=== PATIENT | female | born 1955 | race Caucasian/White ===

== ENCOUNTER 2020-04-22 14:20 | Outpatient (REF) | payer MEDICARE, MEDICAID, SELFPAY | END 2020-04-22 14:21 | disposition home or self-care (01) | LOC: HO.LAB 14:20 | PROVIDERS: PCP Internal Medicine; Visit Provider Internal Medicine | DX: Z20.828 Contact with and (suspected) exposure to other viral communicable diseases (principal) | CPT/HCPCS: C9803; U0003 ==

== ENCOUNTER 2020-04-25 08:07 | Day surgery (SDC) | payer MEDICARE, MEDICAID, SELFPAY ==
[2020-04-18 15:16] VITALS: BMI 44.6
--- NOTE | 2020-04-23 13:50 | P.CONAN_ITS ---
Documented by User: Yceenia Reed 04/23/20 13:51 HPI - Anesthesia Eval Consult details Narrative: 65yo F for Colonoscopy PMFSH Past Medical History Medical History Back pain Diabetes Diabetic peripheral vascular disorder Hypercholesterolemia Hypertension Hypothyroidism Peripheral vascular disease Surgical History Surgical History H/O right knee surgery History of History of thyroid surgery Social History Social History Smoking Status: Unknown if ever smoked Advance Directives: No Advance Directives Information Provided: No Advance Directives on File: No Meds Allergies Allergy/AdvReac Type Severity Reaction Status Date / Time No Known Allergies Allergy Verified 04/18/20 15:10 Home Medications Medication Instructions Recorded Confirmed Type amlodipine-benazepril 1 cap PO DAILY 04/18/20 04/18/20 History aspirin 325 mg PO DAILY 04/18/20 04/18/20 History atorvastatin 20 mg PO DAILY 04/18/20 04/18/20 History cholecalciferol (vitamin D3) 125 mcg PO DAILY 04/18/20 04/18/20 History [Vitamin D3] ibuprofen 600 mg PO BID 04/18/20 04/18/20 History levothyroxine [Synthroid] 150 mcg PO DAILY 04/18/20 04/25/20 History metformin 1,000 mg PO BID 04/18/20 04/18/20 History metoprolol succinate 50 mg PO DAILY 04/18/20 04/25/20 History nabumetone 500 mg PO BID 04/18/20 04/18/20 History pentoxifylline 400 mg PO DAILY 04/18/20 04/18/20 History Exam Exam Date and Time: April 23, 2020 1350 Height,Weight and Vital Signs: Height 5 ft 1 in Weight 107.048 kg Pertinent Lab Results Pertinent Lab Results: Laboratory Tests 01/19/20 01/19/20 09:40 09:40 WBC 6.9 Hgb 13.4 Hct 41.7 Plt Count 241 Sodium 138 Potassium 4.8 Chloride 103 BUN 20 H Creatinine 0.93 Assessment and Plan Assessment Anesthesia Assessment: Chart Reviewed Documented by User: Betty Mckee 04/25/20 09:00 PENDING SALE TO [facility] Past Medical History Medical History Back pain Diabetes Diabetic peripheral vascular disorder Hypercholesterolemia Hypertension Hypothyroidism Peripheral vascular disease Surgical History Surgical History H/O right knee surgery History of History of thyroid surgery Social History Social History Smoking Status: Unknown if ever smoked Advance Directives: No Advance Directives Information Provided: No Advance Directives on File: No Meds Allergies Allergy/AdvReac Type Severity Reaction Status Date / Time No Known Allergies Allergy Verified 04/18/20 15:10 Home Medications Medication Instructions Recorded Confirmed Type amlodipine-benazepril 1 cap PO DAILY 04/18/20 04/18/20 History aspirin 325 mg PO DAILY 04/18/20 04/18/20 History atorvastatin 20 mg PO DAILY 04/18/20 04/18/20 History cholecalciferol (vitamin D3) 125 mcg PO DAILY 04/18/20 04/18/20 History [Vitamin D3] ibuprofen 600 mg PO BID 04/18/20 04/18/20 History levothyroxine [Synthroid] 150 mcg PO DAILY 04/18/20 04/25/20 History metformin 1,000 mg PO BID 04/18/20 04/18/20 History metoprolol succinate 50 mg PO DAILY 04/18/20 04/25/20 History nabumetone 500 mg PO BID 04/18/20 04/18/20 History pentoxifylline 400 mg PO DAILY 04/18/20 04/18/20 History Exam Airway Mallampati Class: I TM Dist: >3cm Neck ROM: Full Loose/Missing/Broken Teeth: No Heart: RRR Lungs: CTA Assessment and Plan Assessment Anesthesia Assessment: Anesthesia Plan Discussed and Chart Reviewed Final Anesthetic Review NPO: Yes ASA Class: III Final Preanesthetic Review: Meds/Allgs Chart Reviewed, Consent Obtained/Reviewed and Anes Risks/Benef Reviewed Patient Risk: Intermediate Procedure Risk: Low Anesthetic Plan Anesthetic Plan: MAC: Disposition: Standard PACU
[2020-04-25 08:37] LABS: Glucose, Whole Blood 125 mg/dL (60-115)
[2020-04-25 08:39] VITALS: BP 151/88; PULSE 95; RESP 18; TEMP 36.2; O2SAT 98
[2020-04-25] MEDS: Lactated Ringers 1,000 ML 100 ML IVCONT (08:46)
--- NOTE | 2020-04-25 09:13 | PC.NURSE ---
laying on left side. no s/sx of resp distress. abd soft. no rectal bleeding noted. lungs clear.
--- NOTE | 2020-04-25 09:18 | P.HPSUR_ITS ---
Pre-Procedural Eval Section B Chief Complaint: SCREENING Details of Present Illness: colon cancer screening Relevant Family History (Specify if Yes): No Relevant Social History: None Present Medications: see Short Stay Collaborative assessment Medical History: Significant History (Hypothyroid on replacement therapy, Morbid Obesity, Diabetes,\Hypertension, HLD) History of Previous Operations: Relevant previous surgery/procedure and date(s) (colonoscopy-[place]? 7 years ago; Csection x3) Allergies: Allergies Allergy/AdvReac Type Severity Reaction Status Date / Time No Known Allergies Allergy Verified 04/18/20 15:10 Review of Systems Sugical H&P ROS: Negative: Constitution, Cardiovascular, Respiratory and Gastrointestinal and Yes, Specify: Musculoskeletal (peripheral vascular disease with meds) and Endocrine (Diabetic ) Exam Surgical H&P Exam: Normal: HEENT, Normal: Heart and Normal: Lungs and Sig nificant Findings: Abdomen (soft nontender obese) Plan Diagnosis/Plan: Unchanged Patient has been examined and remains a candidate for the planned procedure--yes
[2020-04-25 10:06] VITALS: BP 125/82; PULSE 92; RESP 12; TEMP 36.2; O2SAT 97
--- NOTE | 2020-04-25 10:07 | PM.PROC ---
Brief Operative Note Date of procedure: 04/25/20 Pre-op diagnosis: Colon cancer screening Post-op diagnosis: other (No polyps, area white flecking in Right colon) Procedure: Colonoscopy with bx Anesthesia: MAC (louann Kumar) Surgeon: Chelle Savage Estimated blood loss (mL): 10 Pathology: other (Right colon bx area of pinpt white exudate-bx) Condition: stable Disposition: PACU
--- NOTE | 2020-04-25 10:15 | PC.NURSE ---
lu po challenge. apple juice. hob 90 degrees. called for ride.
[2020-04-25 10:16] VITALS: BP 139/120; PULSE 85; RESP 16; O2SAT 98
--- NOTE | 2020-04-25 10:23 | PC.NURSE ---
iv removed. sitting in chair dressing self. lu po challenge. denies pain or nausea.
--- NOTE | 2020-04-25 10:37 | HO.POSTANES ---
Post Anesthesia Evaluation Post Anesthesia Evaluation Vital Signs: Vital Signs Temp Pulse Resp BP Pulse Ox 04/25/20 10:16 85 16 139/120 H 98 04/25/20 10:06 97.1 F 92 12 125/82 97 04/25/20 08:39 97.1 F 95 18 151/88 H 98 Anesthesia: Monitored Mental Status: Awake Pain Control: Satisfactory Nausea/Vomiting: None Hydration: Adequate Anesthesia-Related Issues: No Anes. Related Issues
--- NOTE | 2020-04-25 11:24 | OP_ITS ---
SURGEON: Chelle Savage MD POSTOPERATIVE DIAGNOSIS: Negative exam (area of white plaquing in the right colon for approximately 5 cm, question significant). PROCEDURE PERFORMED: Colonoscopy with biopsy. ESTIMATED BLOOD LOSS: Less than 10 mL. COMPLICATIONS: No complication. ANESTHESIA: Monitored. ANESTHESIOLOGIST: ARNIE Kumar ASSISTANTS: No assistant men's soccer coach. SPECIMENS: Specimen removed; biopsies, right colon area with white plaquing. PREOPERATIVE DIAGNOSES: Colon cancer screening. ENGINEERING MATHEMATICIAN: Dr. Savage. CONDITION: Postop, stable. FINDINGS: Digital rectal exam revealed no specific lesion. Video colonoscope was introduced without difficulty. It was navigated into the rectosigmoid, sigmoid area, mild redundancy in this area. Scope advanced through sigmoid, descending, transverse colon. Gentle extrinsic abdominal pressure facilitated movement into the region of the cecum. Appendiceal orifice was seen. Ileocecal valve was seen. Slow withdrawal of the scope in the ascending colon on the right side for a distance of approximately 5 cm. There were pinpoint areas of pinpoint white plaques.. No additional areas were noted. There were no polyps visualized. Overall prep was good. PLAN AND CURRENT RECOMMENDATIONS: Repeat asymptomatic screening in this patient will continue at 7 years. GRAFT OR IMPLANTS: No grafts or implants. Chelle Savage MD MEN/MODL / [id number] MTDD
== END 2020-04-25 10:53 | disposition home or self-care (01) ==
PROVIDERS: PCP Internal Medicine; Visit Provider Internal Medicine Gastroenterology
PROC: 0DJD8ZZ Inspection of Lower Intestinal Tract, Via Natural or Artificial Opening Endoscopic (ICD-10-PCS; CPT 45378; principal; 2020-04-25 09:30)
DX: Z12.11 Encounter for screening for malignant neoplasm of colon (principal); K52.9 Noninfective gastroenteritis and colitis, unspecified; I10 Essential (primary) hypertension; E03.9 Hypothyroidism, unspecified; E11.51 Type 2 diabetes mellitus with diabetic peripheral angiopathy without gangrene; Z79.84 Long term (current) use of oral hypoglycemic drugs; Z79.899 Other long term (current) drug therapy; Z79.82 Long term (current) use of aspirin
CPT/HCPCS: 45380; 82947; 88305

== ENCOUNTER → 2020-05-23 13:42 | Outpatient (BNVA) | payer MEDICARE, MEDICAID, SELFPAY | PROVIDERS: PCP Internal Medicine; Referring Provider Internal Medicine; Visit Provider Nurse Practitioner | DX: Z12.11 Encounter for screening for malignant neoplasm of colon (principal) | CPT/HCPCS: Q3014 ==

== ENCOUNTER 2020-06-17 08:44 | Outpatient (REF) | payer MEDICARE, MEDICAID, SELFPAY | END 2020-06-17 08:45 | disposition home or self-care (01) | LOC: HO.LAB 08:44 | PROVIDERS: PCP Internal Medicine; Visit Provider Internal Medicine | DX: Z20.822 Contact with and (suspected) exposure to COVID-19 (principal) | CPT/HCPCS: 36415; C9803; U0003 ==

== ENCOUNTER 2020-06-28 12:39 | Outpatient (REF) | payer MEDICARE, MEDICAID, SELFPAY | END 2020-06-28 12:40 | disposition home or self-care (01) | LOC: HO.LAB 12:39 | PROVIDERS: Visit Provider Internal Medicine | DX: Z20.822 Contact with and (suspected) exposure to COVID-19 (principal) | CPT/HCPCS: 36415; C9803; U0003 ==

== ENCOUNTER 2020-07-06 11:03 | Outpatient (REF) | payer MEDICARE, MEDICAID, SELFPAY | END 2020-07-06 11:04 | disposition home or self-care (01) | LOC: HO.LAB 11:03 | PROVIDERS: Visit Provider Internal Medicine | DX: Z20.822 Contact with and (suspected) exposure to COVID-19 (principal) | CPT/HCPCS: 36415; C9803; U0003 ==

== ENCOUNTER 2020-08-12 15:45 | Outpatient (REF) | payer MEDICARE, MEDICAID, SELFPAY ==
--- NOTE | ~2020-08-12 | XR_ITS ---
EXAMINATION: XR CHEST CLINICAL INFORMATION: Cough COMPARISON: None TECHNIQUE: 2 views of the chest were obtained. FINDINGS: The cardiac and mediastinal contours are normal. The lungs are clear. There is no pleural effusion or pneumothorax. There are degenerative changes of the spine. XR/XR chest 2V IMPRESSION: No evidence for acute disease in the chest.
== END 2020-08-12 15:46 | disposition home or self-care (01) ==
LOC: HO.XRAY 15:45
PROVIDERS: Visit Provider Internal Medicine
DX: R05 Cough (principal)
CPT/HCPCS: 71046

== ENCOUNTER → 2020-10-24 13:41 | Outpatient (BNVA) | payer MEDICARE, MEDICAID, SELFPAY | PROVIDERS: PCP Internal Medicine; Visit Provider Nurse Practitioner Gerontology | DX: E11.9 Type 2 diabetes mellitus without complications (principal); E78.00 Pure hypercholesterolemia, unspecified; I10 Essential (primary) hypertension; E66.01 Morbid (severe) obesity due to excess calories; Z68.41 Body mass index [BMI] 40.0-44.9, adult | CPT/HCPCS: 82947; 99212 ==

== ENCOUNTER 2020-10-25 09:58 | Outpatient (REF) | payer MEDICARE, MEDICAID, SELFPAY ==
[2020-10-25 10:36] LABS: MANUAL DIFF FLAG NO
[2020-10-25 10:45] LABS: Basophils Percent Auto 0.5 % (0-2); Eosinophils Absolute Auto 0.2 X10*3/uL (0.0-0.4); Eosinophils Percent Auto 2.2 % (0-4); Hematocrit 41.6 % (37-47); Hemoglobin 13.6 g/dl (12.0-16.0); Imm Gran Abs Auto 0.02 X10*3/uL (0.00-0.03); Imm Gran Pct Auto 0.3 % (0.0-0.4); Lymphocytes Absolute Auto 2.8 X10*3/uL (1.2-4.9); Mean Corpuscular HGB Conc 32.7 g/dl (31.0-35.0); Mean Corpuscular Hemoglobin 30.6 pg (27.0-33.0); Mean Corpuscular Volume 93.5 fL (80-98); Mean Platelet Volume 9.3 fL (9.4-12.3); Monocytes Absolute Auto 0.6 X10*3/uL (0.1-1.2); Monocytes Percent Auto 7.7 % (2-11); Neutrophils Absolute Auto 3.7 X10*3/uL (2.0-8.3); Neutrophils Percent Auto 51.3 % (45-73); Platelet Count 276 X10*3/uL (160-400); Red Blood Count 4.45 X10*6/uL (4.20-5.50); Red Cell Distribution Width 13.6 % (11.0-16.0); White Blood Count 7.3 X10*3/uL (4.8-10.8)
[2020-10-25 10:52] LABS: Estimated Average Glucose 128 mg/dL; Hemoglobin A1C 149.1554 umol/L; Hemoglobin A1c % 6.1 %
[2020-10-25 11:14] LABS: Alanine Aminotransferase 24 U/L (0-31); Albumin Level 3.9 g/dL (3.5-5.0); Alkaline Phosphatase 77 U/L (39-117); Aspartate Amino Transferase 17 U/L (5-31); Bilirubin Total 0.7 mg/dL (0.0-1.0); Blood Urea Nitrogen 20 mg/dL (9-16); Cholesterol 154 mg/dL; Estimated Glomerular Filt Rate > 60; Glucose Fasting 125 mg/dL (60-99); HDL Cholesterol 61 mg/dL; LDL Cholesterol Calculated 78 mg/dl; Total Protein 7.1 g/dL (6.5-8.0); Triglycerides 76 mg/dL
[2020-10-25 11:33] LABS: Anion Gap 13 (12-20); Calcium 10.5 mg/dL (8.4-10.2); Carbon Dioxide 28 mmol/L (22-29); Chloride 103 mmol/L (96-108); Potassium 5.3 mmol/L (3.3-5.1); Sodium 139 mmol/L (135-145)
[2020-10-25 12:21] LABS: Creatinine Urine 212.79 mg/dL
== END 2020-10-25 09:59 | disposition home or self-care (01) ==
LOC: HO.LAB 09:58
PROVIDERS: Nurse Practitioner Family; PCP Internal Medicine; Visit Provider Nurse Practitioner Gerontology
DX: B94.8 Sequelae of other specified infectious and parasitic diseases (principal); E11.9 Type 2 diabetes mellitus without complications
CPT/HCPCS: 36415; 80053; 80061; 82043; 83036; 85025

== ENCOUNTER 2020-10-29 10:33 | Outpatient (REF) | payer MEDICARE, MEDICAID, SELFPAY ==
[2020-10-29 12:03] LABS: Alanine Aminotransferase 23 U/L (0-31); Albumin Level 3.9 g/dL (3.5-5.0); Alkaline Phosphatase 68 U/L (39-117); Anion Gap 11 (12-20); Aspartate Amino Transferase 15 U/L (5-31); Bilirubin Total 0.7 mg/dL (0.0-1.0); Blood Urea Nitrogen 23 mg/dL (9-16); Calcium 10.3 mg/dL (8.4-10.2); Carbon Dioxide 29 mmol/L (22-29); Chloride 106 mmol/L (96-108); Cholesterol 157 mg/dL; Estimated Glomerular Filt Rate > 60; Glucose Fasting 122 mg/dL (60-99); HDL Cholesterol 60 mg/dL; LDL Cholesterol Calculated 83 mg/dl; Phosphorus 3.1 mg/dL (2.7-4.5); Potassium 5.4 mmol/L (3.3-5.1); Sodium 141 mmol/L (135-145); Total Protein 6.9 g/dL (6.5-8.0); Triglycerides 72 mg/dL
[2020-10-30 12:57] LABS: PTHI 64 pg/mL (14-64)
[2020-10-31 11:32] LABS: Calcium, Ionized 5.5 mg/dL (4.8-5.6)
[2020-11-06 20:46] LABS: Vitamin D 25-OH, D2 <4 ng/mL; Vitamin D 25-OH, D3 74 ng/mL; Vitamin D 25-OH, Total 74 ng/mL (30-100)
[2020-11-07 03:16] LABS: VITAMIN D (1,25 OH) D3 32 pg/mL; Vit D (1,25-Dihydroxy) Total 32 pg/mL (18-72); Vitamin D (1,25 OH) D2 <8 pg/mL
== END 2020-10-29 10:34 | disposition home or self-care (01) ==
LOC: HO.LAB 10:33
PROVIDERS: Absent Provider Nurse Practitioner Family; PCP Internal Medicine; Visit Provider Nurse Practitioner Gerontology
DX: E83.52 Hypercalcemia (principal); B94.8 Sequelae of other specified infectious and parasitic diseases; E78.00 Pure hypercholesterolemia, unspecified
CPT/HCPCS: 36415; 80053; 80061; 82306; 82330; 82652; 83735; 83970; 84100

== ENCOUNTER 2020-10-31 10:43 | Outpatient (REF) | payer MEDICARE, MEDICAID, SELFPAY ==
[2020-10-31 11:03] LABS: Total Volume 24 Hour Urine 2000 mL
[2020-10-31 11:56] LABS: Creatinine, 24Hr Urine 1.5 G/Day (1.0-2.0)
[2020-11-01 20:42] LABS: Calcium, 24 Hr Urine 260 mg/24 h; Calcium/Creatinine Ratio 181 mg/g creat (30-275); Creatinine 24Hr Urine 1.44 g/24 h (0.50-2.15)
== END 2020-10-31 10:44 | disposition home or self-care (01) ==
LOC: HO.LNP 10:43
PROVIDERS: Visit Provider Nurse Practitioner Gerontology
DX: E83.52 Hypercalcemia (principal)
CPT/HCPCS: 82340; 82570

== ENCOUNTER → 2020-11-15 11:34 | Outpatient (BNVA) | payer MEDICARE, MEDICAID, SELFPAY | PROVIDERS: PCP Internal Medicine; Visit Provider Dietitian, Registered | DX: E11.9 Type 2 diabetes mellitus without complications (principal) | CPT/HCPCS: 97802 ==

== ENCOUNTER 2020-11-25 09:37 | Outpatient (REF) | payer MEDICARE, MEDICAID, SELFPAY ==
[2020-11-25 11:06] LABS: Alanine Aminotransferase 22 U/L (0-31); Alkaline Phosphatase 70 U/L (39-117); Anion Gap 12 (12-20); Aspartate Amino Transferase 21 U/L (5-31); Bilirubin Total 0.8 mg/dL (0.0-1.0); Blood Urea Nitrogen 26 mg/dL (9-16); Calcium 10.3 mg/dL (8.4-10.2); Carbon Dioxide 26 mmol/L (22-29); Chloride 108 mmol/L (96-108); Estimated Glomerular Filt Rate > 60; Glucose Random 114 mg/dL (60-115); Potassium 5.1 mmol/L (3.3-5.1); Sodium 141 mmol/L (135-145)
== END 2020-11-25 09:38 | disposition home or self-care (01) ==
LOC: HO.LAB 09:37
PROVIDERS: PCP Internal Medicine; Visit Provider Nurse Practitioner Gerontology
DX: E11.9 Type 2 diabetes mellitus without complications (principal)
CPT/HCPCS: 36415; 80053

== ENCOUNTER → 2020-11-27 07:24 | Outpatient (BNVA) | payer MEDICARE, MEDICAID, SELFPAY | PROVIDERS: PCP Internal Medicine; Visit Provider Nurse Practitioner Gerontology | DX: E11.9 Type 2 diabetes mellitus without complications (principal); E78.00 Pure hypercholesterolemia, unspecified; I10 Essential (primary) hypertension; E66.01 Morbid (severe) obesity due to excess calories; E87.5 Hyperkalemia; E83.52 Hypercalcemia; E55.9 Vitamin D deficiency, unspecified; Z68.41 Body mass index [BMI] 40.0-44.9, adult | CPT/HCPCS: 82947; 99212 ==

== ENCOUNTER 2020-12-05 08:14 | Outpatient (REF) | payer MEDICARE, MEDICAID, SELFPAY ==
--- NOTE | ~2020-12-05 | XR_ITS ---
EXAMINATION: RIGHT KNEE AND RIGHT FOOT X-RAY CLINICAL INFORMATION: Pain COMPARISON: Previous right knee x-ray November 2019 TECHNIQUE: 4 views of the right knee 3 views of the right foot FINDINGS: Right knee: Bone alignment is normal. No fracture or dislocation is seen. There is arthritis at the femoral tibial and patellofemoral joints with joint space narrowing and osteophyte formation. There is a small joint effusion. Right foot: Bone alignment is normal. No fracture or dislocation is seen. There is mild arthritis at the talonavicular joint. The joint spaces are otherwise normal. There are calcaneal spurs. XR/XR foot RT 2V IMPRESSION: Right knee: Arthritis and small joint effusion. Right foot: Mild arthritis at the talonavicular joint and calcaneal spurs.
--- NOTE | ~2020-12-05 | XR_ITS ---
EXAMINATION: RIGHT KNEE AND RIGHT FOOT X-RAY CLINICAL INFORMATION: Pain COMPARISON: Previous right knee x-ray November 2019 TECHNIQUE: 4 views of the right knee 3 views of the right foot FINDINGS: Right knee: Bone alignment is normal. No fracture or dislocation is seen. There is arthritis at the femoral tibial and patellofemoral joints with joint space narrowing and osteophyte formation. There is a small joint effusion. Right foot: Bone alignment is normal. No fracture or dislocation is seen. There is mild arthritis at the talonavicular joint. The joint spaces are otherwise normal. There are calcaneal spurs. XR/XR knee RT 3V IMPRESSION: Right knee: Arthritis and small joint effusion. Right foot: Mild arthritis at the talonavicular joint and calcaneal spurs.
== END 2020-12-05 08:15 | disposition home or self-care (01) ==
LOC: HO.XRAY 08:14
PROVIDERS: PCP Internal Medicine; Visit Provider Internal Medicine
DX: M79.671 Pain in right foot (principal); M25.561 Pain in right knee
CPT/HCPCS: 73562; 73620

== ENCOUNTER → 2020-12-10 10:23 | Outpatient (BNVA) | payer MEDICARE, MEDICAID, SELFPAY | PROVIDERS: PCP Internal Medicine; Visit Provider Orthopaedic Surgery | DX: M17.11 Unilateral primary osteoarthritis, right knee (principal) | CPT/HCPCS: 99212 ==

== ENCOUNTER → 2020-12-27 11:33 | Outpatient (BNVA) | payer MEDICARE, MEDICAID, SELFPAY | PROVIDERS: PCP Internal Medicine; Visit Provider Dietitian, Registered | DX: E11.9 Type 2 diabetes mellitus without complications (principal) | CPT/HCPCS: 97803 ==

== ENCOUNTER 2021-01-02 20:25 | Emergency (ER) | payer MEDICARE, MEDICAID, SELFPAY ==
--- NOTE | ~2021-01-02 | XR_ITS ---
Examination: XR ankle LT min 3V, XR knee LT 3V Indication: fall Comparison: No pertinent prior studies are currently available for comparison. Technique: 4 plain film views of the left knee and 3 plain film views of the left ankle Findings: Left knee: Small joint effusion. Tricompartmental degenerative changes are seen with prominent osteophyte formation and chondrocalcinosis. Well-corticated ossifications along the quadriceps and patellar tendon again likely chronic in nature. I do not appreciate any acute fracture or dislocation. No bony destructive lesions or periosteal reaction. Left ankle: Diffuse soft tissue swelling about the ankle. Underlying bony structures however appear to be intact. I do not appreciate any acute fracture or dislocation. Ankle mortise appears intact. Prominent calcaneal heel spurs at the attachment point of the plantar aponeurosis and Achilles tendon XR/XR ankle LT min 3V Impression: Chronic appearing and degenerative changes but no acute fracture or dislocation. Diffuse soft tissue swelling about the ankle.
--- NOTE | ~2021-01-02 | XR_ITS ---
Examination: XR ankle LT min 3V, XR knee LT 3V Indication: fall Comparison: No pertinent prior studies are currently available for comparison. Technique: 4 plain film views of the left knee and 3 plain film views of the left ankle Findings: Left knee: Small joint effusion. Tricompartmental degenerative changes are seen with prominent osteophyte formation and chondrocalcinosis. Well-corticated ossifications along the quadriceps and patellar tendon again likely chronic in nature. I do not appreciate any acute fracture or dislocation. No bony destructive lesions or periosteal reaction. Left ankle: Diffuse soft tissue swelling about the ankle. Underlying bony structures however appear to be intact. I do not appreciate any acute fracture or dislocation. Ankle mortise appears intact. Prominent calcaneal heel spurs at the attachment point of the plantar aponeurosis and Achilles tendon XR/XR knee LT 3V Impression: Chronic appearing and degenerative changes but no acute fracture or dislocation. Diffuse soft tissue swelling about the ankle.
--- NOTE | 2021-01-02 20:36 | PC.NURSE ---
awaiting export sales manager services to triage
[2021-01-02 20:45] VITALS: BP 180/91; PULSE 90; RESP 18; TEMP 36.7; O2SAT 99; BMI 36.6
--- NOTE | 2021-01-02 22:38 | ED_ITS ---
HPI - Extremity Injury (Lower) General Chief Complaint: Extremity Injury, Lower Stated Complaint: knee inj Source: patient Mode of arrival: ambulatory Limitations: no limitations History of Present Illness HPI Narrative: 65-year-old female presents with injury sustained from a near fall. Stated that she hurt her left knee and ankle when she tripped. She did not hit her head, lose consciousness, or report any prodromal events. MD complaint: knee injury and ankle injury Onset (ago): hour(s) (2 hours prior to arrival) Place: home Severity: mild Severity scale (1-10): 3 Exacerbating factors: weight bearing, movement and palpation Context: fall Other symptoms: none Treatments prior to arrival: NSAIDS Related Data Home Medications Medication Instructions Recorded Confirmed ibuprofen 600 mg PO BID 04/18/20 12/05/20 nabumetone 500 mg PO BID 04/18/20 12/05/20 metoprolol succinate 50 mg 50 mg PO DAILY 11/27/20 12/05/20 tablet,extended release 24 hr Previous Rx's Medication Instructions Recorded blood sugar diagnostic #200 ea 04/25/20 albuterol sulfate 90 mcg/actuation 1 inh INHALATION QID PRN #8.5 g 07/20/20 aerosol inhaler aspirin 325 mg tablet 325 mg PO DAILY #90 tab 07/20/20 atorvastatin 20 mg tablet 20 mg PO DAILY #90 tab 07/20/20 bisacodyl 5 mg tablet,delayed 10 mg PO DAILY #30 tab 07/20/20 release lancets #100 ea 07/20/20 levothyroxine 150 mcg tablet 150 mcg PO DAILY #90 tab 07/20/20 metformin 1,000 mg tablet 1,000 mg PO BID #180 tab 07/20/20 pentoxifylline 400 mg 400 mg PO DAILY #90 tab 07/20/20 tablet,extended release fluticasone propionate 110 1 puff INHALATION BID #12 g 08/13/20 mcg/actuation HFA aerosol inhaler amlodipine 10 mg tablet 10 mg PO DAILY #90 tab 11/27/20 benazepril 10 mg tablet 10 mg PO DAILY #90 tab 11/27/20 cholecalciferol (vitamin D3) 25 25 mcg PO DAILY #90 cap 11/27/20 mcg (1,000 unit) capsule Allergies Allergy/AdvReac Type Severity Reaction Status Date / Time No Known Allergies Allergy Verified 01/02/21 20:44 Review of Systems Review of Systems: Constitutional: No Fever, No Chills ENT/Mouth: No Ear Pain, No Hoarseness, No sore throat Eyes: No Eye Pain, No Swelling, No Redness, No Foreign Body Cardiovascular: No Chest Pain, No SOB Respiratory: No Cough, No Dyspnea Gastrointestinal: No Nausea, No Vomiting, No Diarrhea, No abdominal Pain Genitourinary: No Dysuria, No Hematuria Musculoskeletal: positive left knee and ankle pain, No Myalgias, No Joint Swelling Skin: No Skin lacerations, No rash Neuro: No Weakness, No Numbness, No Paresthesias, No Loss of Consciousness, No Dizziness, No Headache Psych: No Anxiety/Panic, No Depression Heme/Lymph: no easy bruising, no Lymphadenopathy Endocrine: No Polyuria, No Polydipsia Yes all other systems are reviewed and are negative [facility] Past Medical History Attestation statement: The following information was validated with the patient. 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 Social History Social History Household Members: Spouse Housing: Apartment Alcohol intake: never Patient Tobacco Use Status: Never used Tobacco Tobacco use type: Cigarette Second Hand Smoke Exposure: No Advance Directives: No Advance Directives Information Provided: Yes Patient : No Current occupational status: unemployed Physical Exam Vital Signs: Vital Signs: Last Vital Signs Temp 98.1 F 01/02/21 20:45 Pulse 90 01/02/21 20:45 Resp 18 01/02/21 20:45 BP 180/91 H 01/02/21 20:45 Pulse Ox 99 01/02/21 20:45 Body Mass Index 36.6 Appearance: Alert. Oriented X3. No acute distress. Eyes: Pupils equal, round and reactive to light. ENT: Pharynx normal. Neck: Normal inspection. Neck supple. CVS: Normal heart rate and rhythm. Pulses normal. Respiratory: No respiratory distress. Breath sounds normal. Abdomen: Soft and nontender. Skin: Skin warm and dry. Normal skin color. Normal skin turgor. Extremities: No lower extremity edema. Full range of motion to bilateral lower extremities, equal pedal pulses, negative anterior posterior drawer, no appreciable swelling Neuro: No motor deficit. No sensory deficit. Course Course Course Narrative: 65-year-old female presents with injury sustained from a near mechanical fall to the left ankle and knee. Patient has known osteoarthritis, will order x-rays of the left knee and ankle. Patient is afebrile, nontoxic, no indication of prodromal events prior to her near fall. X-rays are negative for acute findings requiring emergent intervention. Known osteoarthritis re-demonstrated. Will have patient follow up with pain ma nagement. Patient verbalized understanding of and agrees to plan of care discharge home. biofuels product manager utilized for all correspondence, Google translate utilized for discharge instructions. MDM - Extremity Injury (Lower) Differential Diagnosis Differential diagnosis: Likely ankle sprain and strain, acute internal derangement of knee and ankle fracture Medical Records Attestation: I reviewed the patient's medical records. Imaging Data Knee and ankle x-ray: Attestation: I personally reviewed and interpreted this imaging study as follows: Radiologist's impression: Examination: XR ankle LT min 3V, XR knee LT 3V Indication: fall Comparison: No pertinent prior studies are currently available for comparison. Technique: 4 plain film views of the left knee and 3 plain film views of the left ankle Findings: Left knee: Small joint effusion. Tricompartmental degenerative changes are seen with prominent osteophyte formation and chondrocalcinosis. Well-corticated ossifications along the quadriceps and patellar tendon again likely chronic in nature. I do not appreciate any acute fracture or dislocation. No bony destructive lesions or periosteal reaction. Left ankle: Diffuse soft tissue swelling about the ankle. Underlying bony structures however appear to be intact. I do not appreciate any acute fracture or dislocation. Ankle mortise appears intact. Prominent calcaneal heel spurs at the attachment point of the plantar aponeurosis and Achilles tendon XR/XR ankle LT min 3V Impression: Chronic appearing and degenerative changes but no acute fracture or dislocation. Diffuse soft tissue swelling about the ankle. Discharge Plan Discharge Clinical Impression: Arthritis Patient Disposition: Home, Self-Care Instructions: Arthritis (ED) Additional Instructions: You were evaluated for injury sustained from a fall. X-rays are negative for acute fractures or findings requiring emergent intervention. You do have degenerative changes consistent with arthritis. Please follow up with interventional pain physician, Dr. Donis. Please take Tylenol as needed for pain management. Thank you for choosing this emergency department for evaluation. Please follow-up with primary care physician as needed. Return to the emergency department for any new, concerning, or worsening symptoms. Prescriptions: No Action (DME) Accu-Chek Fatoumata Plus test strp Strip See Rx Instructions .ROUTE .MEDSUPPLY Qty: 200 RF: 1 albuterol sulfate [Ventolin HFA] 90 mcg/actuation HFA aerosol inhaler 1 inh inhalation QID PRN (Reason: shortness of breath or wheezing) Qty: 8.5 RF: 1 aspirin 325 mg tablet 325 mg PO DAILY Qty: 90 RF: 1 atorvastatin 20 mg tablet 20 mg PO DAILY Qty: 90 RF: 1 metformin 1,000 mg tablet 1,000 mg PO BID Qty: 180 RF: 1 levothyroxine [Synthroid] 150 mcg tablet 150 mcg PO DAILY Qty: 90 RF: 1 pentoxifylline 400 mg tablet extended release 400 mg PO DAILY Qty: 90 RF: 1 bisacodyl 5 mg tablet,delayed release (DR/EC) 10 mg PO DAILY Qty: 30 RF: 0 (DME) lancets [Accu-Chek Softclix Lancets] Misc See Rx Instructions .ROUTE .MEDSUPPLY Qty: 100 RF: 0 Flovent HFA 110 mcg/actuation HFA aerosol inhaler 1 puff inhalation BID Qty: 12 RF: 1 ibuprofen 600 mg Tablet 600 mg PO BID RF: 0 nabumetone 500 mg Tablet 500 mg PO BID RF: 0 metoprolol succinate 50 mg tablet extended release 24 hr 50 mg PO DAILY RF: 0 cholecalciferol (vitamin D3) 25 mcg (1,000 unit) capsule 25 mcg PO DAILY Qty: 90 RF: 1 amlodipine 10 mg tablet 10 mg PO DAILY Qty: 90 RF: 1 benazepril 10 mg tablet 10 mg PO DAILY Qty: 90 RF: 1 Interventions: ED Discharge Assessment Last Done: 01/02/21 23:49 Discharge Date/Time: 01/02/21 23:51
[2021-01-02] MEDS: Acetaminophen 325 MG TABLET 975 MG PO (23:48)
== END 2021-01-02 23:51 | disposition home or self-care (01) ==
PROVIDERS: Emergency Provider Emergency Medicine; PCP Internal Medicine
DX: M17.12 Unilateral primary osteoarthritis, left knee (principal); M25.462 Effusion, left knee; M25.472 Effusion, left ankle; E11.9 Type 2 diabetes mellitus without complications; I10 Essential (primary) hypertension; E78.00 Pure hypercholesterolemia, unspecified; Z79.02 Long term (current) use of antithrombotics/antiplatelets; Z79.84 Long term (current) use of oral hypoglycemic drugs; Z79.899 Other long term (current) drug therapy; Z79.82 Long term (current) use of aspirin
CPT/HCPCS: 73562; 73610; 99283; 99284

== ENCOUNTER 2021-02-03 09:28 | Outpatient (REF) | payer MEDICARE, MEDICAID, SELFPAY ==
[2021-02-03 11:21] LABS: Alanine Aminotransferase 16 U/L (0-31); Alkaline Phosphatase 65 U/L (39-117); Anion Gap 14 (12-20); Aspartate Amino Transferase 16 U/L (5-31); Blood Urea Nitrogen 19 mg/dL (9-16); Calcium 10.4 mg/dL (8.4-10.2); Carbon Dioxide 25 mmol/L (22-29); Chloride 107 mmol/L (96-108); Cholesterol 121 mg/dL; Estimated Glomerular Filt Rate > 60; Glucose Fasting 117 mg/dL (60-99); HDL Cholesterol 47 mg/dL; LDL Cholesterol Calculated 61 mg/dl; Potassium 4.7 mmol/L (3.3-5.1); Sodium 141 mmol/L (135-145); Triglycerides 65 mg/dL
[2021-02-03 11:23] LABS: Creatinine Urine 99.78 mg/dL
[2021-02-03 11:43] LABS: Thyroid Stimulating Hormone 0.07 uIU/mL (0.32-4.0)
[2021-02-07 12:55] LABS: Vitamin D 25-OH, D2 <4 ng/mL; Vitamin D 25-OH, D3 41 ng/mL; Vitamin D 25-OH, Total 41 ng/mL (30-100)
== END 2021-02-03 09:29 | disposition home or self-care (01) ==
LOC: HO.LAB 09:28
PROVIDERS: PCP Internal Medicine; Visit Provider Internal Medicine
DX: E03.9 Hypothyroidism, unspecified (principal); E78.5 Hyperlipidemia, unspecified; E55.9 Vitamin D deficiency, unspecified; E11.9 Type 2 diabetes mellitus without complications
CPT/HCPCS: 36415; 80053; 80061; 82043; 82306; 84443

== ENCOUNTER → 2021-02-05 14:49 | Outpatient (BNVA) | payer MEDICARE, MEDICAID, SELFPAY | PROVIDERS: PCP Internal Medicine; Visit Provider Internal Medicine | DX: E03.9 Hypothyroidism, unspecified (principal); E55.9 Vitamin D deficiency, unspecified; E83.52 Hypercalcemia | CPT/HCPCS: 99212 ==

== ENCOUNTER → 2021-02-07 09:44 | Outpatient (BNVA) | payer MEDICARE, MEDICAID, SELFPAY | PROVIDERS: PCP Internal Medicine; Visit Provider Dietitian, Registered | DX: E11.9 Type 2 diabetes mellitus without complications (principal) | CPT/HCPCS: 97803 ==

== ENCOUNTER 2021-03-07 12:45 | Outpatient (REF) | payer MEDICARE, MEDICAID, SELFPAY ==
--- NOTE | ~2021-03-07 | MM_ITS ---
EXAMINATION: BONE DENSITOMETRY CLINICAL INDICATION: Asymptomatic menopausal state. COMPARISON: None (current study represents initial baseline exam). TECHNIQUE: Using a [employer] DXA System (software version: 13.1) manufactured by [employer], dual-energy x-ray absorptiometry was performed of the lumbar spine and left hip. The images are of good technical quality. Summary results are attached. FINDINGS: AP SPINE L1-L4 (excluding L3): The data of L1-L4 has been changed to exclude the L3 vertebral body, because probable degenerative changes at this level may cause overestimation of lumbar spine density. BMD 1.184 g/cm2, Z-score 0.5, T-score 0.1, normal. LEFT FEMUR, NECK: BMD 0.916 g/cm2, Z-score -0.2, T-score -0.9, normal. LEFT FEMUR, TOTAL: BMD 1.114 g/cm2, Z-score 1.1, T-score 0.8, normal. IDENTIFIED RISK FACTORS: Rheumatoid arthritis, recurrent falls, height loss, secondary osteoporosis, menopause. HISTORY OF FRACTURE: None listed. MEDICATIONS: Calcium supplements or multivitamin, vitamin D. MM/XR DEXA axial skeleton IMPRESSION: 1. DIAGNOSIS: Normal bone density based on the lowest T-score value of -0.9 in the femoral neck applying World Health Organization criteria. 2. 10-YEAR FRACTURE RISK PREDICTION, FRAX: Major osteoporotic fracture (clinical spine, forearm, hip or shoulder) 5.0%. Hip fracture 0.3%. 3. Treatment Recommendations: NOF guidelines recommend consideration for treatment in postmenopausal women and men age 50 and older presenting with the following: -A hip or vertebral (clinical or morphometric) fracture. -T-score less than or equal to -2.5 at the femoral neck or spine after appropriate evaluation to exclude secondary causes. -Low bone mass at the hip or spine and a 10-year fracture probability by FRAX of greater than or equal to 3% for hip fracture or greater than or equal to 20% for major osteoporotic fracture based on the [place] adapted WHO algorithm. 4. Other Recommendations: All treatment decisions require clinical judgment and consideration of individual patient factors, including patient preferences, comorbidities, previous drug use, risk factors not captured in the FRAX model (e.g. frailty, falls, vitamin D deficiency, increased bone turnover, interval significant decline in bone density) and possible under or overestimation of fracture risk by FRAX. FUTURE SCAN RECOMMENDATION: People with diagnosed cases of osteoporosis or at high risk for fracture should have regular bone mineral density tests. For patients eligible for Medicare, routine testing is allowed once every 2 years. The testing frequency can be increased to one year for patients who have rapidly progressing disease, those who are receiving or discontinuing medical therapy to restore bone mass, or have additional risk factors.
--- NOTE | ~2021-03-07 | MM_ITS ---
EXAMINATION: MM SCREENING DIGITAL BREAST TOMOSYNTHESIS, BILATERAL CLINICAL INFORMATION: Screening. Asymptomatic. The lifetime risk of breast cancer based on the Tyrer-Cuzick Model is 6%. COMPARISON: Mammography: 12/04/2019 (baseline) TECHNIQUE: Digital breast tomosynthesis is performed in both the craniocaudal and mediolateral oblique views along with computer-aided detection (CAD). Synthesized 2D images are generated from the tomosynthesis. FINDINGS: There are scattered areas of fibroglandular density (ACR BI-RADS breast composition Category b). There are no significant masses, abnormal calcifications, or other abnormalities. Parenchymal pattern is similar to baseline exam. The axilla and skin contours are unremarkable. MM/MM tomosynthesis screening BI IMPRESSION: No mammographic evidence of malignancy. ASSESSMENT: BI-RADS 1: Negative RECOMMENDATION: Routine annual mammography screening. This patient's information was entered into a reminder system with a target due date for their next mammogram.
== END 2021-03-07 12:46 | disposition home or self-care (01) ==
LOC: HO.MAMMO 12:45
PROVIDERS: Visit Provider Nurse Practitioner Family
DX: Z12.31 Encounter for screening mammogram for malignant neoplasm of breast (principal); Z13.820 Encounter for screening for osteoporosis; Z78.0 Asymptomatic menopausal state; M06.9 Rheumatoid arthritis, unspecified; Z91.81 History of falling; Z79.899 Other long term (current) drug therapy
CPT/HCPCS: 77063; 77067; 77080

== ENCOUNTER → 2021-03-13 09:53 | Outpatient (BNVA) | payer MEDICARE, MEDICAID, SELFPAY | PROVIDERS: PCP Internal Medicine; Visit Provider Obstetrics & Gynecology ==

== ENCOUNTER 2021-03-31 10:45 | Outpatient (REF) | payer MEDICARE, MEDICAID, SELFPAY ==
[2021-03-31 12:00] LABS: Free T4 (Free Thyroxine) 1.39 ng/dL (0.71-1.85); Thyroid Stimulating Hormone 0.98 uIU/mL (0.32-4.0); Vitamin D 25-OH Total 43.6 ng/mL (>30)
[2021-03-31 12:16] LABS: Alanine Aminotransferase 13 U/L (0-31); Alkaline Phosphatase 76 U/L (39-117); Anion Gap 11 (12-20); Aspartate Amino Transferase 15 U/L (5-31); Bilirubin Total 0.7 mg/dL (0.0-1.0); Blood Urea Nitrogen 19 mg/dL (9-16); Calcium 10.8 mg/dL (8.4-10.2); Carbon Dioxide 29 mmol/L (22-29); Chloride 108 mmol/L (96-108); Cholesterol 148 mg/dL; Estimated Glomerular Filt Rate > 60; Glucose Random 124 mg/dL (60-115); HDL Cholesterol 53 mg/dL; LDL Cholesterol Calculated 82 mg/dl; Phosphorus 3.3 mg/dL (2.7-4.5); Sodium 143 mmol/L (135-145); Total Protein 7.2 g/dL (6.5-8.0); Triglycerides 66 mg/dL
[2021-03-31 12:16] LABS: Creatinine Urine 116.03 mg/dL; Microalbum/Creatinine Ratio Ur 9.4 ug/mg cr
[2021-04-01 16:05] LABS: Calcium (PTHI) 10.6 mg/dL (8.6-10.4); PTHI 64 pg/mL (14-64)
== END 2021-03-31 10:46 | disposition home or self-care (01) ==
LOC: HO.LAB 10:45
PROVIDERS: PCP Internal Medicine; Visit Provider Internal Medicine
DX: E03.9 Hypothyroidism, unspecified (principal); E55.9 Vitamin D deficiency, unspecified; E78.5 Hyperlipidemia, unspecified; E11.9 Type 2 diabetes mellitus without complications
CPT/HCPCS: 36415; 80053; 80061; 82043; 82306; 83970; 84100; 84439; 84443

== ENCOUNTER 2021-04-05 09:11 | Outpatient (REF) | payer MEDICARE, MEDICAID, SELFPAY ==
[2021-04-05 10:06] LABS: Creatinine, mg/dL 60.11
[2021-04-05 13:52] LABS: Creatinine, 24Hr Urine 1.2 G/Day (1.0-2.0); Total Volume 24 Hour Urine 2000 mL
[2021-04-07 17:46] LABS: Calcium, 24 Hr Urine 244 mg/24 h; Calcium/Creatinine Ratio 200 mg/g creat (30-275); Creatinine 24Hr Urine 1.22 g/24 h (0.50-2.15)
== END 2021-04-05 09:12 | disposition home or self-care (01) ==
LOC: HO.LNP 09:11
PROVIDERS: Visit Provider Internal Medicine
DX: E83.52 Hypercalcemia (principal)
CPT/HCPCS: 82340; 82570

== ENCOUNTER → 2021-04-25 13:15 | Outpatient (BNVA) | payer MEDICARE, MEDICAID, SELFPAY | PROVIDERS: PCP Internal Medicine; Visit Provider Nurse Practitioner Gerontology | DX: E11.9 Type 2 diabetes mellitus without complications (principal); E78.00 Pure hypercholesterolemia, unspecified; E66.01 Morbid (severe) obesity due to excess calories; Z68.41 Body mass index [BMI] 40.0-44.9, adult; Z71.3 Dietary counseling and surveillance | CPT/HCPCS: 82947; 99212 ==

== ENCOUNTER → 2021-05-02 12:40 | Outpatient (BNVA) | payer MEDICARE, MEDICAID, SELFPAY | PROVIDERS: PCP Internal Medicine; Visit Provider Dietitian, Registered | DX: E11.9 Type 2 diabetes mellitus without complications (principal) | CPT/HCPCS: 97803 ==

== ENCOUNTER 2021-06-25 12:04 | Outpatient (REF) | payer MEDICARE, MEDICAID, SELFPAY ==
[2021-06-25 13:42] LABS: Alanine Aminotransferase 15 U/L (0-31); Alkaline Phosphatase 80 U/L (39-117); Anion Gap 12 (12-20); Aspartate Amino Transferase 16 U/L (5-31); Bilirubin Total 0.6 mg/dL (0.0-1.0); Blood Urea Nitrogen 20 mg/dL (9-16); Calcium 10.8 mg/dL (8.4-10.2); Carbon Dioxide 30 mmol/L (22-29); Chloride 104 mmol/L (96-108); Estimated Glomerular Filt Rate 55; Glucose Fasting 130 mg/dL (60-99); Potassium 5.1 mmol/L (3.3-5.1); Sodium 141 mmol/L (135-145); Total Protein 7.7 g/dL (6.5-8.0)
== END 2021-06-25 12:05 | disposition home or self-care (01) ==
LOC: HO.LAB 12:04
PROVIDERS: PCP Internal Medicine; Visit Provider Internal Medicine
DX: E11.9 Type 2 diabetes mellitus without complications (principal)
CPT/HCPCS: 36415; 80053

== ENCOUNTER 2021-07-15 08:59 | Outpatient (REF) | payer MEDICARE, MEDICAID, SELFPAY ==
[2021-07-15 10:44] LABS: Alanine Aminotransferase 12 U/L (0-31); Albumin Level 3.8 g/dL (3.5-5.0); Alkaline Phosphatase 77 U/L (39-117); Anion Gap 11 (12-20); Aspartate Amino Transferase 14 U/L (5-31); Bilirubin Total 0.6 mg/dL (0.0-1.0); Blood Urea Nitrogen 24 mg/dL (9-16); Calcium 10.3 mg/dL (8.4-10.2); Carbon Dioxide 28 mmol/L (22-29); Chloride 105 mmol/L (96-108); Cholesterol 177 mg/dL; Estimated Glomerular Filt Rate > 60; Glucose Fasting 110 mg/dL (60-99); HDL Cholesterol 59 mg/dL; LDL Cholesterol Calculated 106 mg/dl; Potassium 5.7 mmol/L (3.3-5.1); Sodium 138 mmol/L (135-145); Total Protein 6.9 g/dL (6.5-8.0); Triglycerides 64 mg/dL
[2021-07-15 11:06] LABS: Thyroid Stimulating Hormone 2.69 uIU/mL (0.32-4.0)
== END 2021-07-15 09:00 | disposition home or self-care (01) ==
LOC: HO.LAB 08:59
PROVIDERS: PCP Internal Medicine; Visit Provider Internal Medicine
DX: E89.0 Postprocedural hypothyroidism (principal); E11.9 Type 2 diabetes mellitus without complications; E78.5 Hyperlipidemia, unspecified
CPT/HCPCS: 36415; 80053; 80061; 84443

== ENCOUNTER 2021-07-17 09:52 | Outpatient (REF) | payer MEDICARE, MEDICAID, SELFPAY ==
--- NOTE | ~2021-07-17 | MM_ITS ---
EXAMINATION: BONE DENSITOMETRY CLINICAL INDICATION: Hyperparathyroidism, unspecified. COMPARISON: Bone densitometry 03/07/2021 (baseline - spine and hip). TECHNIQUE: Using a [employer] DXA System (software version: 13.1) manufactured by [employer], dual-energy x-ray absorptiometry was performed of the left forearm radius 33%. The images are of good technical quality. Summary results are attached. FINDINGS: LEFT FOREARM RADIUS 33%: BMD 0.949 g/cm2, Z-score 2.1, T-score 0.8, normal. Prior: Not previously measured. IDENTIFIED RISK FACTORS: Rheumatoid arthritis, hyperparathyroidism, menopause. HISTORY OF FRACTURE: None listed. MEDICATIONS: None listed. MM/XR DEXA appendicular skeleton IMPRESSION: 1. DIAGNOSIS: Normal bone density based on the lowest T-score value of 0.8 in the forearm radius 33% applying World Health Organization criteria. 2. 10-YEAR FRACTURE RISK PREDICTION, FRAX: Not performed in this patient without a femoral neck BMD measurement. See prior exam 03/07/2021. 3. Treatment Recommendations: NOF guidelines recommend consideration for treatment in postmenopausal women and men age 50 and older presenting with the following: -A hip or vertebral (clinical or morphometric) fracture. -T-score less than or equal to -2.5 at the femoral neck or spine after appropriate evaluation to exclude secondary causes. -Low bone mass at the hip or spine and a 10-year fracture probability by FRAX of greater than or equal to 3% for hip fracture or greater than or equal to 20% for major osteoporotic fracture based on the [place] adapted WHO algorithm. 4. Other Recommendations: All treatment decisions require clinical judgment and consideration of individual patient factors, including patient preferences, comorbidities, previous drug use, risk factors not captured in the FRAX model (e.g. frailty, falls, vitamin D deficiency, increased bone turnover, interval significant decline in bone density) and possible under or overestimation of fracture risk by FRAX. FUTURE SCAN RECOMMENDATION: People with diagnosed cases of osteoporosis or at high risk for fracture should have regular bone mineral density tests. For patients eligible for Medicare, routine testing is allowed once every 2 years. The testing frequency can be increased to one year for patients who have rapidly progressing disease, those who are receiving or discontinuing medical therapy to restore bone mass, or have additional risk factors.
--- NOTE | 2021-07-17 10:47 | ECG_ITS ---
Test Reason : e87.5 Blood Pressure : / mmHG Vent. Rate : 096 BPM Atrial Rate : 096 BPM P-R Int : 156 ms QRS Dur : 080 ms QT Int : 334 ms P-R-T Axes : 060 -10 042 degrees QTc Int : 421 ms Normal sinus rhythm Minimal voltage criteria for LVH, may be normal variant ( R in aVL ) Borderline ECG No previous ECGs available Referred By: Danika Rainey Electronically Signed By:KEAGAN GONSALVES
== END 2021-07-17 09:53 | disposition home or self-care (01) ==
LOC: HO.MAMMO 09:52
PROVIDERS: Absent Provider Internal Medicine; PCP Internal Medicine; Visit Provider Internal Medicine
DX: Z13.820 Encounter for screening for osteoporosis (principal); E21.3 Hyperparathyroidism, unspecified; E87.5 Hyperkalemia; Z78.0 Asymptomatic menopausal state
CPT/HCPCS: 77081; 93005

== ENCOUNTER 2021-07-29 09:39 | Outpatient (REF) | payer MEDICARE, MEDICAID, SELFPAY ==
[2021-07-29 11:22] LABS: Alanine Aminotransferase 11 U/L (0-31); Albumin Level 3.9 g/dL (3.5-5.0); Alkaline Phosphatase 72 U/L (39-117); Anion Gap 10 (12-20); Aspartate Amino Transferase 11 U/L (5-31); Bilirubin Total 0.6 mg/dL (0.0-1.0); Blood Urea Nitrogen 20 mg/dL (9-16); Calcium 10.7 mg/dL (8.4-10.2); Carbon Dioxide 32 mmol/L (22-29); Chloride 105 mmol/L (96-108); Estimated Glomerular Filt Rate 60; Glucose Random 119 mg/dL (60-115); Potassium 5.2 mmol/L (3.3-5.1); Sodium 142 mmol/L (135-145); Total Protein 7.1 g/dL (6.5-8.0)
== END 2021-07-29 09:40 | disposition home or self-care (01) ==
LOC: HO.LAB 09:39
PROVIDERS: PCP Internal Medicine; Visit Provider Internal Medicine
DX: E87.5 Hyperkalemia (principal)
CPT/HCPCS: 36415; 80053

== ENCOUNTER → 2021-08-11 10:47 | Outpatient (BNVA) | payer MEDICARE, MEDICAID, SELFPAY | PROVIDERS: PCP Internal Medicine; Visit Provider Internal Medicine | DX: E89.0 Postprocedural hypothyroidism (principal); E55.9 Vitamin D deficiency, unspecified; E21.3 Hyperparathyroidism, unspecified | CPT/HCPCS: Q3014 ==

== ENCOUNTER 2021-09-02 10:23 | Outpatient (REF) | payer OTHER, SELFPAY ==
[2021-09-02 12:16] LABS: Alanine Aminotransferase 13 U/L (0-31); Albumin Level 3.7 g/dL (3.5-5.0); Alkaline Phosphatase 68 U/L (39-117); Anion Gap 13 (12-20); Aspartate Amino Transferase 15 U/L (5-31); Bilirubin Total 0.9 mg/dL (0.0-1.0); Blood Urea Nitrogen 21 mg/dL (9-16); Calcium 10.3 mg/dL (8.4-10.2); Carbon Dioxide 27 mmol/L (22-29); Chloride 106 mmol/L (96-108); Estimated Glomerular Filt Rate 60; Glucose Random 104 mg/dL (60-115); Phosphorus 3.2 mg/dL (2.7-4.5); Potassium 4.6 mmol/L (3.3-5.1); Sodium 141 mmol/L (135-145); Total Protein 6.8 g/dL (6.5-8.0)
[2021-09-02 12:17] LABS: Free T4 (Free Thyroxine) 1.29 ng/dL (0.71-1.85); Thyroid Stimulating Hormone 1.93 uIU/mL (0.32-4.0)
[2021-09-03 16:01] LABS: Calcium (PTHI) 10.1 mg/dL (8.6-10.4); PTHI 75 pg/mL (16-77)
[2021-09-04 14:02] LABS: Vitamin D 25-OH Total 30.5 ng/mL (>30)
== END 2021-09-02 10:24 | disposition home or self-care (01) ==
LOC: HO.LAB 10:23
PROVIDERS: PCP Internal Medicine; Visit Provider Internal Medicine
DX: E21.3 Hyperparathyroidism, unspecified (principal); E55.9 Vitamin D deficiency, unspecified; E89.0 Postprocedural hypothyroidism
CPT/HCPCS: 36415; 80053; 82306; 83970; 84100; 84439; 84443

== ENCOUNTER 2021-09-11 13:43 | Outpatient (REF) | payer OTHER, SELFPAY ==
--- NOTE | ~2021-09-11 | US_ITS ---
EXAMINATION: US SOFT TISSUE OF THE NECK CLINICAL INFORMATION: Hyperparathyroidism, unspecified. COMPARISON: None TECHNIQUE: Linear transducer grayscale and color Doppler examination of the neck area. FINDINGS: The patient is status post thyroidectomy. Parathyroid tissue is not visualized. US/US soft tiss head and/or neck IMPRESSION: The parathyroid glands are not visualized.
== END 2021-09-11 13:44 | disposition home or self-care (01) ==
LOC: HO.US 13:43
PROVIDERS: PCP Internal Medicine; Visit Provider Internal Medicine
DX: E21.3 Hyperparathyroidism, unspecified (principal)
CPT/HCPCS: 76536

== ENCOUNTER 2021-09-17 10:27 | Emergency (ER) | payer OTHER, SELFPAY ==
[2021-09-17 10:39] VITALS: BP 192/94; PULSE 88; RESP 18; TEMP 36.7; O2SAT 99; BMI 37.1
--- NOTE | 2021-09-17 11:25 | ED.GENADULT ---
HPI - General Adult General Chief complaint: General Medical Stated complaint: lower back pain/shoulder pain Time Seen by Provider: 09/17/21 11:15 Source: patient Mode of arrival: ambulatory Limitations: no limitations History of Present Illness HPI narrative: Patient comes to the emergency room complaining of lower back pain that radiates towards the posterior aspect of the right leg. Symptoms have been ongoing for about a week, patient denies trauma. Patient states any time she tries to flex the hip or bends down she has a shooting pain running from the back towards the distal aspect of the right leg. Patient denies urinary/fecal incontinence/retention. Patient denies drug abuse. Related Data Home Medications Medication Instructions Recorded Confirmed ibuprofen 600 mg tablet 600 mg PO BID 04/18/20 08/11/21 nabumetone 500 mg tablet 500 mg PO BID 04/18/20 07/07/21 Previous Rx's Medication Instructions Recorded bisacodyl 5 mg tablet,delayed 10 mg PO DAILY #30 tab 07/20/20 release aspirin 325 mg tablet 325 mg PO DAILY #90 tab 01/10/21 albuterol sulfate 90 mcg/actuation 1 inh INHALATION QID PRN #8.5 g 06/19/21 aerosol inhaler (Ventolin HFA) amlodipine 10 mg tablet 10 mg PO DAILY #30 tab 06/19/21 metformin 1,000 mg tablet 1,000 mg PO BID #180 tab 06/19/21 metoprolol succinate 50 mg 50 mg PO DAILY 90 Days #90 tab 06/19/21 tablet,extended release 24 hr polyethylene glycol 3350 17 17 g PO DAILY PRN #119 g 06/19/21 gram/dose oral powder (Miralax) blood sugar diagnostic (OneTouch #100 ea 06/25/21 Verio test strips) lancets 33 gauge (OneTouch Delica #100 ea 06/25/21 Lancets) Synthroid 125 mcg tablet 125 mcg PO DAILY 90 Days #90 tab NS 07/07/21 (levothyroxine) blood pressure monitor #1 ea 07/07/21 benazepril 10 mg tablet 10 mg PO DAILY #90 tab 07/14/21 pentoxifylline 400 mg 400 mg PO DAILY #90 tab 07/30/21 tablet,extended release atorvastatin 20 mg tablet 20 mg PO DAILY #90 tab 09/08/21 fluticasone propionate 110 1 puff INHALATION BID #12 g 09/15/21 mcg/actuation HFA aerosol inhaler (Flovent HFA) cyclobenzaprine 10 mg tablet 10 mg PO TID PRN #6 tab 09/17/21 tramadol 50 mg tablet 50 mg PO BID PRN #6 tab 09/17/21 Allergies Allergy/AdvReac Type Severity Reaction Status Date / Time No Known Allergies Allergy Verified 08/11/21 12:17 Review of Systems Review of Systems: Constitutional : No Weight loss, No Fever, No Chills, No Night Sweats, No Fatigue, No Malaise ENT/Mouth : No Hearing loss, No Ear Pain, No Nasal Congestion, No Sinus Pain, No Hoarseness, No sore throat, No Rhinorrhea, No Swallowing Difficulty Eyes: No Eye Pain, No Swelling, No Redness, No Foreign Body, No Discharge, No Vision Changes Cardiovascular : No Chest Pain, No SOB, No Dyspnea on Exertion, No Orthopnea, No Edema, No Palpitations Respiratory : No Cough, No Sputum, No Wheezing, No Smoke Exposure, No Dyspnea Gastrointestinal : No Nausea, No Vomiting, No Diarrhea, No Constipation, No abdominal Pain, No Hematochezia, No Melena Genitourinary : no irregular bleeding, No Dysuria, No Urinary Frequency, No Hematuria, No Urinary Incontinence, No Urgency, No Flank Pain, No Urinary Flow Changes, No Hesitancy Musculoskeletal : Complaining of chronic bilateral knee pain, complaining 1 week of lower back pain with shooting pain radiating down the right leg Skin : No Skin Lesions, No rash Neuro : No Weakness, No Numbness, No Paresthesias, No Loss of Consciousness, No Dizziness, No Headache Psych : No Anxiety/Panic, No Depression, No SI/HI/AH/VH, No Social Issues, Heme/Lymph: No Bruising, No Bleeding,No Lymphadenopathy Endocrine : No Polyuria, No Polydipsia, No Temperature Intolerance [facility] Past Medical History Medical History Back pain Cough Degenerative arthritis Diabetes Diabetes Diabetic peripheral vascular disorder Dyslipidemia Essential hypertension High cholesterol Hypercholesterolemia Hyperparathyroidism Hypertension Hypothyroidism Obesity due to excess calories Peripheral vascular disease 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 Social History Social History Household Members: Spouse Housing: Apartment Alcohol intake: never Patient Tobacco Use Status: Never used Tobacco Tobacco use type: Cigarette e-Cigarette/Vaping Use: Never Used Second Hand Smoke Exposure: No Advance Directives: No Advance Directives Information Provided: Yes Patient : No service: No Current occupational status: unemployed Cognitive needs: No Hearing needs: No Vision needs: Yes (Glasses) Physical Exam ED Vital Signs: Vital Signs - 24 hr 09/17/21 10:39 Temperature 98.0 F Pulse Rate 88 Respiratory Rate 18 Blood Pressure 192/94 H Pulse Oximetry 99 BMI result Body Mass Index 37.1 Const Other: Appearance: Alert. Oriented X3. No acute distress. Eyes: Pupils equal, round and reactive to light. ENT: Pharynx normal. Neck: Normal inspection. Neck supple. No lymph nodes noted. No crepitus CVS: Normal heart rate and rhythm. Pulses normal. Normal S1 and S2 Respiratory: No respiratory distress. Breath sounds normal. No Wheezing. No rales Abdomen: Soft and nontender. No rigidity. No distention. Back: Pain to palpation over the lumbar area and right glute, shock-like sensation triggered with right hip flexion, positive straight leg raise test Skin: Skin warm and dry. Normal skin color. Normal skin turgor. Extremities: No lower extremity edema. No Lacerations. No Rash Neuro: Oriented X 3. No motor deficit. No sensory deficit. Moving all extremities. No slurred speech. CN 2 through 12 grossly intact Psych: calm, cooperative, normal affect Course Course Course Narrative: Patient states that she has not had nabumetone, naproxen or ibuprofen in several weeks. Patient received 1 IM dose of Decadron and Toradol. Discharge Plan Discharge Clinical Impression: Right lumbar radiculopathy Patient Disposition: Home, Self-Care Instructions: Lumbar Radiculopathy (ED) Additional Instructions: Please follow-up with your primary care physician brianneorrow. If you have any worsening or new symptoms, please return to the emergency room or call 911 Prescriptions: New tramadol 50 mg tablet 50 mg PO BID PRN (Reason: pain) Qty: 6 0RF cyclobenzaprine 10 mg tablet 10 mg PO TID PRN (Reason: muscle spasm) Qty: 6 0RF No Action bisacodyl 5 mg tablet,delayed release (DR/EC) 10 mg PO DAILY Qty: 30 0RF (DME) OneTouch Verio test strips Strip See Rx Instructions .Route Qty: 100 3RF Rx Instructions: test blood sugar once a day (DME) lancets [[employer] Delica Lancets] 33 gauge misc See Rx Instructions .Route Qty: 100 3RF Rx Instructions: Use 1 lancet once a day benazepril 10 mg tablet 10 mg PO DAILY Qty: 90 1RF pentoxifylline 400 mg tablet extended release 400 mg PO DAILY Qty: 90 1RF atorvastatin 20 mg tablet 20 mg PO DAILY Qty: 90 1RF Flovent HFA 110 mcg/actuation HFA aerosol inhaler 1 puff inhalation BID Qty: 12 1RF ibuprofen 600 mg Tablet 600 mg PO BID 0RF nabumetone 500 mg Tablet 500 mg PO BID 0RF aspirin 325 mg tablet 325 mg PO DAILY Qty: 90 1RF levothyroxine [Synthroid] 125 mcg tablet 125 mcg PO DAILY 90 Days Qty: 90 1RF Rx Instructions: SB, no substitutions. (DME) blood pressure monitor Kit See Rx Instructions .Route Qty: 1 0RF Rx Instructions: As directed albuterol sulfate [Ventolin HFA] 90 mcg/actuation HFA aerosol inhaler 1 inh inhalation QID PRN (Reason: shortness of breath or wheezing) Qty: 8.5 1RF amlodipine 10 mg tablet 10 mg PO DAILY Qty: 30 3RF metformin 1,000 mg tablet 1,000 mg PO BID Qty: 180 1RF metoprolol succinate 50 mg tablet extended release 24 hr 50 mg PO DAILY 90 Days Qty: 90 1RF polyethylene glycol 3350 [Miralax] 17 gram/dose powder 17 g PO DAILY PRN (Reason: constipation) Qty: 119 0RF
[2021-09-17] MEDS: dexAMETHasone sod phosphate 4 MG/ML VIAL 6 MG IM (11:48)
[2021-09-17] MEDS: Ketorolac Tromethamine 60 MG/2 ML VIAL IM (11:48)
== END 2021-09-17 12:08 | disposition home or self-care (01) ==
PROVIDERS: Emergency Provider Emergency Medicine; PCP Internal Medicine
DX: M54.16 Radiculopathy, lumbar region (principal); M54.50 Low back pain, unspecified; M79.604 Pain in right leg; Z79.899 Other long term (current) drug therapy; F17.210 Nicotine dependence, cigarettes, uncomplicated; Z71.6 Tobacco abuse counseling
CPT/HCPCS: 96372; 99283; 99284; J1100; J1885

== ENCOUNTER 2021-09-25 12:13 | Outpatient (REF) | payer OTHER, SELFPAY ==
--- NOTE | ~2021-09-25 | XR_ITS ---
EXAMINATION: XR LUMBOSACRAL SPINE WITH OBLIQUES CLINICAL INFORMATION: Sciatica right side COMPARISON: None TECHNIQUE: AP, both oblique, and lateral views of the lumbar spine. Lateral view of the lumbosacral junction. FINDINGS: Bone alignment is normal. No fracture or dislocation is seen. There is degenerative disc disease of the lower thoracic spine. Disc spaces are otherwise normal. There is lower lumbar spine facet arthritis. XR/XR lumbar spine 4V min IMPRESSION: Lower lumbar spine facet arthritis.
== END 2021-09-25 12:14 | disposition home or self-care (01) ==
LOC: HO.XRAY 12:13
PROVIDERS: PCP Internal Medicine; Visit Provider Internal Medicine
DX: M54.31 Sciatica, right side (principal)
CPT/HCPCS: 72110

== ENCOUNTER → 2021-10-24 12:40 | Outpatient (BNVA) | payer OTHER, SELFPAY | PROVIDERS: PCP Internal Medicine; Visit Provider Nurse Practitioner Gerontology | DX: E11.9 Type 2 diabetes mellitus without complications (principal); E78.00 Pure hypercholesterolemia, unspecified; E66.01 Morbid (severe) obesity due to excess calories; E89.0 Postprocedural hypothyroidism; I10 Essential (primary) hypertension; Z68.37 Body mass index [BMI] 37.0-37.9, adult; Z79.84 Long term (current) use of oral hypoglycemic drugs | CPT/HCPCS: 82947; 83036; 99212 ==

== ENCOUNTER → 2021-11-04 09:24 | Outpatient (REF) | payer OTHER, SELFPAY ==
--- NOTE | 2021-11-04 09:27 | CA_ITS ---
Acquisition Time: 2021-11-04 10:12:57 Total Exercise Time: 00:03:51 Test Indications: CP Medications: SEE CHART Protocol: DULCE Max HR: 157 BPM 100% of Pred: 156 BPM Max BP: 128/070 mmHG Max Work Load: 5.0 METS Exercise stress test with exercise 3 min 51 sec of Dulce protocol, ( spped in stage 2 reduced to 2.0 MPH due to difficulty keeping up) achieving 100% MPHR, 5 METs, with moderate shortness of breath and 6/10 mid chest tightness, with PACs noted, with normotensive response to exercise, without EKG changes meeting criteria for ischemia. In recovery her sob and chest tightness resolved. Test reviewed with Dr Brower. Message sent to ordering provider with report and recommendation for a pharmacological nuclear stress test for further evaluation. Referred By: Angela Foster Overread By: EDISON CLINE
== END ==
LOC: HO.CARD 09:24
PROVIDERS: Visit Provider Nurse Practitioner Family
DX: R07.9 Chest pain, unspecified (principal)
CPT/HCPCS: 93017

== ENCOUNTER 2021-11-18 11:30 | Outpatient (REF) | payer OTHER, SELFPAY ==
--- NOTE | ~2021-11-18 | XR_ITS ---
EXAMINATION: XR FOOT, RIGHT CLINICAL INFORMATION: Pain COMPARISON: Previous x-ray November 2020 TECHNIQUE: AP, lateral, and oblique views of the right foot. FINDINGS: Bone alignment is normal. No fracture or dislocation is seen. There is mild arthritis at the talar navicular joint. Joint spaces are otherwise normal. There are calcaneal spurs. XR/XR foot RT 2V IMPRESSION: Arthritis at the talar navicular joint and large calcaneal spurs.
--- NOTE | ~2021-11-18 | XR_ITS ---
EXAMINATION: XR SHOULDER, LEFT CLINICAL INFORMATION: Pain COMPARISON: Previous x-ray November 2019 TECHNIQUE: AP external rotation, Grashey, scapular Y, and axillary views of the left shoulder. FINDINGS: Bone alignment is normal. No fracture or dislocation is seen. The glenohumeral joint is normal. There is mild arthritis at the acromioclavicular joint. Soft tissues are unremarkable. XR/XR shoulder LT min 2V IMPRESSION: Mild arthritis at the acromioclavicular joint.
== END 2021-11-18 11:31 | disposition home or self-care (01) ==
LOC: HO.XRAY 11:30
PROVIDERS: PCP Internal Medicine; Visit Provider Internal Medicine
DX: M79.671 Pain in right foot (principal); M25.512 Pain in left shoulder
CPT/HCPCS: 73030; 73620

== ENCOUNTER → 2021-11-19 11:56 | Outpatient (BNVA) | payer OTHER, SELFPAY | PROVIDERS: PCP Internal Medicine; Visit Provider Internal Medicine | DX: E21.3 Hyperparathyroidism, unspecified (principal); E89.0 Postprocedural hypothyroidism; E55.9 Vitamin D deficiency, unspecified | CPT/HCPCS: Q3014 ==

== ENCOUNTER → 2021-11-25 12:53 | Outpatient (BNVA) | payer OTHER, SELFPAY | PROVIDERS: PCP Internal Medicine; Visit Provider Dietitian, Registered | DX: E11.9 Type 2 diabetes mellitus without complications (principal); E66.9 Obesity, unspecified; Z68.38 Body mass index [BMI] 38.0-38.9, adult; Z71.3 Dietary counseling and surveillance | CPT/HCPCS: 97803 ==

== ENCOUNTER → 2021-12-09 09:47 | Outpatient (REF) | payer OTHER, SELFPAY ==
--- NOTE | ~2021-12-09 | NM_ITS ---
Myocardial perfusion study Indication: Chest pain to evaluate for myocardial ischemia Technique: The patient was brought in for a Lexiscan perfusion study on 12/09/2021. Patient performed low-level exercise and was injected 0.4 mg of Lexiscan intravenously. Within a minute of injection, 35 mCi of sestamibi was given intravenously. Images were obtained using the SPECT gamma camera interlaced with the gating device. Images were obtained in supine position. Resting perfusion study was performed on 12/10/2021. Patient was administered 35 mCi of sestamibi intravenously at rest. Images were then obtained in supine position. Images obtained with and without CT attenuation. Total DLP 126 mGy-cm. Images were processed with the software and compared side to side in short axis, horizontal long axis and vertical long axis views. Findings: The stress perfusion study showed non attenuated images show minimal thinning in the distal septal and lateral wall with moderately reduced uptake. Remainder of the LV myocardium normally perfused. Attenuation corrected images show mildly reduced uptake in the apex of the LV myocardium. The gated study shows normal LV systolic function with calculated LVEF of 69%. LV cavity is normal in size. The gated study shows normal systolic wall thickening and contraction of segments. Resting study shows attenuated corrected images show minimal changes in perfusion pattern. Gating at rest reveals normal systolic wall motion with ejection fraction at 72%. The findings are consistent with no clear reversible defect suggesting ischemia, likely normal myocardial perfusion. NM/NM cardiolite stress test Impression: 1. Myocardial perfusion imaging study shows likely normal myocardial perfusion 2. Gated LVEF is 69% 3. Transient ischemic dilatation not present EKG is nondiagnostic for ischemia
--- NOTE | 2021-12-09 09:49 | CA_ITS ---
Acquisition Time: 2021-12-09 10:05:56 Total Exercise Time: 00:02:00 Test Indications: CP Medications: SEE CHART Protocol: LEXISCAN Max HR: 127 BPM 81% of Pred: 156 BPM Max BP: 134/086 mmHG Max Work Load: 1.0 METS Pharmacological stress test with Lexiscan injection, while sitting and kicking her legs, without anginal symptoms, without arrythmia, with normotensive response to injection, with nondiagnostic EKG for ischemia. Nuclear images pending. Test reviewed with Dr Huddleston. Referred By: Angela Foster Overread By: EDISON CLINE
== END ==
LOC: HO.CARD 09:47
PROVIDERS: PCP Internal Medicine; Visit Provider Nurse Practitioner Family
DX: R07.9 Chest pain, unspecified (principal)
CPT/HCPCS: 78452; 93017; A9500; J0280; J2785

== ENCOUNTER → 2021-12-29 12:41 | Outpatient (BNVA) | payer OTHER, SELFPAY | PROVIDERS: PCP Internal Medicine; Visit Provider Dietitian, Registered | DX: E11.9 Type 2 diabetes mellitus without complications (principal); Z71.3 Dietary counseling and surveillance | CPT/HCPCS: 97803 ==

== ENCOUNTER 2022-01-08 14:00 | Outpatient (RCR) | payer OTHER, SELFPAY ==
--- NOTE | 2021-12-16 14:56 | MHC.PT.EP ---
[facility] [place] [facility] [place] [facility] [place] [facility] [address] Brenda Rodriguez [address] [phone] F: [phone] F: [phone] F: [phone] F: [phone] Physical Therapy Plan of Care Date of Evaluation: Date of Surgery: Diagnosis: sciaitca R side Assessment: 66 y/o female referred to PT with sciatica. She has a history of LBP for several months that has recently worsened of insidious onset. Her pain is across low back and radiates into R LE resulting in pain and difficulty with standing, washing dishes, stairs, and walking. PMH significant for DM, HTN, and of note, she states she needs a TKA but needs to lose 40# first. Examination shows decreased lumbar AROM and R hip AROM, decreased B hip flexor/ HS length, pain, significant R genu valgus, and impaired gait pattern. Recommend PT 2x/week for 6 weeks to address impairments, implement HEP, and optimize functional mobility. Frequency and Duration: The patient will be seen 2x/week for 6 weeks Short Term Goals: 3 weeks 1. I with HEP 2. Pt will improve R hip flexion to neutral with pain < 3/10 3. Pt will be able to sit with lumbar neutral spine and pain < 3/10 Alf Goals: 6 weeks 1. I with HEP and self management of sx 2. Pt will improve R hip strength by one MMT grade to faciliate walking Treatment Plan: Modalities to reduce pain, spasms and effusion. Manual therapy to restore motion and function. Therapeutic exercise to improve strength and flexibility. Neuromuscular re-education for posture and balance. Therapeutic activities to return to functional activities of daily living. Electronically signed by: Fatou Mancuso PT Please sign and return to therapist. Thank you for your referral.
--- NOTE | 2022-02-24 14:51 | MHC.PT.DC ---
[facility] [place] [facility] [place] Office [place] Office [address] Brenda Rodriguez [address] [phone] F: [phone] F: [phone] F: [phone] F: [phone] Physical Therapy Discharge Report Diagnosis: sciaitca R side Date of Surgery: Date of Evaluation: 12/16/21 Date of Discharge: 02/24/22 Treatments to Date: 6 Cancellations to Date: 1 No Shows to Date: 1 Discharge Status: Independent with HEP Discharge Summary: Pt did not f/u with further visits. She was I with HEP at time of last visit. D/c at this time. Electronically signed by: Fatou Mancuso PT Please sign and return to therapist. Thank you for your referral.
== END 2022-02-24 14:54 | disposition home or self-care (01) ==
LOC: HO.PT 14:00
PROVIDERS: PCP Internal Medicine; Visit Provider Internal Medicine
DX: M54.31 Sciatica, right side (principal)
CPT/HCPCS: 97110; 97116; 97162

== ENCOUNTER 2022-01-09 13:38 | Outpatient (REF) | payer OTHER, SELFPAY ==
[2022-01-09 14:34] LABS: COVID-19 Test Negative (Negative)
== END 2022-01-09 13:39 | disposition home or self-care (01) ==
LOC: HO.LAB 13:38
PROVIDERS: Visit Provider Internal Medicine
DX: Z20.822 Contact with and (suspected) exposure to COVID-19 (principal)
CPT/HCPCS: 87635; C9803

== ENCOUNTER 2022-02-15 12:40 | Emergency (ER) | payer OTHER, SELFPAY ==
--- NOTE | ~2022-02-15 | XR_ITS ---
EXAMINATION: XR ANKLE, RIGHT CLINICAL INFORMATION: Swelling and pain. Fall. COMPARISON: Right foot 11/18/2021 TECHNIQUE: AP, lateral, and mortise views of the right ankle. FINDINGS: Soft tissue swelling around the ankle. There is no fracture. No dislocation. Ankle mortise is congruent. XR/XR ankle RT min 3V IMPRESSION: Soft tissue swelling around ankle. No fracture or dislocation.
--- NOTE | ~2022-02-15 | XR_ITS ---
EXAMINATION: XR WRIST, RIGHT CLINICAL INFORMATION: Right wrist pain status post fall. COMPARISON: None TECHNIQUE: PA, lateral, and oblique views of the right wrist. FINDINGS: Small osseous fragment is seen dorsally off of the proximal carpal row. The carpal bones are normally aligned. Mild to moderate soft tissue swelling is seen. XR/XR wrist RT min 3V IMPRESSION: Small osseous fragment seen dorsally off of the proximal carpal row has the appearance of an acute fracture. The exact donor site cannot be confirmed on the study, but could be off of the lunate bone. Correlate with physical exam.
--- NOTE | ~2022-02-15 | XR_ITS ---
EXAMINATION: XR KNEE, RIGHT CLINICAL INFORMATION: Right knee pain status post fall. COMPARISON: None TECHNIQUE: Four views of the right knee. FINDINGS: Moderate to severe tricompartmental degenerative joint changes are seen. There is no acute fracture, dislocation or joint effusion. The soft tissues are unremarkable. XR/XR knee RT 4V IMPRESSION: Moderate to severe tricompartmental degenerative joint changes without overt acute osseous abnormality.
[2022-02-15 13:49] VITALS: BP 178/91; PULSE 89; RESP 16; TEMP 36.3; O2SAT 99; BMI 36.4
--- NOTE | 2022-02-15 16:43 | ED_ITS ---
HPI - Fall General Chief Complaint: Fall Stated Complaint: fall 02/15/22 Time Seen by Provider: 02/15/22 16:43 Source: patient Mode of arrival: ambulatory Limitations: language barrier ( [place]e-speaking medical specialist or offered, patient requesting to use her son) History of Present Illness HPI Narrative: Patient presents emergency department for evaluation after a mechanical fall. She states that after returning from the store at home she attempted to get out of a car and she fell. Denies head strike, or loss of consciousness. Denies any neck pain. No anticoagulants. She is reporting pain to the right wrist, right knee, and right. ankle. She has been ambulating with the use of her cane and slow gait. Denies any numbness or tingling of the extremities Related Data Previous Rx's Medication Instructions Recorded Synthroid 125 mcg tablet 125 mcg PO DAILY 90 days #90 tabs 01/06/22 (levothyroxine) albuterol sulfate 90 mcg/actuation 1 inh inhalation QID PRN shortness 01/06/22 aerosol inhaler (Ventolin HFA) of breath or wheezing #8.5 grams amlodipine 10 mg tablet 10 mg PO DAILY 90 days #90 tabs 01/06/22 aspirin 325 mg tablet 325 mg PO DAILY #90 tabs 01/06/22 atorvastatin 40 mg tablet 40 mg PO BEDTIME #90 tabs 01/06/22 benazepril 10 mg tablet 10 mg PO DAILY #90 tabs 01/06/22 bisacodyl 5 mg tablet,delayed 10 mg PO DAILY 90 days #180 tabs 01/06/22 release blood pressure monitor #1 ea 01/06/22 blood sugar diagnostic (OneTouch #100 ea 01/06/22 Verio test strips) blood-glucose meter (OneTouch #1 ea 01/06/22 Verio Meter) chlorthalidone 25 mg tablet 25 mg PO DAILY 90 days #90 tabs 01/06/22 cyclobenzaprine 10 mg tablet 10 mg PO TID PRN muscle spasm #6 01/06/22 tabs famotidine 20 mg tablet 20 mg PO DAILY #90 tabs 01/06/22 fluticasone propionate 110 1 puff inhalation BID #12 grams 01/06/22 mcg/actuation HFA aerosol inhaler (Flovent HFA) hydrocortisone 2.5 % topical cream 1 appl topical BID itchy #30 grams 01/06/22 lancets 33 gauge (LucasTouch Delica #100 ea 01/06/22 Lancets) meloxicam 15 mg tablet 15 mg PO DAILY PRN pain 90 days 01/06/22 #90 tabs metformin 500 mg tablet 1,000 mg PO BID 90 days #360 tabs 01/06/22 metoprolol succinate 50 mg 50 mg PO DAILY 90 days #90 tabs 01/06/22 tablet,extended release 24 hr pentoxifylline 400 mg 400 mg PO DAILY #90 tabs 01/06/22 tablet,extended release polyethylene glycol 3350 17 17 g PO DAILY PRN constipation 01/06/22 gram/dose oral powder (Miralax) #119 grams tramadol 50 mg tablet 50 mg PO DAILY PRN pain 30 days 01/06/22 #30 tabs Allergies Allergy/AdvReac Type Severity Reaction Status Date / Time No Known Allergies Allergy Verified 02/15/22 13:51 Review of Systems Review of Systems: Constitutional: No weight loss, fever, chills, weakness or fatigue. Skin: No rash or itching. Cardiovascular: No chest pain, chest pressure or chest discomfort. No palpitations or pedal edema. Respiratory: No shortness of breath, cough or sputum production. Gastrointestinal: No nausea, vomiting or diarrhea. No abdominal pain o Genitourinary: No burning micturition. No urinary frequency or incontinence. Musculoskeletal: As noted in HPI Psychiatric: No depression or anxiety. Yes all other systems are reviewed and are negative PMFSH Past Medical History Attestation statement: The following information was validated with the patient. Source: old records reviewed Medical History Back pain Class 2 severe obesity with serious comorbidity and body mass index (BMI) of 38.0 to 38.9 in adult Cough Degenerative arthritis Diabetes Diabetes Diabetic peripheral vascular disorder Dyslipidemia Essential hypertension High cholesterol Hospital discharge follow-up Hypercholesterolemia Hyperparathyroidism Hypertension Hypothyroid Hypothyroidism Left shoulder pain Obesity due to excess calories Peripheral vascular disease [id number] condition Post-menopausal Right foot pain Right foot pain Right knee pain Right sided sciatica Screening for breast cancer Vitamin D deficiency Surgical History H/O right knee surgery History of History of esophagogastroduodenoscopy (EGD) (~2013) History of thyroid surgery Hx of colonoscopy Tubal ligation status Family History Family History Father Hypertension Mother No problems noted. Social History Social History Household Members: Spouse Housing: Apartment Alcohol intake: never Patient Tobacco Use Status: Never used Tobacco e-Cigarette/Vaping Use: Never Used Second Hand Smoke Exposure: No Advance Directives: No Advance Directives Information Provided: Yes service: No Current occupational status: unemployed Cognitive needs: Yes Hearing needs: No Vision needs: Yes (Glasses) Physical Exam Vital Signs: Vital Signs: Last Vital Signs Temp 97.3 F 02/15/22 13:49 Pulse 89 02/15/22 13:49 Resp 16 02/15/22 13:49 BP 178/91 H 02/15/22 13:49 Pulse Ox 99 02/15/22 13:49 O2 Del Method 02/15/22 13:49 BMI result Body Mass Index 36.4 Appearance: Alert.?Oriented to person, place and time. No acute distress.?Normal affect. Eyes: Pupils equal, round and reactive to light.? EOMI. No nystagmus. ENT: Pharynx normal.?? Neck: Normal inspection.? Neck supple.?? No midline cervical spine tenderness, step-offs, deformities CVS: Heart sounds normal. Normal heart rate and rhythm.? Pulses normal.?? Respiratory: No respiratory distress.? Lung sounds clear to auscultation bilaterally?? Abdomen: Soft and non-tender. Normoactive bowel sounds. Skin: Skin warm and dry.? Normal skin color.? Normal skin turgor.?? Extremities: right knee with visible bruising, no obvious deformity, full AROM, anterior drawer test negative, posterior drawer test negative. Right ankle with lateral malleolus swelling and bruising, decreased AROM. 2+ DP/PT pulse bilaterally. Right wrist swelling and bruising, 2+ radial pulse, No obvious deformity Neuro: Moves all extremities spontaneously. Sensation intact bilaterally. No focal neuro deficits. Ambulates with slow antalgic gait in the use of a cane Course Course Course Narrative: patient is a 66-year-old female being evaluated for a mechanical fall. No neurological deficits, no preceding symptoms prior to fall. No anticoagulant usage. No indication at this time for CT of the head or cervical spine. Will obtain x-ray imaging of the extremities to her pain. She is overall well- appearing, took nabumetone earlier today as schedules medication, has not yet taken any Tylenol. Reevaluation(s) Reevaluation #1: XR imaging of the right knee with severe degenerative changes no acute fracture dislocation. XR of the right wrist reveals a small osseous fragment dorsally off the proximal carpal row which may represent an acute fracture, which may be off the lunate bone. XR of the right ankle Reveals no acute fracture dislocation. suspect ankle pain to be related to sprain, will provide air cast, given her age would like to avoid use of crutches, to prevent any subsequent falls, she does have a cane available to her, she can bear weight as tolerated. Reviewed all findings with patient. Patient to follow-up with orthopedics outpatient, provided with contact information, advised follow-up with primary care provider as needed. Reviewed worrisome signs and symptoms to return back to the emergency department for. Patient verbalized understanding, was discharged home in stable condition. Time: 17:34 MDM - Fall Medical Records Attestation: I reviewed the patient's medical records. Imaging Data xr R knee: Radiologist's impression: XR/XR knee RT 4V IMPRESSION: Moderate to severe tricompartmental degenerative joint changes without overt acute osseous abnormality. xr r wrist: Radiologist's impression: XR/XR wrist RT min 3V IMPRESSION: Small osseous fragment seen dorsally off of the proximal carpal row has the appearance of an acute fracture. The exact donor site cannot be confirmed on the study, but could be off of the lunate bone. Correlate with physical exam. xr ankle: Radiologist's impression: XR/XR ankle RT min 3V IMPRESSION: Soft tissue swelling around ankle. No fracture or dislocation. Discharge Plan Discharge Clinical Impression: Right wrist fracture, Sprain of ankle, right Patient Disposition: Home, Self-Care Instructions: Ankle Sprain (ED), Wrist Fracture in Adults (ED), How to Use an Elastic Bandage (ED), R.I.C.E. Treatment (ED) Additional Instructions: As we discussed, the x-ray of your right wrist is concerning for a fracture. You have been placed in a splint, this should not get wet. This will stay intact until you follow-up with Orthopedics. You have been given their contact information, please call their office Wednesday morning to arrange for a follow- up. Continue taking Tylenol and nabumetone, as you are currently prescribed at home. Elevate your arm when resting. The x-ray of your right knee does not show any fracture or dislocation, there are significant degenerative/ arthritis type changes. The x-ray of your right ankle shows no fracture or dislocation, the pain and swelling is due to a sprain of the ankle, you have been given an Aircast to wear at all times when walking. You may put weight on this leg as tolerated. Continue to use your cane. Please be sure to rest, apply ice for 15 minutes 3-4 times daily, use Alec bandage for compression, and elevate the leg above your chest. Contact your primary care provider in arrange for a follow-up visit. Return to the emergency department with any new or worsening symptoms or concerns. Prescriptions: No Action albuterol sulfate [Ventolin HFA] 90 mcg/actuation HFA aerosol inhaler 1 inh inhalation QID PRN (Reason: shortness of breath or wheezing) Qty: 8.5 1RF amlodipine 10 mg tablet 10 mg PO DAILY 90 Days Qty: 90 1RF aspirin 325 mg tablet 325 mg PO DAILY Qty: 90 1RF atorvastatin 40 mg tablet 40 mg PO BEDTIME Qty: 90 3RF benazepril 10 mg tablet 10 mg PO DAILY Qty: 90 1RF bisacodyl 5 mg tablet,delayed release (DR/EC) 10 mg PO DAILY 90 Days Qty: 180 1RF chlorthalidone 25 mg tablet 25 mg PO DAILY 90 Days Qty: 90 0RF (DME) OneTouch Verio test strips Strip See Rx Instructions .Route Qty: 100 3RF Rx Instructions: test blood sugar once a day (DME) blood pressure monitor Kit See Rx Instructions .Route Qty: 1 0RF Rx Instructions: As directed (DME) blood-glucose meter [OneTouch Verio Meter] [facility] [place], [place] See Rx Instructions .ROUTE .MEDSUPPLY Qty: 1 0RF Rx Instructions: As directed once a day cyclobenzaprine 10 mg tablet 10 mg PO TID PRN (Reason: muscle spasm) Qty: 6 0RF famotidine 20 mg tablet 20 mg PO DAILY Qty: 90 0RF Flovent HFA 110 mcg/actuation HFA aerosol inhaler 1 puff inhalation BID Qty: 12 1RF hydrocortisone 2.5 % cream 1 appl topical BID Qty: 30 0RF (DME) lancets [OneTouch Delica Lancets] 33 gauge misc See Rx Instructions .Route Qty: 100 3RF Rx Instructions: Use 1 lancet once a day meloxicam 15 mg tablet 15 mg PO DAILY PRN (Reason: pain) 90 Days Qty: 90 0RF metformin 500 mg tablet 1,000 mg PO BID 90 Days Qty: 360 1RF metoprolol succinate 50 mg tablet extended release 24 hr 50 mg PO DAILY 90 Days Qty: 90 1RF pentoxifylline 400 mg tablet extended release 400 mg PO DAILY Qty: 90 1RF polyethylene glycol 3350 [Miralax] 17 gram/dose powder 17 g PO DAILY PRN (Reason: constipation) Qty: 119 0RF levothyroxine [Synthroid] 125 mcg tablet 125 mcg PO DAILY 90 Days Qty: 90 1RF Rx Instructions: SB, no substitutions. tramadol 50 mg tablet 50 mg PO DAILY PRN (Reason: pain) 30 Days Qty: 30 0RF Referrals: Linda Middleton PA-C [Physician Instrumentation And Control Technician] - 1 week Danika Arriaga MD [Primary Care Provider] -
== END 2022-02-15 18:29 | disposition home or self-care (01) ==
PROVIDERS: Emergency Provider Internal Medicine; PCP Internal Medicine
DX: S62.101A Fracture of unspecified carpal bone, right wrist, initial encounter for closed fracture (principal); S93.401A Sprain of unspecified ligament of right ankle, initial encounter; M25.561 Pain in right knee; M25.531 Pain in right wrist; W01.0XXA Fall on same level from slipping, tripping and stumbling without subsequent striking against object, initial encounter; Y93.9 Activity, unspecified; Y92.810 Car as the place of occurrence of the external cause; Y99.9 Unspecified external cause status; Z79.899 Other long term (current) drug therapy
CPT/HCPCS: 29515; 73110; 73564; 73610; 99282; 99283

== ENCOUNTER → 2022-02-19 10:53 | Outpatient (BNVA) | payer OTHER, SELFPAY | PROVIDERS: Visit Provider Physician Assistant | DX: S93.401A Sprain of unspecified ligament of right ankle, initial encounter (principal); S62.101A Fracture of unspecified carpal bone, right wrist, initial encounter for closed fracture; E11.9 Type 2 diabetes mellitus without complications | CPT/HCPCS: 29085; 97803; 99202 ==

== ENCOUNTER 2022-03-19 12:00 | Outpatient (REF) | payer OTHER, SELFPAY ==
--- NOTE | ~2022-03-19 | XR_ITS ---
EXAMINATION: XR WRIST, RIGHT CLINICAL INFORMATION: Wrist pain. Question avulsion fracture dorsum rest on prior imaging. COMPARISON: Right wrist radiographs 02/15/2022. TECHNIQUE: Right wrist is imaged in 3 views. FINDINGS: There is no fracture line or dislocation or destructive process. The ulnar variance is neutral. The small ossific fragment dorsum midfoot carpus noted on prior exam 02/15/2022 is not demonstrated, possibly related to slight variance in positioning. There is no interval joint narrowing or erosive changes. No acute abnormality. XR/XR wrist RT min 3V IMPRESSION: -No visible fracture or dislocation. -Ossific fragment mid dorsal wrist noted on prior study 02/15/2022 is not visible on current exam which could be related to slight variance in positioning.
== END 2022-03-19 12:01 | disposition home or self-care (01) ==
LOC: HO.HOSX 12:00
PROVIDERS: Visit Provider Physician Assistant
DX: S62.101D Fracture of unspecified carpal bone, right wrist, subsequent encounter for fracture with routine healing (principal); S93.401D Sprain of unspecified ligament of right ankle, subsequent encounter
CPT/HCPCS: 29085; 73110; 99212

== ENCOUNTER 2022-03-30 10:36 | Outpatient (REF) | payer OTHER, SELFPAY ==
[2022-03-30 12:24] LABS: Alanine Aminotransferase 15 U/L (0-31); Alkaline Phosphatase 60 U/L (39-117); Anion Gap 16 (12-20); Aspartate Amino Transferase 16 U/L (5-31); Bilirubin Total 0.9 mg/dL (0.0-1.0); Blood Urea Nitrogen 31 mg/dL (9-16); Calcium 10.4 mg/dL (8.4-10.2); Carbon Dioxide 29 mmol/L (22-29); Chloride 102 mmol/L (96-108); Cholesterol 127 mg/dL; Estimated Glomerular Filt Rate 49; Glucose Fasting 140 mg/dL (60-99); HDL Cholesterol 51 mg/dL; LDL Cholesterol Calculated 65 mg/dl; Potassium 4.5 mmol/L (3.3-5.1); Sodium 142 mmol/L (135-145); Triglycerides 58 mg/dL
[2022-03-30 12:29] LABS: Thyroid Stimulating Hormone 1.22 uIU/mL (0.32-4.0); Vitamin D 25-OH Total 30.4 ng/mL (>30)
[2022-03-30 12:40] LABS: Creatinine Urine 100.28 mg/dL; Microalbum/Creatinine Ratio Ur 4.9 ug/mg cr
== END 2022-03-30 10:37 | disposition home or self-care (01) ==
LOC: HO.LAB 10:36
PROVIDERS: PCP Internal Medicine; Visit Provider Internal Medicine
DX: E11.9 Type 2 diabetes mellitus without complications (principal); E55.9 Vitamin D deficiency, unspecified; E78.5 Hyperlipidemia, unspecified; E03.9 Hypothyroidism, unspecified
CPT/HCPCS: 36415; 80053; 80061; 82043; 82306; 84443

== ENCOUNTER 2022-04-14 | Outpatient (REF) | payer OTHER, SELFPAY ==
--- NOTE | ~2022-04-14 | XR_ITS ---
EXAMINATION: XR WRIST, RIGHT CLINICAL INFORMATION: Pain. COMPARISON: Right wrist 03/19/2022 TECHNIQUE: PA, lateral, and oblique views of the right wrist. FINDINGS: No bone fragment is seen adjacent to the dorsal proximal carpal bones at this time. The fragment may be observed or displaced over time. However there is moderate wrist soft tissue swelling. No acute fracture or dislocation seen. XR/XR wrist RT min 3V IMPRESSION: 1. Moderate wrist soft tissue swelling. No visible acute fracture or dislocation seen. The bone fragment adjacent to the dorsal proximal carpal bones may be displaced or absorbed over time. Recommend CT wrist correlation if patient has persistent pain.
== END 2022-04-14 00:01 | disposition home or self-care (01) ==
LOC: HO.HOSX
PROVIDERS: Visit Provider Physician Assistant
DX: S62.101D Fracture of unspecified carpal bone, right wrist, subsequent encounter for fracture with routine healing (principal); S93.401D Sprain of unspecified ligament of right ankle, subsequent encounter; W17.89XD Other fall from one level to another, subsequent encounter; Z79.899 Other long term (current) drug therapy
CPT/HCPCS: 73110; 99212

== ENCOUNTER → 2022-05-12 13:07 | Outpatient (BNVA) | payer OTHER, SELFPAY | PROVIDERS: PCP Internal Medicine; Visit Provider Physician Assistant | DX: S62.101D Fracture of unspecified carpal bone, right wrist, subsequent encounter for fracture with routine healing (principal) | CPT/HCPCS: 99212 ==

== ENCOUNTER 2022-05-15 14:32 | Outpatient (REF) | payer OTHER, SELFPAY ==
[2022-05-15 15:54] LABS: Calcium 10.4 mg/dL (8.4-10.2); Chloride 99 mmol/L (96-108); Free T4 (Free Thyroxine) 1.27 ng/dL (0.71-1.85); Sodium 135 mmol/L (135-145); Thyroid Stimulating Hormone 1.53 uIU/mL (0.32-4.0); Vitamin D 25-OH Total 35.9 ng/mL (>30)
[2022-05-15 16:17] LABS: Alanine Aminotransferase 17 U/L (0-31); Alkaline Phosphatase 69 U/L (39-117); Anion Gap 13 (12-20); Aspartate Amino Transferase 16 U/L (5-31); Bilirubin Total 0.8 mg/dL (0.0-1.0); Blood Urea Nitrogen 25 mg/dL (9-16); Carbon Dioxide 28 mmol/L (22-29); Estimated Glomerular Filt Rate 50; Glucose Random 194 mg/dL (60-115); Phosphorus 2.2 mg/dL (2.7-4.5); Total Protein 7.1 g/dL (6.5-8.0)
[2022-05-17 15:39] LABS: Calcium (PTHI) 10.7 mg/dL (8.6-10.4); PTHI 76 pg/mL (16-77)
== END 2022-05-15 14:33 | disposition home or self-care (01) ==
LOC: HO.LAB 14:32
PROVIDERS: PCP Internal Medicine; Visit Provider Internal Medicine
DX: E55.9 Vitamin D deficiency, unspecified (principal); E21.3 Hyperparathyroidism, unspecified; E03.9 Hypothyroidism, unspecified
CPT/HCPCS: 36415; 80053; 82306; 83970; 84100; 84439; 84443

== ENCOUNTER → 2022-05-20 12:57 | Outpatient (BNVA) | payer OTHER, SELFPAY | PROVIDERS: PCP Internal Medicine; Visit Provider Internal Medicine | DX: E21.3 Hyperparathyroidism, unspecified (principal); E89.0 Postprocedural hypothyroidism; E55.9 Vitamin D deficiency, unspecified | CPT/HCPCS: 99212 ==

== ENCOUNTER → 2022-05-21 13:02 | Outpatient (BNVA) | payer OTHER, SELFPAY | PROVIDERS: PCP Internal Medicine; Visit Provider Dietitian, Registered | DX: E11.9 Type 2 diabetes mellitus without complications (principal); Z71.3 Dietary counseling and surveillance | CPT/HCPCS: 97803 ==

== ENCOUNTER 2022-06-10 15:05 | Outpatient (REF) | payer OTHER, SELFPAY ==
--- NOTE | ~2022-06-10 | MM_ITS ---
EXAMINATION: MM SCREENING DIGITAL BREAST TOMOSYNTHESIS, BILATERAL CLINICAL INFORMATION: Screening. Asymptomatic. The lifetime risk of breast cancer based on the Tyrer-Cuzick Model is 5.2%. COMPARISON: Mammography: March 07, 2021 and December 04, 2019 TECHNIQUE: Digital breast tomosynthesis is performed in both the craniocaudal and mediolateral oblique views along with computer-aided detection (CAD). Synthesized 2D images are generated from the tomosynthesis. FINDINGS: The breasts are heterogeneously dense, which may obscure small masses (ACR BI-RADS breast composition Category c). There are no significant masses, abnormal calcifications, or other abnormalities. MM/MM tomosynthesis screening BI IMPRESSION: No significant changes from prior exam. ASSESSMENT: BI-RADS 1: Negative RECOMMENDATION: Routine annual mammography screening. This patient's information was entered into a reminder system with a target due date for their next mammogram.
== END 2022-06-10 15:06 | disposition home or self-care (01) ==
LOC: HO.MAMMO 15:05
PROVIDERS: PCP Internal Medicine; Visit Provider Internal Medicine
DX: Z12.31 Encounter for screening mammogram for malignant neoplasm of breast (principal)
CPT/HCPCS: 77063; 77067

== ENCOUNTER 2022-06-12 13:00 | Outpatient (RCR) | payer OTHER, SELFPAY ==
--- NOTE | 2022-05-14 14:02 | MHC.OT.EP ---
[address] [phone] Occupational Therapy Plan of Care Date of Evaluation: 05/14/22 Diagnosis: Right DRF Assessment: 67 yo right hand dominant female presents about three months s/p fall w/ right distal radius fx. She was casted for about a month and then placed in splint, now referred to therapy for further management. PLF, she lives with her and is Ind w/ most daily activities, she is on disability due to back pain and has trouble w/ some homecare and self care, but now worsened due to pain and limitations w/ wrist. On assessment, she has good rotation and extension of right wrist, but limited flexion and gross grasp. She continues to have some tenderness and swelling at base of right thumb/distal radius. She is very agreeable and motivated and will benefit from cont'd therapy services to address these issues w/ goal of good functional return. [id number] Frequency and Duration: The patient will be seen 2x/wk for 4 weeks Short Term Goals: Ind w/ HEP Ind w/ use of heat and cold appropriately Wrist flex to 50 degrees Gross grasp to 20lb Senior Living Goals: QuickDASH score <30 pts Gross grasp >35lb Wrist flex to 50 degrees Pt to demo good use of right hand w/ bimanual functional tasks in clinic Pain free at rest Treatment Plan: Therapeutic Exercise Therapeutic Activity Home Exercise Program Splinting Patient Education Edema Control ADL Training Paraffin Fluidotherapy MHP Cold Packs Joint Mobilization Soft Tissue Mobilization Kinesiotaping Electronically Signed By: Larissa Ventura OTR/L CHT Please Sign and return to therapist. Thank you once again for your referral.
--- NOTE | 2022-06-16 13:17 | MHC.OT.DC ---
[address] [phone] F: [phone] Occupational Therapy Discharge Note Provider: Lindsay Barrera PA-C Diagnosis: Right DRF Date of Evaluation: 05/14/22 Date of Discharge: 06/12/22 Treatments to Date: 8 Discharge Status: Achieved Goals Independent with HEP Discharge Summary: Paige is about four months s/p right distal radius fracture and doing very well. She has met all goals and reports no functional limitations and is pain free at most times. She is Ind w/ HEP and will continue stretching, strengthening and functional use of right hand w/ daily activities. Electronically Signed By: Larissa Ventura OTR/L CHT Reviewed/agree with student documentation: Therapist: Please Sign and return to therapist, thank you for your referral.
== END 2022-06-16 13:18 | disposition home or self-care (01) ==
LOC: HO.OT 13:00
PROVIDERS: PCP Internal Medicine; Visit Provider Physician Assistant
DX: S52.501A Unspecified fracture of the lower end of right radius, initial encounter for closed fracture (principal)
CPT/HCPCS: 97110; 97165

== ENCOUNTER 2022-07-29 11:11 | Outpatient (REF) | payer OTHER, SELFPAY ==
[2022-07-29 12:38] LABS: Alanine Aminotransferase 16 U/L (0-31); Albumin Level 3.9 g/dL (3.5-5.0); Alkaline Phosphatase 68 U/L (39-117); Anion Gap 13 (12-20); Aspartate Amino Transferase 17 U/L (5-31); Bilirubin Total 0.9 mg/dL (0.0-1.0); Blood Urea Nitrogen 23 mg/dL (9-16); Calcium 10.6 mg/dL (8.4-10.2); Carbon Dioxide 29 mmol/L (22-29); Chloride 103 mmol/L (96-108); Cholesterol 164 mg/dL; Estimated Glomerular Filt Rate 54; Glucose Fasting 129 mg/dL (60-99); HDL Cholesterol 48 mg/dL; LDL Cholesterol Calculated 101 mg/dl; Potassium 4.5 mmol/L (3.3-5.1); Sodium 140 mmol/L (135-145); Triglycerides 75 mg/dL
[2022-07-29 12:40] LABS: Creatinine Urine 214.52 mg/dL; Microalbum/Creatinine Ratio Ur 6.5 ug/mg cr
[2022-07-29 12:57] LABS: Thyroid Stimulating Hormone 3.76 uIU/mL (0.32-4.0); Vitamin D 25-OH Total 28.5 ng/mL (>30)
[2022-07-30 14:59] LABS: Calcium (PTHI) 10.7 mg/dL (8.6-10.4); PTHI 33 pg/mL (16-77)
[2022-08-02 20:09] LABS: Calcium, Ionized 5.6 mg/dL (4.8-5.6)
== END 2022-07-29 11:12 | disposition home or self-care (01) ==
LOC: HO.LAB 11:11
PROVIDERS: PCP Internal Medicine; Visit Provider Internal Medicine
DX: E03.9 Hypothyroidism, unspecified (principal); E83.52 Hypercalcemia; E78.5 Hyperlipidemia, unspecified; E66.01 Morbid (severe) obesity due to excess calories; Z68.38 Body mass index [BMI] 38.0-38.9, adult; E11.9 Type 2 diabetes mellitus without complications
CPT/HCPCS: 36415; 80053; 80061; 82043; 82306; 82330; 83970; 84443

== ENCOUNTER 2022-08-17 15:12 | Outpatient (REF) | payer OTHER, SELFPAY ==
[2022-08-17 16:02] LABS: Osmolality, Serum 302 mosm/kg (281-305)
[2022-08-17 16:34] LABS: Anion Gap 11 (12-20); Blood Urea Nitrogen 26 mg/dL (9-16); Calcium 10.4 mg/dL (8.4-10.2); Carbon Dioxide 32 mmol/L (22-29); Chloride 101 mmol/L (96-108); Estimated Glomerular Filt Rate 57; Phosphorus 2.4 mg/dL (2.7-4.5); Potassium 3.8 mmol/L (3.3-5.1); Sodium 140 mmol/L (135-145)
[2022-08-17 16:49] LABS: Vitamin D 25-OH Total 31.3 ng/mL (>30)
[2022-08-17 17:05] LABS: Potassium Urine Random 76.9 mmol/L
[2022-08-17 17:21] LABS: Osmolality Urine 676 mosm/kg (373-1093)
[2022-08-20 22:14] LABS: Calcium (PTHI) 10.4 mg/dL (8.6-10.4); PTHI 88 pg/mL (16-77)
[2022-08-21 21:34] LABS: VITAMIN D (1,25 OH) D3 24 pg/mL; Vit D (1,25-Dihydroxy) Total 24 pg/mL (18-72); Vitamin D (1,25 OH) D2 <8 pg/mL
[2022-08-22 12:48] LABS: Renin 12.95 ng/mL/h (0.25-5.82)
== END 2022-08-17 15:13 | disposition home or self-care (01) ==
LOC: HO.LAB 15:12
PROVIDERS: Absent Provider Internal Medicine; PCP Internal Medicine; Visit Provider Internal Medicine Nephrology
DX: E83.52 Hypercalcemia (principal); E87.5 Hyperkalemia; I10 Essential (primary) hypertension; E55.9 Vitamin D deficiency, unspecified
CPT/HCPCS: 36415; 80051; 82088; 82306; 82310; 82565; 82652; 83930; 83935; 83970; 84100; 84133; 84244; 84520

== ENCOUNTER 2022-09-22 10:32 | Outpatient (REF) | payer OTHER, SELFPAY ==
[2022-09-22 12:27] LABS: Anion Gap 11 (12-20); Blood Urea Nitrogen 18 mg/dL (9-16); Carbon Dioxide 28 mmol/L (22-29); Chloride 107 mmol/L (96-108); Estimated Glomerular Filt Rate > 60; Phosphorus 2.7 mg/dL (2.7-4.5); Potassium 4.7 mmol/L (3.3-5.1); Sodium 141 mmol/L (135-145)
[2022-09-22 12:29] LABS: Vitamin D 25-OH Total 31.1 ng/mL (>30)
[2022-09-22 12:43] LABS: Osmolality, Serum 297 mosm/kg (281-305)
[2022-09-22 14:06] LABS: Osmolality Urine 598 mosm/kg (373-1093)
[2022-09-23 13:49] LABS: Calcium (PTHI) 10.3 mg/dL (8.6-10.4); PTHI 84 pg/mL (16-77)
[2022-09-28 12:24] LABS: Renin 0.59 ng/mL/h (0.25-5.82)
== END 2022-09-22 10:33 | disposition home or self-care (01) ==
LOC: HO.LAB 10:32
PROVIDERS: PCP Internal Medicine; Visit Provider Internal Medicine Nephrology
DX: E83.52 Hypercalcemia (principal); I10 Essential (primary) hypertension; E87.5 Hyperkalemia
CPT/HCPCS: 36415; 80051; 82088; 82306; 82310; 82565; 83930; 83935; 83970; 84100; 84244; 84520

== ENCOUNTER → 2022-10-13 12:49 | Outpatient (BNVA) | payer OTHER, SELFPAY | PROVIDERS: PCP Internal Medicine; Visit Provider Dietitian, Registered | DX: E11.51 Type 2 diabetes mellitus with diabetic peripheral angiopathy without gangrene (principal); E66.9 Obesity, unspecified; Z68.38 Body mass index [BMI] 38.0-38.9, adult; Z71.3 Dietary counseling and surveillance | CPT/HCPCS: 97803 ==

== ENCOUNTER → 2022-11-02 10:11 | Outpatient (BNVA) | payer OTHER, SELFPAY | PROVIDERS: PCP Internal Medicine; Visit Provider Obstetrics & Gynecology ==

== ENCOUNTER 2022-11-13 10:39 | Outpatient (REF) | payer OTHER, SELFPAY ==
[2022-11-13 13:47] LABS: Alanine Aminotransferase 21 U/L (0-31); Alkaline Phosphatase 70 U/L (39-117); Anion Gap 13 (12-20); Aspartate Amino Transferase 20 U/L (5-31); Bilirubin Total 0.9 mg/dL (0.0-1.0); Blood Urea Nitrogen 36 mg/dL (9-16); Carbon Dioxide 31 mmol/L (22-29); Chloride 99 mmol/L (96-108); Estimated Glomerular Filt Rate 48; Glucose Random 134 mg/dL (60-115); Phosphorus 3.3 mg/dL (2.7-4.5); Potassium 4.4 mmol/L (3.3-5.1); Sodium 139 mmol/L (135-145); Total Protein 7.4 g/dL (6.5-8.0)
[2022-11-13 13:53] LABS: Free T4 (Free Thyroxine) 1.36 ng/dL (0.71-1.85); Thyroid Stimulating Hormone 2.18 uIU/mL (0.32-4.0)
[2022-11-16 14:18] LABS: Calcium (PTHI) 10.8 mg/dL (8.6-10.4); PTHI 66 pg/mL (16-77)
== END 2022-11-13 10:40 | disposition home or self-care (01) ==
LOC: HO.LAB 10:39
PROVIDERS: PCP Internal Medicine; Visit Provider Internal Medicine
DX: E21.3 Hyperparathyroidism, unspecified (principal); E03.9 Hypothyroidism, unspecified; E55.9 Vitamin D deficiency, unspecified
CPT/HCPCS: 36415; 80053; 82306; 83970; 84100; 84439; 84443

== ENCOUNTER 2022-11-16 08:34 | Outpatient (REF) | payer OTHER, SELFPAY ==
--- NOTE | ~2022-11-16 | XR_ITS ---
STUDY: Right knee CLINICAL INFORMATION: right knee pain COMPARISON: 02/15/2022 and 12/05/2020 TECHNIQUE: AP bilateral weightbearing, sunrise view and lateral views of right knee FINDINGS: There is advanced changes of osteoarthritis in the lateral compartment of right knee joint with diminished width of lateral component of the knee in significant valgus deformity. There is marginal spurring seen. There is patellar subluxation to the right. There are degenerative changes in patellofemoral compartment place spurring. There is no joint effusion. XR/XR knee RT 2V IMPRESSION: Advanced changes of osteoarthritis more prominent in lateral compartment of right knee joint.
--- NOTE | ~2022-11-16 | XR_ITS ---
STUDY: Right knee CLINICAL INFORMATION: right knee pain COMPARISON: 02/15/2022 and 12/05/2020 TECHNIQUE: AP bilateral weightbearing, sunrise view and lateral views of right knee FINDINGS: There is advanced changes of osteoarthritis in the lateral compartment of right knee joint with diminished width of lateral component of the knee in significant valgus deformity. There is marginal spurring seen. There is patellar subluxation to the right. There are degenerative changes in patellofemoral compartment place spurring. There is no joint effusion. XR/XR knee standing BI IMPRESSION: Advanced changes of osteoarthritis more prominent in lateral compartment of right knee joint.
== END 2022-11-16 08:35 | disposition home or self-care (01) ==
LOC: HO.HOSX 08:34
PROVIDERS: Visit Provider Orthopaedic Surgery
DX: M17.11 Unilateral primary osteoarthritis, right knee (principal); M21.061 Valgus deformity, not elsewhere classified, right knee; E11.9 Type 2 diabetes mellitus without complications; E66.01 Morbid (severe) obesity due to excess calories; Z68.38 Body mass index [BMI] 38.0-38.9, adult
CPT/HCPCS: 73560; 73565; 99202

== ENCOUNTER 2022-12-18 10:19 | Outpatient (REF) | payer OTHER, SELFPAY ==
[2022-12-18 12:57] LABS: Alanine Aminotransferase 20 U/L (0-31); Albumin Level 3.7 g/dL (3.5-5.0); Alkaline Phosphatase 65 U/L (39-117); Anion Gap 13 (12-20); Aspartate Amino Transferase 20 U/L (5-31); Bilirubin Total 0.9 mg/dL (0.0-1.0); Blood Urea Nitrogen 26 mg/dL (9-16); Carbon Dioxide 30 mmol/L (22-29); Chloride 103 mmol/L (96-108); Cholesterol 119 mg/dL; Estimated Glomerular Filt Rate 55; Glucose Fasting 131 mg/dL (60-99); HDL Cholesterol 48 mg/dL; Iron 73 mcg/dL (30-160); LDL Cholesterol Calculated 55 mg/dl; Percent Iron Saturation 25 % (15-50); Potassium 4.4 mmol/L (3.3-5.1); Sodium 142 mmol/L (135-145); Thyroid Stimulating Hormone 1.51 uIU/mL (0.32-4.0); Total Iron Binding Capacity 292 mcg/dL (228-428); Triglycerides 80 mg/dL; Unsaturated Iron Binding 219 ug/dL; Vitamin D 25-OH Total 32.6 ng/mL (>30)
== END 2022-12-18 10:20 | disposition home or self-care (01) ==
LOC: HO.LAB 10:19
PROVIDERS: PCP Internal Medicine; Visit Provider Internal Medicine
DX: D64.9 Anemia, unspecified (principal); K21.9 Gastro-esophageal reflux disease without esophagitis; E11.9 Type 2 diabetes mellitus without complications; E55.9 Vitamin D deficiency, unspecified; E03.9 Hypothyroidism, unspecified; E78.5 Hyperlipidemia, unspecified
CPT/HCPCS: 36415; 80053; 80061; 82043; 82306; 83540; 84443; 85025

== ENCOUNTER 2022-12-31 08:41 | Outpatient (AMB) | payer OTHER, SELFPAY ==
--- NOTE | 2022-12-31 08:42 | MHC.OFFVIS ---
Intake Intake Visit Reasons: F/U Hyperparathyroidism Intake Note: pt is here for hyperparathyroidism Court Security Officer Required: Yes Court Security Officer Language: English Allergies No Known Allergies Allergy (Verified 12/31/22 08:50) Medication List - Last Reconciled 12/31/22 by Jessenia Gonsalez DO albuterol sulfate 90 mcg/actuation (Ventolin HFA) 1 inh inhalation QID PRN amlodipine 10 mg PO DAILY 90 days aspirin 325 mg PO DAILY atorvastatin 80 mg PO BEDTIME 90 days benazepril 10 mg PO DAILY bisacodyl 10 mg (2 x 5 mg) PO DAILY 90 days bisacodyl (Laxative (bisacodyl)) 10 mg PO DAILY blood pressure monitor As directed blood sugar diagnostic ([email or web address] Verio test strips) test blood sugar once a day blood-glucose meter ([employer] Verio Meter) As directed once a day chlorthalidone 25 mg PO DAILY 90 days cyclobenzaprine 10 mg PO TID PRN famotidine 20 mg PO DAILY fluticasone propionate 110 mcg/actuation (Flovent HFA) 1 puff inhalation BID hydralazine 10 mg PO TID 30 days hydrocortisone 2.5% 1 appl topical BID lancets ([employer] Delica Lancets) Use 1 lancet once a day metformin 850 mg PO BID 90 days metoprolol succinate ER 50 mg PO DAILY 90 days pentoxifylline ER 400 mg PO DAILY polyethylene glycol 3350 (Miralax) 17 grams PO DAILY PRN Synthroid (levothyroxine) 125 mcg PO DAILY 90 days NS HPI HPI Comments History of Present Illness Details 67 YO Female who is seen in F/U for hyperparathyroidism and hypothyroidism. She has a history of a NTMNG and underwent a total thyroidectomy in [place] many years ago. She reports that the pathology was benign. She remains on synthroid brand name 125 mcg PO daily and TSH has remained at goal. She appears to have hyperparathyroidism based on labs: Labs 10/29/2020 revealed a total calcium of 10.0, albumin 3.9, PTH 64 and Vitamin D 74. Repeated 03/31/2021 with Calcium 10.6, Albumin 4.0, PTH 64 and Vitamin D 43.6. Her 24 hour urine calcium was an adequate collection, and was high normal. These were repeated again 08/2021 with similar results. 24 hour urine was high normal at that time. Labs 05/15/2022 Calcium 10.7 ,Vitamin D 35.9, PTH 76 and Albumin 4.0. She had a DXA which was completely WNL including the distal forearm. She did suffer in late 2021, when she tripped and fell forward out of her car. She suffered a fracture of the R distal radius. She was referred to Dr. Rodriguez and a surgical parathyroidectomy was recommended. This has not yet been scheduled. She reports feeling well and has no complaints today. She underwent an ultrasound of the head and neck which revealed no evidence of an abnormal appearing parathyroid gland. DXA: 03/07/2021 FINDINGS: AP SPINE L1-L4 (excluding L3): The data of L1-L4 has been changed to exclude the L3 vertebral body, because probable degenerative changes at this level may cause overestimation of lumbar spine density. BMD 1.184 g/cm2, Z-score 0.5, T-score 0.1, normal. LEFT FEMUR, NECK: BMD 0.916 g/cm2, Z-score -0.2, T-score -0.9, normal. LEFT FEMUR, TOTAL: BMD 1.114 g/cm2, Z-score 1.1, T-score 0.8, normal. 07/17/2021 FINDINGS: LEFT FOREARM RADIUS 33%: BMD 0.949 g/cm2, Z-score 2.1, T-score 0.8, normal. Prior:? Not previously measured. Labs: Laboratory Tests 11/13/22 11/13/22 12/18/22 11:02 11:02 10:34 Creatinine 1.01 Estimated GFR 55 Albumin 3.7 25-OH Vitamin D To margarito 32.6 TSH 1.51 Free T4 1.36 PTH Intact 66 Calcium (PTH Intac t) 10.8 H [facility] Medical History Back pain Class 2 severe obesity with serious comorbidity and body mass index (BMI) of 38.0 to 38.9 in adult Cough Degenerative arthritis Diabetes Diabetes Diabetic peripheral vascular disorder Dyslipidemia Essential hypertension High cholesterol Hospital discharge follow-up Hypercholesterolemia Hyperparathyroidism Hypertension Hypothyroid Hypothyroidism Left shoulder pain Obesity due to excess calories Peripheral vascular disease [id number] condition Post-menopausal Right foot pain Right foot pain Right knee pain Right sided sciatica Screening for breast cancer Vitamin D deficiency Surgical History H/O right knee surgery History of History of esophagogastroduodenoscopy (EGD) (~2013) History of thyroid surgery Hx of colonoscopy Tubal ligation status Family History Father Hypertension Mother No problems noted. Social History Household Members: Spouse Housing: Apartment Alcohol intake: never Patient Tobacco Use Status: Never used Tobacco e-Cigarette/Vaping Use: Never Used Second Hand Smoke Exposure: No service: No Current occupational status: unemployed Cognitive needs: Yes Hearing needs: No Vision needs: Yes (Glasses) Female Reproductive History Menstrual Age of Menarche: 14 Assessment & Plan Assessment & Plan (1) Hyperparathyroidism: Code(s): E21.3 - Hyperparathyroidism, unspecified Plan: Patient with hyperparathyroidism based on biochemical assessment, with elevated calcium and PTH inappropriately normal. She remains on Vitamin D, but is not taking any calcium. She reports feeling well. Her DXA was WNL, and 24 hour urine calcium was high normal. She did suffer a fragility fracture of her right distal raidus this year, thus surgical parathyroidectomy is indicated at this time. We discussed this in detail. She did have her initial consultation with Dr. Rodriguez and is planning surgery for later this year. She will call and notify us of her surgical date. We did review the importance of adequate hydration to prevent a hypercalcemic crisis. All of her questions were answered. She is in agreement with this plan of care. I spent 20 minutes in reviewing the record, seeing the patient and documenting in the medical record, including 5 minutes on the phone with the Patient. (2) Hypothyroidism: Code(s): E03.9 - Hypothyroidism, unspecified Qualifiers: Hypothyroidism type: postoperative Qualified Code(s): E89.0 - Postprocedural hypothyroidism Plan: TSH at goal. No changes. (3) Vitamin D deficiency: Code(s): E55.9 - Vitamin D deficiency, unspecified Plan: Vitamin D at goal. No changes. Telehealth Telehealth Location of provider rendering services: practice address Location of patient: address on file Patient Identification confirmed using: Name, : Yes Telehealth method: voice only Patient verbally consented to treatment: Yes Patient verbally consented to billing insurance company: Yes Patient informed of any privacy concerns related to visit: Yes Coding Level of Care Code Tele Est Pt Level 3 (61347) Diagnoses Hyperparathyroidism E21.3 Hypothyroidism E89.0 Hypothyroidism type: postoperative Vitamin D deficiency E55.9
== END 2022-12-31 13:52 | disposition home or self-care (01) ==
LOC: HO.ENCR 08:41
PROVIDERS: PCP Internal Medicine; Visit Provider Internal Medicine
DX: E21.3 Hyperparathyroidism, unspecified (principal); E89.0 Postprocedural hypothyroidism; E55.9 Vitamin D deficiency, unspecified
CPT/HCPCS: 99443

== ENCOUNTER → 2022-12-31 08:41 | Outpatient (BNVA) | payer OTHER, SELFPAY | PROVIDERS: PCP Internal Medicine; Visit Provider Internal Medicine ==

== ENCOUNTER → 2023-01-04 12:20 | Outpatient (BNVA) | payer OTHER, SELFPAY | PROVIDERS: PCP Internal Medicine; Visit Provider Orthopaedic Surgery ==

== ENCOUNTER → 2023-01-04 13:30 | Outpatient (REF) | payer OTHER, SELFPAY ==
--- NOTE | 2023-01-04 13:49 | ECG_ITS ---
Test Reason : HTN Blood Pressure : / mmHG Vent. Rate : 096 BPM Atrial Rate : 096 BPM P-R Int : 160 ms QRS Dur : 082 ms QT Int : 362 ms P-R-T Axes : 058 -13 030 degrees QTc Int : 457 ms Sinus rhythm with occasional Premature ventricular complexes Otherwise normal ECG When compared with ECG of 17-JUL-2021 10:50, Premature ventricular complexes are now Present Referred By: Danika Rainey Electronically Signed By:KAROLINE SANTIAGO MD
== END ==
LOC: HO.CARD 13:30
PROVIDERS: PCP Internal Medicine; Visit Provider Internal Medicine
DX: I10 Essential (primary) hypertension (principal)
CPT/HCPCS: 93005

== ENCOUNTER → 2023-01-04 13:49 | Outpatient (BNV) | payer OTHER, SELFPAY | PROVIDERS: PCP Internal Medicine; Visit Provider Internal Medicine Cardiovascular Disease | DX: I10 Essential (primary) hypertension (principal) | CPT/HCPCS: 93010 ==

== ENCOUNTER 2023-01-22 12:34 | Outpatient (AMB) | payer OTHER, SELFPAY ==
--- NOTE | 2023-01-22 12:45 | A.OFFPC_ITS ---
Vital Signs 01/22/23 12:46 Height 5 ft 6 in Weight 226 lb 4 oz BMI 36.5 BP 142/92 H Blood Pressure Location Lt brachial Position Sitting Pulse 53 Pulse Source Pulse Oximeter Pulse Oximetry (%) 99 Oxygen Delivery Method Room Air Intake Visit Reasons: 02/02/23 Right Total Knee Arthroplasty Intake Note: Patient is here for a Pre-op for Right Total knee Arthroplasty scheduled with Dr. Azevedo on 02/02/23.. Advertising Columnist Required: Yes Advertising Columnist Language: Infection Prevention Coordinator Name: Denzel [id number] Information Interpreted: non-clinical & clinical Accompanied by: Self / Same As Patient Allergies No Known Allergies Allergy (Verified 01/22/23 13:25) Medication List - Last Reconciled 01/22/23 by MARIA DOLORES Rose albuterol sulfate 90 mcg/actuation (Ventolin HFA) 1 inh inhalation QID PRN amlodipine 10 mg PO DAILY 90 days aspirin 325 mg PO DAILY atorvastatin 80 mg PO BEDTIME 90 days benazepril 10 mg PO DAILY bisacodyl 10 mg (2 x 5 mg) PO DAILY 90 days bisacodyl (Laxative (bisacodyl)) 10 mg PO DAILY blood pressure monitor As directed blood sugar diagnostic ([employer] Verio test strips) test blood sugar once a day blood-glucose meter ([employer] Verio Meter) As directed once a day chlorthalidone 25 mg PO DAILY 90 days cyclobenzaprine 10 mg PO TID PRN famotidine 20 mg PO DAILY fluticasone propionate 110 mcg/actuation (Flovent HFA) 1 puff inhalation BID hydralazine 10 mg PO TID 30 days hydrocortisone 2.5% 1 appl topical BID lancets ([employer] Delica Lancets) Use 1 lancet once a day metformin 850 mg PO BID 90 days metoprolol succinate ER 50 mg PO DAILY 90 days pentoxifylline ER 400 mg PO DAILY polyethylene glycol 3350 (Miralax) 17 grams PO DAILY PRN Synthroid (levothyroxine) 125 mcg PO DAILY 90 days NS Tobacco use date assessed: 08/03/22 Fall risk assessment: No Falls in past year Last assessed Fall Risk: 01/22/23 Dental Screening Dental Screen Date: 01/22/23 Did you have a dental visit in the last 12 months?: Yes Did you have a dental problem in the last 6 months where you did not have access to dental care?: No Was dental information given to patient?: Patient has dentist HPI HPI Comments History of Present Illness Details 67-year-old female past medical history significant for hyperlipidemia hypercalcemia, hypothyroid, GERD, hypertension, hyperparathyroidism, diabetes mellitus.Patient of Dr. Dykes presents today for a pre-op visit for Right total knee arthroplasty on 02/02/[address] Azevedo ,under general anesthesia. Denies previous complications to anesthesia. Patient denies chest pain, palpitations, shortness of breath and syncope. EKG in office: SR, Long QT, consider hypocalcemia or qunidine-like drug PFSH Medical History Back pain Class 2 severe obesity with serious comorbidity and body mass index (BMI) of 38.0 to 38.9 in adult Cough Degenerative arthritis Diabetes Diabetes Diabetic peripheral vascular disorder Dyslipidemia Essential hypertension High cholesterol Hospital discharge follow-up Hypercholesterolemia Hyperparathyroidism Hypertension Hypothyroid Hypothyroidism Left shoulder pain Obesity due to excess calories Peripheral vascular disease [id number] condition Post-menopausal Right foot pain Right foot pain Right knee pain Right sided sciatica Screening for breast cancer Vitamin D deficiency Surgical History H/O right knee surgery History of History of esophagogastroduodenoscopy (EGD) (~2013) History of thyroid surgery Hx of colonoscopy Tubal ligation status Family History Father Hypertension Mother No problems noted. Social History Household Members: Spouse Housing: Apartment Alcohol intake: never Patient Tobacco Use Status: Never used Tobacco e-Cigarette/Vaping Use: Never Used Second Hand Smoke Exposure: No service: No Current occupational status: unemployed Cognitive needs: Yes Hearing needs: No Vision needs: Yes (Glasses) Female Reproductive History Menstrual Age of Menarche: 14 Questionnaire Thrive Questionnaire Date Thrive assessed: 08/03/22 NATALIE-7 AMB Questionnaire NATALIE-7 Date NATALIE - 7 assessed: 08/03/22 Source: Developed by Drs. Denzel Cormier, Tara Guevara, Trent Ramirez and colleagues, with an educational ellis from [employer]. Review of Systems Const Denies chills, Denies fatigue, Denies fever(s) and Denies poor appetite Eyes Denies no additional complaints ENT Reports Normal hearing present Card Denies chest pain, Denies syncope, Denies rapid heart rate and Denies dyspnea Resp Denies cough and Denies dyspnea GI Denies change in stool character, Denies constipation, Denies diarrhea, Denies nausea and Denies vomiting Denies urinary frequency, Denies dysuria and Denies urinary urgency Neuro Reports Normal hearing present, Denies confusion and Denies syncope Psych Denies confusion Endo Denies fatigue Physical exam (Primary Care) Vital Signs: Last Vital Signs Pulse 53 01/22/23 12:46 BP 142/92 H 01/22/23 12:46 Pulse Ox 99 01/22/23 12:46 Oxygen Delivery Method Room Air 01/22/23 12:46 BMI result Body Mass Index 36.5 Tobacco/Smoking Status: Tobacco use Status Tobacco use date assessed 08/03/22 01/22/23 12:45 Patient Tobacco Use Status Never used Tobacco 01/22/23 12:45 Tobacco use type 12/01/22 12:44 e-Cigarette/Vaping Use Never Used 01/22/23 12:45 Thrive Assessment: Date of Thrive Assessment Date Thrive assessed 08/03/22 01/22/23 12:45 Const General: No confusion Orientation/consciousness: No confusion HENMT Head: Yes normocephalic and Yes atraumatic Eyes Conjunctivae: conjunctivae normal Chest Chest palpation & inspection: normal inspection of the chest Resp Effort & Inspection: normal respiratory effort Auscultation: clear to auscultation bilaterally, no crackles, no rhonchi and no wheezes Cardio Rate: regular rate Rhythm: regular rhythm Heart sounds: S1 normal heart sound present and S2 normal heart sound present GI Inspection: Yes normal to inspection Neuro General: No confusion Cranial nerves: Yes Normal hearing present Extrem General: No edema Assessment and Plan Assessment & Plan (1) Preop examination: Code(s): Z01.818 - Encounter for other preprocedural examination Plan: Pre-op labs ordered. EKG in office: SR, Long QT, consider hypocalcemia or qunidine-like drug Once preop labs reviewed addendum will be made to this note patient proceed with scheduled right knee total arthroplasty. Plan Keep scheduled follow up with pcp Orders: Orders Comprehensive Met. Panel Today Z01.812 - Encounter for preprocedural laboratory examination TSH reflex Free T4 Today Z01.81 - Encounter for preprocedural laboratory examination Prothrombin Time INR Today Z01.812 - Encounter for preprocedural laboratory examination Complete Blood Count Auto Diff Today Z01.812 - Encounter for preprocedural laboratory examination Coding Level of Care Code Est Pt Level 3 (79156) Diagnoses Preop examination Z01.818
[2023-01-22 12:46] VITALS: BP 142/92; PULSE 53; O2SAT 99; BMI 36.5
== END 2023-01-22 14:25 | disposition home or self-care (01) ==
LOC: HO.HMGH 12:34
PROVIDERS: PCP Internal Medicine; Visit Provider Nurse Practitioner Family
DX: Z01.818 Encounter for other preprocedural examination (principal)
CPT/HCPCS: 99213

== ENCOUNTER 2023-01-22 13:55 | Outpatient (REF) | payer OTHER, SELFPAY ==
[2023-01-22 14:12] LABS: MANUAL DIFF FLAG NO
[2023-01-22 14:24] LABS: Basophils Absolute Auto 0.1 X10*3/uL (0.0-0.2); Basophils Percent Auto 0.8 % (0-2); Eosinophils Absolute Auto 0.2 X10*3/uL (0.0-0.4); Hematocrit 39.1 % (37.0-47.0); Hemoglobin 13.1 g/dl (12.0-16.0); Imm Gran Abs Auto 0.03 X10*3/uL (0.00-0.03); Imm Gran Pct Auto 0.3 % (0.0-0.4); Lymphocytes Percent Auto 32.5 % (20-40); Mean Corpuscular HGB Conc 33.5 g/dl (31.0-35.0); Mean Corpuscular Hemoglobin 30.9 pg (27.0-33.0); Mean Corpuscular Volume 92.2 fL (80.0-98.0); Mean Platelet Volume 9.1 fL (9.4-12.3); Monocytes Absolute Auto 0.7 X10*3/uL (0.1-1.2); Monocytes Percent Auto 7.6 % (2-11); Neutrophils Absolute Auto 5.2 x10*3/uL (2.0-8.3); Neutrophils Percent Auto 56.8 % (45-73); Platelet Count 300 X10*3/uL (160-400); Red Blood Count 4.24 X10*6/uL (4.20-5.50); Red Cell Distribution Width 14.2 % (11.0-16.0); White Blood Count 9.1 X10*3/uL (4.8-10.8)
[2023-01-22 15:30] LABS: Alanine Aminotransferase 20 U/L (0-31); Albumin Level 3.8 g/dL (3.5-5.0); Alkaline Phosphatase 72 U/L (39-117); Anion Gap 13 (12-20); Aspartate Amino Transferase 19 U/L (5-31); Bilirubin Total 0.9 mg/dL (0.0-1.0); Blood Urea Nitrogen 27 mg/dL (9-16); Calcium 10.7 mg/dL (8.4-10.2); Carbon Dioxide 31 mmol/L (22-29); Chloride 99 mmol/L (96-108); Estimated Glomerular Filt Rate 45; Glucose Random 216 mg/dL (60-115); Potassium 3.7 mmol/L (3.3-5.1); Sodium 139 mmol/L (135-145); Total Protein 7.2 g/dL (6.5-8.0)
[2023-01-22 15:48] LABS: TSH reflex Free T4 1.48 uIU/mL (0.32-4.0)
== END 2023-01-22 13:56 | disposition home or self-care (01) ==
LOC: HO.LAB 13:55
PROVIDERS: PCP Internal Medicine; Visit Provider Nurse Practitioner Family
DX: Z01.812 Encounter for preprocedural laboratory examination (principal); E03.9 Hypothyroidism, unspecified
CPT/HCPCS: 36415; 80053; 84443; 85025; 85610

== ENCOUNTER 2023-01-27 14:00 | Outpatient (RCR) | payer OTHER, SELFPAY ==
--- NOTE | 2023-01-18 17:50 | MHC.PT.EP ---
[facility] [place] [facility] [place] [facility] [place] [facility] [address] Brenda Rodriguez [address] [phone] F: [phone] F: [phone] F: [phone] F: [phone] Physical Therapy Plan of Care Date of Evaluation: Date of Surgery: 02/02/23 Diagnosis: prehab R TKA (RL) Assessment: pt is a 67 y/o female presenting to physical therapy w/ referring diagnosis of prehab R TKA on 02/02/23. Impairments include pain, decreased range of motion, decreased strength, impaired functional mobility, impaired postural awareness, and altered ambulation mechanics. pt is a good candidate for skilled PT due to age, potential remediation of impairments, typical disease/condition progression and prognosis, comorbidities, and motivation. pt would benefit from skilled PT intervention to provide a tailored strengthening and stretching exercise program, functional training, gait training, postural re-training, neuromuscular re-education, modalities as needed for pain, equipment safety demonstration. Frequency and Duration: The patient will be seen 2x/wk for 2 wks Short Term Goals: pt will demo proper heel strike w/ IC using FWW. pt will ascend w/ L LE and descend w/ R LE leading during stair navigation. pt will be I w/ HEP to promote self-management of condition. Intermediate Goals: pt will improve R knee flexion by 10 degrees to promote ease in lower body dressing. Treatment Plan: Modalities to reduce pain, spasms and effusion. Manual therapy to restore motion and function. Therapeutic exercise to improve strength and flexibility. Neuromuscular re-education for posture and balance. Therapeutic activities to return to functional activities of daily living. Electronically signed by: Lora Vanegas PT, DPT Please sign and return to therapist. Thank you for your referral.
--- NOTE | 2023-02-03 15:37 | MHC.PT.EP ---
[facility] [place] Office [place] Office [place] Office [address] Brenda Rodriguez [address] [phone] F: [phone] F: [phone] F: [phone] F: [phone] Physical Therapy Plan of Care Date of Evaluation: Date of Surgery: 02/02/23 Diagnosis: prehab R TKA (RL) Assessment: pt is a 67 y/o female presenting to physical therapy w/ referring diagnosis of prehab R TKA on 02/02/23. Impairments include pain, decreased range of motion, decreased strength, impaired functional mobility, impaired postural awareness, and altered ambulation mechanics. pt is a good candidate for skilled PT due to age, potential remediation of impairments, typical disease/condition progression and prognosis, comorbidities, and motivation. pt would benefit from skilled PT intervention to provide a tailored strengthening and stretching exercise program, functional training, gait training, postural re-training, neuromuscular re-education, modalities as needed for pain, equipment safety demonstration. Frequency and Duration: The patient will be seen 2x/wk for 2 wks Short Term Goals: pt will demo proper heel strike w/ IC using FWW. pt will ascend w/ L LE and descend w/ R LE leading during stair navigation. pt will be I w/ HEP to promote self-management of condition. Nursing Home Goals: pt will improve R knee flexion by 10 degrees to promote ease in lower body dressing. Treatment Plan: Modalities to reduce pain, spasms and effusion. Manual therapy to restore motion and function. Therapeutic exercise to improve strength and flexibility. Neuromuscular re-education for posture and balance. Therapeutic activities to return to functional activities of daily living. Electronically signed by: Lora Vanegas PT, DPT Please sign and return to therapist. Thank you for your referral.
== END 2023-02-03 15:39 | disposition home or self-care (01) ==
LOC: HO.PT 14:00
PROVIDERS: PCP Internal Medicine; Visit Provider Orthopaedic Surgery
DX: M21.061 Valgus deformity, not elsewhere classified, right knee (principal)
CPT/HCPCS: 97110; 97116; 97162

== ENCOUNTER 2023-01-28 09:11 | Outpatient (AMB) | payer OTHER, SELFPAY ==
--- NOTE | 2023-01-28 09:31 | A.OFFVIS_ITS ---
Intake Vital Signs 01/28/23 09:50 Height 5 ft 6 in Weight 226 lb BMI 36.5 Intake Visit Reasons: Preop RT TKA 02/02/23 NE Intake Note: Paige a 67 year old female who presents today for a pre-operative right TKA on 02/02/23. Pain management reviewed and signed. Allergies No Known Allergies Allergy (Verified 01/28/23 09:50) Medication List - Last Reconciled 01/28/23 by Linda Middleton PA-C albuterol sulfate 90 mcg/actuation (Ventolin HFA) 1 inh inhalation QID PRN amlodipine 10 mg PO DAILY 90 days aspirin 81 mg PO DAILY aspirin 325 mg PO DAILY atorvastatin 80 mg PO BEDTIME 90 days benazepril 10 mg PO DAILY bisacodyl 10 mg (2 x 5 mg) PO DAILY 90 days bisacodyl (Laxative (bisacodyl)) 10 mg PO DAILY blood pressure monitor As directed blood sugar diagnostic ([employer] Verio test strips) test blood sugar once a day blood-glucose meter ([employer] Verio Meter) As directed once a day chlorthalidone 25 mg PO DAILY 90 days cyclobenzaprine 10 mg PO TID PRN famotidine 20 mg PO BEDTIME fluticasone propionate 110 mcg/actuation (Flovent HFA) 1 puff inhalation BID hydralazine 10 mg PO TID 30 days hydrocortisone 2.5% 1 appl topical BID lancets (SeatSwaprTouch Delica Lancets) Use 1 lancet once a day metformin 850 mg PO BID 90 days metoprolol succinate ER 50 mg PO DAILY 90 days pentoxifylline ER 400 mg PO DAILY polyethylene glycol 3350 (Miralax) 17 grams PO DAILY PRN Synthroid (levothyroxine) 125 mcg PO DAILY 90 days NS HPI HPI Comments History of Present Illness Details Ms Anderson presents to the office today for preop visit. She is scheduled for right total knee arthroplasty with Dr. Azevedo. She continues to have ongoing pain and difficulty with ambulation in the right knee, which is affecting her quality of life; therefore, she has elected to move forward with surgery. [facility] Medical History Back pain Class 2 severe obesity with serious comorbidity and body mass index (BMI) of 38.0 to 38.9 in adult Cough Degenerative arthritis Diabetes Diabetes Diabetic peripheral vascular disorder Dyslipidemia Essential hypertension High cholesterol Hospital discharge follow-up Hypercholesterolemia Hyperparathyroidism Hypertension Hypothyroid Hypothyroidism Left shoulder pain Obesity due to excess calories Peripheral vascular disease [id number] condition Post-menopausal Right foot pain Right foot pain Right knee pain Right sided sciatica Screening for breast cancer Vitamin D deficiency Surgical History H/O right knee surgery History of History of esophagogastroduodenoscopy (EGD) (~2013) History of thyroid surgery Hx of colonoscopy Tubal ligation status Family History Father Hypertension Mother No problems noted. Social History Household Members: Spouse Housing: Apartment Are you a primary customer care representative to a significant other at home: No Do you presently have visiting nurse or other home services: Yes (OUT PATIENT THERAPIST 2 hours daily) Alcohol intake: never Patient Tobacco Use Status: Never used Tobacco e-Cigarette/Vaping Use: Never Used Second Hand Smoke Exposure: No service: No Current occupational status: unemployed Cognitive needs: Yes Hearing needs: No Vision needs: Yes (Glasses) Female Reproductive History Menstrual Age of Menarche: 14 Review of Systems Const All systems reviewed & are unremarkable except as noted in HPI and below Physical Exam Vital Signs: BMI result Body Mass Index 36.5 Const General: cooperative and no acute distress Orientation/consciousness: patient oriented x3 Neck Neck: Yes normal visual inspection and Yes no lymphadenopathy Resp Effort & Inspection: normal respiratory effort and able to speak in complete sentences Cardio Peripheral pulses: Peripheral pulses 2+ throughout GI Inspection: Yes normal to inspection Palpation (GI): Soft to palpation Skin General skin exam: no rashes or lesions noted Neuro General: patient oriented x3 Extrem Other: Normal to inspection. No open wound or abrasion, ROM is 0-95 degrees. Calf supple, nontender. NVI. Results Reviewed Results Reviewed: XR knee standing BI IMPRESSION: Advanced changes of osteoarthritis more prominent in lateral compartment of right knee joint. Assessment & Plan Assessment & Plan (1) Osteoarthritis of right knee: Code(s): M17.11 - Unilateral primary osteoarthritis, right knee Plan: I discussed in detail the procedure and what to expect pre and post operatively. We discussed the risks, benefits and alternatives to the surgery as well as the rehabilitation course. The risks; which include, but are not limited to infection, bleeding, nerve injury, ongoing pain, swelling, and stiffness, perioperative risk of injury to bones and soft tissues, and blood clots. I?ve answered all questions and with their understanding they have consented to move forward with Right total knee arthroplasty with Dr. Azevedo Medications: Discontinued famotidine 20 mg PO DAILY 90 tabs 0RF Patient Instructions: Scribed for Linda Middleton PA-C, by Yury Tavera certified medical asst, on 01/28/2023 at 9:45 AM EST. Yannick, Linda Middleton PA-C, have personally reviewed and agree with t he information entered by the scribe. Coding Level of Care Code Est Pt Level 3 (92140) Diagnoses Osteoarthritis of right knee M17.11
[2023-01-28 09:50] VITALS: BMI 36.5
== END 2023-01-28 10:07 | disposition home or self-care (01) ==
PROVIDERS: PCP Internal Medicine; Visit Provider Physician Assistant
DX: M17.11 Unilateral primary osteoarthritis, right knee (principal)
CPT/HCPCS: 99024

== ENCOUNTER → 2023-01-28 09:11 | Outpatient (BNVA) | payer OTHER, SELFPAY | PROVIDERS: PCP Internal Medicine; Visit Provider Physician Assistant ==

== ENCOUNTER 2023-02-02 07:06 | Inpatient (IN) | payer OTHER, SELFPAY ==
[2023-01-25 12:10] VITALS: BMI 37.7
[2023-01-25 12:23] VITALS: BP 136/81; PULSE 103; RESP 16; O2SAT 97
--- NOTE | 2023-01-25 12:30 | HO.ANESPROP2 ---
Documented by User: Yecenia Reed NP 01/25/23 12:44 HPI - Anesthesia Eval Consult details Narrative: 67yo F for Right Knee Replacement Total No recent illness No CP/SOB with very minimal activity r/t knee pain FBS ~150 PMFSH Active Problems Active Problems: All Active Problems (Updated 11/16/22 @ 13:52 by Eliseo Pettit) Valgus deformity, not elsewhere classified, right knee (Acute) Hyperlipidemia LDL goal <70 (Acute) Hypercalcemia (Acute) Physical exam (Acute) Class 2 severe obesity with serious comorbidity and body mass index (BMI) of 38.0 to 38.9 in adult (Acute) Hypothyroid (Acute) Right foot pain (Acute) Left shoulder pain (Acute) Intermittent chest pain (Acute) GERD (gastroesophageal reflux disease) (Acute) Rash (Acute) Hospital discharge follow-up (Acute) Right sided sciatica (Acute) Dyslipidemia (Acute) Essential hypertension (Acute) Constipation (Acute) Right ankle swelling (Acute) Hyperparathyroidism (Acute) Well woman exam (Acute) Diabetes (Acute) Adult general medical exam (Acute) Post-menopausal (Acute) Screening for breast cancer (Acute) Primary osteoarthritis of right knee (Acute) Hypothyroidism (Acute) Right foot pain (Acute) Right knee pain (Acute) Vitamin D deficiency (Acute) Serum potassium elevated (Acute) Serum calcium elevated (Acute) Diabetes (Acute) Hypertension (Acute) Cough (Acute) High cholesterol (Acute) Obesity due to excess calories (Acute) [id number] condition (Acute) Colon cancer screening (Acute) Past Medical History Medical History Back pain Class 2 severe obesity with serious comorbidity and body mass index (BMI) of 38.0 to 38.9 in adult Cough Degenerative arthritis Diabetes Diabetes Diabetic peripheral vascular disorder Dyslipidemia Essential hypertension High cholesterol Hospital discharge follow-up Hypercholesterolemia Hyperparathyroidism Hypertension Hypothyroid Hypothyroidism Left shoulder pain Obesity due to excess calories Peripheral vascular disease [id number] condition Post-menopausal Right foot pain Right foot pain Right knee pain Right sided sciatica Screening for breast cancer Vitamin D deficiency Family History Family History Father Hypertension Mother No problems noted. Family history of problems with anesthesia: No Surgical History Surgical History H/O right knee surgery History of History of esophagogastroduodenoscopy (EGD) (~2013) History of thyroid surgery Hx of colonoscopy Tubal ligation status History of Problems with Anesthesia: No Social History Social History Household Members: Spouse Housing: House Are you a primary customer care assistant to a significant other at home: No Do you presently have visiting nurse or other home services: No Alcohol intake: never Patient Tobacco Use Status: Never used Tobacco e-Cigarette/Vaping Use: Never Used Second Hand Smoke Exposure: No Use of substances other than those prescribed or required for medical reasons: No Currently Displaying Signs/Symptoms of Drug Intoxication Withdrawal: No Any prior treatment program specific to substance use: No Have you been hit, kicked, punched, or otherwise hurt by someone within the past year? If so, by whom?: No Do you feel safe in your current relationship?: Yes Is there a partner from a previous relationship who is making you feel unsafe now?: No Are you made to feel afraid or neglected: No [facility] Healthcare Practices: Johan murphy Are you DNR?: No Advance Directives: No Advance Directives Information Provided: Yes Advance Directives on File: No Do you have thoughts of harming others: None Do you have a plan to hurt others: No Plan Recently lost weight without trying: No Nutrition Risks: No Nutritional Risk Patient : No : No Poor oral hygiene: No service: No Current occupational status: unemployed Cognitive needs: Yes Hearing needs: No Vision needs: Yes (Glasses) Meds Allergies Allergy/AdvReac Type Severity Reaction Status Date / Time No Known Allergies Allergy Verified 01/28/23 09:50 Home Medications Medication Instructions Recorded Confirmed Last Taken Type bisacodyl 5 mg tablet (Laxative 10 mg PO DAILY PRN Constipation 11/02/22 02/02/23 Unknown History (bisacodyl)) aspirin 81 mg chewable tablet 81 mg PO DAILY 01/25/23 02/02/23 01/28/23 History famotidine 20 mg tablet 20 mg PO BEDTIME 01/25/23 02/02/23 Unknown History Exam Exam Date and Time: January 25, 2023 123 Height,Weight and Vital Signs: Height 5 ft 5 in Weight 102.9 kg Last Vital Signs Pulse 103 H 01/25/23 12:23 Resp 16 01/25/23 12:23 BP 136/81 01/25/23 12:23 Pulse Ox 97 01/25/23 12:23 O2 Del Method Room Air 01/25/23 12:23 Pertinent Lab Results Pertinent Lab Results: Laboratory Tests 01/22/23 01/22/23 14:11 14:11 WBC 9.1 Hgb 13.1 Hct 39.1 Plt Count 300 Sodium 139 Potassium 3.7 Chloride 99 Carbon Dioxide 31 H BUN 27 H Creatinine 1.21 Narrative Narrative: EKG 12/2022 Vent. Rate : 096 BPM ? ? Atrial Rate : 096 BPM ?? P-R Int : 160 ms? QRS Dur : 082 ms ? ? QT Int : 362 ms ? ? ? P-R-T Axes : 058 -13 030 degrees ?? QTc Int : 457 ms ? Sinus rhythm with occasional Premature ventricular complexes Otherwise normal ECG When compared with ECG of 17-JUL-2021 10:50, Premature ventricular complexes are now Present NM cardiolite stress test 2021 Impression: ? 1.? Myocardial perfusion imaging study shows likely normal myocardial perfusion 2.? Gated LVEF is 69% 3. Transient ischemic dilatation not present ? EKG is nondiagnostic for ischemia Airway Mallampati Class: II TM Dist: >3cm Neck ROM: Full Partial: Upper Heart: RRR Lungs: CTAB Assessment and Plan Assessment Anesthesia Assessment: Anesthesia Plan Discussed and PAT Visit Final Anesthetic Review Family History of Problems with Anesthesia: No History of Problems with Anesthesia: No Documented by User: John Swenson MD 02/02/23 17:40 [facility] Past Medical History Medical History Back pain Class 2 severe obesity with serious comorbidity and body mass index (BMI) of 38.0 to 38.9 in adult Cough Degenerative arthritis Diabetes Diabetes Diabetic peripheral vascular disorder Dyslipidemia Essential hypertension High cholesterol Hospital discharge follow-up Hypercholesterolemia Hyperparathyroidism Hypertension Hypothyroid Hypothyroidism Left shoulder pain Obesity due to excess calories Peripheral vascular disease [id number] condition Post-menopausal Right foot pain Right foot pain Right knee pain Right sided sciatica Screening for breast cancer Vitamin D deficiency Functional capacity: uses cane/walker Family History Family History Father Hypertension Mother No problems noted. Surgical History Surgical History H/O right knee surgery History of History of esophagogastroduodenoscopy (EGD) (~2013) History of thyroid surgery Hx of colonoscopy Tubal ligation status Social History Social History Household Members: Spouse Housing: House Are you a primary customer care assistant to a significant other at home: No Do you presently have visiting nurse or other home services: No Alcohol intake: never Patient Tobacco Use Status: Never used Tobacco e-Cigarette/Vaping Use: Never Used Second Hand Smoke Exposure: No Use of substances other than those prescribed or required for medical reasons: No Currently Displaying Signs/Symptoms of Drug Intoxication Withdrawal: No Any prior treatment program specific to substance use: No Have you been hit, kicked, punched, or otherwise hurt by someone within the past year? If so, by whom?: No Do you feel safe in your current relationship?: Yes Is there a partner from a previous relationship who is making you feel unsafe now?: No Are you made to feel afraid or neglected: No Yazidi Healthcare Practices: Johan murphy Are you DNR?: No Advance Directives: No Advance Directives Information Provided: Yes Advance Directives on File: No Do you have thoughts of harming others: None Do you have a plan to hurt others: No Plan Recently lost weight without trying: No Nutrition Risks: No Nutritional Risk Patient : No : No Poor oral hygiene: No service: No Current occupational status: unemployed Cognitive needs: Yes Hearing needs: No Vision needs: Yes (Glasses) Meds Allergies Allergy/AdvReac Type Severity Reaction Status Date / Time No Known Allergies Allergy Verified 01/28/23 09:50 Home Medications Medication Instructions Recorded Confirmed Last Taken Type bisacodyl 5 mg tablet (Laxative 10 mg PO DAILY PRN Constipation 11/02/22 02/02/23 Unknown History (bisacodyl)) aspirin 81 mg chewable tablet 81 mg PO DAILY 01/25/23 02/02/23 01/28/23 History famotidine 20 mg tablet 20 mg PO BEDTIME 01/25/23 02/02/23 Unknown History Assessment and Plan Final Anesthetic Review NPO: Yes ASA Class: III Final Preanesthetic Review: Meds/Allgs Chart Reviewed, Consent Obtained/Reviewed and Anes Risks/Benef Reviewed Patient Risk: Intermediate Procedure Risk: Intermediate Anesthetic Plan Anesthetic Plan: Spinal, Regional Block and Agree w/ Assess. and Plan Disposition: Standard PACU
[2023-01-25 14:05] LABS: Estimated Average Glucose 154 mg/dL
[2023-01-25 17:06] LABS: MRSA Nasal PCR NEGATIVE (Negative); SA Nasal PCR NEGATIVE (Negative)
[2023-02-02] VITALS (14 sets, daily range): BP systolic 90–147; BP diastolic 57–85; PULSE 71–92; RESP 14–18; TEMP 36–36.9; O2SAT 96–100; BMI 36.3
--- NOTE | ~2023-02-02 | XR_ITS ---
EXAMINATION: XR KNEE, RIGHT CLINICAL INFORMATION: S/P RTKA COMPARISON: 11/16/2022 TECHNIQUE: Two views of the right knee. FINDINGS: Prosthetic components of the total knee arthroplasty are appropriately aligned. No periprosthetic fracture. Gas from recent surgery is present in the joint and surrounding soft tissues. A joint effusion is present. XR/XR knee RT 2V IMPRESSION: Appropriate alignment of the right total knee arthroplasty.
--- OUTSIDE RECORDS SUMMARY | 2023-02-02 07:18 | XMS_ITS | Continuity of Care Document ---
Author Name Unknown Organization [facility] Address [address] [place] [address] [address] [place] [address]- Care Team Providers Care Executive Chairman Name Role Phone Donis Rainey MD, Danika Lara Primary Care Physician Encounter [facility] [place] Date(s): 09/07/22 - 10/07/[address] [place] [address]- Allergies, Adverse Reactions, Alerts No Known Allergies Medications Albuterol (Eqv-ProAir HFA) Inhalation, Every 6 hours, 0 Refills, Maintenance, 09/04/22 11:44:00 EDT, Partial fill upon patientrequest if the prescription is for a schedule II opioid drug. Start Date: 09/04/22 Status: Ordered amLODIPine 10 mg oral tablet 10 mg, 1, tablet, By Mouth, Daily, Refills 0, Maintenance, 09/04/22 11:44:00 EDT, Partial fill uponpatient request if the prescription is for a schedule II opioid drug. Start Date: 09/04/22 Status: Ordered aspirin 81 mg oral capsule 1 capsule = 81 mg, By Mouth, Every 4 hours, 0 Refills, Maintenance, 09/04/22 11:40:00 EDT, Partial fill upon patient request if the prescription is for a schedule II opioid drug. Start Date: 09/04/22 Status: Ordered atorvastatin 40 mg oral tablet 1 tablet = 40 mg, By Mouth, Daily, 0 Refills, Maintenance, 09/04/22 11:44:00 EDT, Partial fill uponpatient request if the prescription is for a schedule II opioid drug. Start Date: 09/04/22 Status: Ordered benazepril 10 mg oral tablet 1 tablet = 10 mg, By Mouth, Daily, 0 Refills, Maintenance, 09/04/22 11:45:00 EDT, Partial fill uponpatient request if the prescription is for a schedule II opioid drug. Start Date: 09/04/22 Status: Ordered Bisacodyl 0 Refills, Maintenance, 09/04/22 11:45:00 EDT, Partial fill upon patient request if the prescription is for a schedule II opioid drug. Start Date: 09/04/22 Status: Ordered chlorthalidone 25 mg oral tablet 25 mg, 1, tablet, By Mouth, Daily, Refills 0, Maintenance, 09/04/22 11:46:00 EDT, Partial fill uponpatient request if the prescription is for a schedule II opioid drug. Start Date: 09/04/22 Status: Ordered cyclobenzaprine 10 mg oral tablet 10 mg, 1, tablet, By Mouth, Refills 0, Maintenance, 09/04/22 11:46:00 EDT, Partial fill upon patient request if the prescription is for a schedule II opioid drug. Start Date: 09/04/22 Status: Ordered Fluticasone Fluticasone, Refills 0, Maintenance, 09/04/22 11:47:00 EDT, Supply Start Date: 09/04/22 Status: Ordered HydroCORTisone 0.5% Topical 0 Refills, Maintenance Start Date: 09/04/22 Status: Ordered Ibuprofen Refills 0, Maintenance, 09/04/22 11:48:00 EDT, Partial fill upon patient request if the prescription is for a schedule II opioid drug. Start Date: 09/04/22 Status: Ordered meloxicam 15 mg oral tablet 1 tablet = 15 mg, By Mouth, Daily, prn, 0 Refills, Maintenance, 09/04/22 11:48:00 EDT, Partial fillupon patient request if the prescription is for a schedule II opioid drug. Start Date: 09/04/22 Status: Ordered Metformin By Mouth, 0 Refills, Maintenance, 10/06/13 14:56:26 Start Date: 10/06/13 Status: Ordered metoprolol 50 mg oral tablet 50 mg, 1, tablet, By Mouth, 2 times a day, Refills 0, Maintenance, 09/04/22 11:49:00 EDT, Partial fill upon patient request if the prescription is for a schedule II opioid drug. Start Date: 09/04/22 Status: Ordered pentoxifylline 400 mg oral tablet, extended release 400 mg, 1, tablet, By Mouth, Daily, Refills 0, Maintenance, 09/04/22 11:49:00 EDT, Partial fill upon patient request if the prescription is for a schedule II opioid drug. Start Date: 09/04/22 Status: Ordered Polyethylene Glycol 3350 = 17 Gm, By Mouth, Daily, 0 Refills, Maintenance, 09/04/22 11:50:00 EDT, Partial fill upon patient request if the prescription is for a schedule II opioid drug. Start Date: 09/04/22 Status: Ordered Synthroid Daily, Maintenance, 10/06/13 14:55:18 Start Date: 10/06/13 Status: Ordered traMADol 50 mg oral tablet 1 tablet = 50 mg, By Mouth, prn, 0 Refills, Maintenance, 09/04/22 11:49:00 EDT, Partial fill upon patient request if the prescription is for a schedule II opioid drug. Start Date: 09/04/22 Status: Ordered Problem List Condition Confirmation Course Effective Dates Status Health St atus Informant Arthritis Confirmed Active Diabetes Confirmed Active Thyroid disease Confirmed Active Hypertension Confirmed Active Well woman exam Confirmed Active Severe obesity (BMI 35.0-39.9) with comorbidity Confirmed Active Social History Social History Type Response Smoking Status Never smoker entered on: 10/06/13 Sex Patient Care team information Care Team Personnel Name: Donis Rainey MD , Danika Lara Position: Reference Physician Member Role: PCP Address: Address: [address] [place] [address]- Care Team Related Persons Name: STEVEN GUTHRIE
--- OUTSIDE RECORDS SUMMARY | 2023-02-02 07:18 | XMS_ITS | Continuity of Care Document ---
Author Name Unknown Organization [facility] Address [address] [place] [address] [address] [place] [address]- Care Team Providers Care [employer] Assembly Line Worker Name Role Phone Donis Rainey MD, Danika Lara Primary Care Physician Encounter [facility] [place] Date(s): 09/04/22 - 10/04/[address] [place] [address]- Attending Physician: Martha Morrison Admitting Physician: AdmMartha padilla Referring Physician: AdmtrMartha Allergies, Adverse Reactions, Alerts No Known Allergies [...] Reference Physician Member Role: PCP Address: Address: [address] [place] [address]- Care Team Related Persons Name: STEVEN GUTHRIE
--- OUTSIDE RECORDS SUMMARY | 2023-02-02 07:18 | XMS_ITS | Continuity of Care Document ---
Author Name Unknown Organization [facility] Address [address] [place] [address] [address] [place] [address]- Care Team Providers Care Mercury Cell Cleaner Name Role Phone Donis Rainey MD, Mallorie Primary Care Physician Encounter [facility] [place] Date(s): 06/06/22 - 10/04/[address] [place] [address]- Attending Physician: Harvey Rodriguez MD Referring Physician: Jessenia Gonsalez DO Allergies, Adverse Reactions, Alerts No Known Allergies [...] obesity (BMI 35.0-39.9) with comorbidity Confirmed Active Vital Signs Most recent to oldest [Reference Range]: 1 Height 168 cm (09/04/22 11:34 AM) Weight 106.0 kg (09/04/22 11:34 AM) Pulse Rate [55-90 bpm] 87 bpm (09/04/22 11:34 AM) Body Mass Index [18.5-24.99 kg/m2] 37.56 kg/m2 *>HHI* (09/04/22 11:34 AM) Blood Pressure [90-138/55-84 mm Hg] 150/ 85mm Hg *H* (09/04/22 11:34 AM) Respiratory Rate [16-30 br/min] 16 br/mi n (09/04/22 11:34 AM) Temperature [96.8-100.4 DegF] 97.9 DegF (09/04/22 11:34 AM) Blood pressure sites Arm, left (09/04/22 11:34 AM) Temperature Route Temporal (09/04/22 11:34 AM) Weight Obtained Via Standing scale (09/04/22 11:34 AM) Social History Social History Type Response Smoking Status Never smoker entered on: 10/06/13 Sex Note * Event Display: Non BH Lab Results Authored Date: Patient Care team information Care Team Personnel Name: Danika Arriaga MD Position: Reference Physician Member Role: PCP Address: Address: [address] [place] [address]- Care Team Related Persons Name: STEVEN GUTHRIE
--- NOTE | 2023-02-02 07:27 | PHA.MEDREC ---
Pharmacy Consult ? Medication Reconciliation cOMPLETED BY RN REVIEWED BY PHARMACY ALLY
[2023-02-02 07:30] LABS: Glucose, Whole Blood 183 mg/dL (60-115)
[2023-02-02 07:40] LABS: Hematocrit 38.4 % (37.0-47.0); Hemoglobin 13.1 g/dl (12.0-16.0)
[2023-02-02] MEDS: Lactated Ringers 1,000 ML 100 ML IVCONT ×2 (08:23→17:23)
--- NOTE | 2023-02-02 09:58 | MHC.SHP ---
Pre-Procedural Eval Section A Date of Service: 02/02/23 The patient is an INPATIENT: No Changes since office visit: No Cold of Flu in the past 2 weeks, No New Medical Problems, No Changes in Medication and No Patient answered all questions The History & Physical has been completed within 30 days and I have reviewed it.: Yes Section B Chief Complaint: RT TKA Allergies: Allergies Allergy/AdvReac Type Severity Reaction Status Date / Time No Known Allergies Allergy Verified 01/28/23 09:50 Plan I have reviewed the history and physical and performed a pertinent physical examination on my patient. No changes have occurred unless specified. Time Spent With Patient Time: Total time managing care of this patient today ____ minutes.
--- NOTE | 2023-02-02 12:11 | PM.OP ---
Brief Operative Note Date of Service: 02/02/23 Pre-op diagnosis: right knee OA Post-op diagnosis: same Procedure: Right TKA Implants: Styrker Trigiovannan PS cemented 07/17/15 Surgeon: Rangel Azevedo MD Anesthesia: GETA Was an Brazer Controlled Atmospheric Furnace used for this Procedure?: Yes Brazer Controlled Atmospheric Furnace: Lindsay Barrera Estimated blood loss (mL): 25 Tourniquet time (min): 70 IV fluids (mL): 1,000 Pathology: other Condition: stable Disposition: PACU
[2023-02-02 13:08] LABS: Glucose, Whole Blood 161 mg/dL (60-115)
[2023-02-02] MEDS: oxyCODONE HCl Immed Release 5 MG TABLET PO ×2 (13:43→18:22)
[2023-02-02] MEDS: Acetaminophen 325 MG TABLET 650 MG PO (13:43)
[2023-02-02 13:56] LABS: Creatinine Clr Calc Pharmacy 65.6; Estimated Glomerular Filt Rate 54
--- NOTE | 2023-02-02 15:30 | P.CONHOSP_ITS ---
History of Present Illness Data of Consult Service Date: 02/02/23 Requesting physician: Linda Middleton Primary Care Provider: Danika Rainey MD HPI Reason for consult: medical management 67-year-old female with history of hypertension, [id number] type 2 diabetes, hyperparathyroidism, postsurgical hypothyroidism, peripheral vascular disease, dyslipidemia, admitted to Orthopedic surgery for management of osteoarthritis of the right knee s/p TKA with consult placed to hospitalist service for medical management. She is resting in bed with her present eating lunch. She has no complaints at this time. Denies any alcohol use, cigarette smoking, or illicit drug use. Review of Systems Review of Systems: General: No fevers, malaise, unintentional weight loss Cardiovascular: No chest pain, palpitations, or leg edema Respiratory: No shortness of breath, wheezing, cough GI: No abdominal pain, nausea, vomiting, diarrhea, constipation, melena, hematochezia : No dysuria, hematuria, increased urinary frequency, decreased urinary output MSK: No myalgia, back pain Neuro: No headaches, weakness, paresthesias Skin: No rashes or lesions PMFSH Medical History Back pain Class 2 severe obesity with serious comorbidity and body mass index (BMI) of 38.0 to 38.9 in adult Cough Degenerative arthritis Diabetes Diabetes Diabetic peripheral vascular disorder Dyslipidemia Essential hypertension High cholesterol Hospital discharge follow-up Hypercholesterolemia Hyperparathyroidism Hypertension Hypothyroid Hypothyroidism Left shoulder pain Obesity due to excess calories Peripheral vascular disease [id number] condition Post-menopausal Right foot pain Right foot pain Right knee pain Right sided sciatica Screening for breast cancer Vitamin D deficiency Functional capacity: uses cane/walker Family History Father Hypertension Mother No problems noted. Surgical History H/O right knee surgery History of History of esophagogastroduodenoscopy (EGD) (~2013) History of thyroid surgery Hx of colonoscopy Tubal ligation status Social History Household Members: Spouse Housing: House Are you a primary career resource technician to a significant other at home: No Do you presently have visiting nurse or other home services: No Alcohol intake: never Patient Tobacco Use Status: Never used Tobacco e-Cigarette/Vaping Use: Never Used Second Hand Smoke Exposure: No Use of substances other than those prescribed or required for medical reasons: No Currently Displaying Signs/Symptoms of Drug Intoxication Withdrawal: No Any prior treatment program specific to substance use: No Have you been hit, kicked, punched, or otherwise hurt by someone within the past year? If so, by whom?: No Do you feel safe in your current relationship?: Yes Is there a partner from a previous relationship who is making you feel unsafe now?: No Are you made to feel afraid or neglected: No Shinto Healthcare Practices: Johan murphy Are you DNR?: No Advance Directives: No Advance Directives Information Provided: Yes Advance Directives on File: No Do you have thoughts of harming others: None Do you have a plan to hurt others: No Plan Recently lost weight without trying: No Nutrition Risks: No Nutritional Risk Patient : No : No Poor oral hygiene: No service: No Current occupational status: unemployed Cognitive needs: Yes Hearing needs: No Vision needs: Yes (Glasses) Meds Allergies Allergy/AdvReac Type Severity Reaction Status Date / Time No Known Allergies Allergy Verified 01/28/23 09:50 Active Medications: Current Medications Acetaminophen (Acetaminophen 325 Mg Tablet) 650 mg PO Q6H PRN PRN Reason: Pain, Mild (Pain Scale 1-3) Last Admin: 02/02/23 13:43 Dose: 650 mg Albuterol Sulfate (Albuterol Sulfate (0.083%) 2.5 Mg/3 Ml Vial.Neb) 2.5 mg INHALE ONCE PRN PRN Reason: Shortness of Breath/Wheezing Albuterol Sulfate (Albuterol Sulfate 90 Mcg 8 Gm Inhaler) 1 puff INHALE QID PRN PRN Reason: shortness of breath or wheezing Amlodipine Besylate (Amlodipine Besylate 10 Mg Tablet) 10 mg PO DAILY [facility]; Protocol Aspirin (Aspirin 325 Mg Tablet) 325 mg PO BID [facility] Aspirin (Aspirin 81 Mg Tab.Chew) 81 mg PO DAILY [facility] Atorvastatin Calcium (Atorvastatin Calcium 80 Mg Tablet) 80 mg PO BEDTIME [facility] Bisacodyl (Bisacodyl 5 Mg Tablet.Dr) 10 mg PO DAILY PRN PRN Reason: Constipation Celecoxib (Celecoxib 200 Mg Capsule) 200 mg PO BID [facility] Cyclobenzaprine HCl (Cyclobenzaprine Hcl 10 Mg Tablet) 10 mg PO TID PRN PRN Reason: muscle spasm Dextrose (Dextrose 50 % 25 Gm/50 Ml Syringe) 25 gm IVPUSH Q15M PRN; Protocol PRN Reason: per Hypoglycemia Standing Ord. Docusate Sodium (Docusate Sodium 100 Mg Capsule) 100 mg PO BID [facility] Famotidine (Famotidine 20 Mg Tablet) 20 mg PO BEDTIME [facility] Fluticasone Propionate (Fluticasone Propionate 100 Mcg Blst.W.Dev) 1 puff INHALE RBID [facility] Glucose (Glucose Gel 15 Gm Gel..Gram.) 15 gm PO Q15M PRN; Protocol PRN Reason: per Hypoglycemia Standing Ord. Hydralazine HCl (Hydralazine Hcl 10 Mg Tablet) 10 mg PO TID [facility]; Protocol Hydrochlorothiazide (Hydrochlorothiazide 25 Mg Tablet) 25 mg PO DAILY [facility] Hydromorphone HCl (Hydromorphone Hcl 0.5 Mg/0.5 Ml Syringe) 0.25 mg IVPUSH Q4H PRN; Protocol PRN Reason: Pain, Severe (Pain Scale 7-10) Lactated Ringer's (Lr) 1,000 mls @ 100 mls/hr IVCONT .Q10H [facility] Last Admin: 02/02/23 08:23 Dose: 100 mls/hr Insulin Human Lispro (Insulin Lispro 100 Unit/Ml 3 Ml Vial) 0 unit SUBCUT QIDACHS [facility]; Protocol Levothyroxine Sodium (Levothyroxine Sodium 125 Mcg Tablet) 125 mcg PO DAILY@0600 [facility] Lisinopril (Lisinopril 10 Mg Tablet) 10 mg PO DAILY [facility] Metformin HCl (Metformin Hcl 850 Mg Tablet) 850 mg PO BID [facility] Metoprolol Succinate (Metoprolol Succinate Er 50 Mg Tab.Er.24h) 50 mg PO DAILY [facility]; Protocol Ondansetron HCl (Ondansetron Hcl 4 Mg/2 Ml Vial) 4 mg IVPUSH Q8H PRN PRN Reason: Nausea and Vomiting Oxycodone HCl (Oxycodone Hcl Immed Release 5 Mg Tablet) 5 mg PO Q4H PRN PRN Reason: Pain, Moderate(Pain Scale 4-6) Last Admin: 02/02/23 13:43 Dose: 5 mg Oxycodone HCl (Oxycodone Hcl Er 10 Mg Tab.Er.12h) 10 mg PO BID [facility] Pentoxifylline (Pentoxifylline Er 400 Mg Tablet.Er) 400 mg PO DAILY [facility] Polyethylene Glycol (Polyethylene Glycol 3350 17 Gm Powd.Pack) 17 gm PO DAILY PRN PRN Reason: constipation Sodium Chloride (0.9 % Sodium Chloride Flush 3 Ml Syringe) 3 ml IVFLUSH QSHIFT [facility] Home Medications Medication Instructions Recorded Confirmed Last Taken Type bisacodyl 5 mg tablet (Laxative 10 mg PO DAILY PRN Constipation 11/02/22 02/02/23 Unknown History (bisacodyl)) aspirin 81 mg chewable tablet 81 mg PO DAILY 01/25/23 02/02/23 01/28/23 History famotidine 20 mg tablet 20 mg PO BEDTIME 01/25/23 02/02/23 Unknown History Physical Exam Vital Signs and Narrative: Vital Signs: Last Vital Signs Temp 97.6 F 02/02/23 14:23 Pulse 80 02/02/23 14:49 Resp 16 02/02/23 14:23 BP 124/64 02/02/23 14:49 Pulse Ox 96 02/02/23 14:49 O2 Del Method Room Air 02/02/23 14:23 BMI result Body Mass Index 36.3 Constitutional - Awake and Alert, No apparent distress Eyes - PERRLA, EOMI Cardiovascular - S1S2, RRR, No edema Respiratory - Normal lung expansion, Normal respiratory effort, No respiratory distress, CTA bilaterally Gastrointestinal - NT / ND; +BS; No rebound or guarding Extremities - no calf tenderness bilaterally, no swelling Skin - Warm/Dry Neurological - Alert & oriented x3 Psychological - Appropriate affect Results Labs 02/02/23 07:28 02/02/23 13:29 Labs: Laboratory Results - last 24 hr 02/02/23 02/02/23 02/02/23 07:21 13:04 13:29 Estim Creat Clear Calc 65.6 Estimated GFR 54 POC Glucose 183 H 161 H Imaging Radiologist's Impressions: Impressions Knee X-Ray 02/02/23 13:04 IMPRESSION: Appropriate alignment of the right total knee arthroplasty. Assessment and Plan (1) Osteoarthritis of right knee: Status: Acute Plan 67-year-old female with history of hypertension, [id number]-rurrvrwha type 2 diabetes, hyperparathyroidism, postsurgical hypothyroidism, peripheral vascular disease, dyslipidemia, admitted to Orthopedic surgery for management of osteoarthritis of the right knee s/p TKA with consult placed to hospitalist serv ice for medical management. #OA Right knee s/p TKA POD0 -plan per orthopedic surgery # [id number]-obetwztao type 2 diabetes -diabetic diet -POC glucose -Humalog on sliding scale # hypertension -blood pressure soft -hold hydralazine for now, consider giving p.m. dose pending blood pressures -resume antihypertensives tomorrow # hypothyroidism -continue Synthroid # GERD -continue famotidine Thank you for this consult, will continue to follow for BP management Time Spent With Patient Time: Total time managing care of this patient today ____ minutes.
[2023-02-02 16:26] LABS: Glucose, Whole Blood 201 mg/dL (60-115)
[2023-02-02] MEDS: 0.9 % Sodium Chloride Flush 3 ML SYRINGE IVFLUSH ×2 (17:22→20:36)
[2023-02-02] MEDS: Insulin Lispro 100 UNIT/ML 3 ML VIAL SUBCUT ×2 (17:22→20:35)
[2023-02-02 20:23] LABS: Glucose, Whole Blood 341 mg/dL (60-115)
[2023-02-02] MEDS: Docusate Sodium 100 MG CAPSULE PO (20:34)
[2023-02-02] MEDS: Famotidine 20 MG TABLET PO (20:34)
[2023-02-02] MEDS: oxyCODONE HCl ER 10 MG TAB.ER.12H PO (20:34)
[2023-02-02] MEDS: Atorvastatin Calcium 80 MG TABLET PO (20:34)
[2023-02-02] MEDS: hydrALAZINE HCl 10 MG TABLET PO (20:35)
[2023-02-02] MEDS: metFORMIN HCl 850 MG TABLET PO (20:35)
[2023-02-02] MEDS: Celecoxib 200 MG CAPSULE PO (20:35)
[2023-02-02] MEDS: Fluticasone Propionate 100 MCG BLST.W.DEV 1 PUFF INHALE (20:42)
[2023-02-03] VITALS (7 sets, daily range): BP systolic 130–170; BP diastolic 67–87; PULSE 87–90; RESP 16–20; TEMP 36–36.8; O2SAT 95–97
[2023-02-03] MEDS: HYDROmorphone HCl 0.5 MG/0.5 ML SYRINGE 0.25 MG IVPUSH (00:24)
[2023-02-03] MEDS: ondansetron HCL 4 MG/2 ML VIAL IVPUSH (01:48)
[2023-02-03] MEDS: Lactated Ringers 1,000 ML 100 ML IVCONT ×3 (03:02→22:36)
[2023-02-03] MEDS: oxyCODONE HCl Immed Release 5 MG TABLET PO ×2 (05:36→13:02)
[2023-02-03] MEDS: Levothyroxine Sodium 125 MCG TABLET PO (05:36)
[2023-02-03 07:13] LABS: MANUAL DIFF FLAG NO
[2023-02-03 07:17] LABS: Basophils Percent Auto 0.2 % (0-2); Eosinophils Percent Auto 0.2 % (0-4); Hematocrit 37.5 % (37.0-47.0); Hemoglobin 12.6 g/dl (12.0-16.0); Imm Gran Abs Auto 0.04 X10*3/uL (0.00-0.03); Imm Gran Pct Auto 0.3 % (0.0-0.4); Lymphocytes Absolute Auto 2.2 X10*3/uL (1.2-4.9); Lymphocytes Percent Auto 18.2 % (20-40); Mean Corpuscular HGB Conc 33.6 g/dl (31.0-35.0); Mean Corpuscular Hemoglobin 30.7 pg (27.0-33.0); Mean Corpuscular Volume 91.2 fL (80.0-98.0); Mean Platelet Volume 9.3 fL (9.4-12.3); Monocytes Absolute Auto 1.2 X10*3/uL (0.1-1.2); Monocytes Percent Auto 9.9 % (2-11); Neutrophils Absolute Auto 8.8 x10*3/uL (2.0-8.3); Neutrophils Percent Auto 71.2 % (45-73); Platelet Count 265 X10*3/uL (160-400); Red Blood Count 4.11 X10*6/uL (4.20-5.50); Red Cell Distribution Width 13.9 % (11.0-16.0); White Blood Count 12.3 X10*3/uL (4.8-10.8)
[2023-02-03 07:32] LABS: Anion Gap 15 (12-20); Blood Urea Nitrogen 16 mg/dL (9-16); Calcium 10.5 mg/dL (8.4-10.2); Carbon Dioxide 27 mmol/L (22-29); Chloride 97 mmol/L (96-108); Creatinine Clr Calc Pharmacy 71.9; Estimated Glomerular Filt Rate 60; Glucose Fasting 203 mg/dL (60-99); Potassium 3.3 mmol/L (3.3-5.1); Sodium 136 mmol/L (135-145)
--- NOTE | 2023-02-03 07:53 | PM.PNORT ---
Subjective Subjective Date of Service: 02/03/23 Interval history: POD1 s/p RTKA. Patient is resting comfortably in bed. No overnight events. Pain is managed. No additional compalints. Physical Exam Vital Signs: Vital Signs: Last Vital Signs Temp 98.2 F 02/03/23 07:01 Pulse 90 02/03/23 07:01 Resp 20 02/03/23 07:01 BP 170/81 H 02/03/23 07:08 Pulse Ox 96 02/03/23 07:01 O2 Del Method Room Air 02/03/23 07:01 BMI result Body Mass Index 36.3 Const: General: cooperative, healthy appearing and no acute distress Resp: Effort & Inspection: normal respiratory effort and able to speak in complete sentences Cardio: Rate: regular rate Peripheral pulses: Peripheral pulses 2+ throughout GI: Palpation (GI): Soft to palpation Skin: Lesions: no lesions Rashes: no rashes Extrem: Other: Right knee Aquacel is c/d/i. Able to dorsi/plantar flex. NVI. Procedures Date of Service Date of Service: 02/03/23 Progress Note: A&P Assessment and plan (1) Status post total knee replacement, right: Status: Acute Plan Continue pain mgmnt Begin ASA for dvt ppx begin PT for RTKA Dispo planning-Pending PT eval, pain mgmnt Time Spent With Patient Time: Total time managing care of this patient today ____ minutes. Quality Stroke Does the patient have a stroke diagnosis?: No VTE Prior VTE?: No VTE Risk Level:: Medical - moderate - high VTE Device Contraindication: N/A - Device Ordered VTE Drug Contraindication: N/A - Med Ordered
[2023-02-03] MEDS: lisinopriL 10 MG TABLET PO (07:57)
[2023-02-03] MEDS: Metoprolol Succinate ER 50 MG TAB.ER.24H PO (07:57)
[2023-02-03] MEDS: hydroCHLOROthiazide 25 MG TABLET PO (07:58)
[2023-02-03] MEDS: metFORMIN HCl 850 MG TABLET PO ×2 (07:58→21:23)
[2023-02-03] MEDS: Celecoxib 200 MG CAPSULE PO ×2 (07:58→21:23)
[2023-02-03] MEDS: amLODIPine Besylate 10 MG TABLET PO (07:58)
[2023-02-03] MEDS: Pentoxifylline ER 400 MG TABLET.ER PO (07:58)
[2023-02-03] MEDS: oxyCODONE HCl ER 10 MG TAB.ER.12H PO ×2 (07:58→21:23)
[2023-02-03] MEDS: Docusate Sodium 100 MG CAPSULE PO ×2 (07:59→21:23)
[2023-02-03] MEDS: hydrALAZINE HCl 10 MG TABLET PO ×3 (07:59→21:24)
[2023-02-03 08:09] LABS: Glucose, Whole Blood 211 mg/dL (60-115)
[2023-02-03] MEDS: Insulin Lispro 100 UNIT/ML 3 ML VIAL SUBCUT ×4 (08:26→21:24)
--- NOTE | 2023-02-03 10:40 | W.PM.OPN ---
Operative Note Operative Note Date of Service: 02/02/23 Narrative: Date of Service: 02/02/23 Pre-op diagnosis: right knee OA Post-op diagnosis: same Procedure: Right TKA Implants: Styrker Triathlon PS cemented 07/17/15 Surgeon: Rangel Azevedo MD Anesthesia: GETA Was an Gamma Facilities Operator used for this Procedure?: Yes Gamma Facilities Operator: Lindsay Barrera Estimated blood loss (mL): 25 Tourniquet time (min): 70 IV fluids (mL): 1,000 Pathology: other Condition: stable Disposition: PACU Procedure in detail: The patient was brought to the operating room and prepped and draped in standard sterile fashion. A time-out was called to identify proper site proper procedure proper surgeon and IV antibiotics were administered. 1 g of IV tranexamic acid was administered. I began by making a midline incision to the retinaculum and performed a medial parapatellar arthrotomy. The patella was translated laterally and the knee was flexed up. She had severe valgus deformity (~20deg) with lateral compartment wear. I performed a SMALL medial peel and resected the infrapatellar fat pad. [place]'s line was then used to drill my intramedullary femoral guide and my distal femur cut of 10 mm was made in 5 degrees of valgus while protecting the soft tissues. I then measured a # 2 femur and placed my cutting guide and made my anterior posterior and chamfer cuts protecting the soft tissues at all times. Epcondylar axis was used for referencing as well as posteriorly. Lateral femoral conyle did not appear diminutive. I then made my box but removing the PCL. Once I was satisfied with my cuts I turned my attention to the tibia. I removed the meniscus medially and laterally and , using an external cutting guide, in line with the tibial crest and the third ray, I made my distal tibial cut in 0 deg slope of while protecting the posterior soft tissues at all times. An extension block was used to confirm appropriate amount of bony resection. I then sized a #3 tibia and once I was satisfied that there was complete tibial coverage I placed my trial and with the trial femur in place took the knee through range of motion. I was satisfied with the extension and flexion as well as the stability at 0, 30 and 90 degrees. The lateral compartment was tight and the medial compartment losse with intact MCL. I pie crusted and released the LCL and the lateral capsule nad ITB. I then turned my attention to the patella where I removed 1 cm from the undersurface of the patella and then trialed a 29a patellar button. Again the knee was taken through range of motion I was satisfied with the tracking. I then returned to the femur and drilled my femoral lug holes and prepared the tibia. A femoral bone plug was placed and the knee was irrigated copiously. I mixed 2 bags Palacos cement on back table with 3rd gen cementation technique. I then cemented the patella, tibia and femur in standard fashion while applying compression. I trialed different inserts until I selected a #[id number] insert. The knee was blanced in varus valgus and with full ROM and PF tracking was improved with mild lateral pull on terminal flexion only. The final insert was placed and a 3 minutes iodine soak with local TXA was performed. The knee was then closed with a running Quill suture, a 3 0 Vicryl and norma on the skin. Patient was then placed in sterile dressing and brought to recovery room in stable condition there were no known complications. A Werewolf cautery wand was used to maintain hemostasis over the capsule and meniscal beds, the gutters and peripatellar soft tissues.
[2023-02-03 11:29] LABS: Glucose, Whole Blood 201 mg/dL (60-115)
[2023-02-03] MEDS: Aspirin 325 MG TABLET PO ×2 (11:45→21:22)
--- NOTE | 2023-02-03 13:24 | P.PNIM_ITS ---
Subjective Subjective Date of Service: 02/03/23 Interval History: Doing well postoperatively. Pain control adequate Review of Systems Denies chest pain Denies shortness of breath Denies nausea vomiting diarrhea Denies fever chills Physical Exam Vital Signs: Vital Signs: Last Vital Signs Temp 98.2 F 02/03/23 07:01 Pulse 90 02/03/23 07:01 Resp 20 02/03/23 07:01 BP 170/81 H 02/03/23 08:30 Pulse Ox 96 02/03/23 07:01 O2 Del Method Room Air 02/03/23 07:01 BMI result Body Mass Index 36.3 Const: Other: No acute issues Resp: Other: Clear to auscultation bilaterally no rales rhonchi or wheezes Cardio: Other: No S4; positive S1-S2; no S3 murmurs rubs or gallops GI: Other: Soft nontender nondistended normoactive bowel sounds Extrem: Other: No edema bilaterally. Distal pulses intact right lower extremity Objective Data Active Medications Acetaminophen (Acetaminophen 325 Mg Tablet) 650 mg PO Q6H PRN PRN Reason: Pain, Mild (Pain Scale 1-3) Last Admin: 02/02/23 13:43 Dose: 650 mg Documented By: SWAPNIL Albuterol Sulfate (Albuterol Sulfate (0.083%) 2.5 Mg/3 Ml Vial.Neb) 2.5 mg INHALE ONCE PRN PRN Reason: Shortness of Breath/Wheezing Albuterol Sulfate (Albuterol Sulfate 90 Mcg 8 Gm Inhaler) 1 puff INHALE QID PRN PRN Reason: shortness of breath or wheezing Amlodipine Besylate (Amlodipine Besylate 10 Mg Tablet) 10 mg PO DAILY [facility]; Protocol Last Admin: 02/03/23 07:58 Dose: 10 mg Documented By: KASIA Aspirin (Aspirin 325 Mg Tablet) 325 mg PO BID [facility] Last Admin: 02/03/23 11:45 Dose: 325 mg Documented By: KASIA Atorvastatin Calcium (Atorvastatin Calcium 80 Mg Tablet) 80 mg PO BEDTIME [facility] Last Admin: 02/02/23 20:34 Dose: 80 mg Documented By: KHOA Bisacodyl (Bisacodyl 5 Mg Tablet.) 10 mg PO DAILY PRN PRN Reason: Constipation Celecoxib (Celecoxib 200 Mg Capsule) 200 mg PO BID [facility] Last Admin: 02/03/23 07:58 Dose: 200 mg Documented By: KASIA Cyclobenzaprine HCl (Cyclobenzaprine Hcl 10 Mg Tablet) 10 mg PO TID PRN PRN Reason: muscle spasm Dextrose (Dextrose 50 % 25 Gm/50 Ml Syringe) 25 gm IVPUSH Q15M PRN; Protocol PRN Reason: per Hypoglycemia Standing Ord. Docusate Sodium (Docusate Sodium 100 Mg Capsule) 100 mg PO BID [facility] Last Admin: 02/03/23 07:59 Dose: 100 mg Documented By: KASIA Famotidine (Famotidine 20 Mg Tablet) 20 mg PO BEDTIME [facility] Last Admin: 02/02/23 20:34 Dose: 20 mg Documented By: KHOA Fluticasone Propionate (Fluticasone Propionate 100 Mcg Blst.W.Dev) 1 puff INHALE RBID [facility] Last Admin: 02/03/23 08:18 Dose: Not Given Documented By: HUGO Non-Admin Reason: Patient Refused Glucose (Glucose Gel 15 Gm Gel..Gram.) 15 gm PO Q15M PRN; Protocol PRN Reason: per Hypoglycemia Standing Ord. Hydralazine HCl (Hydralazine Hcl 10 Mg Tablet) 10 mg PO TID [facility]; Protocol Last Admin: 02/03/23 07:59 Dose: 10 mg Documented By: KASIA Hydrochlorothiazide (Hydrochlorothiazide 25 Mg Tablet) 25 mg PO DAILY [facility] Last Admin: 02/03/23 07:58 Dose: 25 mg Documented By: KASIA Hydromorphone HCl (Hydromorphone Hcl 0.5 Mg/0.5 Ml Syringe) 0.25 mg IVPUSH Q4H PRN; Protocol PRN Reason: Pain, Severe (Pain Scale 7-10) Last Admin: 02/03/23 00:24 Dose: 0.25 mg Documented By: KHOA Lactated Ringer's (Lr) 1,000 mls @ 100 mls/hr IVCONT .Q10H [facility] Last Admin: 02/03/23 03:02 Dose: 100 mls/hr Documented By: KHOA Insulin Human Lispro (Insulin Lispro 100 Unit/Ml 3 Ml Vial) 0 unit SUBCUT QIDACHS [facility]; Protocol Last Admin: 02/03/23 11:45 Dose: 4 unit Documented By: KASIA Levothyroxine Sodium (Levothyroxine Sodium 125 Mcg Tablet) 125 mcg PO DAILY@0600 [facility] Last Admin: 02/03/23 05:36 Dose: 125 mcg Documented By: KHOA Lisinopril (Lisinopril 10 Mg Tablet) 10 mg PO DAILY [facility] Last Admin: 02/03/23 07:57 Dose: 10 mg Documented By: KASIA Metformin HCl (Metformin Hcl 850 Mg Tablet) 850 mg PO BID [facility] Last Admin: 02/03/23 07:58 Dose: 850 mg Documented By: KASIA Metoprolol Succinate (Metoprolol Succinate Er 50 Mg Tab.Er.24h) 50 mg PO DAILY [facility]; Protocol Last Admin: 02/03/23 07:57 Dose: 50 mg Documented By: KASIA Ondansetron HCl (Ondansetron Hcl 4 Mg/2 Ml Vial) 4 mg IVPUSH Q8H PRN PRN Reason: Nausea and Vomiting Last Admin: 02/03/23 01:48 Dose: 4 mg Documented By: KHOA Oxycodone HCl (Oxycodone Hcl Immed Release 5 Mg Tablet) 5 mg PO Q4H PRN PRN Reason: Pain, Moderate(Pain Scale 4-6) Last Admin: 02/03/23 13:02 Dose: 5 mg Documented By: TERRI Oxycodone HCl (Oxycodone Hcl Er 10 Mg Tab.Er.12h) 10 mg PO BID [facility] Last Admin: 02/03/23 07:58 Dose: 10 mg Documented By: KASIA Pentoxifylline (Pentoxifylline Er 400 Mg Tablet.Er) 400 mg PO DAILY [facility] Last Admin: 02/03/23 07:58 Dose: 400 mg Documented By: KASIA Polyethylene Glycol (Polyethylene Glycol 3350 17 Gm Powd.Pack) 17 gm PO DAILY PRN PRN Reason: constipation Sodium Chloride (0.9 % Sodium Chloride Flush 3 Ml Syringe) 3 ml IVFLUSH QSHIFT [facility] Last Admin: 02/03/23 07:53 Dose: Not Given Documented By: KASIA Non-Admin Reason: IV Running Labs 02/03/23 06:17 02/03/23 06:17 Labs: Laboratory Results - last 24 hr 02/02/23 02/02/23 02/02/23 13:29 16:19 20:11 MCV MCH MCHC RDW Plt Count MPV Immature Gran % (Auto) Neut % (Auto) Lymph % (Auto) [place] % (Auto) Eos % (Auto) Baso % (Auto) Lymph # (Auto) [facility] # (Auto) Eos # (Auto) Baso # (Auto) Abs Immat Gran (auto) Absolute Neuts (auto) Absolute Nucleated RBC Nucleated RBC % (auto) Anion Gap Estim Creat Clear Calc 65.6 Estimated GFR 54 POC Glucose 201 H 341 H Fasting Glucose Calcium 02/03/23 02/03/23 02/03/23 06:17 06:17 08:04 MCV 91.2 MCH 30.7 MCHC 33.6 RDW 13.9 Plt Count 265 MPV 9.3 L Immature Gran % (Auto) 0.3 Neut % (Auto) 71.2 Lymph % (Auto) 18.[address] % (Auto) 9.9 Eos % (Auto) 0.2 Baso % (Auto) 0.2 Lymph # (Auto) 2.2 [facility] [facility] # (Auto) 1.2 Eos # (Auto) 0.0 Baso # (Auto) 0.0 Abs Immat Gran (auto) 0.04 H Absolute Neuts (auto) 8.8 H Absolute Nucleated RBC 0.000 Nucleated RBC % (auto) 0.0 Anion Gap 15 Estim Creat Clear Calc 71.9 Estimated GFR 60 POC Glucose 211 H Fasting Glucose 203 H Calcium 10.5 H 02/03/23 11:21 MCV MCH MCHC RDW Plt Count MPV Immature Gran % (Auto) Neut % (Auto) Lymph % (Auto) [facility] [facility] % (Auto) Eos % (Auto) Baso % (Auto) Lymph # (Auto) [facility] [facility] # (Auto) Eos # (Auto) Baso # (Auto) Abs Immat Gran (auto) Absolute Neuts (auto) Absolute Nucleated RBC Nucleated RBC % (auto) Anion Gap Estim Creat Clear Calc Estimated GFR POC Glucose 201 H Fasting Glucose Calcium Assessment and Plan (1) Status post total knee replacement, right: Status: Acute (2) Diabetes: Status: Acute (3) Essential hypertension: Status: Acute Plan 67-year-old female with history of hypertension, mhq-bunpuur-caichyirs type 2 diabetes, hyperparathyroidism, postsurgical hypothyroidism, peripheral vascular disease, dyslipidemia, admitted to Orthopedic surgery for management of osteoarthritis of the right knee s/p TKA with consult placed to hospitalist service for medical management. 1.s/p TKA Right knee (POD2) -plan per orthopedic surgery 2.Yks-rwebsdu-juhusgtrx type 2 diabetes -acceptable control on current therapies -lispro correctional scale -adjust as indicated 3.Hypertension -add back outpatient therapies -adjust as indicated 4.Hypothyroidism -continue Synthroid Thank you for this consult, will continue to follow for BP management Time Spent With Patient Time: Total time managing care of this patient today ____ minutes. Quality Stroke Does the patient have a stroke diagnosis?: No VTE Prior VTE?: No VTE Risk Level:: Medical - moderate - high VTE Device Contraindication: N/A - Device Ordered VTE Drug Contraindication: N/A - Med Ordered
--- NOTE | 2023-02-03 13:48 | HO.POSTANES ---
Post Anesthesia Evaluation Post Anesthesia Evaluation Date of Service: 02/03/23 Vital Signs: Vital Signs Temp Pulse Resp BP Pulse Ox O2 Del Method 02/03/23 08:30 170/81 H 02/03/23 07:08 170/81 H 02/03/23 07:01 98.2 F 90 20 96 Room Air 02/03/23 03:15 96.8 F 88 16 131/67 96 Room Air Anesthesia: Spinal and Nerve Block Mental Status: Awake Pain Control: Satisfactory Nausea/Vomiting: None Hydration: Adequate Anesthesia-Related Issues: No Anes. Related Issues
--- NOTE | 2023-02-03 16:12 | MHC.CM.PN ---
pt lives with her shipping and receiving associate is her son who lives upstairs pt has a ride home referral to [facility] for home pt as receommended by pt dc plan home with shipping and receiving associate and vna
[2023-02-03 16:36] LABS: Glucose, Whole Blood 169 mg/dL (60-115)
[2023-02-03 19:50] LABS: Glucose, Whole Blood 203 mg/dL (60-115)
[2023-02-03] MEDS: Atorvastatin Calcium 80 MG TABLET PO (21:23)
[2023-02-03] MEDS: Famotidine 20 MG TABLET PO (21:24)
[2023-02-04 04:00] VITALS: BP 117/72; PULSE 94; RESP 16; TEMP 36.8; O2SAT 95
[2023-02-04 06:07] LABS: MANUAL DIFF FLAG NO
[2023-02-04 06:18] LABS: Basophils Percent Auto 0.2 % (0-2); Eosinophils Absolute Auto 0.1 X10*3/uL (0.0-0.4); Eosinophils Percent Auto 0.9 % (0-4); Hematocrit 32.3 % (37.0-47.0); Hemoglobin 10.8 g/dl (12.0-16.0); Imm Gran Abs Auto 0.06 X10*3/uL (0.00-0.03); Imm Gran Pct Auto 0.5 % (0.0-0.4); Lymphocytes Absolute Auto 2.4 X10*3/uL (1.2-4.9); Lymphocytes Percent Auto 19.8 % (20-40); Mean Corpuscular HGB Conc 33.4 g/dl (31.0-35.0); Mean Corpuscular Hemoglobin 30.5 pg (27.0-33.0); Mean Corpuscular Volume 91.2 fL (80.0-98.0); Mean Platelet Volume 9.5 fL (9.4-12.3); Monocytes Absolute Auto 1.2 X10*3/uL (0.1-1.2); Monocytes Percent Auto 9.7 % (2-11); Neutrophils Absolute Auto 8.3 x10*3/uL (2.0-8.3); Neutrophils Percent Auto 68.9 % (45-73); Platelet Count 220 X10*3/uL (160-400); Red Blood Count 3.54 X10*6/uL (4.20-5.50); Red Cell Distribution Width 13.9 % (11.0-16.0); White Blood Count 12.1 X10*3/uL (4.8-10.8)
[2023-02-04 06:30] LABS: Anion Gap 13 (12-20); Blood Urea Nitrogen 18 mg/dL (9-16); Carbon Dioxide 26 mmol/L (22-29); Chloride 100 mmol/L (96-108); Estimated Glomerular Filt Rate 53; Glucose Fasting 147 mg/dL (60-99); Sodium 136 mmol/L (135-145)
[2023-02-04] MEDS: Levothyroxine Sodium 125 MCG TABLET PO (06:37)
[2023-02-04] MEDS: Lactated Ringers 1,000 ML 100 ML IVCONT (06:41)
[2023-02-04 07:10] VITALS: BP 132/66; PULSE 97; RESP 20; TEMP 36.2; O2SAT 97
[2023-02-04 07:24] LABS: Glucose, Whole Blood 150 mg/dL (60-115)
[2023-02-04] MEDS: oxyCODONE HCl Immed Release 5 MG TABLET PO (07:45)
[2023-02-04 08:09] VITALS: BP 132/66; PULSE 97; O2SAT 97
[2023-02-04] MEDS: Fluticasone Propionate 100 MCG BLST.W.DEV 1 PUFF INHALE (08:19)
[2023-02-04 08:20] VITALS: PULSE 110; RESP 20; O2SAT 93
[2023-02-04] MEDS: amLODIPine Besylate 10 MG TABLET PO (08:39)
[2023-02-04] MEDS: Docusate Sodium 100 MG CAPSULE PO (08:39)
[2023-02-04] MEDS: Aspirin 325 MG TABLET PO (08:39)
[2023-02-04] MEDS: Potassium Chloride Packet 20 MEQ PACKET 40 MEQ PO (08:39)
[2023-02-04] MEDS: metFORMIN HCl 850 MG TABLET PO (08:40)
[2023-02-04] MEDS: Pentoxifylline ER 400 MG TABLET.ER PO (08:40)
[2023-02-04] MEDS: hydrALAZINE HCl 10 MG TABLET PO (08:40)
[2023-02-04] MEDS: lisinopriL 10 MG TABLET PO (08:40)
[2023-02-04] MEDS: Celecoxib 200 MG CAPSULE PO (08:40)
[2023-02-04] MEDS: oxyCODONE HCl ER 10 MG TAB.ER.12H PO (08:40)
[2023-02-04] MEDS: hydroCHLOROthiazide 25 MG TABLET PO (08:40)
[2023-02-04] MEDS: Metoprolol Succinate ER 50 MG TAB.ER.24H PO (08:40)
--- NOTE | 2023-02-04 08:52 | MHC.CM.PN ---
DP: PT IS MEDICALLY CLEARED FOR DC HOME WITH NEW [facility] FOR HOME P.T. [facility] NOTIFIED OF DC TODAY. PT HAS OWN RIDE HOME.
--- NOTE | 2023-02-04 09:26 | PM.DS ---
DS: Providers Provider Date of Service: 02/04/23 Date of admission: 02/02/23 07:06 Primary care physician: Danika Rainey MD Consults: 02/02/23 09:42 Consult to Hospitalist Routine Comment: Consulting Provider: Hospitalist Reason For Exam: Routine medical management DS: Diagnosis Discharge Diagnosis (1) Status post total knee replacement, right: Status: Acute (2) Diabetes: Status: Acute (3) Essential hypertension: Status: Acute DS: Summary Hospital Course Hospital Course: The patient underwent a successful right total knee arthroplasty, they were transferred to PACU and then to the floor to recover. During their stay, their vitals were stable, afebrile at 97.1. Labs were unremarkable, H/H 10.8/32.3. POD 1 they were started on Aspirin 325mg po bid for DVT ppx, they also received Physical Therapy services twice a day. Prior to discharge, their dressing was changed, incision clean dry and intact, new Aquacel dressing applied and the plan was to be discharged home with [facility]NA services. Time Spent with Patient Time attestation: Total time managing care of this patient today ____ minutes. Discharge coordination time: Less than 30 minutes Quality: Safe Use of Opioids Does Pt have an Active Cancer Diagnosis on the Problem List?: No Quality: Stroke Does the patient have a stroke diagnosis?: No Physical Exam Vital Signs: Vital Signs: Last Vital Signs Temp 97.1 F 02/04/23 07:10 Pulse 110 H 02/04/23 08:20 Resp 20 02/04/23 08:20 BP 132/66 02/04/23 08:09 Pulse Ox 97 02/04/23 08:09 O2 Del Method Room Air 02/04/23 07:10 O2 Flow Rate 97 02/04/23 07:10 BMI result Body Mass Index 36.3 Const: General: cooperative, healthy appearing and no acute distress Resp: Effort & Inspection: normal respiratory effort and able to speak in complete sentences Cardio: Rate: regular rate Peripheral pulses: Peripheral pulses 2+ throughout GI: Palpation (GI): Soft to palpation Skin: Lesions: no lesions Rashes: no rashes Extrem: Other: Right knee Aquacel is c/d/i. Able to dorsi/plantar flex. NVI. DS: Data Data Completed and Pending Pending studies at discharge: Pending at discharge 02/02/23 11:51 Surgical [PTH] Routine Labs on day of discharge: Laboratory Results - last 24 hr 02/03/23 02/03/23 02/03/23 11:21 16:32 19:45 WBC RBC Hgb Hct MCV MCH MCHC RDW Plt Count MPV Immature Gran % (Auto) Neut % (Auto) Lymph % (Auto) Yell % (Auto) Eos % (Auto) Baso % (Auto) Lymph # (Auto) Yell # (Auto) Eos # (Auto) Baso # (Auto) Abs Immat Gran (auto) Absolute Neuts (auto) Absolute Nucleated RBC Nucleated RBC % (auto) Sodium Potassium Chloride Carbon Dioxide Anion Gap BUN Creatinine Estim Creat Clear Calc Estimated GFR POC Glucose 201 H 169 H 203 H Fasting Glucose Calcium 02/04/23 02/04/23 02/04/23 05:10 05:15 07:17 WBC 12.1 H RBC 3.54 L Hgb 10.8 L Hct 32.3 L MCV 91.2 MCH 30.5 MCHC 33.4 RDW 13.9 Plt Count 220 MPV 9.5 Immature Gran % (Auto) 0.5 H Neut % (Auto) 68.9 Lymph % (Auto) 19.8 L Yell % (Auto) 9.7 Eos % (Auto) 0.9 Baso % (Auto) 0.2 Lymph # (Auto) 2.4 Yell # (Auto) 1.2 Eos # (Auto) 0.1 Baso # (Auto) 0.0 Abs Immat Gran (auto) 0.06 H Absolute Neuts (auto) 8.3 Absolute Nucleated RBC 0.000 Nucleated RBC % (auto) 0.0 Sodium 136 Potassium 3.0 L Chloride 100 Carbon Dioxide 26 Anion Gap 13 BUN 18 H Creatinine 1.04 Estim Creat Clear Calc 65.0 Estimated GFR 53 POC Glucose 150 H Fasting Glucose 147 H Calcium 10.0 Discharge Plan Discharge Anticipated Discharge Date/Time: 02/04/23 15:32 Patient Disposition: Home Health Service Discharge Diagnosis: s/p RTKA Referrals: Balaji CHAVEZ [Outside] - 3-5 Days (HOME SERVICES FOR PHYSICAL THERAPY- A THERAPIST WILL CALL YOU TO SET UP FIRST VISIT.) Linda Middleton PA-C [Physician [employer]ork Truck [employer]] - 02/18/23 1:15 pm Discharge Medications: New acetaminophen 325 mg Tablet 650 mg PO Q6H PRN (Reason: Pain, Mild (Pain Scale 1-3)) 30 Days Qty: 240 0RF aspirin 325 mg Tablet 325 mg PO BID 42 Days Qty: 84 0RF celecoxib 200 mg Capsule 200 mg PO BID 30 Days Qty: 60 0RF docusate sodium 100 mg Capsule 100 mg PO BID 30 Days Qty: 60 0RF oxycodone 5 mg Tablet 5 mg PO Q4H PRN (Reason: Pain, Moderate(Pain Scale 4-6)) 7 Days Qty: 42 0RF Rx Instructions: Partial Fill upon patient request. Continued albuterol sulfate [Ventolin HFA] 90 mcg/actuation HFA aerosol inhaler 1 inh inhalation QID PRN (Reason: shortness of breath or wheezing) Qty: 8.5 1RF (DME) blood pressure monitor Kit See Rx Instructions .Route Qty: 1 0RF Rx Instructions: As directed (DME) blood-glucose meter [[facility] Meter] [facility] See Rx Instructions .ROUTE .MEDSUPPLY Qty: 1 0RF Rx Instructions: As directed once a day cyclobenzaprine 10 mg tablet 10 mg PO TID PRN (Reason: muscle spasm) Qty: 6 0RF Flovent HFA 110 mcg/actuation HFA aerosol inhaler 1 puff inhalation BID Qty: 12 1RF (DME) lancets [OneTouch Delica Lancets] [facility] See Rx Instructions .Route Qty: 100 3RF Rx Instructions: Use 1 lancet once a day polyethylene glycol 3350 [Miralax] 17 gram/dose powder 17 g PO DAILY PRN (Reason: constipation) Qty: 119 0RF pentoxifylline 400 mg tablet extended release 400 mg PO DAILY Qty: 90 1RF (DME) OneTouch Verio test strips Strip See Rx Instructions .Route Qty: 100 3RF Rx Instructions: test blood sugar once a day chlorthalidone 25 mg tablet 25 mg PO DAILY 90 Days Qty: 90 0RF hydralazine 10 mg tablet 10 mg PO TID 30 Days Qty: 90 1RF famotidine 20 mg tablet 20 mg PO BEDTIME amlodipine 10 mg tablet 10 mg PO DAILY 90 Days Qty: 90 1RF atorvastatin 80 mg tablet 80 mg PO BEDTIME 90 Days Qty: 90 1RF benazepril 10 mg tablet 10 mg PO DAILY Qty: 90 1RF metformin 850 mg tablet 850 mg PO BID 90 Days Qty: 180 2RF metoprolol succinate 50 mg tablet extended release 24 hr 50 mg PO DAILY 90 Days Qty: 90 1RF levothyroxine [Synthroid] 125 mcg tablet 125 mcg PO DAILY 90 Days Qty: 90 6RF Rx Instructions: SB, no substitutions. Laxative (bisacodyl) 5 mg tablet 10 mg PO DAILY PRN (Reason: Constipation) Held aspirin 81 mg Tablet,Chewable 81 mg PO DAILY Hold Instructions: Resume on 03/19/23. Discharge Orders: Discharge Order (Routine); Ordered 02/04/23 Ordered By: Lindsay Barrera Diet: Advance to usual diet Activity on Discharge: Use cane or walker Stand Alone Forms: Patient Portal Discharge page Care Plan Goals: restore fxn to rt knee Health Concerns: none Plan of Treatment: Physical Therapy for ROM 0-120, quad strength, gait training. Use walker for ambulation Limit stair climbing, No shower, No tub bath, No driving Continue anticoagulant Keep Aquacel dressing clean, dry and intact. Follow up with orthopedics in 2 weeks Assessment: stable for d/c
--- NOTE | 2023-02-04 09:28 | P.F2F_ITS ---
Service Date Service Date: 02/04/23 Encounter Date of encounter: 02/04/23 Reasons for Services Signs and symptoms assessed: s/p RTKA. Pt. is considered homebound due to recent surgery. Unable to drive, poor balance, poor gait mechanics. Reason for physical therapy: home safety and mobility, therapeutic exercises, restore joint function, gait/transfer training, assess need for DME and ADL training Homebound: Leaving the home is medically contraindicated at this time without the asist of a device and/or another person due th the listed conditions above and below. Reason homebound: unsteady gait / fall risk, leg weakness, pain with ambulation, pain with transfers, poor balance / fall risk and unable to drive Certification: Based on the above findings, I certify that this patient is confined to the home and needs intermittent retirement care, physical therapy and/or speech therapy, or continues to need occupational therapy. The patient is under my care, and I have initiated the establishment of the plan of care. The patient will be followed by a physician who will periodically review the plan of care. Time Spent With Patient Time: Total time managing care of this patient today ____ minutes.
== END 2023-02-04 12:05 | disposition home health service (06) | DRG 470 ==
LOC: HO.SSSA 07:16 → HO.S3 13:25
PROVIDERS: Nurse Practitioner; Orthopaedic Surgery; Physician Assistant; Admitting Provider Physician Assistant; PCP Internal Medicine; Visit Provider Hospitalist
PROC: 0SRC0J9 Replacement of Right Knee Joint with Synthetic Substitute, Cemented, Open Approach (ICD-10-PCS; CPT 27446; principal; 2023-02-02 09:40)
DX: M17.11 Unilateral primary osteoarthritis, right knee (principal); E78.00 Pure hypercholesterolemia, unspecified; E11.51 Type 2 diabetes mellitus with diabetic peripheral angiopathy without gangrene; K21.9 Gastro-esophageal reflux disease without esophagitis; I10 Essential (primary) hypertension; E89.0 Postprocedural hypothyroidism; G89.18 Other acute postprocedural pain; Z79.51 Long term (current) use of inhaled steroids; Z79.82 Long term (current) use of aspirin; Z79.84 Long term (current) use of oral hypoglycemic drugs; Z79.890 Hormone replacement therapy; Z79.899 Other long term (current) drug therapy
CPT/HCPCS: 36415; 73560; 80048; 82565; 82947; 83036; 85014; 85018; 85025; 86850; 86900; 86901; 87640; 87641; 88305; 88311; 94640; 97110; 97116; 97162; C1713; C1776; J0690; J1170; J2405; J2795

== ENCOUNTER → 2023-02-02 07:06 | Outpatient (BNV) | payer OTHER, SELFPAY | PROVIDERS: Admitting Provider Physician Assistant; PCP Internal Medicine; Visit Provider Physician Assistant | DX: E11.9 Type 2 diabetes mellitus without complications (principal); I10 Essential (primary) hypertension; Z96.651 Presence of right artificial knee joint | CPT/HCPCS: 99222; 99233 ==

== ENCOUNTER → 2023-02-02 07:06 | Outpatient (BNV) | payer OTHER, SELFPAY | PROVIDERS: Admitting Provider Physician Assistant; PCP Internal Medicine; Visit Provider Orthopaedic Surgery | DX: M17.12 Unilateral primary osteoarthritis, left knee (principal); Z47.1 Aftercare following joint replacement surgery; Z96.651 Presence of right artificial knee joint | CPT/HCPCS: 27447; 99024; G0180 ==

== ENCOUNTER 2023-02-18 13:05 | Outpatient (AMB) | payer OTHER, SELFPAY ==
--- NOTE | 2023-02-18 13:10 | A.OFFVIS_ITS ---
Intake Intake Visit Reasons: PO-RT TKA 02/02/23 NE Intake Note: Paige a 67 year old female who presents today for a post operative RT TKA on 02/02/23 NE. Allergies No Known Allergies Allergy (Verified 01/28/23 09:50) HPI PO-RT TKA 02/02/23 NE HPI Details 67 yo female returns to the office today sp RT TKA with NE. She continues to work with PT at home and [facility] She continues to have intermittent discomfort and ambulates with a cane. She has noticed some increased pain and swelling down the leg. Denies fever or chills. 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 Social History Household Members: Spouse Housing: House Are you a primary patient care provider to a significant other at home: No Do you presently have visiting nurse or other home services: No Alcohol intake: never Patient Tobacco Use Status: Never used Tobacco e-Cigarette/Vaping Use: Never Used Second Hand Smoke Exposure: No service: No Current occupational status: unemployed Cognitive needs: Yes Hearing needs: No Vision needs: Yes (Glasses) Female Reproductive History Menstrual Age of Menarche: 14 Review of Systems Const All systems reviewed & are unremarkable except as noted in HPI and below Physical Exam Extrem Other: Right knee: Incision clean, dry and intact. No erythema or joint effusion. She does have some redness with some firmness along the calf which extends down into the tibia and ankle. Assessment & Plan Assessment & Plan (1) Status post total knee replacement, right: Code(s): Z96.651 - Presence of right artificial knee joint (2) Edema: Code(s): R60.9 - Edema, unspecified Plan Sandi removed, steri strips applied. She will begin to transition to Outpatient PT to continue working on Gait training, ROM and quad strength. No driving for another 4 weeks. She will require ppx abx for dental procedures. She will f/u in 4 weeks, sooner if needed. She was also sent for a STAT ultrasound for her right lower extremity. Orders: Orders US venous duplex LE RT Today R60.9 - Edema, unspecified, Z96.651 - Presence of right artificial knee joint Patient Instructions: Scribed for Linda Middleton PA-C, by Yury Tavera medical historian, on 02/18/2023 at 1:15 PM EST. I, Linda Middleton PA-C, have personally reviewed and agree with the information entered by the scribe. Coding Level of Care Code Global (44510) Diagnoses Status post total knee replacement, right Z96.651 Edema R60.9
== END 2023-02-18 14:11 | disposition home or self-care (01) ==
PROVIDERS: PCP Internal Medicine; Visit Provider Physician Assistant
DX: Z96.651 Presence of right artificial knee joint (principal); R60.9 Edema, unspecified
CPT/HCPCS: 99024

== ENCOUNTER → 2023-02-18 13:05 | Outpatient (BNVA) | payer OTHER, SELFPAY | PROVIDERS: PCP Internal Medicine; Visit Provider Physician Assistant ==

== ENCOUNTER 2023-02-18 14:46 | Outpatient (REF) | payer OTHER, SELFPAY ==
--- NOTE | ~2023-02-18 | US_ITS ---
EXAMINATION: US VENOUS ULTRASOUND WITH DOPPLER LOWER EXTREMITY, RIGHT CLINICAL INFORMATION: Right knee replacement with right leg edema COMPARISON: None available. TECHNIQUE: Ultrasound of the deep veins is performed from the hip to the calf with compression sonography and color and pulse Doppler assessment. Spectral analysis with color-flow imaging is performed. FINDINGS: There is normal venous compression and respiratory variation and augmented flow. The visualized common femoral vein, superficial femoral vein, profunda femoral vein, popliteal vein, and the trifurcation region shows no evidence of deep venous thrombosis. There is no significant popliteal fossa cyst. The right peroneal vein is not well-visualized secondary to edema. US/US venous duplex LE RT IMPRESSION: No DVT demonstrated in the right lower extremity.
== END 2023-02-18 14:47 | disposition home or self-care (01) ==
LOC: HO.US 14:46
PROVIDERS: PCP Internal Medicine; Visit Provider Physician Assistant
DX: R60.0 Localized edema (principal); Z96.651 Presence of right artificial knee joint
CPT/HCPCS: 93971

== ENCOUNTER 2023-02-22 09:47 | Outpatient (AMB) | payer OTHER, SELFPAY ==
--- NOTE | 2023-02-22 09:49 | A.OFFVIS_ITS ---
Intake Intake Visit Reasons: P/O PO-RT TKA 02/02/23 wound check Intake Note: Paige a 67 year old female who presents today for a post operative wound check of right TKA on 02/02/23. Patient reports drainage from the bottom of her incision. No other concerns today. Rubber Engraver Name: Jan ID#[id number] Allergies No Known Allergies Allergy (Verified 02/22/23 09:53) HPI P/O PO-RT TKA 02/02/23 wound check HPI Details 67-year-old female who returns to the [facility] today with an optometry doctor for post-op wound check of right TKA, 02/02/23. She states she has drainage at the bottom of her incision and c/o numbness around the incision site. She is doing well otherwise and has no concerns today. [facility] Medical History Back pain Class 2 severe obesity with serious comorbidity and body mass index (BMI) of 38.0 to 38.9 in adult Cough Degenerative arthritis Diabetes Diabetes Diabetic peripheral vascular disorder Dyslipidemia Essential hypertension High cholesterol Hospital discharge follow-up Hypercholesterolemia Hyperparathyroidism Hypertension Hypothyroid Hypothyroidism Left shoulder pain Obesity due to excess calories Peripheral vascular disease [id number] condition Post-menopausal Right foot pain Right foot pain Right knee pain Right sided sciatica Screening for breast cancer Vitamin D deficiency Surgical History Tubal ligation status History of esophagogastroduodenoscopy (EGD) (~2013) Hx of colonoscopy History of H/O right knee surgery History of thyroid surgery Family History Father Hypertension Mother No problems noted. Social History Household Members: Spouse Housing: House Are you a primary district manager primary care sales to a significant other at home: No Do you presently have visiting nurse or other home services: No Alcohol intake: never Patient Tobacco Use Status: Never used Tobacco e-Cigarette/Vaping Use: Never Used Second Hand Smoke Exposure: No service: No Current occupational status: unemployed Cognitive needs: Yes Hearing needs: No Vision needs: Yes (Glasses) Female Reproductive History Menstrual Age of Menarche: 14 Review of Systems Const All systems reviewed & are unremarkable except as noted in HPI and below Physical Exam Extrem Other: Right knee Incision clean, dry and intact. No erythema. No active drainage from the incision. Calf supple, nontender. NVI. Assessment & Plan Assessment & Plan (1) Status post total knee replacement, right: Code(s): Z96.651 - Presence of right artificial knee joint Plan I did replace her steri strips and encouraged her to continue working with physical therapy which begin outpatient on 02/23/23. She does have an appointment to see me back in the office on March 23 which well keep. She will contact the office if there is any questions or concerns. Patient Instructions: Scribed for Linda Middleton PA-C, by Yury Tavera medical records secretary, on 02/22/2023 at 10:00 AM EST. I, Linda Middleton PA-C, have personally reviewed and agree with the information entered by the scribe. Coding Level of Care Code Global (26212) Diagnoses Status post total knee replacement, right Z96.651
== END 2023-02-22 10:27 | disposition home or self-care (01) ==
PROVIDERS: PCP Internal Medicine; Visit Provider Physician Assistant
DX: Z96.651 Presence of right artificial knee joint (principal)
CPT/HCPCS: 99024

== ENCOUNTER → 2023-02-22 09:47 | Outpatient (BNVA) | payer OTHER, SELFPAY | PROVIDERS: PCP Internal Medicine; Visit Provider Physician Assistant ==

== ENCOUNTER 2023-03-18 13:50 | Outpatient (AMB) | payer OTHER, SELFPAY ==
--- NOTE | 2023-03-18 14:35 | MHC.OFFVIS ---
Intake Intake Visit Reasons: PO-RT TKA 02/02/23 NE Intake Note: Paige a 68 year old Salvadorean speaking female who presents today for a post operative right TKA, DOS 02/02/23. Patient reports mild pain and numbness at the lateral aspect of knee. Continues to work with PT. Cellar Hand Name: Roberto ID#[id number] Allergies No Known Allergies Allergy (Verified 03/18/23 14:36) HPI PO-RT TKA 02/02/23 NE HPI Details 68-year-old female who returns to the office today with an reel worker for post-op right TKA, 02/02/[address] Azevedo. She states she has mild pain and numbness at the lateral aspect of her knee. She continues to work on physical therapy with benefits. She is doing well overall and has no concerns today. [facility] Medical History Back pain Class 2 severe obesity with serious comorbidity and body mass index (BMI) of 38.0 to 38.9 in adult Cough Degenerative arthritis Diabetes Diabetes Diabetic peripheral vascular disorder Dyslipidemia Essential hypertension High cholesterol Hospital discharge follow-up Hypercholesterolemia Hyperparathyroidism Hypertension Hypothyroid Hypothyroidism Left shoulder pain Obesity due to excess calories Peripheral vascular disease [id number] condition Post-menopausal Right foot pain Right foot pain Right knee pain Right sided sciatica Screening for breast cancer Vitamin D deficiency Surgical History Tubal ligation status History of esophagogastroduodenoscopy (EGD) (~2013) Hx of colonoscopy History of H/O right knee surgery History of thyroid surgery Family History Father Hypertension Mother No problems noted. Social History Household Members: Spouse Housing: House Are you a primary childcare director to a significant other at home: No Do you presently have visiting nurse or other home services: No Alcohol intake: never Patient Tobacco Use Status: Never used Tobacco e-Cigarette/Vaping Use: Never Used Second Hand Smoke Exposure: No service: No Current occupational status: unemployed Cognitive needs: Yes Hearing needs: No Vision needs: Yes (Glasses) Female Reproductive History Menstrual Age of Menarche: 14 Review of Systems Const All systems reviewed & are unremarkable except as noted in HPI and below Physical Exam Extrem Other: Right knee: Incision well healed. ROM is 0-110 degrees. Calf supple, nontender. NVI Assessment & Plan Assessment & Plan (1) Status post total knee replacement, right: Code(s): Z96.651 - Presence of right artificial knee joint Plan She will continue to work with physical therapy to improve her ROM and quad strength. She will increase activity as tolerated and see me back in [address] Azevedo and new x-rays, sooner if needed. Patient Instructions: Scribed for Linda Middleton PA-C, by Yury Tavera medical photographer, on 03/18/2023 at 2:15 PM EST. ILinda PA-C, have personally reviewed and agree with the information entered by the scribe. Coding Level of Care Code Global (01178) Diagnoses Status post total knee replacement, right Z96.651
== END 2023-03-18 14:49 | disposition home or self-care (01) ==
PROVIDERS: PCP Internal Medicine; Visit Provider Physician Assistant
DX: Z96.651 Presence of right artificial knee joint (principal)
CPT/HCPCS: 99024

== ENCOUNTER → 2023-03-18 13:50 | Outpatient (BNVA) | payer OTHER, SELFPAY | PROVIDERS: PCP Internal Medicine; Visit Provider Physician Assistant ==

== ENCOUNTER 2023-04-13 14:00 | Outpatient (RCR) | payer OTHER, SELFPAY ==
--- NOTE | 2023-02-18 15:16 | MHC.PT.EP ---
[facility] [place] Office [place] Office [place] Office [address] Brenda Rodriguez [address] [phone] F: [phone] F: [phone] F: [phone] F: [phone] Physical Therapy Plan of Care Date of Evaluation: 02/18/23 Date of Surgery: 02/02/23 Diagnosis: S/P RIGHT TKA Assessment: 67 YO FEMALE REF TO PT S/P Rt TKA ON 02/02/23- SHE RESIDES W HER SPOUSE IN A 1ST FLOOR APT IN A HOME AND IS CURRENTLY AMB W A CANE. OBJECTIVE FINDINGS: LIMITED AROM Rt KNEE, TIGHT PSOAS MM ROHIT AND DECR ANKLE DF ROHIT; DECR STRENGTH IN PROX / LUMBOPELVIC AND Rt LE, POST-OP PAIN IN RIGHT KNEE ,AND HEALING ANT Rt KNEE INCISION. FUNCTIONALLY, Pt IS AMB W A CANE- SHE HAS COMPENSATORY GAIT, MODIFIED STAIR MGMT, DECR STANDING, SLEEPING, AND DECR TRISTIN TO ADLs REQ Rt KNEE FLEX. Pt IS A VERY GOOD PT CANDIDATE TO GUIDE HER IN HER POST-OP TKR COURSE, ADDRESSING THE ABOVE FINDINGS, PAIN MGMT, AND MAXIMIZING FUNCTIONAL INDEPENDENCE. Frequency and Duration: The patient will be seen 2 x WK x 8 WKS Short Term Goals: *Pt'S RIGHT KNEE PAIN DECR TO 2-3/10 *Pt INCREASE Rt KNEE ROM -> 0* EXTEN AND PROGRESSIVELY TO 120* FLEX *INCR FLEXIB IN PSOAS/ CALF MM TO IMPROVE EFFICIENCY OF GAIT ON LEVEL AND STAIRS *REDUCE Rt LE EDEMA AND MONITOR/ ADDRESS SCAR MOB NEEDED Halfway Goals: *IMPROVE Rt LE PROPRIOCEPTION/ LUMBOPELVIC STABILITY *Pt INDEP W PROGRESSIVE HEP AND SELF-SX MGMT TECHN Pt RESUME REG ADLs EVIDENT W IMPROVED LEFI SCORE BY 8-10 POINTS Pt INCR LE STRENGTH BY 1 GRADE Treatment Plan: Modalities to reduce pain, spasms and effusion. Manual therapy to restore motion and function. Therapeutic exercise to improve strength and flexibility. Neuromuscular re-education for posture and balance. Therapeutic activities to return to functional activities of daily living. Electronically signed by: LISA FIORE,PT Please sign and return to therapist. Thank you for your referral.
--- NOTE | 2023-09-20 11:18 | MHC.PT.DC ---
[facility] [place] [facility] [place] Office [place] Office [address] Brenda Rodriguez [address] [phone] F: [phone] F: [phone] F: [phone] F: [phone] Physical Therapy Discharge Report Diagnosis: S/P RIGHT TKA Date of Surgery: 02/02/23 Date of Evaluation: 02/18/23 Date of Discharge: 09/20/23 Treatments to Date: 14 Cancellations to Date: 0 No Shows to Date: 0 Discharge Status: Achieved Goals Improved Function Independent with HEP Discharge Summary: Pt was seen for PT from 02/18/23-04/13/23. Her last scheduled and attended PT appointment was 04/13/23. She was discharged from PT to [facility]P on 04/13/23 Per last PT treatment note on 04/13/23 by RC: pt achieved 0-110* flexion. She does still report lateral knee pain w/ end-range flexion. Encouraged pt to continue w/ self-massage to this area for swelling and muscular tension management. She is I w/ her HEP and she was given updated bands. D/C to [facility]P Electronically signed by: Anusha Russell, PT, DPT Please sign and return to therapist. Thank you for your referral.
== END 2023-09-20 11:18 | disposition home or self-care (01) ==
LOC: HO.PT 14:00
PROVIDERS: PCP Internal Medicine; Visit Provider Physician Assistant
DX: Z96.651 Presence of right artificial knee joint (principal)
CPT/HCPCS: 97110; 97112; 97140; 97162

== ENCOUNTER 2023-04-29 14:12 | Outpatient (AMB) | payer OTHER, SELFPAY ==
--- NOTE | 2023-04-29 15:14 | MHC.OFFVIS ---
Intake Intake Visit Reasons: ov- RT TKA 02/02/23 NE Intake Note: Paige a 68 year old Micronesian speaking female who presents today about 3 months post op, s/p Right TKA 02/02/23. Patient reports that she is having a small amount of pain in the knee and lateral aspect of the faye but is doing well overall. Allergies No Known Allergies Allergy (Verified 03/18/23 14:36) HPI ov- RT TKA 02/02/23 NE HPI Details Paige is a 68 year old woman who presents ~3 months S/P right TKA. She says she is doing well. She has occasional pain. She has been working with PT and is happy with the results of her surgery. 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 Social History Household Members: Spouse Housing: House Are you a primary emergency care tech to a significant other at home: No Do you presently have visiting nurse or other home services: No Alcohol intake: never Patient Tobacco Use Status: Never used Tobacco e-Cigarette/Vaping Use: Never Used Second Hand Smoke Exposure: No service: No Current occupational status: unemployed Cognitive needs: Yes Hearing needs: No Vision needs: Yes (Glasses) Female Reproductive History Menstrual Age of Menarche: 14 Review of Systems Const All systems reviewed & are unremarkable except as noted in HPI and below Physical Exam Const General: no acute distress, alert and awake Orientation/consciousness: patient oriented x3 HEENT Head: Yes normocephalic and Yes atraumatic Eyes EOM: EOMs intact bilaterally Resp Effort & Inspection: normal respiratory effort and able to speak in complete sentences Cardio Jugular venous distension: no JVD Skin General skin exam: turgor normal Rashes: no rashes Neuro General: patient oriented x3 Extrem Other: Right Knee: Well-healed incision 0-120 degrees of motion Walking comfortably Stable arc of motion Psych Appearance: grossly normal Affect: normal affect Attitude: cooperative Results Reviewed Results Reviewed: I personally reviewed relevant radiographs Right total knee arthroplasty in expected post operative position with no hardware complications or evidence of loosening Assessment & Plan Assessment & Plan (1) Status post total knee replacement, right: Code(s): Z96.651 - Presence of right artificial knee joint Plan: This is a 68 year old woman S/P right TKA, DOS: 02/02/23. Discussed dental prophylaxis Med follow-up in 1 year or sooner if concerns arise Coding Level of Care Code Global (04517) Diagnoses Status post total knee replacement, right Z96.651
== END 2023-04-29 15:25 | disposition home or self-care (01) ==
PROVIDERS: PCP Internal Medicine; Visit Provider Orthopaedic Surgery
DX: Z96.651 Presence of right artificial knee joint (principal)
CPT/HCPCS: 99024

== ENCOUNTER → 2023-04-29 14:12 | Outpatient (BNVA) | payer OTHER, SELFPAY | PROVIDERS: PCP Internal Medicine; Visit Provider Orthopaedic Surgery ==

== ENCOUNTER 2023-05-11 14:43 | Outpatient (AMB) | payer OTHER, SELFPAY ==
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
[2023-05-11 14:46] VITALS: BP 116/58; PULSE 98; BMI 40.3
== END 2023-05-11 15:05 | disposition home or self-care (01) ==
PROVIDERS: PCP Internal Medicine; Visit Provider Internal Medicine Endocrinology, Diabetes & Metabolism
DX: E83.52 Hypercalcemia (principal)
CPT/HCPCS: 99213

== ENCOUNTER 2023-05-11 14:43 | Outpatient (REF) | payer OTHER, SELFPAY ==
[2023-05-11 15:52] LABS: Calcium 10.6 mg/dL (8.4-10.2)
[2023-05-12 07:57] LABS: Parathyroid Hormone Intact 123.3 pg/mL (8.7-77.1)
== END 2023-05-11 14:44 | disposition home or self-care (01) ==
LOC: HO.LAB 14:43
PROVIDERS: PCP Internal Medicine; Visit Provider Internal Medicine Endocrinology, Diabetes & Metabolism
DX: E83.52 Hypercalcemia (principal)
CPT/HCPCS: 36415; 82040; 82310; 83970; 99212

== ENCOUNTER 2023-07-06 13:47 | Outpatient (REF) | payer OTHER, SELFPAY | END 2023-07-06 13:48 | disposition home or self-care (01) | LOC: HO.MAMMO 13:47 | PROVIDERS: PCP Internal Medicine; Visit Provider Internal Medicine | DX: Z12.31 Encounter for screening mammogram for malignant neoplasm of breast (principal) | CPT/HCPCS: 77063; 77067 ==

== ENCOUNTER → 2023-07-06 14:15 | Outpatient (BNV) | payer OTHER, SELFPAY | PROVIDERS: PCP Internal Medicine; Visit Provider Radiology Diagnostic Radiology | DX: Z12.31 Encounter for screening mammogram for malignant neoplasm of breast (principal) | CPT/HCPCS: 77063; 77067 ==

== ENCOUNTER 2023-08-20 10:53 | Outpatient (REF) | payer OTHER, SELFPAY ==
[2023-08-20 11:19] LABS: MANUAL DIFF FLAG NO
[2023-08-20 11:49] LABS: Basophils Absolute Auto 0.1 X10*3/uL (0.0-0.2); Eosinophils Absolute Auto 0.2 X10*3/uL (0.0-0.4); Eosinophils Percent Auto 2.4 % (0-4); Hematocrit 39.5 % (37.0-47.0); Hemoglobin 12.9 g/dl (12.0-16.0); Imm Gran Abs Auto 0.02 X10*3/uL (0.00-0.03); Imm Gran Pct Auto 0.3 % (0.0-0.4); Lymphocytes Absolute Auto 2.1 X10*3/uL (1.2-4.9); Mean Corpuscular HGB Conc 32.7 g/dl (31.0-35.0); Mean Corpuscular Hemoglobin 29.8 pg (27.0-33.0); Mean Corpuscular Volume 91.2 fL (80.0-98.0); Mean Platelet Volume 9.2 fL (9.4-12.3); Monocytes Absolute Auto 0.5 X10*3/uL (0.1-1.2); Monocytes Percent Auto 8.1 % (2-11); Neutrophils Absolute Auto 3.4 x10*3/uL (2.0-8.3); Neutrophils Percent Auto 55.2 % (45-73); Platelet Count 295 X10*3/uL (160-400); Red Blood Count 4.33 X10*6/uL (4.20-5.50); Red Cell Distribution Width 14.7 % (11.0-16.0); White Blood Count 6.2 X10*3/uL (4.8-10.8)
[2023-08-20 12:37] LABS: Parathyroid Hormone Intact 74.6 pg/mL (8.7-77.1)
[2023-08-20 13:02] LABS: Alanine Aminotransferase 11 U/L (0-31); Albumin Level 3.8 g/dL (3.5-5.0); Alkaline Phosphatase 75 U/L (39-117); Anion Gap 11 (12-20); Aspartate Amino Transferase 14 U/L (5-31); Bilirubin Total 0.7 mg/dL (0.0-1.0); Blood Urea Nitrogen 25 mg/dL (9-16); Calcium 10.5 mg/dL (8.4-10.2); Carbon Dioxide 30 mmol/L (22-29); Chloride 105 mmol/L (96-108); Estimated Glomerular Filt Rate 56; Glucose Random 156 mg/dL (60-115); Magnesium 1.8 mg/dL (1.6-2.6); Phosphorus 2.7 mg/dL (2.7-4.5); Potassium 4.2 mmol/L (3.3-5.1); Sodium 142 mmol/L (135-145); Total Protein 7.2 g/dL (6.5-8.0); Uric Acid 9.2 mg/dL (2.4-5.7); Vitamin D 25-OH Total 26.1 ng/mL (>30)
[2023-08-20 17:46] LABS: Creatinine Urine 163.55 mg/dL; Protein/Creatinine Ratio, Ur 0.09 (<0.2); Total Protein Urine Random 15 mg/dL (<12)
[2023-08-23 17:57] LABS: Creatinine, Random Urine 158 mg/dL (20-275); Magnesium, Random Urine 24 mg/g creat (22-130)
== END 2023-08-20 10:54 | disposition home or self-care (01) ==
LOC: HO.LAB 10:53
PROVIDERS: PCP Internal Medicine; Visit Provider Internal Medicine Nephrology
DX: I10 Essential (primary) hypertension (principal)
CPT/HCPCS: 36415; 80053; 82306; 82570; 83735; 83970; 84100; 84156; 84550; 85025

== ENCOUNTER → 2023-08-25 13:18 | Outpatient (BNVA) | payer OTHER, SELFPAY | PROVIDERS: PCP Internal Medicine; Visit Provider Internal Medicine Nephrology | DX: I10 Essential (primary) hypertension (principal); E21.3 Hyperparathyroidism, unspecified | CPT/HCPCS: 99212 ==

== ENCOUNTER → 2023-08-25 13:59 | Outpatient (AMB) | payer OTHER, SELFPAY ==
[2023-08-25 13:30] VITALS: BP 122/70; PULSE 83; O2SAT 95; BMI 41.7
--- NOTE | 2023-08-25 13:30 | HO.NEPHOV ---
HPI HPI Comments History of Present Illness Details Aurheena was seen in the office in follow-up of her hyperkalemia. She is hypertensive and diabetic. Her blood pressure well controlled. She has not taking celecoxib. She is on benazepril. She does not take any nonsteroidal anti-inflammatories. She has history of peripheral arterial disease. She denies taking salt substitute. She maintains good hydration. Her serum creatinine has been stable. She did not have any other new specific complaints at the time of this office visit. [facility] Medical History (Updated 02/18/23 @ 13:32 by Linda Middleton PA-C) Osteoarthritis of right knee Class 2 severe obesity with serious comorbidity and body mass index (BMI) of 38.0 to 38.9 in adult Hypothyroid Right foot pain Left shoulder pain Hospital discharge follow-up Right sided sciatica Dyslipidemia Essential hypertension Hyperparathyroidism Post-menopausal Screening for breast cancer Right foot pain Right knee pain Vitamin D deficiency Obesity due to excess calories Degenerative arthritis Cough High cholesterol Diabetes [id number] condition Back pain Peripheral vascular disease Hypothyroidism Hypercholesterolemia Hypertension Diabetic peripheral vascular disorder Diabetes Surgical History Tubal ligation status History of esophagogastroduodenoscopy (EGD) (~2013) Hx of colonoscopy History of H/O right knee surgery History of thyroid surgery Family History Father Hypertension Mother No problems noted. Social History Household Members: Spouse Housing: House Are you a primary health care marketing manager to a significant other at home: No Do you presently have visiting nurse or other home services: No Alcohol intake: never Patient Tobacco Use Status: Never used Tobacco e-Cigarette/Vaping Use: Never Used Second Hand Smoke Exposure: No service: No Current occupational status: unemployed Cognitive needs: Yes Hearing needs: No Vision needs: Yes (Glasses) Female Reproductive History Menstrual Age of Menarche: 14 Vital Signs 08/25/23 13:30 Height 5 ft 3 in Weight 235 lb 6 oz BMI 41.7 BP 122/70 Blood Pressure Location Rt brachial Position Sitting Pulse 83 Pulse Source Pulse Oximeter Pulse Oximetry (%) 95 Oxygen Delivery Method Room Air Physical Exam Vital Signs: Last Vital Signs Pulse 83 08/25/23 13:30 BP 122/70 08/25/23 13:30 Pulse Ox 95 08/25/23 13:30 Oxygen Delivery Method Room Air 08/25/23 13:30 BMI result Body Mass Index 41.7 Const General: comfortable and no acute distress Orientation/consciousness: patient oriented x3 HEENT Head: Yes normocephalic Mouth: Normal oral and palatal mucosa present Eyes EOM: EOMs intact bilaterally Neck Neck: Yes supple Resp Auscultation: clear to auscultation bilaterally Cardio Jugular venous distension: no JVD Rate: regular rate GI Palpation (GI): Soft to palpation Auscultation: normal bowel sounds General: Yes no CVA tenderness Back/Spine/Pelvis Back: no CVA tenderness Skin General skin exam: no rashes or lesions noted Neuro General: patient oriented x3 and moves all extremities Extrem General: Yes no pedal edema Assessment & Plan Assessment & Plan (1) Hypertension: Code(s): I10 - Essential (primary) hypertension Qualifiers: Hypertension type: essential hypertension Qualified Code(s): I10 - Essential (primary) hypertension (2) Hyperparathyroidism: Code(s): E21.3 - Hyperparathyroidism, unspecified Plan Her serum potassium is normal now. She does not take any nonsteroidal anti-inflammatories. She is aware of low-potassium diet. She is tolerating KEI inhibitor. She maintains good hydration. Her renal functions are normal. Her blood pressure is at goal. She has history of primary hyperparathyroidism. We will continue to monitor her serum calcium and parathyroid hormone. I had not make any medication changes today. All her questions were answered. Follow-up lab work ordered and follow-up appointment given. Orders: Orders Creatinine Today I10 - Essential (primary) hypertension Blood Urea Nitrogen Today I10 - Essential (primary) hypertension Electrolytes Today I10 - Essential (primary) hypertension Parathyroid Hormone Intact Today E21.3 - Hyperparathyroidism, unspecified Calcium Today E21.3 - Hyperparathyroidism, unspecified Phosphorus Today E21.3 - Hyperparathyroidism, unspecified Coding Level of Care Code Est Pt Level 3 (11294) Diagnoses Essential hypertension I10 Hypertension type: essential hypertension Hyperparathyroidism E21.3 Results Reviewed Nephrology Results: Hgb 12.9 g/dl (12.0-16.0) 08/20/23 WBC 6.2 X10*3/uL (4.8-10.8) 08/20/23 Plt Count 295 X10*3/uL (160-400) 08/20/23 Sodium 142 mmol/L (135-145) 08/20/23 Potassium 4.2 mmol/L (3.3-5.1) 08/20/23 Chloride 105 mmol/L (96-108) 08/20/23 Carbon Dioxide 30 mmol/L (22-29) H 08/20/23 BUN 25 mg/dL (9-16) H 08/20/23 Creatinine 0.99 mg/dL (0.5-1.4) 08/20/23 Calcium 10.5 mg/dL (8.4-10.2) H 08/20/23 Phosphorus 2.7 mg/dL (2.7-4.5) 08/20/23 PTH Intact 74.6 pg/mL (8.7-77.1) 08/20/23 Urine Creatinine 163.55 mg/dL 08/20/23 Protein/Creatinin Ratio 0.09 (<0.2) 08/20/23
== END | disposition home or self-care (01) ==
LOC: HO.HKA 13:18
PROVIDERS: PCP Internal Medicine; Visit Provider Internal Medicine Nephrology
DX: I10 Essential (primary) hypertension (principal); E21.3 Hyperparathyroidism, unspecified
CPT/HCPCS: 99213

== ENCOUNTER 2023-08-30 15:45 | Outpatient (AMB) | payer OTHER, SELFPAY ==
--- NOTE | 2023-08-30 15:48 | A.OFFPC_ITS ---
Vital Signs 08/30/23 15:52 Height 5 ft 3 in Weight 232 lb BMI 41.1 BP 130/80 Blood Pressure Location Lt brachial Position Sitting Intake Visit Reasons: f/u Intake Note: Patient here for a follow up Occasional Babysitter Required: No Accompanied by: Self / Same As Patient Allergies No Known Allergies Allergy (Verified 08/30/23 16:05) Medication List - Last Reconciled 08/30/23 by Danika Rainey MD acetaminophen 650 mg (2 x 325 mg) PO Q6H PRN 30 days albuterol sulfate 90 mcg/actuation (Ventolin HFA) 1 inh inhalation QID PRN amlodipine 10 mg PO DAILY 90 days aspirin 81 mg PO DAILY atorvastatin 80 mg PO BEDTIME 90 days benazepril 10 mg PO DAILY bisacodyl (Laxative (bisacodyl)) 10 mg (2 x 5 mg) PO DAILY PRN 90 days blood pressure monitor As directed blood sugar diagnostic ([employer] Verio test strips) test blood sugar once a day blood-glucose meter ([employer] Verio Meter) As directed once a day chlorthalidone 25 mg PO DAILY 90 days cyclobenzaprine 10 mg PO TID PRN famotidine 20 mg PO BEDTIME fluticasone propionate 110 mcg/actuation (Flovent HFA) 1 puff inhalation BID hydralazine 10 mg PO TID 30 days incontinence pad, liner, disp Use 2 pads per day lancets (Access IntelligenceTouch Delica Lancets) Use 1 lancet once a day metformin 850 mg PO BID 90 days metoprolol succinate ER 50 mg PO DAILY 90 days pentoxifylline ER 400 mg PO DAILY Synthroid (levothyroxine) 125 mcg PO DAILY 90 days NS underpads (Bed Underpads) As directed [wipes As directed] Tobacco use date assessed: 08/30/23 Fall risk assessment: No Falls in past year Last assessed Fall Risk: 08/30/23 Dental Screening Dental Screen Date: 08/30/23 Did you have a dental visit in the last 12 months?: Yes Did you have a dental problem in the last 6 months where you did not have access to dental care?: No Was dental information given to patient?: Patient has dentist HPI HPI Comments History of Present Illness Details This is a 68-year-old female with diabetes mellitus type 2 without long-term current use of insulin, hypertension, hypothyroidism, and morbid obesity that complains of left shoulder pain that started few weeks ago and has limited elevation and abduction. She said she fell a while ago but now is starting to her. She also has low back pain that bothers her and I will refer her to pain management. A1c not on goal and I will add Trulicity. Blood pressure stable. Last TSH was normal. She is morbidly obese with a BMI of 41.1 and was advised to diet and exercise to reach BMI goal less than 30. [facility] Medical History (Updated 08/30/23 @ 16:19 by Danika Rainey MD) Osteoarthritis of right knee Class 2 severe obesity with serious comorbidity and body mass index (BMI) of 38.0 to 38.9 in adult Hypothyroid Right foot pain Left shoulder pain Hospital discharge follow-up Right sided sciatica Dyslipidemia Essential hypertension Hyperparathyroidism Post-menopausal Screening for breast cancer Right foot pain Right knee pain Vitamin D deficiency Obesity due to excess calories Degenerative arthritis Cough High cholesterol Diabetes [id number] condition Back pain Peripheral vascular disease Hypothyroidism Hypercholesterolemia Hypertension Diabetic peripheral vascular disorder Diabetes Surgical History Tubal ligation status History of esophagogastroduodenoscopy (EGD) (~2013) Hx of colonoscopy History of H/O right knee surgery History of thyroid surgery Family History Father Hypertension Mother No problems noted. Social History Household Members: Spouse Housing: House Are you a primary childcare provider to a significant other at home: No Do you presently have visiting nurse or other home services: No Alcohol intake: never Patient Tobacco Use Status: Never used Tobacco e-Cigarette/Vaping Use: Never Used Second Hand Smoke Exposure: No service: No Current occupational status: unemployed Cognitive needs: Yes Hearing needs: No Vision needs: Yes (Glasses) Female Reproductive History Menstrual Age of Menarche: 14 Questionnaire PHQ-9 Over the last 2 weeks, how often have you been bothered by any of the following problems? 1. Little interest or pleasure in doing things: not at all 2. Feeling down, depressed, or hopeless: not at all 3. Trouble falling or staying asleep, or sleeping too much: not at all 4. Feeling tired or having little energy: not at all 5. Poor appetite or overeating: not at all 6. Feeling bad about yourself - or that you are a failure or have let yourself or your family down: not at all 7. Trouble concentrating on things, such as reading the newspaper or watching television: not at all 8. Moving or speaking so slowly that other people could have noticed. Or the opposite - being so fidgety or restless that you have been moving around a lot more than usual: not at all 9. Thoughts that you would be better off or of hurting yourself in some way: not at all Total score: 0 Depression Screening Interpretation: Negative Depression Screening Done: Yes 59559 - PHQ-9 Billing: Yes Source: Developed by Drs. Denzel Cormier, Tara Guevara, Trent Ramirez and colleagues, with an educational ellis from [employer]. Thrive Questionnaire Date Thrive assessed: 08/30/23 I am a: Patient What is your living situation today?: I have a steady place to live Within the past 12 months, did the food you bought not last and you didn't have the money to get more?: Never true Within the past 12 months, did you worry whether your food would run out before you got money to buy more?: Never true Do you have trouble paying for medicines?: No Do you have trouble getting transportation to medical appointments?: No Do you have trouble paying your heating and electricity bill?: No Do you have trouble taking care of your child, family member or friend?: No Do you have trouble with day-to-day activities such as bathing, preparing meals, shopping, managing finances, etc.?: No Are you currently unemployed and looking for a job?: No Are you interested in more education?: No Please select the resources that you would like help with: None Currently or been in a relationship where the following occur: no concerns reported THRIVE Score: 0 AUDIT C Alcohol Use Questionnaire (AUDIT-C) 1. How often do you have a drink containing alcohol?: Never Total Score: 0 NATALIE-7 AMB Questionnaire NATALIE-7 Date NATALIE - 7 assessed: 08/30/23 Feeling nervous, anxious, or on edge: 0 = Not at all Not being able to stop or control worryin = Not at all Worrying too much about different things: 0 = Not at all Trouble relaxin = Not at all Being so restless that it is hard to sit still: 0 = Not at all Becoming easily annoyed or irritable: 0 = Not at all Feeling afraid as if something awful might happen: 0 = Not at all Total NATALIE-7 score (0-4 normal; 5-9 mild; 10-14 moderate; 15-21 severe): 0 Source: Developed by Drs. Denzel Cormier, Tara Guevara, Trent Ramirez and colleagues, with an educational ellis from [employer]. NATALIE-7 Assessment Billing NATALIE-7 Assessment Tool: NATALIE-7 Assessment 20785 Review of Systems Const All systems reviewed & are unremarkable except as noted in HPI and below Eyes Reports no additional complaints, Denies change in vision and Denies other visual disturbances Card Denies chest pain at rest, Denies chest pain with activity, Denies edema, Denies irregular heart rhythm, Denies claudication, Denies dyspnea, Denies dyspnea on exertion, Denies orthopnea, Denies paroxysmal nocturnal dyspnea and Denies slow heart rate Resp Denies cough, Denies dyspnea and Denies dyspnea on exertion GI Denies abdominal pain, Denies change in bowel habits, Denies excessive flatus, Denies nausea and Denies vomiting Denies urinary incontinence, Denies urinary hesitancy and Denies urinary urgency Musc Denies abnormal gait, Denies atrophy, Denies deformity and Denies limited range of motion Skin/Breast Denies bleeding lesions, Denies changing lesions and Denies rash Neuro Denies abnormal gait and Denies lack of coordination Physical exam (Primary Care) Vital Signs: Last Vital Signs BP 130/80 08/30/23 15:52 BMI result Body Mass Index 41.1 Tobacco/Smoking Status: Tobacco use Status Tobacco use date assessed 08/30/23 08/30/23 15:58 Patient Tobacco Use Status Never used Tobacco 08/30/23 15:50 Tobacco use type 08/25/23 13:59 e-Cigarette/Vaping Use Never Used 08/30/23 15:50 PHQ-9: PHQ-9 Score PHQ-9: Total score 0 08/30/23 16:00 Depression Screening Interpretation: Negative Thrive Assessment: Date of Thrive Assessment Date Thrive assessed 08/30/23 08/30/23 16:00 Currently or been in a relationship where the following occur: no concerns reported Eyes General: appearance normal, both eyes and all related structures Eyelids: Yes eyelids normal Conjunctivae: conjunctivae normal Neck Neck: Yes normal visual inspection and Yes supple Resp Effort & Inspection: normal respiratory effort Auscultation: clear to auscultation bilaterally Cardio Jugular venous distension: no JVD Rate: regular rate Rhythm: regular rhythm Heart sounds: S1 normal heart sound present and S2 normal heart sound present Extrem General: Yes full ROM Results AMB Hemoglobin A1c AMB Hemoglobin A1c 7.6 % Last Edit by LEONEL Mattson on 08/30/23 16:0 1 Results Reviewed Results Reviewed: Laboratory Last Values Hgb A1c (Clinic) 7.6 % (4.0-6.0) H 08/30/23 15:48 Assessment and Plan Assessment & Plan (1) Diabetes mellitus, without long-term current use of insulin: Code(s): E11.9 - Type 2 diabetes mellitus without complications Plan: Continue metformin. Start Trulicity. A1c goal is equal or less than 7%. (2) Morbid obesity with BMI of 40.0-44.9, adult: Code(s): E66.01 - Morbid (severe) obesity due to excess calories; Z68.41 - Body mass index [BMI] 40.0-44.9, adult Plan: Start diet and exercise. BMI goal is less than 30. (3) Hypothyroid: Code(s): E03.9 - Hypothyroidism, unspecified Plan: Continue levothyroxine. (4) Hypertension: Code(s): I10 - Essential (primary) hypertension Qualifiers: Hypertension type: essential hypertension Qualified Code(s): I10 - Essential (primary) hypertension Plan: Continue amlodipine, benazepril, chlorthalidone and hydralazine. Blood pressure goal is equal or less than 130/80. Orders: Orders AMB Hemoglobin A1c Today E11.9 - Type 2 diabetes mellitus without complications XR shoulder LT min 2V Today M25.512 - Pain in left shoulder Referrals Pain Management Referral M54.50 - Low back pain, unspecified Orthopedics Referral M25.512 - Pain in left shoulder Medications: New dulaglutide (Trulicity) 0.75 mg (0.5 mL) subcut QWEEK 90 days 6.5 mL 0RF E11.9 - Type 2 diabetes mellitus without complications Changed From albuterol sulfate 90 mcg/actuation (Ventolin HFA) 1 inh inhalation QID PRN 8.5 grams 1RF shortness of breath or wheezing J45.909 - Unspecified asthma, uncomplicated To Ventolin HFA 90 mcg/actuation (albuterol sulfate) 1 inh inhalation QID 30 days PRN 18 grams 1RF shortness of breath or wheezing NS J45.909 - Unspecified asthma, uncomplicated Refilled benazepril 10 mg PO DAILY 90 tabs 1RF I10 - Essential (primary) hypertension amlodipine 10 mg PO DAILY 90 days 90 tabs 1RF I10 - Essential (primary) hypertension Synthroid (levothyroxine) SB, no substitutions. 125 mcg PO DAILY 90 days 90 tabs 6RF NS E89.0 - Postprocedural hypothyroidism Coding Level of Care Code Est Pt Level 4 (71468) Diagnoses Diabetes mellitus, without long-term current use of insulin E11.9 Morbid obesity with BMI of 40.0-44.9, adult E66.01; Z68.41 Hypothyroid E03.9 Essential hypertension I10 Hypertension type: essential hypertension Additional Codes NATALIE-7 Assessment Billing - NATALIE-7 Assessment Tool: NATALIE-7 Assessment 19355 ([id number]) Time Spent (min) 23
[2023-08-30 15:52] VITALS: BP 130/80; BMI 41.1
== END 2023-08-30 16:16 | disposition home or self-care (01) ==
PROVIDERS: PCP Internal Medicine; Visit Provider Internal Medicine
DX: E11.9 Type 2 diabetes mellitus without complications (principal); E66.01 Morbid (severe) obesity due to excess calories; Z68.41 Body mass index [BMI] 40.0-44.9, adult; E03.9 Hypothyroidism, unspecified; I10 Essential (primary) hypertension
CPT/HCPCS: 83036; 99214

== ENCOUNTER 2023-08-31 11:47 | Outpatient (REF) | payer OTHER, SELFPAY ==
--- NOTE | ~2023-08-31 | XR_ITS ---
EXAMINATION: XR SHOULDER, LEFT CLINICAL INFORMATION: Left shoulder pain COMPARISON: Left shoulder x-ray on 12/12/2019 TECHNIQUE: AP external rotation, scapular Y views of the left shoulder. FINDINGS: BONES: Bony structures are intact. There is no focal bone destruction or periosteal reaction seen. JOINTS: Alignment of joints is normal. SOFT TISSUE: Soft tissue is normal. No radiopaque foreign body or abnormal air collection is seen. XR/XR shoulder LT min 2V IMPRESSION: 1. Unchanged Normal x-rays of left shoulder. No fracture or dislocation or signs of osteomyelitis are found.
== END 2023-08-31 11:48 | disposition home or self-care (01) ==
LOC: HO.XRAY 11:47
PROVIDERS: PCP Internal Medicine; Visit Provider Internal Medicine
DX: M25.512 Pain in left shoulder (principal)
CPT/HCPCS: 73030

== ENCOUNTER 2023-09-07 10:56 | Outpatient (AMB) | payer OTHER, SELFPAY ==
--- NOTE | 2023-09-07 10:59 | A.OFFVIS_ITS ---
Intake Vital Signs 09/07/23 11:03 Height 5 ft 3 in Weight 230 lb BMI 40.7 BP 143/96 H Blood Pressure Location Lt brachial Position Sitting Pulse 89 Pulse Source Pulse Oximeter Pulse Oximetry (%) 98 Oxygen Delivery Method Room Air Intake Visit Reasons: Low back pain Intake Note: Pain today 12/21 Greensman Required: Yes Greensman Language: Councilperson Name: Daughter- Audra Accompanied by: Daughter Allergies No Known Allergies Allergy (Verified 08/30/23 16:05) HPI Low back pain HPI Details Patient is 68 years old female with history of arthritis, diabetes (A1C-7.6 on 08/30/23), right sided sciatica, right TKA (2022), recent parathyroidectomy (09/01/23) presents today for initial evaluation of chronic low back pain. Denies any recent trauma, injury or falls. Back pain is axial and also radiates into her right lower extremity posterolaterally with numbness and tingling in her right foot. Occasionally pain will radiate to left leg as well with heavy and numbness sensations. She also has significant exacerbation of back pain with lumbar flexion indicating a discogenic source. Pain affects her daily functioning, mobility, sleep, mood and social interactions. Patient has tried physical therapy in the past with partial benefit but currently is not able to pursue PT due to significant pain. Denies any fever, abdominal or groin pain, foot drop, bladder or bowel dysfunction or saddle anesthesia. Reports intermittent RLE weakness with walking, uses cane. Location Lower back radiates down bilateral legs, worse on the right Duration Chronic pain, worsening for > 1 year Characteristics of symptom or complaint Aching, burning, tingling, tiring, cramping, numbness, throbbing Aggravating or associated factors Walking, standing, bending forward, extending backwards, cold weather Relieving factors Sitting, Tylenol, activity modifications, heat therapy, topical application Treatment PT back 2021, helped, right knee-02/2023 [facility] Medical History (Updated 09/07/23 @ 11:22 by MARIA DOLORES Saenz) Osteoarthritis of right knee Class 2 severe obesity with serious comorbidity and body mass index (BMI) of 38.0 to 38.9 in adult Hypothyroid Right foot pain Left shoulder pain Hospital discharge follow-up Right sided sciatica Dyslipidemia Essential hypertension Hyperparathyroidism Post-menopausal Screening for breast cancer Right foot pain Right knee pain Vitamin D deficiency Obesity due to excess calories Degenerative arthritis Cough High cholesterol Diabetes [id number] condition Back pain Peripheral vascular disease Hypothyroidism Hypercholesterolemia Hypertension Diabetic peripheral vascular disorder Diabetes Surgical History Tubal ligation status History of esophagogastroduodenoscopy (EGD) (~2013) Hx of colonoscopy History of H/O right knee surgery History of thyroid surgery Family History Father Hypertension Mother No problems noted. Social History Household Members: Spouse Housing: House Are you a primary health care attorney to a significant other at home: No Do you presently have visiting nurse or other home services: No Alcohol intake: never Patient Tobacco Use Status: Never used Tobacco e-Cigarette/Vaping Use: Never Used Second Hand Smoke Exposure: No service: No Current occupational status: unemployed Cognitive needs: Yes Hearing needs: No Vision needs: Yes (Glasses) Female Reproductive History Menstrual Age of Menarche: 14 Review of Systems Const All systems reviewed & are unremarkable except as noted in HPI and below Physical Exam General: Appears afebrile. Alert and oriented. Mood and affect appropriate. Follows and participates in conversation appropriately. Respiratory effort is unlabored. No cough. Able to transition from sit to stand unassisted. Uses cane with walking. Ambulates with bilaterally normal heel strike and toe off, reports imbalance bilaterally, right>left. Back/Spine/Pelvis Other: Limited lumbar ROM due to pain. Antalgic gait with mild limping. Lumbar extension, flexion forward and extension reproduce moderate-severe pain. TTP over paraspinals from L3-S1. Pain in all ranges of motion, facet loading bilaterally reproduces moderate pain. Strength 5/5 left and 4/5 right hip flexion bilaterally. No tenderness to bilateral GTB. Mild sensation loss right lower extremity in L5-S1 distribution. Diminished DTRs bilaterally, no clonus. MICHAEL test reproduces lateral right hip and lower back pain, right>left. +Mild TTP in projection of both SIJ areas. +Anshul?s, Stinchfield, Pelvic Compression test bilaterally. Cervical Spine: cervical ROM normal, cervical muscular tenderness and No Cervical spine tenderness Thoracic/Lumbar Spine: thoracic and lumbar spine normal to inspection, No Thoracic/lumbar spine scar(s), Lasegue's sign positive on the right and localized, pain with thoraco-lumbar ROM, paraspinal muscle tenderness on the right greater than left, thoraco-lumbar ROM limited, No thoracic spinal tenderness and lumbar spinal tenderness Pelvis: buttock tenderness bilaterally Sacroiliac joints: bilaterally tender to palpation Results Reviewed Results Reviewed: XR LUMBOSACRAL SPINE WITH OBLIQUES 09/25/21 CLINICAL INFORMATION: Sciatica right side TECHNIQUE: AP, both oblique, and lateral views of the lumbar spine. Lateral view of the lumbosacral junction. FINDINGS: Bone alignment is normal. No fracture or dislocation is seen. There is degenerative disc disease of the lower thoracic spine. Disc spaces are otherwise normal. There is lower lumbar spine facet arthritis. IMPRESSION: Lower lumbar spine facet arthritis. Assessment & Plan Assessment & Plan (1) Morbid obesity with BMI of 40.0-44.9, adult: Code(s): E66.01 - Morbid (severe) obesity due to excess calories; Z68.41 - Body mass index [BMI] 40.0-44.9, adult (2) Low back pain: Code(s): M54.50 - Low back pain, unspecified (3) Lumbar spondylosis: Code(s): M47.816 - Spondylosis without myelopathy or radiculopathy, lumbar region (4) Chronic right-sided lumbar radiculopathy: Code(s): M54.16 - Radiculopathy, lumbar region (5) Lumbar degenerative disc disease: Code(s): M51.36 - Other intervertebral disc degeneration, lumbar region Plan Patient presents today with axial, facetogenic, discogenic and radicular pain components as well as mild SIJ pain, right>left. We will proceed with lumbar spine MRI ?to assess for neural integrity and compression and follow up on previous xray findings. Discussed interventional treatments for axial, radicular and discogenic low back pain. Informational pamphlets provided in Italian. Patient it hesitant towards injections or treatments, but will consider if indicated by MRI findings and con tinuation of decreased mobility and functioning. Script provided for gabapentin. Side effects and precautions reviewed with patient and her daughter. Encouraged daily physical activity, walking, well-balanced diet and weight loss, good posture, adequate hydration. All questions and concerns have been answered and patient agreed with the plan. Follow up for MRI results and sooner as needed. Orders: Orders MR lumbar spine wo con Today E66.01 - Morbid (severe) obesity due to excess donna osito, F40.240 - Claustrophobia, M47.816 - Spondylosis without myelopathy or radiculopathy, lumbar region, M51.36 - Other intervertebral disc degeneration, lumbar region, M54.16 - Radiculopathy, lumbar region, M54.50 - Low back pain, unspecified, Z68.41 - Body mass index [BMI] 40.0-44.9, adult Medications: New gabapentin 300 mg PO BID 30 days 60 caps 0RF pain M54.16 - Radiculopathy, lumbar region Discontinued cyclobenzaprine Discontinued Reason: Patient Completed Course 10 mg PO TID PRN 6 tabs 0RF muscle spasm Coding Level of Care Code New Pt Level 4 (38662) Diagnoses Morbid obesity with BMI of 40.0-44.9, adult E66.01; Z68.41 Low back pain M54.50 Lumbar spondylosis M47.816 Chronic right-sided lumbar radiculopathy M54.16 Lumbar degenerative disc disease M51.36
[2023-09-07 11:03] VITALS: BP 143/96; PULSE 89; O2SAT 98; BMI 40.7
== END 2023-09-07 11:30 | disposition home or self-care (01) ==
PROVIDERS: PCP Internal Medicine; Referring Provider Internal Medicine; Visit Provider Nurse Practitioner Family
DX: E66.01 Morbid (severe) obesity due to excess calories (principal); Z68.41 Body mass index [BMI] 40.0-44.9, adult; M54.50 Low back pain, unspecified; M47.816 Spondylosis without myelopathy or radiculopathy, lumbar region; M54.16 Radiculopathy, lumbar region; M51.36 Other intervertebral disc degeneration, lumbar region
CPT/HCPCS: 99204

== ENCOUNTER → 2023-09-07 10:56 | Outpatient (BNVA) | payer OTHER, SELFPAY | PROVIDERS: PCP Internal Medicine; Referring Provider Internal Medicine; Visit Provider Nurse Practitioner Family | DX: M54.50 Low back pain, unspecified (principal); M47.816 Spondylosis without myelopathy or radiculopathy, lumbar region; M54.16 Radiculopathy, lumbar region; M51.36 Other intervertebral disc degeneration, lumbar region; E66.01 Morbid (severe) obesity due to excess calories; Z68.41 Body mass index [BMI] 40.0-44.9, adult | CPT/HCPCS: 99202 ==

== ENCOUNTER 2023-09-10 10:46 | Outpatient (AMB) | payer OTHER, SELFPAY ==
--- NOTE | 2023-09-10 11:36 | A.OFFVIS_ITS ---
Intake Vital Signs 09/10/23 11:38 Height 5 ft 3 in Weight 230 lb BMI 40.7 Intake Visit Reasons: new prob-Pain in left shoulder Intake Note: Paige is a 68 year old right hand dominant who presents today for a new problem visit with complaints of left shoulder pain. Patient report sthat she has had ongoing pain for about 5 years now. Hx of fall. She has decreased and painful ROM. Pain is felt in the posterior aspect of the shoulder radiating down the arm. Allergies No Known Allergies Allergy (Verified 08/30/23 16:05) HPI new prob-Pain in left shoulder HPI Details Paige is a 68 year old right hand dominant who presents today for a new problem visit with complaints of left shoulder pain. Patient report sthat she has had ongoing pain for about 5 years now. Hx of fall. She has decreased and painful ROM. Pain is felt in the posterior aspect of the shoulder radiating down the arm. [facility] Medical History (Updated 09/16/23 @ 13:07 by Rangel Azevedo MD) Osteoarthritis of right knee Class 2 severe obesity with serious comorbidity and body mass index (BMI) of 38.0 to 38.9 in adult Hypothyroid Right foot pain Left shoulder pain Hospital discharge follow-up Right sided sciatica Dyslipidemia Essential hypertension Hyperparathyroidism Post-menopausal Screening for breast cancer Right foot pain Right knee pain Vitamin D deficiency Obesity due to excess calories Degenerative arthritis Cough High cholesterol Diabetes [id number] condition Back pain Peripheral vascular disease Hypothyroidism Hypercholesterolemia Hypertension Diabetic peripheral vascular disorder Diabetes Surgical History Tubal ligation status History of esophagogastroduodenoscopy (EGD) (~2013) Hx of colonoscopy History of H/O right knee surgery History of thyroid surgery Family History Father Hypertension Mother No problems noted. Social History Household Members: Spouse Housing: House Are you a primary critical care registered nurse to a significant other at home: No Do you presently have visiting nurse or other home services: No Alcohol intake: never Patient Tobacco Use Status: Never used Tobacco e-Cigarette/Vaping Use: Never Used Second Hand Smoke Exposure: No service: No Current occupational status: unemployed Cognitive needs: Yes Hearing needs: No Vision needs: Yes (Glasses) Female Reproductive History Menstrual Age of Menarche: 14 Physical Exam Vital Signs: BMI result Body Mass Index 40.7 Extrem Other: Negative empty can Positive Maria Antonia and Betina 45/90/130/S1 Results Reviewed Results Reviewed: I personally reviewed relevant radiographs. Mild to moderate glenohumeral and AC joint osteoarthritis left shoulder Assessment & Plan Assessment & Plan (1) Internal derangement of left shoulder: Code(s): M24.812 - Other specific joint derangements of left shoulder, not elsewhere classified Plan: Radiographs demonstrate moderate arthritic changes. Injection would be beneficial but she recently had thyroid surgery and she is not sure if that would be helpful for healing. I agree with this so after she sees her surgeon for her thyroid she will follow up and we will consider injection at that time. Coding Level of Care Code Est Pt Level 3 (53990) Diagnoses Internal derangement of left shoulder M24.812
[2023-09-10 11:38] VITALS: BMI 40.7
== END 2023-09-10 12:07 | disposition home or self-care (01) ==
PROVIDERS: PCP Internal Medicine; Visit Provider Orthopaedic Surgery
DX: M24.812 Other specific joint derangements of left shoulder, not elsewhere classified (principal)
CPT/HCPCS: 99213

== ENCOUNTER → 2023-09-10 10:46 | Outpatient (BNVA) | payer OTHER, SELFPAY | PROVIDERS: PCP Internal Medicine; Visit Provider Orthopaedic Surgery | DX: M25.512 Pain in left shoulder (principal); M24.812 Other specific joint derangements of left shoulder, not elsewhere classified; Z91.81 History of falling | CPT/HCPCS: 99212 ==

== ENCOUNTER 2023-10-19 10:26 | Outpatient (AMB) | payer OTHER, SELFPAY ==
--- NOTE | 2023-10-19 10:26 | MHC.OFFVIS ---
Vital Signs 10/19/23 10:31 Height 5 ft 3 in Weight 235 lb 6 oz BMI 41.7 BP 136/80 Blood Pressure Location Lt brachial Position Sitting Respiration 18 Pulse 93 Pulse Source Pulse Oximeter Pulse Oximetry (%) 100 Oxygen Delivery Method Room Air Intake Visit Reasons: Discuss MRI Intake Note: Pain 02/21 Hog Scalder Required: Yes Hog Scalder Language: [employer] Name: Paola #[id number] Allergies No Known Allergies Allergy (Verified 10/19/23 10:31) HPI Comments Details: Patient presents today for follow up to discuss recent lumbar spine MRI results. Denies any recent cough, cold, infection, fever, any significant changes in her medical history, medications or recent hospitalizations. PRIOR: Patient is 68 years old female with history of arthritis, diabetes (A1C-7.6 on 08/30/23), right sided sciatica, right TKA (2022), recent parathyroidectomy (09/01/23) presents today for initial evaluation of chronic low back pain. Denies any recent trauma, injury or falls. Back pain is axial and also radiates into her right lower extremity posterolaterally with numbness and tingling in her right foot. Occasionally pain will radiate to left leg as well with heavy and numbness sensations. She also has significant exacerbation of back pain with lumbar flexion indicating a discogenic source. Pain affects her daily functioning, mobility, sleep, mood and social interactions. Patient has tried physical therapy in the past with partial benefit but currently is not able to pursue PT due to significant pain. Denies any fever, abdominal or groin pain, foot drop, bladder or bowel dysfunction or saddle anesthesia. Reports intermittent RLE weakness with walking, uses cane. Location Lower back radiates down bilateral legs, worse on the right Duration Chronic pain, worsening for > 1 year Characteristics of symptom or complaint Aching, burning, tingling, tiring, cramping, numbness, throbbing Aggravating or associated factors Walking, standing, bending forward, extending backwards, cold weather Relieving factors Sitting, Tylenol, activity modifications, heat therapy, topical application Treatment PT back 2021, helped, right knee-02/2023 [facility] Medical History Osteoarthritis of right knee Class 2 severe obesity with serious comorbidity and body mass index (BMI) of 38.0 to 38.9 in adult Hypothyroid Right foot pain Left shoulder pain Hospital discharge follow-up Right sided sciatica Dyslipidemia Essential hypertension Hyperparathyroidism Post-menopausal Screening for breast cancer Right foot pain Right knee pain Vitamin D deficiency Obesity due to excess calories Degenerative arthritis Cough High cholesterol Diabetes [id number] condition Back pain Peripheral vascular disease Hypothyroidism Hypercholesterolemia Hypertension Diabetic peripheral vascular disorder Diabetes Surgical History Tubal ligation status History of esophagogastroduodenoscopy (EGD) (~2013) Hx of colonoscopy History of H/O right knee surgery History of thyroid surgery Family History Father Hypertension Mother No problems noted. Social History Household Members: Spouse Housing: House Are you a primary care management coordinator to a significant other at home: No Do you presently have visiting nurse or other home services: No Alcohol intake: never Patient Tobacco Use Status: Never used Tobacco e-Cigarette/Vaping Use: Never Used Second Hand Smoke Exposure: No service: No Current occupational status: unemployed Cognitive needs: Yes Hearing needs: No Vision needs: Yes (Glasses) Female Reproductive History Menstrual Age of Menarche: 14 Review of Systems Const All systems reviewed & are unremarkable except as noted in HPI and below Physical Exam Vital Signs: Last Vital Signs Pulse 93 10/19/23 10:31 Resp 18 10/19/23 10:31 BP 136/80 10/19/23 10:31 Pulse Ox 100 10/19/23 10:31 Oxygen Delivery Method Room Air 10/19/23 10:31 BMI result Body Mass Index 41.7 General: Appears afebrile. Alert and oriented. Mood and affect appropriate. Follows and participates in conversation appropriately. Respiratory effort is unlabored. No cough. Able to transition from sit to stand unassisted. Uses cane with walking. Ambulates with bilaterally normal heel strike and toe off, reports imbalance bilaterally, right>left. Back/Spine/Pelvis Other: Limited lumbar ROM due to pain. Antalgic gait with mild limping. Lumbar extension, flexion forward and extension reproduce moderate-severe pain. TTP over paraspinals from L3-S1. Pain in all ranges of motion, facet loading bilaterally reproduces moderate-severe pain. Strength 5/5 left and 4/5 right hip flexion bilaterally. No tenderness to bilateral GTB. +SLR test with dorsiflexion bilaterally, right worse than left. Pain radiates into hips and anterior/medial thighs with numbness, burning and tingling sensations. Diminished DTRs bilaterally, no clonus. MICHAEL test reproduces lateral right hip and lower back pain, right>left. +Mild TTP in projection of both SIJ areas. +Anshul?s, Stinchfield, Pelvic Compression test bilaterally. Cervical Spine: cervical ROM normal, cervical muscular tenderness and No Cervical spine tenderness Thoracic/Lumbar Spine: thoracic and lumbar spine normal to inspection, No Thoracic/lumbar spine scar(s), Lasegue's sign positive bilateral and localized, pain with thoraco-lumbar ROM, paraspinal muscle tenderness on the right greater than left, thoraco-lumbar ROM limited, No thoracic spinal tenderness and lumbar spinal tenderness Pelvis: no buttock tenderness and no sciatic notch tenderness Sacroiliac joints: bilaterally tender to palpation Results Reviewed Results Reviewed: MR SPINE LUMBAR without CONTRAST 09/23/23 at [facility] INDICATION: Lumbar region spondylosis and radiculopathy. Other intervertebral disc degeneration of the lumbar spine. Low back pain. Right hip and right leg pain for six months. No specific injury or trauma. TECHNIQUE: Unenhanced multiplanar, multisequence MR imaging of the lumbar spine. COMPARISON: None Available. FINDINGS: For the purpose of this examination the last well-formed inferior disc space will be labeled as L5-S1. Normal lumbar alignment is demonstrated. Vertebral heights are well maintained. Conus medullaris is unremarkable and terminates at L1. Small T2 and T1 hyperintense rounded lesion involving the anterior and inferior aspect of the T12 vertebral body most likely reflects a hemangioma. Bone marrow signal is otherwise within normal limits, and no suspicious osseous lesion is identified. Paraspinal soft tissues and visualized portions of the abdomen and pelvis are unremarkable. At T12-L1: There is no disc herniation or protrusion. No central canal or neural foraminal stenosis is demonstrated. At L1-2 there is no significant disc herniation or protrusion. No central canal or neural foraminal stenosis is demonstrated. At L2-3, there is a disc bulge associated with a small to moderate-sized broad-based left paracentral and left foraminal disc protrusion. Mild bilateral facet joint hypertrophy with mild ligamentum flavum thickening. These findings result in moderate to severe spinal canal narrowing and moderate bilateral neural foraminal narrowing. At L3-4 there is a mild disc bulge with bilateral facet joint hypertrophy and ligamentum flavum thickening, resulting in mild central canal narrowing. There is mild bilateral neural foraminal narrowing. At L4-5 there is a mild disc bulge with bilateral facet joint hypertrophy and ligamentum flavum thickening. No significant spinal canal or neural foraminal narrowing. At L5-S1 there is no mild disc bulge. No central canal. There is mild bilateral foraminal narrowing. IMPRESSION: 1. Disc bulge with small to moderate-sized broad-based left paracentral and left foraminal disc protrusion at L2-L3 resulting in moderate to severe spinal canal narrowing and moderate bilateral neural foraminal narrowing. 2. Disc bulge at L3-L4 resulting in mild central spinal canal narrowing with mild bilateral neural foraminal narrowing. XR LUMBOSACRAL SPINE WITH OBLIQUES 09/25/21 FINDINGS: Bone alignment is normal. No fracture or dislocation is seen. There is degenerative disc disease of the lower thoracic spine. Disc spaces are otherwise normal. There is lower lumbar spine facet arthritis. IMPRESSION: Lower lumbar spine facet arthritis. Assessment & Plan Assessment & Plan (1) Chronic right-sided lumbar radiculopathy: Code(s): M54.16 - Radiculopathy, lumbar region Category: Medical (2) Lumbar degenerative disc disease: Code(s): M51.36 - Other intervertebral disc degeneration, lumbar region Category: Medical (3) Lumbar spinal stenosis: Code(s): M48.061 - Spinal stenosis, lumbar region without neurogenic claudication Category: Medical (4) Low back pain: Code(s): M54.50 - Low back pain, unspecified Category: Medical (5) Lumbar spondylosis: Code(s): M47.816 - Spondylosis without myelopathy or radiculopathy, lumbar region Category: Medical (6) Morbid obesity with BMI of 40.0-44.9, adult: Code(s): E66.01 - Morbid (severe) obesity due to excess calories; Z68.41 - Body mass index [BMI] 40.0-44.9, adult Category: Medical Plan Lumbar spine MRI results reviewed with patient today in greater details. We discussed therapeutic FOREST injection as next steps to address her radicular back pain. Patient reports she has upcoming follow-up is her surgeon status post recent parathyroidectomy at [facility]. She would like to check with her surgeon for clearance for steroid injection. She notes she has been recovering and healing well. Most recent A1C is 7.6. She continues to work on her weight loss and managing her blood sugar levels with diet and medication. Patient reports decreased mobility and functioning due to significant LBP. Neurosurgical referral evaluation for L2-L3 moderate to severe spinal stenosis, with degenerative changes and disc herniation findings per recent MRI which are consistent with patient's exam. Short script provided for oxycodone [id number] pain while patient awaits neurosurgical and postoperative Endo evaluations. Side effects and precautions discussed with patient. Narcan sent with opioid medication, discussed use for this with patient. Refills sent for gabapentin per patient request. Questions or concerns have been answered and patient agrees with the plan. Follow-up after neurosurgical evaluation and sooner as needed. Orders: Referrals Neurosurgery Referral M48.061 - Spinal stenosis, lumbar region without neurogenic claudication, M51.36 - Other intervertebral disc degeneration, lumbar region Medications: New oxycodone Partial Fill upon patient request. 5 mg PO Q8H 10 days PRN 30 tabs 0RF pain M48.061 - Spinal stenosis, lumbar region without neurogenic claudication, M51.36 - Other intervertebral disc degeneration, lumbar region, M54.16 - Radiculopathy, lumbar region naloxone 4 mg/actuation (Narcan) spray 1 dose into ONE nostril; alternate nostrils w each dose until help arrives 4 mg intranasal Q2M PRN 2 ea 0RF opioid overdose lidocaine 5% leave on most painful area for up to 12 hrs topical 30 ea 0RF M48.061 - Spinal stenosis, lumbar region without neurogenic claudication, M51.36 - Other intervertebral disc degeneration, lumbar region, M54.16 - Radiculopathy, lumbar region Changed From gabapentin 300 mg PO BID 30 days 60 caps 0RF pain M54.16 - Radiculopathy, lumbar region To gabapentin 300 mg PO TID 30 days 90 caps 3RF pain M54.16 - Radiculopathy, lumbar region Coding Level of Care Code Est Pt Level 4 (63332) Diagnoses Chronic right-sided lumbar radiculopathy M54.16 Lumbar degenerative disc disease M51.36 Lumbar spinal stenosis M48.061 Low back pain M54.50 Lumbar spondylosis M47.816 Morbid obesity with BMI of 40.0-44.9, adult E66.01; Z68.41
[2023-10-19 10:31] VITALS: BP 136/80; PULSE 93; RESP 18; O2SAT 100; BMI 41.7
== END 2023-10-19 10:42 | disposition home or self-care (01) ==
PROVIDERS: PCP Internal Medicine; Visit Provider Nurse Practitioner Family
DX: M54.16 Radiculopathy, lumbar region (principal); M51.36 Other intervertebral disc degeneration, lumbar region; M48.061 Spinal stenosis, lumbar region without neurogenic claudication; M54.50 Low back pain, unspecified; M47.816 Spondylosis without myelopathy or radiculopathy, lumbar region; E66.01 Morbid (severe) obesity due to excess calories; Z68.41 Body mass index [BMI] 40.0-44.9, adult
CPT/HCPCS: 99214

== ENCOUNTER → 2023-10-19 10:26 | Outpatient (BNVA) | payer OTHER, SELFPAY | PROVIDERS: PCP Internal Medicine; Visit Provider Nurse Practitioner Family | DX: M51.36 Other intervertebral disc degeneration, lumbar region (principal); M48.061 Spinal stenosis, lumbar region without neurogenic claudication; M54.50 Low back pain, unspecified; M47.26 Other spondylosis with radiculopathy, lumbar region; E66.01 Morbid (severe) obesity due to excess calories; Z68.41 Body mass index [BMI] 40.0-44.9, adult | CPT/HCPCS: 99212 ==

== ENCOUNTER 2023-10-25 10:36 | Outpatient (AMB) | payer OTHER, SELFPAY ==
--- NOTE | 2023-10-25 10:41 | HO.SPINEOV ---
Intake Visit Reasons: Spinal stenosis, lumbar region Intake Note: Ms. Anderson is here today c/o low back pain. Assistant Sales Director Required: Yes Assistant Sales Director Name: Tablet Allergies No Known Allergies Allergy (Verified 10/25/23 10:53) Assessment & Plan Assessment & Plan (1) Low back pain: Code(s): M54.50 - Low back pain, unspecified Category: Medical Plan Dear Cornelia, Thank you for referring Mrs Anderson to our office today. She has a 68-year-old female who has been having multiple months of right-sided low back pain radiating down her leg. She describes the pain going into her whole leg down to her foot. The symptoms have now gotten to a point where they are quite severe. Standing walking around can be very uncomfortable. She has pain at night as well when she is turning over in bed. She can sit and be very comfortable but if the chair is not quite right, the pain can also be aggravated with sitting. She is tried oxycodone, meloxicam, Tylenol. To this point she has not tried any dedicated conservative treatment in the forms of physical therapy, chiropractic, acupuncture or injections. She was told she could not get injections just yet she underwent a thyroidectomy. PMH: She has a history of hypertension, diabetes. Her A1c was 6. She had her thyroid out the about a month ago. Three C sections, right knee replacement. High cholesterol, hypertension, asthma, hypercalcemia, GERD Social hx: She has not smoke, drink or use any recreational drugs Medications: Metformin, bisacodyl, atorvastatin, lisinopril, metoprolol in addition to the things listed in the HPI Allergies: No drug allergies Physical exam: Obese female in no acute distress, she has full strength of bilateral lower extremities with intact reflexes with the exception of the right knee which is replaced. There is a large incision over the anterior patellar region. She does have a lot of reproducible pain similar to what she gets when she is standing when she does MICHAEL testing. This is both ipsilateral and contralateral will give her the back pain. Imaging review: Lumbar MRI done at [facility], the report suggests moderate to severe stenosis at L2-3 but I disagree with this. I see very minimal stenosis in the central canal. Her disc height is relatively good and there is no significant foraminal stenosis seen anywhere. Impression: 68-year-old female presents to the office today for evaluation of a right-sided low back pain going down her right leg into her foot. The radiology report from [facility] suggests moderate to severe stenosis at L2-3, but more less I see very minor minimal stenosis even at this level. There is no indentation of the thecal sac, there is no crowding, there is good T2 signal seen throughout the spinal canal this spinal level. I do not think this is anything to do with her symptoms. There is no stenosis or foraminal stenosis seen at any other level. The primary complaint is pain right over the SI joint on the right side and she may be getting a pseudo radiculopathy down her leg from irritation of the L5 nerve as it courses over the SI joint. She does have positive finger Rina test, positive MICHAEL testing to reproduce the pain on my exam today. I think it would be worthwhile starting with an SI joint injection. Obviously all the other conservative treatments are available as well including physical therapy, chiropractic and acupuncture etc.. At this point she does not need any surgery. She can follow-up with your office once she is ready from the standpoint of her thyroid surgery to have an injection. Let me know if we can be of any further assistance. Thank you for allowing us to care for your patient. The total time spent with this visit with this patient was 45 minutes reviewing history, physical exam, lumbar imaging review, and implementation of treatment plan or further diagnostic testing Martell Rodriguez MD,PhD [facility] Coding Level of Care Code New Pt Level 4 (66726) Diagnoses Low back pain M54.50
== END 2023-10-25 11:51 | disposition home or self-care (01) ==
PROVIDERS: PCP Internal Medicine; Referring Provider Nurse Practitioner Family; Visit Provider Physician Assistant
DX: M54.50 Low back pain, unspecified (principal)
CPT/HCPCS: 99204

== ENCOUNTER → 2023-10-25 10:36 | Outpatient (BNVA) | payer OTHER, SELFPAY | PROVIDERS: PCP Internal Medicine; Visit Provider Physician Assistant | DX: M54.50 Low back pain, unspecified (principal) | CPT/HCPCS: 99202 ==

== ENCOUNTER 2023-11-11 13:02 | Outpatient (AMB) | payer OTHER, SELFPAY ==
--- NOTE | 2023-11-11 13:05 | A.OFFVIS_ITS ---
Vital Signs 11/11/23 13:10 Height 5 ft 3 in Weight 236 lb 1 oz BMI 41.8 BP 163/80 H Blood Pressure Location Rt brachial Position Sitting Pulse 95 Pulse Source Pulse Oximeter Pulse Oximetry (%) 98 Oxygen Delivery Method Room Air Intake Visit Reasons: follow up injection discussion Intake Note: Pain today 12/21 Padded Box Sewer Required: Yes Padded Box Sewer Language: Notch Grinder Name: Ion #[id number], Arden #[id number] Accompanied by: Self / Same As Patient Allergies No Known Allergies Allergy (Verified 11/11/23 13:11) HPI Comments Details: Patient presents today for follow up for ongoing right sided low back pain after Neurosurgical evaluation. Patient reports she was deemed non-surgical and would like to proceed with interventional treatments, specifically right sacroiliac joint injection as recommended by Neurosurgery. Patient reports right sided low back pain with radiation into her right leg and moderate tenderness in the projection of right sacroiliac joint area. She has not been able to pursue physical therapy more recently due to significant pain. Denies any fever, abdominal or groin pain, bladder or bowel dysfunction or saddle anesthesia. PRIOR: Patient is 68 years old female with history of arthritis, diabetes (A1C-7.6 on 08/30/23), right sided sciatica, right TKA (2022), recent parathyroidectomy (09/01/23) presents today for initial evaluation of chronic low back pain. Denies any recent trauma, injury or falls. Back pain is axial and also radiates into her right lower extremity posterolaterally with numbness and tingling in her right foot. Occasionally pain will radiate to left leg as well with heavy and numbness sensations. She also has significant exacerbation of back pain with lumbar flexion indicating a discogenic source. Pain affects her daily functioning, mobility, sleep, mood and social interactions. Patient has tried physical therapy in the past with partial benefit but currently is not able to pursue PT due to significant pain. Denies any fever, abdominal or groin pain, foot drop, bladder or bowel dysfunction or saddle anesthesia. Reports intermittent RLE weakness with walking, uses cane. Location Lower back radiates down bilateral legs, worse on the right Duration Chronic pain, worsening for > 1 year Characteristics of symptom or complaint Aching, burning, tingling, tiring, cramping, numbness, throbbing Aggravating or associated factors Walking, standing, bending forward, extending backwards, cold weather Relieving factors Sitting, Tylenol, activity modifications, heat therapy, topical application Treatment PT back 2021, helped, right knee-02/2023 [facility] Medical History Osteoarthritis of right knee Class 2 severe obesity with serious comorbidity and body mass index (BMI) of 38.0 to 38.9 in adult Hypothyroid Right foot pain Left shoulder pain Hospital discharge follow-up Right sided sciatica Dyslipidemia Essential hypertension Hyperparathyroidism Post-menopausal Screening for breast cancer Right foot pain Right knee pain Vitamin D deficiency Obesity due to excess calories Degenerative arthritis Cough High cholesterol 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 Social History Household Members: Spouse Housing: House Are you a primary home health care case manager to a significant other at home: No Do you presently have visiting nurse or other home services: No Alcohol intake: never Patient Tobacco Use Status: Never used Tobacco e-Cigarette/Vaping Use: Never Used Second Hand Smoke Exposure: No service: No Current occupational status: unemployed Cognitive needs: Yes Hearing needs: No Vision needs: Yes (Glasses) Female Reproductive History Menstrual Age of Menarche: 14 Review of Systems Const All systems reviewed & are unremarkable except as noted in HPI and below Physical Exam Vital Signs: Last Vital Signs Pulse 95 11/11/23 13:10 BP 163/80 H 11/11/23 13:10 Pulse Ox 98 11/11/23 13:10 Oxygen Delivery Method Room Air 11/11/23 13:10 BMI result Body Mass Index 41.8 General: Appears afebrile. Alert and oriented. Mood and affect appropriate. Follows and participates in conversation appropriately. Respiratory effort is unlabored. No cough. Able to transition from sit to stand unassisted. Uses cane with walking. Ambulates with bilaterally normal heel strike and toe off, reports imbalance on the right. Back/Spine/Pelvis Other: Limited lumbar ROM due to pain. Slightly antalgic gait, no limping. Lumbar extension, flexion forward and extension reproduce moderate pain. TTP over paraspinals from L3-S1. Pain in all ranges of motion, painful facet loading bilaterally. Strength 5/5 left and 4/5 right hip flexion. No tenderness to bilateral GTB. Pain radiates into hips and anterior/medial thighs with numbness, burning and tingling sensations. Diminished DTRs bilaterally, no clonus. MICHAEL test reproduces lateral right hip and lower back pain, right>left. +Mild TTP in projection of both SIJ areas. +Anshul?s, Stinchfield, Pelvic Compression test bilaterally. Cervical Spine: cervical ROM normal, cervical muscular tenderness and No Cervical spine tenderness Thoracic/Lumbar Spine: thoracic and lumbar spine normal to inspection, No Thoracic/lumbar spine scar(s), Lasegue's sign negative, straight leg raise negative bilaterally, pain with thoraco-lumbar ROM, paraspinal muscle tenderness on the right greater than left, thoraco-lumbar ROM limited, No thoracic spinal tenderness and lumbar spinal tenderness Pelvis: buttock tenderness (upper) on the right and no sciatic notch tenderness Sacroiliac joints: bilaterally (right>left) tender to palpation Extrem General: Yes capillary refill normal, Yes no clubbing, cyanosis or edema and Yes no calf tenderness Results Reviewed Results Reviewed: MR SPINE LUMBAR without CONTRAST 09/23/23 at [facility] INDICATION: Lumbar region spondylosis and radiculopathy. Other intervertebral disc degeneration of the lumbar spine. Low back pain. Right hip and right leg pain for six months. No specific injury or trauma. TECHNIQUE: Unenhanced multiplanar, multisequence MR imaging of the lumbar spine. COMPARISON: None Available. FINDINGS: For the purpose of this examination the last well-formed inferior disc space will be labeled as L5-S1. Normal lumbar alignment is demonstrated. Vertebral heights are well maintained. Conus medullaris is unremarkable and terminates at L1. Small T2 and T1 hyperintense rounded lesion involving the anterior and inferior aspect of the T12 vertebral body most likely reflects a hemangioma. Bone marrow signal is otherwise within normal limits, and no suspicious osseous lesion is identified. Paraspinal soft tissues and visualized portions of the abdomen and pelvis are unremarkable. At T12-L1: There is no disc herniation or protrusion. No central canal or neural foraminal stenosis is demonstrated. At L1-2 there is no significant disc herniation or protrusion. No central canal or neural foraminal stenosis is demonstrated. At L2-3, there is a disc bulge associated with a small to moderate-sized broad-based left paracentral and left foraminal disc protrusion. Mild bilateral facet joint hypertrophy with mild ligamentum flavum thickening. These findings result in moderate to severe spinal canal narrowing and moderate bilateral neural foraminal narrowing. At L3-4 there is a mild disc bulge with bilateral facet joint hypertrophy and ligamentum flavum thickening, resulting in mild central canal narrowing. There is mild bilateral neural foraminal narrowing. At L4-5 there is a mild disc bulge with bilateral facet joint hypertrophy and ligamentum flavum thickening. No significant spinal canal or neural foraminal narrowing. At L5-S1 there is no mild disc bulge. No central canal. There is mild bilateral foraminal narrowing. IMPRESSION: 1. Disc bulge with small to moderate-sized broad-based left paracentral and left foraminal disc protrusion at L2-L3 resulting in moderate to severe spinal canal narrowing and moderate bilateral neural foraminal narrowing. 2. Disc bulge at L3-L4 resulting in mild central spinal canal narrowing with mild bilateral neural foraminal narrowing. XR LUMBOSACRAL SPINE WITH OBLIQUES 09/25/21 FINDINGS: Bone alignment is normal. No fracture or dislocation is seen. There is degenerative disc disease of the lower thoracic spine. Disc spaces are otherwise normal. There is lower lumbar spine facet arthritis. IMPRESSION: Lower lumbar spine facet arthritis. Assessment & Plan Assessment & Plan (1) Lumbar degenerative disc disease: Code(s): M51.36 - Other intervertebral disc degeneration, lumbar region Category: Medical (2) Chronic right-sided lumbar radiculopathy: Code(s): M54.16 - Radiculopathy, lumbar region Category: Medical (3) Lumbar spondylosis: Code(s): M47.816 - Spondylosis without myelopathy or radiculopathy, lumbar region Category: Medical (4) Low back pain: Code(s): M54.50 - Low back pain, unspecified Category: Medical (5) Sacroiliac joint pain: Code(s): M53.3 - Sacrococcygeal disorders, not elsewhere classified Category: Medical Plan Schedule Diagnostic Right Sacroiliac Joint injection with local and fluoroscopy. If positive response, will consider therapeutic injection, Curonix PNS trial, or RFA options depending on patient's preference. If no pain relief, will consider lumbar medial branch blocks for axial low back pain. Expectations, risks and benefits were reviewed. Patient is aware she will be contacted to schedule this procedure. All questions were answered and the patient is in agreement of plan. Follow-up after injections and sooner as needed. Medications: Discontinued oxycodone Partial Fill upon patient request. Discontinued Reason: Patient Completed Course 5 mg PO Q8H 10 days PRN 30 tabs 0RF pain M48.061 - Spinal stenosis, lumbar region without neurogenic claudication, M51.36 - Other intervertebral disc degeneration, lumbar region, M54.16 - Radiculopathy, lumbar region Coding Level of Care Code Est Pt Level 4 (24449) Diagnoses Lumbar degenerative disc disease M51.36 Chronic right-sided lumbar radiculopathy M54.16 Lumbar spondylosis M47.816 Low back pain M54.50 Sacroiliac joint pain M53.3
[2023-11-11 13:10] VITALS: BP 163/80; PULSE 95; O2SAT 98; BMI 41.8
== END 2023-11-11 13:55 | disposition home or self-care (01) ==
PROVIDERS: PCP Internal Medicine; Visit Provider Nurse Practitioner Family
DX: M51.36 Other intervertebral disc degeneration, lumbar region (principal); M54.16 Radiculopathy, lumbar region; M47.816 Spondylosis without myelopathy or radiculopathy, lumbar region; M54.50 Low back pain, unspecified; M53.3 Sacrococcygeal disorders, not elsewhere classified
CPT/HCPCS: 99214

== ENCOUNTER → 2023-11-11 13:02 | Outpatient (BNVA) | payer OTHER, SELFPAY | PROVIDERS: PCP Internal Medicine; Visit Provider Nurse Practitioner Family | DX: M51.36 Other intervertebral disc degeneration, lumbar region (principal); M54.16 Radiculopathy, lumbar region; M47.816 Spondylosis without myelopathy or radiculopathy, lumbar region; M54.50 Low back pain, unspecified; M53.3 Sacrococcygeal disorders, not elsewhere classified | CPT/HCPCS: 99212 ==

== ENCOUNTER 2023-12-03 09:42 | Outpatient (REF) | payer OTHER, SELFPAY ==
[2023-12-03 10:58] LABS: Anion Gap 13 (12-20); Blood Urea Nitrogen 22 mg/dL (9-16); Calcium 8.9 mg/dL (8.4-10.2); Carbon Dioxide 30 mmol/L (22-29); Chloride 103 mmol/L (96-108); Estimated Glomerular Filt Rate > 60; Phosphorus 3.5 mg/dL (2.7-4.5); Potassium 4.2 mmol/L (3.3-5.1); Sodium 142 mmol/L (135-145)
[2023-12-03 11:06] LABS: Parathyroid Hormone Intact 45.5 pg/mL (8.7-77.1)
== END 2023-12-03 09:43 | disposition home or self-care (01) ==
LOC: HO.LAB 09:42
PROVIDERS: PCP Internal Medicine; Visit Provider Internal Medicine Nephrology
DX: I10 Essential (primary) hypertension (principal); E21.3 Hyperparathyroidism, unspecified
CPT/HCPCS: 36415; 80051; 82310; 82565; 83970; 84100; 84520

== ENCOUNTER 2023-12-31 14:03 | Outpatient (AMB) | payer OTHER, SELFPAY ==
--- NOTE | 2023-12-31 14:50 | HO.NEPHOV ---
Vital Signs 12/31/23 14:51 Height 5 ft 3 in Weight 238 lb BMI 42.2 BP 112/80 Blood Pressure Location Rt brachial Position Sitting Pulse 89 Pulse Source Pulse Oximeter Pulse Oximetry (%) 97 Oxygen Delivery Method Room Air Intake Visit Reasons: 4 Months/Hypertension/ Conf Contract Administration Specialist Required: Yes Contract Administration Specialist Name: [id number] Kenzie Accompanied by: Self / Same As Patient Allergies No Known Allergies Allergy (Verified 12/31/23 14:53) HPI Comments Details: Paige was seen in the office in follow-up of her hyperkalemia. She is hypertensive and diabetic. Her blood pressure well controlled. She has not taking celecoxib. She is on benazepril. She does not take any nonsteroidal anti-inflammatories. She has history of peripheral arterial disease. She denies taking salt substitute. She maintains good hydration. Her serum creatinine has been stable. She did not have any other new specific complaints at the time of this office visit. [facility] Medical History Osteoarthritis of right knee Class 2 severe obesity with serious comorbidity and body mass index (BMI) of 38.0 to 38.9 in adult Hypothyroid Right foot pain Left shoulder pain Hospital discharge follow-up Right sided sciatica Dyslipidemia Essential hypertension Hyperparathyroidism Post-menopausal Screening for breast cancer Right foot pain Right knee pain Vitamin D deficiency Obesity due to excess calories Degenerative arthritis Cough High cholesterol Diabetes [id number] condition Back pain Peripheral vascular disease Hypothyroidism Hypercholesterolemia Hypertension Diabetic peripheral vascular disorder Diabetes Surgical History Tubal ligation status History of esophagogastroduodenoscopy (EGD) (~2013) Hx of colonoscopy History of H/O right knee surgery History of thyroid surgery Family History Father Hypertension Mother No problems noted. Social History Household Members: Spouse Housing: House Are you a primary school childcare attendant to a significant other at home: No Do you presently have visiting nurse or other home services: No Alcohol intake: never Patient Tobacco Use Status: Never used Tobacco e-Cigarette/Vaping Use: Never Used Second Hand Smoke Exposure: No service: No Current occupational status: unemployed Cognitive needs: Yes Hearing needs: No Vision needs: Yes (Glasses) Female Reproductive History Menstrual Age of Menarche: 14 Physical Exam Vital Signs: BMI result Body Mass Index 42.2 Const General: comfortable and no acute distress Orientation/consciousness: patient oriented x3 HEENT Head: Yes normocephalic Mouth: Normal oral and palatal mucosa present Eyes EOM: EOMs intact bilaterally Neck Neck: Yes supple Resp Auscultation: clear to auscultation bilaterally Cardio Jugular venous distension: no JVD Rate: regular rate GI Palpation (GI): Soft to palpation Auscultation: normal bowel sounds General: Yes no CVA tenderness Back/Spine/Pelvis Back: no CVA tenderness Skin General skin exam: no rashes or lesions noted Neuro General: patient oriented x3 and moves all extremities Extrem General: Yes no pedal edema Results Reviewed Nephrology Results: Sodium 142 mmol/L (135-145) 12/03/23 Potassium 4.2 mmol/L (3.3-5.1) 12/03/23 Chloride 103 mmol/L (96-108) 12/03/23 Carbon Dioxide 30 mmol/L (22-29) H 12/03/23 BUN 22 mg/dL (9-16) H 12/03/23 Creatinine 0.93 mg/dL (0.5-1.4) 12/03/23 Calcium 8.9 mg/dL (8.4-10.2) 12/03/23 Phosphorus 3.5 mg/dL (2.7-4.5) 12/03/23 PTH Intact 45.5 pg/mL (8.7-77.1) 12/03/23 Assessment & Plan Assessment & Plan (1) Hypertension: Code(s): I10 - Essential (primary) hypertension Category: Medical Qualifiers: Hypertension type: essential hypertension Qualified Code(s): I10 - Essential (primary) hypertension Plan Her serum potassium is normal now. She does not take any nonsteroidal anti-inflammatories. She is aware of low-potassium diet. She is tolerating KEI inhibitor. She maintains good hydration. Her renal functions are normal. Her blood pressure is at goal on current medications. She is on ACEI. I did not make any medication changes today. All her questions were answered. Follow-up lab work ordered and follow-up appointment given. Orders: Orders Creatinine Today I10 - Essential (primary) hypertension Blood Urea Nitrogen Today I10 - Essential (primary) hypertension Electrolytes Today I10 - Essential (primary) hypertension Coding Level of Care Code Est Pt Level 4 (03643) Diagnoses Essential hypertension I10 Hypertension type: essential hypertension
[2023-12-31 14:51] VITALS: BP 112/80; PULSE 89; O2SAT 97; BMI 42.2
== END 2023-12-31 15:01 | disposition home or self-care (01) ==
PROVIDERS: PCP Internal Medicine; Visit Provider Internal Medicine Nephrology
DX: I10 Essential (primary) hypertension (principal)
CPT/HCPCS: 99214

== ENCOUNTER → 2023-12-31 14:03 | Outpatient (BNVA) | payer OTHER, SELFPAY | PROVIDERS: PCP Internal Medicine; Visit Provider Internal Medicine Nephrology | DX: I10 Essential (primary) hypertension (principal); E87.5 Hyperkalemia; E11.9 Type 2 diabetes mellitus without complications | CPT/HCPCS: 99212 ==

== ENCOUNTER 2024-01-03 14:53 | Outpatient (AMB) | payer OTHER, SELFPAY ==
--- NOTE | 2024-01-03 15:03 | MHC.PC.OV ---
Vital Signs 01/03/24 15:06 Height 5 ft 3 in Weight 235 lb BMI 41.6 BP 130/80 Blood Pressure Location Lt brachial Position Sitting Intake Visit Reasons: dm Regional Vice President Surgical Sales Required: No Accompanied by: Self / Same As Patient Allergies No Known Allergies Allergy (Verified 01/03/24 15:19) Medication List - Last Reconciled 01/03/24 by Danika Rainey MD acetaminophen 650 mg (2 x 325 mg) PO Q6H PRN 30 days amlodipine 10 mg PO DAILY 90 days aspirin 81 mg PO DAILY atorvastatin 80 mg PO BEDTIME 90 days benazepril 10 mg PO DAILY bisacodyl (Laxative (bisacodyl)) 10 mg (2 x 5 mg) PO DAILY PRN 90 days blood pressure monitor As directed blood sugar diagnostic ([employer] Verio test strips) test blood sugar once a day blood-glucose meter ([employer] Verio Meter) As directed once a day chlorthalidone 25 mg PO DAILY 90 days dulaglutide (Trulicity) 0.75 mg (0.5 mL) subcut QWEEK 90 days famotidine 20 mg PO BEDTIME fluticasone propionate 110 mcg/actuation (Flovent HFA) 1 puff inhalation BID gabapentin 300 mg PO BID PRN hydralazine 10 mg PO TID 30 days incontinence pad, liner, disp Use 2 pads per day lancets ([employer] Delica Lancets) Use 1 lancet once a day lidocaine 5% leave on most painful area for up to 12 hrs topical metformin 850 mg PO BID 90 days metoprolol succinate ER 50 mg PO DAILY 90 days naloxone 4 mg/actuation (Narcan) 4 mg intranasal Q2M PRN pentoxifylline ER 400 mg PO DAILY Synthroid (levothyroxine) 125 mcg PO DAILY 90 days NS underpads (Bed Underpads) As directed Ventolin HFA 90 mcg/actuation (albuterol sulfate) 1 inh inhalation QID PRN 30 days NS [wipes As directed] Tobacco use date assessed: 08/30/23 Dental Screening Dental Screen Date: 08/30/23 HPI HPI Comments History of Present Illness Details This is a 68-year-old female with diabetes mellitus type 2, hypertension, hyperlipidemia and morbid obesity that comes today for follow-up on her conditions. A1c close to goal. Has been on metformin and Trulicity for over 90 days. I will discontinue Trulicity and start her on Ozempic. Blood pressure stable. Lipid panel will be order and her LDL goal should be less than 70. She also has hypothyroidism and TSH was ordered. She is morbidly obese with a BMI of 41.6 and was advised to do diet and exercise to reach BMI goal less than 30. No chest pain or shortness on breath. [facility] Medical History (Updated 01/03/24 @ 16:16 by Danika Rainey MD) Essential hypertension Osteoarthritis of right knee Class 2 severe obesity with serious comorbidity and body mass index (BMI) of 38.0 to 38.9 in adult Hypothyroid Right foot pain Left shoulder pain Hospital discharge follow-up Right sided sciatica Dyslipidemia Hyperparathyroidism Post-menopausal Screening for breast cancer Right foot pain Right knee pain Vitamin D deficiency Obesity due to excess calories Degenerative arthritis Cough High cholesterol Diabetes [id number] condition Back pain Peripheral vascular disease Hypothyroidism Hypercholesterolemia Hypertension Diabetic peripheral vascular disorder Diabetes Surgical History Tubal ligation status History of esophagogastroduodenoscopy (EGD) (~2013) Hx of colonoscopy History of H/O right knee surgery History of thyroid surgery Family History Father Hypertension Mother No problems noted. Social History Household Members: Spouse Housing: House Are you a primary care connector to a significant other at home: No Do you presently have visiting nurse or other home services: No Alcohol intake: never Patient Tobacco Use Status: Never used Tobacco e-Cigarette/Vaping Use: Never Used Second Hand Smoke Exposure: No service: No Current occupational status: unemployed Cognitive needs: Yes Hearing needs: No Vision needs: Yes (Glasses) Female Reproductive History Menstrual Age of Menarche: 14 Questionnaire Thrive Questionnaire Date Thrive assessed: 08/30/23 NATALIE-7 AMB Questionnaire NATALIE-7 Date NATALIE - 7 assessed: 08/30/23 Source: Developed by Drs. Denzel Cormier, Tara Guevara, Trent Ramirez and colleagues, with an educational ellis from [employer]. Review of Systems Const All systems reviewed & are unremarkable except as noted in HPI and below Card Denies chest pain at rest, Denies chest pain with activity, Denies edema, Denies irregular heart rhythm, Denies claudication, Denies dyspnea, Denies dyspnea on exertion, Denies orthopnea, Denies paroxysmal nocturnal dyspnea and Denies slow heart rate Resp Denies cough, Denies dyspnea and Denies dyspnea on exertion GI Denies abdominal pain, Denies change in bowel habits, Denies excessive flatus, Denies nausea and Denies vomiting Physical exam (Primary Care) Vital Signs: Last Vital Signs BP 130/80 01/03/24 15:06 BMI result Body Mass Index 41.6 Tobacco/Smoking Status: Tobacco use Status Tobacco use date assessed 08/30/23 01/03/24 15:04 Patient Tobacco Use Status Never used Tobacco 01/03/24 15:04 Tobacco use type 08/31/23 09:18 e-Cigarette/Vaping Use Never Used 01/03/24 15:04 Thrive Assessment: Date of Thrive Assessment Date Thrive assessed 08/30/23 01/03/24 15:04 Resp Effort & Inspection: normal respiratory effort Auscultation: clear to auscultation bilaterally Cardio Jugular venous distension: no JVD Rate: regular rate Rhythm: regular rhythm Heart sounds: S1 normal heart sound present and S2 normal heart sound present Extrem General: Yes full ROM Results AMB Hemoglobin A1c AMB Hemoglobin A1c 7.2 % Last Edit by LEONEL Mattson on 01/03/24 15:13 Results Reviewed Results Reviewed: Laboratory Last Values Hgb A1c (Clinic) 7.2 % (4.0-6.0) H 01/03/24 15:02 Assessment and Plan Assessment & Plan (1) Morbid obesity with BMI of 40.0-44.9, adult: Code(s): E66.01 - Morbid (severe) obesity due to excess calories; Z68.41 - Body mass index [BMI] 40.0-44.9, adult Plan: Declines weight loss surgery. Start diet and exercise. BMI goal is less than 30. (2) Hypothyroidism: Code(s): E03.9 - Hypothyroidism, unspecified Qualifiers: Hypothyroidism type: postoperative Qualified Code(s): E89.0 - Postprocedural hypothyroidism Plan: Continue levothyroxine. Monitor TSH. (3) Hyperlipidemia LDL goal <70: Code(s): E78.5 - Hyperlipidemia, unspecified Plan: Continue statins. LDL goal is less than 70. (4) Type 2 diabetes mellitus without complication, without long-term current use of insulin: Code(s): E11.9 - Type 2 diabetes mellitus without complications Plan: Continue metformin. Discontinue Trulicity. Start Ozempic. A1c goal is equal or less than 7%. (5) Essential hypertension: Code(s): I10 - Essential (primary) hypertension Plan: Continue amlodipine and benazepril. Blood pressure goal is equal or less than 130/80. Orders: Orders Lipid Panel Today E78.5 - Hyperlipidemia, unspecified Microalbumin, Random (w Creat) Today E11.9 - Type 2 diabetes mellitus without complications Vitamin D 25-OH Total Today E55.9 - Vitamin D deficiency, unspecified Complete Blood Count Auto Diff Today D64.9 - Anemia, unspecified IRON PROFILE Today D64.9 - Anemia, unspecified AMB Hemoglobin A1c Today E11.9 - Type 2 diabetes mellitus without complications Vitamin B12 and Folate Today E53.8 - Deficiency of other specified B group vitamins Comprehensive [place]. Panel Fast Today E11.9 - Type 2 diabetes mellitus without complications Thyroid Stimulating Hormone Today E03.9 - Hypothyroidism, unspecified Medications: New semaglutide (Ozempic) for 4 weeks 0.25 mg (0.368 mL) subcut QWEEK 4 weeks 1.472 mL 0RF E11.9 - Type 2 diabetes mellitus without complications Discontinued dulaglutide (Trulicity) Discontinued Reason: Patient Completed Course 0.75 mg (0.5 mL) subcut QWEEK 90 days 6.5 mL 0RF E11.9 - Type 2 diabetes mellitus without complications Coding Level of Care Code Est Pt Level 4 (30357) Complex EM visit Add On G2211 Diagnoses Morbid obesity with BMI of 40.0-44.9, adult E66.01; Z68.41 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 Hypothyroidism type: postoperative Hyperlipidemia LDL goal <70 E78.5 Type 2 diabetes mellitus without complication, without long-term current use of insulin E11.9 Essential hypertension I10 Time Spent (min) 23
[2024-01-03 15:06] VITALS: BP 130/80; BMI 41.6
== END 2024-01-03 15:49 | disposition home or self-care (01) ==
PROVIDERS: PCP Internal Medicine; Visit Provider Internal Medicine
DX: E11.69 Type 2 diabetes mellitus with other specified complication (principal); E66.01 Morbid (severe) obesity due to excess calories; Z68.41 Body mass index [BMI] 40.0-44.9, adult; E89.0 Postprocedural hypothyroidism; E78.5 Hyperlipidemia, unspecified; I10 Essential (primary) hypertension
CPT/HCPCS: 83036; 99214; G2211

== ENCOUNTER 2024-01-04 06:24 | Outpatient (REF) | payer OTHER, SELFPAY ==
--- NOTE | ~2024-01-04 | FL_ITS ---
EXAMINATION: XR FLUOROSCOPY WITH IMAGES CLINICAL INFORMATION: Sacrococcygeal disorders, not elsewhere classified. COMPARISON: None available. TECHNIQUE: Fluoroscopy provided to: Dr. Donis Fluoroscopy time: 0.1 minutes DAP: 0.0492 uGycm2 Images: 1 FINDINGS: Solitary image demonstrates needle and contrast injection within the synovial aspect of the right SI joint. FL/FL guidance in treatment room IMPRESSION: Fluoroscopic guidance. Please refer to the full operative report for details. Electronically signed by: Zhen Gutierrez MD 03/07/2024 11:44 AM EDT
== END 2024-01-04 06:25 | disposition home or self-care (01) ==
LOC: CF 06:24
PROVIDERS: Visit Provider Anesthesiology
DX: M53.3 Sacrococcygeal disorders, not elsewhere classified (principal); M51.36 Other intervertebral disc degeneration, lumbar region; M47.26 Other spondylosis with radiculopathy, lumbar region; M54.50 Low back pain, unspecified
CPT/HCPCS: 27096; J2795; Q9967

== ENCOUNTER 2024-01-04 13:01 | Outpatient (AMB) | payer OTHER, SELFPAY ==
--- NOTE | 2024-01-04 13:13 | A.OFFVIS_ITS ---
Vital Signs 01/04/24 13:17 01/04/24 13:58 Height 5 ft 3 in 5 ft 3 in Weight 235 lb 235 lb BMI 41.6 41.6 BP 120/71 131/78 Blood Pressure Location Lt brachial Lt brachial Position Sitting Respiration 18 17 Pulse 99 98 Pulse Source Pulse Oximeter Pulse Oximeter Pulse Oximetry (%) 98 97 Oxygen Delivery Method Room Air Room Air Comment pre-op post-op Intake Visit Reasons: RIGHT DIAGNOSTIC SIJ INJECTION Allergies No Known Allergies Allergy (Verified 01/04/24 14:00) [facility] Medical History (Updated 01/03/24 @ 16:16 by Danika Rainey MD) Essential hypertension Osteoarthritis of right knee Class 2 severe obesity with serious comorbidity and body mass index (BMI) of 38.0 to 38.9 in adult Hypothyroid Right foot pain Left shoulder pain Hospital discharge follow-up Right sided sciatica Dyslipidemia Hyperparathyroidism Post-menopausal Screening for breast cancer Right foot pain Right knee pain Vitamin D deficiency Obesity due to excess calories Degenerative arthritis Cough High cholesterol Diabetes 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 Social History Household Members: Spouse Housing: House Are you a primary career development manager to a significant other at home: No Do you presently have visiting nurse or other home services: No Alcohol intake: never Patient Tobacco Use Status: Never used Tobacco e-Cigarette/Vaping Use: Never Used Second Hand Smoke Exposure: No service: No Current occupational status: unemployed Cognitive needs: Yes Hearing needs: No Vision needs: Yes (Glasses) Female Reproductive History Menstrual Age of Menarche: 14 Physical Exam Vital Signs: Last Vital Signs Pulse 98 01/04/24 13:58 Resp 17 01/04/24 13:58 BP 131/78 01/04/24 13:58 Pulse Ox 97 01/04/24 13:58 Oxygen Delivery Method Room Air 01/04/24 13:58 BMI result Body Mass Index 41.6 Assessment & Plan Assessment & Plan (1) Lumbar degenerative disc disease: Code(s): M51.36 - Other intervertebral disc degeneration, lumbar region Category: Medical (2) Chronic right-sided lumbar radiculopathy: Code(s): M54.16 - Radiculopathy, lumbar region Category: Medical (3) Lumbar spondylosis: Code(s): M47.816 - Spondylosis without myelopathy or radiculopathy, lumbar region Category: Medical (4) Low back pain: Code(s): M54.50 - Low back pain, unspecified Category: Medical (5) Sacroiliac joint pain: Code(s): M53.3 - Sacrococcygeal disorders, not elsewhere classified Category: Medical Plan: Right diagnostic sacroiliac joint injection Informed consent was explained thoroughly to the patient. All questions about benefits and risks for the procedure were answered. Patient came to the operating room and was positioned prone on the operating table with the pillow under the pelvis. Time out was performed delineating name and of the patient, allergies and the nature of the procedure. The lower back and buttocks of the patient were prepped with ChloraPrep prepped and draped with sterile utility towels. C-arm was brought over the operating field and sq picture of patient's pelvis was demonstrated on the screen. For the right joint tilting C-arm contralateral to the site of the joint the most posterior portion of the joints was superimposed with anterior silhouette of the joint. Skin was injected in the projection of the joint slightly medial to the location of the joint with 25 gauge 1/2 inch needle using local lidocaine 2% .After that 22 gauge 3 and 1/2 inch needle was driven to the right joint in tunnel vision fashion. When needle entered the joint capsule injection of the contrast was performed demonstrating intra-articular and minimally periarticular spread of the contrast. After that 4 cc. of ropivacaine 0.5% was injected into the joint. Upon completion of the injections the needle was removed Sterile dressing was applied. Upon completion of the injection patient was taken outside of the operating room to the recovery room where recovered uneventfully. Plan Schedule Diagnostic Right Sacroiliac Joint injection with local and fluoroscopy. If positive response, will consider therapeutic injection, Curonix PNS trial, or RFA options depending on patient's preference. If no pain relief, will consider lumbar medial branch blocks for axial low back pain. Expectations, risks and benefits were reviewed. Patient is aware she will be contacted to schedule this procedure. All questions were answered and the patient is in agreement of plan. Follow-up after injections and sooner as needed. Orders: Orders FL guidance in treatment room Today M53.3 - Sacrococcygeal disorders, not elsewhere classified Coding Level of Care Code Procedure Only Diagnoses Lumbar degenerative disc disease M51.36 Chronic right-sided lumbar radiculopathy M54.16 Lumbar spondylosis M47.816 Low back pain M54.50 Sacroiliac joint pain M53.3
[2024-01-04 13:17] VITALS: BP 120/71; PULSE 99; RESP 18; O2SAT 98; BMI 41.6
[2024-01-04 13:58] VITALS: BP 131/78; PULSE 98; RESP 17; O2SAT 97; BMI 41.6
== END 2024-01-04 14:09 | disposition home or self-care (01) ==
LOC: HO.PMCPRC 13:01
PROVIDERS: PCP Internal Medicine; Visit Provider Anesthesiology
DX: M53.3 Sacrococcygeal disorders, not elsewhere classified (principal)
CPT/HCPCS: 27096

== ENCOUNTER 2024-01-06 09:58 | Outpatient (REF) | payer OTHER, SELFPAY ==
[2024-01-06 10:14] LABS: MANUAL DIFF FLAG NO
[2024-01-06 11:39] LABS: Basophils Absolute Auto 0.1 X10*3/uL (0.0-0.2); Basophils Percent Auto 0.8 % (0-2); Eosinophils Absolute Auto 0.4 X10*3/uL (0.0-0.4); Eosinophils Percent Auto 5.4 % (0-4); Hematocrit 37.8 % (37.0-47.0); Hemoglobin 12.5 g/dl (12.0-16.0); Imm Gran Abs Auto 0.03 X10*3/uL (0.00-0.03); Imm Gran Pct Auto 0.4 % (0.0-0.4); Lymphocytes Absolute Auto 2.6 X10*3/uL (1.2-4.9); Lymphocytes Percent Auto 33.7 % (20-40); Mean Corpuscular HGB Conc 33.1 g/dl (31.0-35.0); Mean Corpuscular Hemoglobin 30.1 pg (27.0-33.0); Mean Corpuscular Volume 91.1 fL (80.0-98.0); Mean Platelet Volume 9.3 fL (9.4-12.3); Monocytes Absolute Auto 0.6 X10*3/uL (0.1-1.2); Monocytes Percent Auto 8.2 % (2-11); Neutrophils Percent Auto 51.5 % (45-73); Platelet Count 307 X10*3/uL (160-400); Red Blood Count 4.15 X10*6/uL (4.20-5.50); Red Cell Distribution Width 15.1 % (11.0-16.0); White Blood Count 7.7 X10*3/uL (4.8-10.8)
[2024-01-06 12:20] LABS: Creatinine Urine 112.75 mg/dL; Microalbumin Urine < 5.0 mg/L
[2024-01-06 12:32] LABS: Alanine Aminotransferase 11 U/L (0-31); Albumin Level 3.7 g/dL (3.5-5.0); Alkaline Phosphatase 66 U/L (39-117); Anion Gap 14 (12-20); Aspartate Amino Transferase 14 U/L (5-31); Bilirubin Total 0.6 mg/dL (0.0-1.0); Blood Urea Nitrogen 22 mg/dL (9-16); Calcium 8.9 mg/dL (8.4-10.2); Carbon Dioxide 29 mmol/L (22-29); Chloride 102 mmol/L (96-108); Cholesterol 149 mg/dL (<200); Estimated Glomerular Filt Rate 52; Glucose Fasting 113 mg/dL (60-99); HDL Cholesterol 46 mg/dL (>40); Iron 65 mcg/dL (30-160); LDL Cholesterol Calculated 85 mg/dL (<100); Percent Iron Saturation 22 % (15-50); Sodium 141 mmol/L (135-145); Thyroid Stimulating Hormone 3.45 uIU/mL (0.32-4.0); Total Iron Binding Capacity 294 mcg/dL (228-428); Total Protein 7.1 g/dL (6.5-8.0); Triglycerides 93 mg/dL (<150); Unsaturated Iron Binding 229 ug/dL; Vitamin D 25-OH Total 36.1 ng/mL (>30)
[2024-01-06 12:53] LABS: Folate 13.5 ng/mL (> or = 4.0); Vitamin B12 511 pg/mL (200-900)
== END 2024-01-06 09:59 | disposition home or self-care (01) ==
LOC: HO.LAB 09:58
PROVIDERS: PCP Internal Medicine; Visit Provider Internal Medicine
DX: D64.9 Anemia, unspecified (principal); E78.5 Hyperlipidemia, unspecified; E55.9 Vitamin D deficiency, unspecified; E53.8 Deficiency of other specified B group vitamins; E03.9 Hypothyroidism, unspecified; E11.9 Type 2 diabetes mellitus without complications
CPT/HCPCS: 36415; 80053; 80061; 82043; 82306; 82570; 82607; 82746; 83540; 84443; 85025

== ENCOUNTER 2024-01-11 12:51 | Outpatient (AMB) | payer OTHER, SELFPAY ==
--- NOTE | 2024-01-11 13:02 | A.OFFVIS_ITS ---
Vital Signs 01/11/24 13:08 Height 5 ft 3 in Weight 234 lb BMI 41.4 BP 144/81 H Blood Pressure Location Rt brachial Position Sitting Pulse 81 Pulse Source Pulse Oximeter Pulse Oximetry (%) 97 Oxygen Delivery Method Room Air Intake Visit Reasons: RIGHT DIAGNOSTIC SIJ INJECTION Intake Note: Pain today 12/21 Supervisor Photoengraving Required: Yes Supervisor Photoengraving Language: Computer Aided Design Drafter Services: Supervisor Photoengraving Present Supervisor Photoengraving Name: Norm Accompanied by: Self / Same As Patient Allergies No Known Allergies Allergy (Verified 01/11/24 13:07) HPI Comments Details: Patient presents today to assess response to Right Diagnostic SIJ injection on 01/04/[address] Donis. Patient reports 80% pain relief for over 12 hours with significant improvement in her daily functioning, mobility and sleep. She reports pain started to return the next late morning and she now continues to take Tylenol extra strength at least twice daily with partial relief. We had long discussion today for next treatment options for a longer term SIJ pain relief, including neuromodulation with Curonix PNS trial vs implant, SI fusion, RFA, and therapeutic injections. Patient would like to review these options with her family. Denies any recent cough, cold, infection, fever or other significant changes in medical history since last office visit. Past Procedures: 01/04/24: Right Diagnostic SIJ injection-80% >12 hours PRIOR: Patient presents today for follow up for ongoing right sided low back pain after Neurosurgical evaluation. Patient reports she was deemed non-surgical and would like to proceed with interventional treatments, specifically right sacroiliac joint injection as recommended by Neurosurgery. Patient reports right sided low back pain with radiation into her right leg and moderate tenderness in the projection of right sacroiliac joint area. She has not been able to pursue physical therapy more recently due to significant pain. Denies any fever, abdominal or groin pain, bladder or bowel dysfunction or saddle anesthesia. PRIOR: Patient is 68 years old female with history of arthritis, diabetes (A1C-7.6 on 08/30/23), right sided sciatica, right TKA (2022), recent parathyroidectomy (09/01/23) presents today for initial evaluation of chronic low back pain. Denies any recent trauma, injury or falls. Back pain is axial and also radiates into her right lower extremity posterolaterally with numbness and tingling in her right foot. Occasionally pain will radiate to left leg as well with heavy and numbness sensations. She also has significant exacerbation of back pain with lumbar flexion indicating a discogenic source. Pain affects her daily functioning, mobility, sleep, mood and social interactions. Patient has tried physical therapy in the past with partial benefit but currently is not able to pursue PT due to significant pain. Denies any fever, abdominal or groin pain, foot drop, bladder or bowel dysfunction or saddle anesthesia. Reports int ermittent RLE weakness with walking, uses cane. Location Lower back radiates down bilateral legs, worse on the right Duration Chronic pain, worsening for > 1 year Characteristics of symptom or complaint Aching, burning, tingling, tiring, cramping, numbness, throbbing Aggravating or associated factors Walking, standing, bending forward, extending backwards, cold weather Relieving factors Sitting, Tylenol, activity modifications, heat therapy, topical application Treatment PT back 2021, helped, right knee-02/2023 [facility] Medical History Essential hypertension Osteoarthritis of right knee Class 2 severe obesity with serious comorbidity and body mass index (BMI) of 38.0 to 38.9 in adult Hypothyroid Right foot pain Left shoulder pain Hospital discharge follow-up Right sided sciatica Dyslipidemia Hyperparathyroidism Post-menopausal Screening for breast cancer Right foot pain Right knee pain Vitamin D deficiency Obesity due to excess calories Degenerative arthritis Cough High cholesterol Diabetes 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 Social History Household Members: Spouse Housing: House Are you a primary careers adviser to a significant other at home: No Do you presently have visiting nurse or other home services: No Alcohol intake: never Patient Tobacco Use Status: Never used Tobacco e-Cigarette/Vaping Use: Never Used Second Hand Smoke Exposure: No service: No Current occupational status: unemployed Cognitive needs: Yes Hearing needs: No Vision needs: Yes (Glasses) Female Reproductive History Menstrual Age of Menarche: 14 Review of Systems Const All systems reviewed & are unremarkable except as noted in HPI and below Physical Exam Vital Signs: Last Vital Signs Pulse 81 01/11/24 13:08 BP 144/81 H 01/11/24 13:08 Pulse Ox 97 01/11/24 13:08 Oxygen Delivery Method Room Air 01/11/24 13:08 BMI result Body Mass Index 41.4 General: Appears afebrile. Alert and oriented. Mood and affect appropriate. Follows and participates in conversation appropriately. Respiratory effort is unlabored. No cough. Able to transition from sit to stand unassisted. Uses cane with walking. Ambulates with bilaterally normal heel strike and toe off, mild difficulty on the right due to pain with changing positions from sitting to standing. General: Yes no CVA tenderness Back/Spine/Pelvis Other: Limited lumbar ROM due to pain. Slightly antalgic gait, no limping. Lumbar extension and flexion reproduce mild pain. Positive facet loading bilaterally. Strength 5/5 left and 4/5 right hip flexion. Diminished DTRs bilaterally. MICHAEL test reproduces lateral right hip and right lower back pain. +Mild TTP in projection of both SIJ areas. +Anshul?s, Stinchfield, Pelvic Compression test positive on the right. Back: no CVA tenderness Cervical Spine: cervical ROM normal, cervical muscular tenderness and No Cervical spine tenderness Thoracic/Lumbar Spine: thoracic and lumbar spine normal to inspection, No Thoracic/lumbar spine scar(s), Lasegue's sign negative, straight leg raise negative bilaterally, pain with thoraco-lumbar ROM, paraspinal muscle tenderness on the right greater than left, thoraco-lumbar ROM limited, No thoracic spinal tenderness and lumbar spinal tenderness Pelvis: buttock tenderness (upper) on the right and no sciatic notch tenderness Sacroiliac joints: bilaterally (right>left) tender to palpation Results Reviewed Results Reviewed: MR SPINE LUMBAR without CONTRAST 09/23/23 at [facility] INDICATION: Lumbar region spondylosis and radiculopathy. Other intervertebral disc degeneration of the lumbar spine. Low back pain. Right hip and right leg pain for six months. No specific injury or trauma. TECHNIQUE: Unenhanced multiplanar, multisequence MR imaging of the lumbar spine. COMPARISON: None Available. FINDINGS: For the purpose of this examination the last well-formed inferior disc space will be labeled as L5-S1. Normal lumbar alignment is demonstrated. Vertebral heights are well maintained. Conus medullaris is unremarkable and terminates at L1. Small T2 and T1 hyperintense rounded lesion involving the anterior and inferior aspect of the T12 vertebral body most likely reflects a hemangioma. Bone marrow signal is otherwise within normal limits, and no suspicious osseous lesion is identified. Paraspinal soft tissues and visualized portions of the abdomen and pelvis are unremarkable. At T12-L1: There is no disc herniation or protrusion. No central canal or neural foraminal stenosis is demonstrated. At L1-2 there is no significant disc herniation or protrusion. No central canal or neural foraminal stenosis is demonstrated. At L2-3, there is a disc bulge associated with a small to moderate-sized broad-based left paracentral and left foraminal disc protrusion. Mild bilateral facet joint hypertrophy with mild ligamentum flavum thickening. These findings result in moderate to severe spinal canal narrowing and moderate bilateral neural foraminal narrowing. At L3-4 there is a mild disc bulge with bilateral facet joint hypertrophy and ligamentum flavum thickening, resulting in mild central canal narrowing. There is mild bilateral neural foraminal narrowing. At L4-5 there is a mild disc bulge with bilateral facet joint hypertrophy and ligamentum flavum thickening. No significant spinal canal or neural foraminal narrowing. At L5-S1 there is no mild disc bulge. No central canal. There is mild bilateral foraminal narrowing. IMPRESSION: 1. Disc bulge with small to moderate-sized broad-based left paracentral and left foraminal disc protrusion at L2-L3 resulting in moderate to severe spinal canal narrowing and moderate bilateral neural foraminal narrowing. 2. Disc bulge at L3-L4 resulting in mild central spinal canal narrowing with mild bilateral neural foraminal narrowing. XR LUMBOSACRAL SPINE WITH OBLIQUES 09/25/21 FINDINGS: Bone alignment is normal. No fracture or dislocation is seen. There is degenerative disc disease of the lower thoracic spine. Disc spaces are otherwise normal. There is lower lumbar spine facet arthritis. IMPRESSION: Lower lumbar spine facet arthritis. Assessment & Plan Assessment & Plan (1) Lumbar degenerative disc disease: Code(s): M51.36 - Other intervertebral disc degeneration, lumbar region Category: Medical (2) Lumbar spondylosis: Code(s): M47.816 - Spondylosis without myelopathy or radiculopathy, lumbar region Category: Medical (3) Low back pain: Code(s): M54.50 - Low back pain, unspecified Category: Medical (4) Sacroiliac joint pain: Code(s): M53.3 - Sacrococcygeal disorders, not elsewhere classified Category: Medical Plan Patient is status post right diagnostic sacroiliac joint injections with good results and improved functioning, mobility, and sleep. We had long discussion today for next treatment options for a longer term SIJ pain relief, including neuromodulation with Curonix PNS trial vs implant, SI fusion, RFA, and therapeutic injections. Patient would like to review these options with her family. All questions were answered and the patient is in agreement of plan. Follow-up after injections and sooner as needed. Coding Level of Care Code Est Pt Level 3 (40212) Diagnoses Lumbar degenerative disc disease M51.36 Lumbar spondylosis M47.816 Low back pain M54.50 Sacroiliac joint pain M53.3
[2024-01-11 13:08] VITALS: BP 144/81; PULSE 81; O2SAT 97; BMI 41.4
== END 2024-01-11 13:47 | disposition home or self-care (01) ==
PROVIDERS: PCP Internal Medicine; Visit Provider Nurse Practitioner Family
DX: M51.36 Other intervertebral disc degeneration, lumbar region (principal); M47.816 Spondylosis without myelopathy or radiculopathy, lumbar region; M54.50 Low back pain, unspecified; M53.3 Sacrococcygeal disorders, not elsewhere classified
CPT/HCPCS: 99213

== ENCOUNTER → 2024-01-11 12:51 | Outpatient (BNVA) | payer OTHER, SELFPAY | PROVIDERS: PCP Internal Medicine; Visit Provider Nurse Practitioner Family | DX: M51.36 Other intervertebral disc degeneration, lumbar region (principal); M47.816 Spondylosis without myelopathy or radiculopathy, lumbar region; M54.50 Low back pain, unspecified; M53.3 Sacrococcygeal disorders, not elsewhere classified | CPT/HCPCS: 99212 ==

== ENCOUNTER 2024-01-31 14:51 | Outpatient (AMB) | payer OTHER, SELFPAY ==
[2024-01-31 15:08] VITALS: BP 132/70; BMI 41.4
--- NOTE | 2024-01-31 15:08 | MHC.OFFVIS ---
Vital Signs 01/31/24 15:08 Height 5 ft 3 in Weight 233 lb 11.04 oz BMI 41.4 BP 132/70 Intake Visit Reasons: CLOTHING EXAMINER annual exam/DO NOT RS Cupola Repairer Required: Yes Cupola Repairer Language: Silverer Services: Cupola Repairer Present (in person) Cupola Repairer Name: Teri CASTANEDA Information Interpreted: non-clinical & clinical Quantitative Software Engineer: Quantitative Software Engineer Present (Teri CASTANEDA) Accompanied by: Self / Same As Patient Allergies No Known Allergies Allergy (Verified 01/31/24 15:17) Post menopausal: Yes HPI Comments Details: Presenting for annual exam. No complaints. Last Pap/HPV was in 01/31 was negative Last Mammogram was BI-RADS 1 in 07/07 Last Colonoscopy was in 05/03, the recommendation was to repeat in 7 years Last DEXA scan was in 08/05 [facility] Medical History Essential hypertension Osteoarthritis of right knee Class 2 severe obesity with serious comorbidity and body mass index (BMI) of 38.0 to 38.9 in adult Hypothyroid Right foot pain Left shoulder pain Hospital discharge follow-up Right sided sciatica Dyslipidemia Hyperparathyroidism Post-menopausal Screening for breast cancer Right foot pain Right knee pain Vitamin D deficiency Obesity due to excess calories Degenerative arthritis Cough High cholesterol Diabetes [id number] condition Back pain Peripheral vascular disease Hypothyroidism Hypercholesterolemia Hypertension Diabetic peripheral vascular disorder Diabetes Surgical History Tubal ligation status History of esophagogastroduodenoscopy (EGD) (~2013) Hx of colonoscopy History of H/O right knee surgery History of thyroid surgery Family History Father Hypertension Mother No problems noted. Social History Household Members: Spouse Housing: House Are you a primary palliative care nurse practitioner to a significant other at home: No Do you presently have visiting nurse or other home services: No Alcohol intake: never Patient Tobacco Use Status: Never used Tobacco e-Cigarette/Vaping Use: Never Used Second Hand Smoke Exposure: No service: No Current occupational status: unemployed Cognitive needs: Yes Hearing needs: No Vision needs: Yes (Glasses) Female Reproductive History Menstrual Age of Menarche: 14 control method: permanent sterilization Date of last pap smear: 01/19/20 Date of Mammogram: 07/06/23 Review of Systems Const All systems reviewed & are unremarkable except as noted in HPI and below Card Reports as per HPI Resp Reports as per HPI GI Reports as per HPI and Reports no additional complaints Reports as per HPI Physical Exam Vital Signs: Last Vital Signs BP 132/70 01/31/24 15:08 BMI result Body Mass Index 41.4 Const General: cooperative, healthy appearing and comfortable Chest Chest palpation & inspection: normal inspection of the chest and normal palpation of entire chest wall Breast/axilla inspection: normal inspection of the breasts and normal inspection of the axillae Breast/axilla palpation: normal palpation of the breasts, normal palpation of the axillae and no axillary lymphadenopathy Resp Effort & Inspection: normal respiratory effort Auscultation: clear to auscultation bilaterally Percussion: percussion normal Cardio Palpation: normal PMI Rate: regular rate Rhythm: regular rhythm Heart sounds: no murmurs and no rubs Peripheral pulses: Peripheral pulses 2+ throughout GI Inspection: Yes normal to inspection Palpation (GI): Soft to palpation, nontender, no guarding, not rigid and No hepatosplenomegaly present Percussion: Yes normal to percussion Auscultation: normal bowel sounds Rectal Exam - Female: deferred General: Yes bladder normal to palpation External Female Exam: No lesion Speculum Exam - Vagina: normal appearance of the vagina, normal palpation, normal vaginal discharge and not erythematous Speculum Exam - Cervix: normal appearance of the cervix and normal palpation Bimanual exam- vagina & uterus: normal bimanual exam, normal palpation, uterine size normal, bladder normal to palpation, consistency normal and normal palpation Bimanual Exam- Adnexa, other: normal adnexae, no masses and no tenderness Assessment & Plan Assessment & Plan (1) Well woman exam: Code(s): Z01.419 - Encounter for gynecological examination (general) (routine) without abnormal findings Category: Medical Plan: Co testing not indicated this year. Counseled the patient about the recommended dietary allowance of 1200 mg of Calcium & 800 IU of vitamin D. Instructions given the patient to schedule next screening Mammogram in 07/08. Will order DEXA scan . The patient was instructed to perform monthly self-breast exams and to schedule a 2 week DEXA scan follow-up appointment and an annual exam in a year; All questions answered and the patient verbalized understanding. Orders: Orders XR DEXA axial skeleton Today Z78.0 - Asymptomatic menopausal state Coding Level of Care Code Est Pt Prev Care >65y(63526) Diagnoses Well woman exam Z01.419
== END 2024-01-31 15:44 | disposition home or self-care (01) ==
LOC: HO.HWS 14:51
PROVIDERS: PCP Internal Medicine; Visit Provider Obstetrics & Gynecology
DX: Z01.419 Encounter for gynecological examination (general) (routine) without abnormal findings (principal)
CPT/HCPCS: 99397

== ENCOUNTER → 2024-01-31 14:51 | Outpatient (BNVA) | payer OTHER, SELFPAY | PROVIDERS: PCP Internal Medicine; Visit Provider Obstetrics & Gynecology ==

== ENCOUNTER 2024-02-03 12:53 | Outpatient (REF) | payer OTHER, SELFPAY ==
--- NOTE | ~2024-02-03 | MM_ITS ---
EXAMINATION: BONE DENSITOMETRY CLINICAL INDICATION: Asymptomatic menopausal state. COMPARISON: Baseline BD dated 03/07/2021. TECHNIQUE: Using a [employer] DXA System (software version: 13.1) manufactured by [employer], dual-energy x-ray absorptiometry was performed of the lumbar spine and left hip. The images are of good technical quality. Summary results are attached. FINDINGS: LEFT FEMUR, NECK: Current: BMD 0.896 g/cm2, Z-score -0.2, T-score -1.0, normal. Baseline: BMD 0.916 g/cm2. LEFT FEMUR, TOTAL: Current: BMD 1.083 g/cm2, Z-score 1.1, T-score 0.6, normal, 2.8% decrease from baseline (<5% change is not significant). Baseline: BMD 1.114 g/cm2. AP SPINE L1-L2 (excluding L3 and L4): The data of L1-L4 has been changed to exclude the L3 and L4 vertebral bodies, because degenerative sclerosis at these levels may cause overestimation of lumbar spine density. Current: BMD 1.095 g/cm2, Z-score -0.1, T-score -0.6, normal, 7.0% decrease from baseline (<5% change is not significant). Baseline: BMD 1.178 g/cm2. IDENTIFIED RISK FACTORS: Menopause, low calcium intake, history of fracture (adult). HISTORY OF FRACTURE: Wrist. MEDICATIONS: Calcium. MM/XR DEXA axial skeleton IMPRESSION: 1. DIAGNOSIS: Normal bone density based on the lowest T-score value of -1.0 in the femoral neck applying World Health Organization criteria. 2. 10-YEAR FRACTURE RISK PREDICTION, FRAX: According to the guidelines, FRAX calculation should only be performed on patients in the osteopenia bone density category. Therefore, FRAX was not performed on this patient. 3. Treatment Recommendations: NOF guidelines recommend consideration for treatment in postmenopausal women and men age 50 and older presenting with the following: -A hip or vertebral (clinical or morphometric) fracture. -T-score less than or equal to -2.5 at the femoral neck or spine after appropriate evaluation to exclude secondary causes. -Low bone mass at the hip or spine and a 10-year fracture probability by FRAX of greater than or equal to 3% for hip fracture or greater than or equal to 20% for major osteoporotic fracture based on the [place] adapted WHO algorithm. 4. Other Recommendations: All treatment decisions require clinical judgment and consideration of individual patient factors, including patient preferences, comorbidities, previous drug use, risk factors not captured in the FRAX model (e.g. frailty, falls, vitamin D deficiency, increased bone turnover, interval significant decline in bone density) and possible under or overestimation of fracture risk by FRAX. FUTURE SCAN RECOMMENDATION: People with diagnosed cases of osteoporosis or at high risk for fracture should have regular bone mineral density tests. For patients eligible for Medicare, routine testing is allowed once every 2 years. The testing frequency can be increased to one year for patients who have rapidly progressing disease, those who are receiving or discontinuing medical therapy to restore bone mass, or have additional risk factors. Electronically signed by: Artur Hampton MD 02/09/2024 09:14 AM EDT
== END 2024-02-03 12:54 | disposition home or self-care (01) ==
LOC: HO.MAMMO 12:53
PROVIDERS: PCP Internal Medicine; Visit Provider Obstetrics & Gynecology
DX: Z13.820 Encounter for screening for osteoporosis (principal); Z78.0 Asymptomatic menopausal state
CPT/HCPCS: 77080

== ENCOUNTER 2024-03-06 09:06 | Outpatient (AMB) | payer OTHER, SELFPAY ==
--- NOTE | 2024-03-06 09:07 | A.OFFVIS_ITS ---
Vital Signs 03/06/24 09:11 Height 5 ft 3 in Weight 234 lb BMI 41.4 BP 126/82 Blood Pressure Location Rt brachial Position Sitting Pulse 88 Pulse Source Pulse Oximeter Pulse Oximetry (%) 97 Oxygen Delivery Method Room Air Intake Visit Reasons: follow up Intake Note: Pain today 810 Bracelet Maker Novelty Required: Yes Bracelet Maker Novelty Language: Team Supervisor Services: Bracelet Maker Novelty Present Bracelet Maker Novelty Name: Paola #[id number] Accompanied by: Self / Same As Patient Allergies No Known Allergies Allergy (Verified 03/06/24 09:11) HPI Comments Details: Patient presents today for follow up for right low back pain with radiation into right sacral area. She had good results with diagnostic SIJ on the right side on 01/04/24, providing her 80% for over 12 hours with significant improvement in her daily functioning, mobility and sleep. Patient has been managing her symptoms with Tylenol extra strength at least twice daily with partial relief. She avoids NSAIDs due to HTN. We reviewed again today treatment options for a longer term SIJ pain relief, including neuromodulation with Curonix PNS trial vs implant, SI fusion, RFA, and therapeutic injections. Patient would like to to proceed with therapeutic right SIJ injection as next steps. Recent bone scan was normal. A1C=7.2 on 01/03/24. Denies any recent cough, cold, infection, fever or other significant changes in medical history since last office visit. Past Procedures: 01/04/24: Right Diagnostic SIJ injection-80% >12 hours PRIOR: Patient presents today for follow up for ongoing right sided low back pain after Neurosurgical evaluation. Patient reports she was deemed non-surgical and would like to proceed with interventional treatments, specifically right sacroiliac joint injection as recommended by Neurosurgery. Patient reports right sided low back pain with radiation into her right leg and moderate tenderness in the projection of right sacroiliac joint area. She has not been able to pursue p hysical therapy more recently due to significant pain. Denies any fever, abdominal or groin pain, bladder or bowel dysfunction or saddle anesthesia. PRIOR: Patient is 68 years old female with history of arthritis, diabetes (A1C-7.6 on 08/30/23), right sided sciatica, right TKA (2022), recent parathyroidectomy (09/01/23) presents today for initial evaluation of chronic low back pain. Denies any recent trauma, injury or falls. Back pain is axial and also radiates into her right lower extremity posterolaterally with numbness and tingling in her right foot. Occasionally pain will radiate to left leg as well with heavy and numbness sensations. She also has significant exacerbation of back pain with lumbar flexion indicating a discogenic source. Pain affects her daily functioning, mobility, sleep, mood and social interactions. Patient has tried physical therapy in the past with partial benefit but currently is not able to pursue PT due to significant pain. Denies any fever, abdominal or groin pain, foot drop, bladder or bowel dysfunction or saddle anesthesia. Reports intermittent RLE weakness with walking, uses cane. Location Lower back radiates down bilateral legs, worse on the right Duration Chronic pain, worsening for > 1 year Characteristics of symptom or complaint Aching, burning, tingling, tiring, cramping, numbness, throbbing Aggravating or associated factors Walking, standing, bending forward, extending backwards, cold weather Relieving factors Sitting, Tylenol, activity modifications, heat therapy, topical application Treatment PT back 2021, helped, right knee-02/2023 [facility] Medical History Essential hypertension Osteoarthritis of right knee Class 2 severe obesity with serious comorbidity and body mass index (BMI) of 38.0 to 38.9 in adult Hypothyroid Right foot pain Left shoulder pain Hospital discharge follow-up Right sided sciatica Dyslipidemia Hyperparathyroidism Post-menopausal Screening for breast cancer Right foot pain Right knee pain Vitamin D deficiency Obesity due to excess calories Degenerative arthritis Cough High cholesterol Diabetes [id number] condition Back pain Peripheral vascular disease Hypothyroidism Hypercholesterolemia Hypertension Diabetic peripheral vascular disorder Diabetes Surgical History Tubal ligation status History of esophagogastroduodenoscopy (EGD) (~2013) Hx of colonoscopy History of H/O right knee surgery History of thyroid surgery Family History Father Hypertension Mother No problems noted. Social History Household Members: Spouse Housing: House Are you a primary ambulatory care coordinator to a significant other at home: No Do you presently have visiting nurse or other home services: No Alcohol intake: never Patient Tobacco Use Status: Never used Tobacco e-Cigarette/Vaping Use: Never Used Second Hand Smoke Exposure: No service: No Current occupational status: unemployed Cognitive needs: Yes Hearing needs: No Vision needs: Yes (Glasses) Female Reproductive History Menstrual Age of Menarche: 14 Review of Systems Const All systems reviewed & are unremarkable except as noted in HPI and below Physical Exam General: Appears afebrile. Alert and oriented. Mood and affect appropriate. Follows and participates in conversation appropriately. Respiratory effort is unlabored. No cough. Able to transition from sit to stand unassisted. Reports using cane at home. Ambulates with bilaterally normal heel strike and toe off, mild difficulty on the right due to pain with changing positions from sitting to standing. General: Yes no CVA tenderness Back/Spine/Pelvis Other: Limited lumbar ROM due to pain. Slightly antalgic gait, no limping. Lumbar extension and flexion reproduce mild pain. Positive facet loading bilaterally. Strength 5/5 left and 4/5 right hip flexion. Diminished DTRs bilaterally. MICHAEL test reproduces lateral right hip and right lower back pain. +Mild TTP in projection of right SIJ. +Anshul?s, Stinchfield, Pelvic Compression test positive on the right. Back: no CVA tenderness Cervical Spine: cervical ROM normal, cervical muscular tenderness and No Cervical spine tenderness Thoracic/Lumbar Spine: thoracic and lumbar spine normal to inspection, No Thoracic/lumbar spine scar(s), Lasegue's sign negative, straight leg raise negative bilaterally, pain with thoraco-lumbar ROM, paraspinal muscle tenderness on the right greater than left, thoraco-lumbar ROM limited, No thoracic spinal tenderness and lumbar spinal tenderness Pelvis: buttock tenderness (upper) on the right and no sciatic notch tenderness Sacroiliac joints: bilaterally (right>left) tender to palpation Results Reviewed Results Reviewed: MR SPINE LUMBAR without CONTRAST 09/23/23 at [facility] INDICATION: Lumbar region spondylosis and radiculopathy. Other intervertebral disc degeneration of the lumbar spine. Low back pain. Right hip and right leg pain for six months. No specific injury or trauma. TECHNIQUE: Unenhanced multiplanar, multisequence MR imaging of the lumbar spine. COMPARISON: None Available. FINDINGS: For the purpose of this examination the last well-formed inferior disc space will be labeled as L5-S1. Normal lumbar alignment is demonstrated. Vertebral heights are well maintained. Conus medullaris is unremarkable and terminates at L1. Small T2 and T1 hyperintense rounded lesion involving the anterior and inferior aspect of the T12 vertebral body most likely reflects a hemangioma. Bone marrow signal is otherwise within normal limits, and no suspicious osseous lesion is identified. Paraspinal soft tissues and visualized portions of the abdomen and pelvis are unremarkable. At T12-L1: There is no disc herniation or protrusion. No central canal or neural foraminal stenosis is demonstrated. At L1-2 there is no significant disc herniation or protrusion. No central canal or neural foraminal stenosis is demonstrated. At L2-3, there is a disc bulge associated with a small to moderate-sized broad-based left paracentral and left foraminal disc protrusion. Mild bilateral facet joint hypertrophy with mild ligamentum flavum thickening. These findings result in moderate to severe spinal canal narrowing and moderate bilateral neural foraminal narrowing. At L3-4 there is a mild disc bulge with bilateral facet joint hypertrophy and ligamentum flavum thickening, resulting in mild central canal narrowing. There is mild bilateral neural foraminal narrowing. At L4-5 there is a mild disc bulge with bilateral facet joint hypertrophy and ligamentum flavum thickening. No significant spinal canal or neural foraminal narrowing. At L5-S1 there is no mild disc bulge. No central canal. There is mild bilateral foraminal narrowing. IMPRESSION: 1. Disc bulge with small to moderate-sized broad-based left paracentral and left foraminal disc protrusion at L2-L3 resulting in moderate to severe spinal canal narrowing and moderate bilateral neural foraminal narrowing. 2. Disc bulge at L3-L4 resulting in mild central spinal canal narrowing with mild bilateral neural foraminal narrowing. MM/XR DEXA axial skeleton 02/03/24 IMPRESSION: 1. DIAGNOSIS: Normal bone density based on the lowest T-score value of -1.0 in the femoral neck applying World Health Organization criteria. XR LUMBOSACRAL SPINE WITH OBLIQUES 09/25/21 FINDINGS: Bone alignment is normal. No fracture or dislocation is seen. There is degenerative disc disease of the lower thoracic spine. Disc spaces are otherwise normal. There is lower lumbar spine facet arthritis. IMPRESSION: Lower lumbar spine facet arthritis. Assessment & Plan Assessment & Plan (1) Lumbar degenerative disc disease: Code(s): M51.36 - Other intervertebral disc degeneration, lumbar region Category: Medical (2) Lumbar spondylosis: Code(s): M47.816 - Spondylosis without myelopathy or radiculopathy, lumbar region Category: Medical (3) Low back pain: Code(s): M54.50 - Low back pain, unspecified Category: Medical (4) Sacroiliac joint pain: Code(s): M53.3 - Sacrococcygeal disorders, not elsewhere classified Category: Medical (5) Morbid obesity with BMI of 40.0-44.9, adult: Code(s): E66.01 - Morbid (severe) obesity due to excess calories; Z68.41 - Body mass index [BMI] 40.0-44.9, adult Category: Medical Plan Schedule Therapeutic Right Sacroiliac Joint injection with local and fluoroscopy. Expectations, risks and benefits were reviewed. Patient is aware she will be contacted to schedule this procedure. Most recent A1C=7.2. Normal bone scan on 02/03/24. We also reviewed neuromodulation with Curonix PNS trial vs implant, SI fusion and RFA procedures for a longer term pain relief. Patient declined any implants but will consider RFA in the future. All questions were answered and the patient is in agreement of plan. Follow-up after injections and sooner as needed. Anticoagulation: Patient on anticoagulation (Aspirin) and instructions given on when to pause. Justification for interventional therapy: ? Patient with average pain > 6/10 ? Patient has exhausted conservative therapy ? Right Diagnostic SIJ injection-80% pain relief for >12 hours The risks, consequences, alternatives, and benefits of various treatment options were discussed with the patient in great detail, including conservative management, injections and procedures. Patient is aware of hyperglycemic effects of steroids. Medications: New lidocaine HCl 4% (Theraworx Pain Relief) 1 ea topical BID PRN 74 mL 0RF pain M47.816 - Spondylosis without myelopathy or radiculopathy, lumbar region, M51.36 - Other intervertebral disc degeneration, lumbar region, M53.3 - Sacrococcygeal disorders, not elsewhere classified, M54.50 - Low back pain, unspecified tramadol 50 mg PO BID 15 days PRN 30 tabs 0RF pain M47.816 - Spondylosis without myelopathy or radiculopathy, lumbar region, M51.36 - Other intervertebral disc degeneration, lumbar region, M54.50 - Low back pain, unspecified Coding Level of Care Code Est Pt Level 4 (87647) Complex EM visit Add On G2211 Diagnoses Lumbar degenerative disc disease M51.36 Lumbar spondylosis M47.816 Low back pain M54.50 Sacroiliac joint pain M53.3 Morbid obesity with BMI of 40.0-44.9, adult E66.01; Z68.41
[2024-03-06 09:11] VITALS: BP 126/82; PULSE 88; O2SAT 97; BMI 41.4
== END 2024-03-06 09:32 | disposition home or self-care (01) ==
PROVIDERS: PCP Internal Medicine; Visit Provider Nurse Practitioner Family
DX: M51.36 Other intervertebral disc degeneration, lumbar region (principal); M47.816 Spondylosis without myelopathy or radiculopathy, lumbar region; M54.50 Low back pain, unspecified; M53.3 Sacrococcygeal disorders, not elsewhere classified; E66.01 Morbid (severe) obesity due to excess calories; Z68.41 Body mass index [BMI] 40.0-44.9, adult
CPT/HCPCS: 99214; G2211

== ENCOUNTER → 2024-03-06 09:06 | Outpatient (BNVA) | payer OTHER, SELFPAY | PROVIDERS: PCP Internal Medicine; Visit Provider Nurse Practitioner Family | DX: M51.36 Other intervertebral disc degeneration, lumbar region (principal); M53.3 Sacrococcygeal disorders, not elsewhere classified; M47.816 Spondylosis without myelopathy or radiculopathy, lumbar region; M54.50 Low back pain, unspecified; E66.01 Morbid (severe) obesity due to excess calories; Z68.41 Body mass index [BMI] 40.0-44.9, adult | CPT/HCPCS: 99212 ==

== ENCOUNTER 2024-03-14 13:06 | Outpatient (AMB) | payer OTHER, SELFPAY ==
--- NOTE | 2024-03-14 13:30 | MHC.OFFVIS ---
Vital Signs 03/14/24 13:31 Height 5 ft 3 in Weight 233 lb 11.04 oz BMI 41.4 Intake Visit Reasons: DEXA FOLLOW UP Sewer Separation Designer Required: Yes Sewer Separation Designer Language: Charge Weigher Services: Sewer Separation Designer Present (in person) Sewer Separation Designer Name: Teri CASTANEDA Information Interpreted: non-clinical & clinical Accompanied by: Self / Same As Patient Allergies No Known Allergies Allergy (Verified 03/14/24 13:35) Post menopausal: Yes HPI Comments Details: The patient is presenting for follow up regarding DEXA scan results. T score @ spine and femoral Neck respectively were=-1 /-0.1 and 10 year FRAX risk for severe osteoporosis and fracture was not computed. [facility] Medical History Essential hypertension Osteoarthritis of right knee Class 2 severe obesity with serious comorbidity and body mass index (BMI) of 38.0 to 38.9 in adult Hypothyroid Right foot pain Left shoulder pain Hospital discharge follow-up Right sided sciatica Dyslipidemia Hyperparathyroidism Post-menopausal Screening for breast cancer Right foot pain Right knee pain Vitamin D deficiency Obesity due to excess calories Degenerative arthritis Cough High cholesterol Diabetes [id number] condition Back pain Peripheral vascular disease Hypothyroidism Hypercholesterolemia Hypertension Diabetic peripheral vascular disorder Diabetes Surgical History Tubal ligation status History of esophagogastroduodenoscopy (EGD) (~2013) Hx of colonoscopy History of H/O right knee surgery History of thyroid surgery Family History Father Hypertension Mother No problems noted. Social History Household Members: Spouse Housing: House Are you a primary care rep to a significant other at home: No Do you presently have visiting nurse or other home services: No Alcohol intake: never Patient Tobacco Use Status: Never used Tobacco e-Cigarette/Vaping Use: Never Used Second Hand Smoke Exposure: No service: No Current occupational status: unemployed Cognitive needs: Yes Hearing needs: No Vision needs: Yes (Glasses) Female Reproductive History Menstrual Age of Menarche: 14 Review of Systems Const All systems reviewed & are unremarkable except as noted in HPI and below Reports as per HPI and Reports no additional complaints GI Reports no additional complaints Reports no additional complaints Physical Exam Vital Signs: BMI result Body Mass Index 41.4 Assessment & Plan Assessment & Plan (1) Osteopenia: Code(s): M85.80 - Other specified disorders of bone density and structure, unspecified site Category: Medical Plan: Discussed with the patient the DEXA results and FRAX risk. FRAX risk and T score showed no evidence of osteoporosis. Discussed with the patient all the options for osteoporosis prevention including lifestyle modifications including Ca+D supplements 1200 mg po qd/800 MIU, Weight bearing exercises and proteine supplements. The patient verbalized understanding and agreed plan will repeat DEXA in 2 years. Coding Level of Care Code Est Pt Level 3 (48170) Diagnoses Osteopenia M85.80
[2024-03-14 13:31] VITALS: BMI 41.4
== END 2024-03-14 13:39 | disposition home or self-care (01) ==
LOC: HO.HWS 13:06
PROVIDERS: PCP Internal Medicine; Visit Provider Obstetrics & Gynecology
DX: M85.80 Other specified disorders of bone density and structure, unspecified site (principal)
CPT/HCPCS: 99213

== ENCOUNTER → 2024-03-14 13:06 | Outpatient (BNVA) | payer OTHER, SELFPAY | PROVIDERS: PCP Internal Medicine; Visit Provider Obstetrics & Gynecology | DX: M85.89 Other specified disorders of bone density and structure, multiple sites (principal) | CPT/HCPCS: 99212 ==

== ENCOUNTER 2024-06-10 09:32 | Outpatient (REF) | payer OTHER, SELFPAY ==
[2024-06-10 11:35] LABS: Alanine Aminotransferase 19 U/L (0-31); Albumin Level 3.9 g/dL (3.5-5.0); Alkaline Phosphatase 70 U/L (39-117); Anion Gap 15 (12-20); Aspartate Amino Transferase 19 U/L (5-31); Bilirubin Total 1.1 mg/dL (0.0-1.0); Blood Urea Nitrogen 23 mg/dL (9-16); Calcium 9.1 mg/dL (8.4-10.2); Carbon Dioxide 27 mmol/L (22-29); Chloride 103 mmol/L (96-108); Cholesterol 133 mg/dL (<200); Estimated Glomerular Filt Rate 45; Glucose Fasting 188 mg/dL (60-99); HDL Cholesterol 57 mg/dL (>40); LDL Cholesterol Calculated 60 mg/dL (<100); Potassium 4.3 mmol/L (3.3-5.1); Sodium 141 mmol/L (135-145); Total Protein 7.4 g/dL (6.5-8.0); Triglycerides 84 mg/dL (<150)
[2024-06-10 11:42] LABS: Thyroid Stimulating Hormone 4.38 uIU/mL (0.32-4.0)
[2024-06-10 11:43] LABS: Vitamin D 25-OH Total 36.5 ng/mL (>30)
== END 2024-06-10 09:33 | disposition home or self-care (01) ==
LOC: HO.LAB 09:32
PROVIDERS: PCP Internal Medicine; Referring Provider Internal Medicine; Visit Provider Internal Medicine Nephrology
DX: E78.5 Hyperlipidemia, unspecified (principal); E55.9 Vitamin D deficiency, unspecified; E11.9 Type 2 diabetes mellitus without complications; E03.9 Hypothyroidism, unspecified
CPT/HCPCS: 36415; 80053; 80061; 82306; 84443

== ENCOUNTER 2024-06-16 13:35 | Outpatient (AMB) | payer OTHER, SELFPAY ==
[2024-06-16 13:38] VITALS: BP 128/82; PULSE 89; O2SAT 99; BMI 42.3
--- NOTE | 2024-06-16 13:38 | HO.NEPHOV_ITS ---
Vital Signs 06/16/24 13:38 Height 5 ft 3 in Weight 239 lb BMI 42.3 BP 128/82 Blood Pressure Location Rt brachial Position Sitting Pulse 89 Pulse Source Pulse Oximeter Pulse Oximetry (%) 99 Oxygen Delivery Method Room Air Intake Visit Reasons: 6 mon follow up-[facility] Agent Licensing Clerk Required: Yes Agent Licensing Clerk Name: Naomie [id number] Accompanied by: Self / Same As Patient Allergies No Known Allergies Allergy (Verified 06/16/24 15:08) HPI Comments Details: Paige was seen in the office in follow-up of her hypertension. She is diabetic and has a H/O hyperkalemia. Her blood pressure is well controlled. She has not taking celecoxib. She is on benazepril. She does not take any nonsteroidal anti-inflammatories. She has history of peripheral arterial disease. She denies taking salt substitute. She maintains good hydration. Her serum creatinine has been stable. She did not have any other new specific complaints at the time of this office visit [facility] Medical History Essential hypertension Osteoarthritis of right knee Class 2 severe obesity with serious comorbidity and body mass index (BMI) of 38.0 to 38.9 in adult Hypothyroid Right foot pain Left shoulder pain Hospital discharge follow-up Right sided sciatica Dyslipidemia Hyperparathyroidism Post-menopausal Screening for breast cancer Right foot pain Right knee pain Vitamin D deficiency Obesity due to excess calories Degenerative arthritis Cough High cholesterol Diabetes [id number] condition Back pain Peripheral vascular disease Hypothyroidism Hypercholesterolemia Hypertension Diabetic peripheral vascular disorder Diabetes Surgical History Tubal ligation status History of esophagogastroduodenoscopy (EGD) (~2013) Hx of colonoscopy History of H/O right knee surgery History of thyroid surgery Family History Father Hypertension Mother No problems noted. Social History Household Members: Spouse Housing: House Are you a primary urgent care nurse practitioner to a significant other at home: No Do you presently have visiting nurse or other home services: No Alcohol intake: never Patient Tobacco Use Status: Never used Tobacco e-Cigarette/Vaping Use: Never Used Second Hand Smoke Exposure: No service: No Current occupational status: unemployed Cognitive needs: Yes Hearing needs: No Vision needs: Yes (Glasses) Female Reproductive History Menstrual Age of Menarche: 14 Review of Systems Const All systems reviewed & are unremarkable except as noted in HPI and below Physical Exam Vital Signs: Last Vital Signs Pulse 89 06/16/24 13:38 BP 128/82 06/16/24 13:38 Pulse Ox 99 06/16/24 13:38 Oxygen Delivery Method Room Air 06/16/24 13:38 BMI result Body Mass Index 42.3 Const General: comfortable and no acute distress Orientation/consciousness: patient oriented x3 HEENT Head: Yes normocephalic Mouth: Normal oral and palatal mucosa present Eyes EOM: EOMs intact bilaterally Neck Neck: Yes supple Resp Auscultation: clear to auscultation bilaterally Cardio Jugular venous distension: no JVD Rate: regular rate GI Palpation (GI): Soft to palpation Auscultation: normal bowel sounds General: Yes no CVA tenderness Back/Spine/Pelvis Back: no CVA tenderness Skin General skin exam: no rashes or lesions noted Neuro General: patient oriented x3 and moves all extremities Extrem General: Yes no pedal edema Results AMB Hemoglobin A1c AMB Hemoglobin A1c 7.7 % Last Edit by FIDENCIO Rodriguez on 06/16/24 14:52 Results Reviewed Nephrology Results: Sodium 141 mmol/L (135-145) 06/10/24 Potassium 4.3 mmol/L (3.3-5.1) 06/10/24 Chloride 103 mmol/L (96-108) 06/10/24 Carbon Dioxide 27 mmol/L (22-29) 06/10/24 BUN 23 mg/dL (9-16) H 06/10/24 Creatinine 1.20 mg/dL (0.5-1.4) 06/10/24 Calcium 9.1 mg/dL (8.4-10.2) 06/10/24 Assessment & Plan Assessment & Plan (1) Essential hypertension: Code(s): I10 - Essential (primary) hypertension Category: Medical Plan Her serum potassium is normal now. She does not take any nonsteroidal anti- inflammatories. She is aware of low-potassium diet. She is tolerating KEI inhibitor. Her BP is at goal. She maintains good hydration. Her renal functions are stable. I did not make any medication changes today. Follow-up lab work ordered Orders: Orders Creatinine 6 Months I10 - Essential (primary) hypertension Protein Creatinine Ratio, Ur 6 Months I10 - Essential (primary) hypertension Blood Urea Nitrogen 6 Months I10 - Essential (primary) hypertension Electrolytes 6 Months I10 - Essential (primary) hypertension Coding Level of Care Code Est Pt Level 4 (65226) Diagnoses Essential hypertension I10
== END 2024-06-16 14:01 | disposition home or self-care (01) ==
PROVIDERS: PCP Internal Medicine; Visit Provider Internal Medicine Nephrology
DX: I10 Essential (primary) hypertension (principal)
CPT/HCPCS: 99214

== ENCOUNTER → 2024-06-16 13:35 | Outpatient (BNVA) | payer OTHER, SELFPAY | PROVIDERS: PCP Internal Medicine; Visit Provider Internal Medicine Nephrology | DX: E11.9 Type 2 diabetes mellitus without complications (principal); E78.5 Hyperlipidemia, unspecified; I10 Essential (primary) hypertension; E66.01 Morbid (severe) obesity due to excess calories; Z68.41 Body mass index [BMI] 40.0-44.9, adult; E89.0 Postprocedural hypothyroidism; Z79.84 Long term (current) use of oral hypoglycemic drugs; Z79.899 Other long term (current) drug therapy | CPT/HCPCS: 83036; 96127; 99212 ==

== ENCOUNTER 2024-06-16 14:10 | Outpatient (AMB) | payer OTHER, SELFPAY ==
[2024-06-16 14:36] VITALS: BP 132/76; PULSE 86; O2SAT 97; BMI 41.9
--- NOTE | 2024-06-16 14:36 | MHC.PC.OV ---
Vital Signs 06/16/24 14:36 Height 5 ft 3 in Weight 236 lb 8 oz BMI 41.9 BP 132/76 Blood Pressure Location Lt brachial Position Sitting Pulse 86 Pulse Source Pulse Oximeter Pulse Oximetry (%) 97 Oxygen Delivery Method Room Air Intake Visit Reasons: dm Section Repairer Required: No Accompanied by: Self / Same As Patient Allergies No Known Allergies Allergy (Verified 06/16/24 15:08) Medication List - Last Reconciled 06/16/24 by Danika Rainey MD acetaminophen 650 mg (2 x 325 mg) PO Q6H PRN 30 days amlodipine 10 mg PO DAILY 90 days aspirin 81 mg PO DAILY atorvastatin 80 mg PO BEDTIME 90 days benazepril 10 mg PO DAILY bisacodyl (Laxative (bisacodyl)) 10 mg (2 x 5 mg) PO DAILY PRN 90 days bisacodyl (Laxative (bisacodyl)) 10 mg (2 x 5 mg) PO DAILY PRN 30 days blood pressure monitor As directed blood sugar diagnostic (Tacatì Verio test strips) test blood sugar once a day blood-glucose meter (Tacatì Verio Meter) As directed once a day chlorthalidone 25 mg PO DAILY 90 days famotidine 20 mg PO BEDTIME fluticasone propionate 110 mcg/actuation (Flovent HFA) 1 puff inhalation BID hydralazine 10 mg PO TID 30 days incontinence pad, liner, disp Use 2 pads per day lancets (Tacatì Delica Lancets) Use 1 lancet once a day lidocaine 5% leave on most painful area for up to 12 hrs topical lidocaine HCl 4% (Theraworx Pain Relief) 1 ea topical BID PRN metformin 850 mg PO BID 90 days metoprolol succinate ER 50 mg PO DAILY 90 days naloxone 4 mg/actuation (Narcan) 4 mg intranasal Q2M PRN pentoxifylline ER 400 mg PO DAILY Synthroid (levothyroxine) 125 mcg PO DAILY 90 days NS tramadol 50 mg PO BID PRN 15 days underpads (Bed Underpads) As directed Ventolin HFA 90 mcg/actuation (albuterol sulfate) 1 inh inhalation QID PRN 30 days NS [wipes As directed] Tobacco use date assessed: 06/16/24 Fall risk assessment: No Falls in past year Last assessed Fall Risk: 06/16/24 Dental Screening Dental Screen Date: 06/16/24 Did you have a dental visit in the last 12 months?: Yes Did you have a dental problem in the last 6 months where you did not have access to dental care?: No Was dental information given to patient?: Patient has dentist HPI HPI Comments History of Present Illness Details The patient is a 69-year-old female presenting with type 2 diabetes mellitus. Her HbA1c has increased from 7.2% to 7.7%. She reports not having taken her medications as prescribed, which may have contributed to this elevation. The patient has been on metformin, and her dose is being adjusted to 1000 mg twice daily for better glucose control. Previously, she experienced gastrointestinal side effects from higher doses of Ozempic, resulting in discontinuation. The thyroid function tests revealed a slight elevation in TSH to 4.38, suggesting the need for an increase in levothyroxine dosage. For hyperlipidemia, the patient's LDL is currently well-controlled at 60 mg/dL, and overall cholesterol is less than 70 mg/dL. She requires a refill for benazepril for hypertension management. The patient's renal function is stable, with a GFR of 45. She follows up regularly for comprehensive management and adjustment of her chronic conditions. 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 Social History Household Members: Spouse Housing: House Are you a primary director day care center to a significant other at home: No Do you presently have visiting nurse or other home services: No Alcohol intake: never Patient Tobacco Use Status: Never used Tobacco e-Cigarette/Vaping Use: Never Used Second Hand Smoke Exposure: No service: No Current occupational status: unemployed Cognitive needs: Yes Hearing needs: No Vision needs: Yes (Glasses) Female Reproductive History Menstrual Age of Menarche: 14 Questionnaire PHQ-9 Over the last 2 weeks, how often have you been bothered by any of the following problems? 1. Little interest or pleasure in doing things: not at all 2. Feeling down, depressed, or hopeless: not at all 3. Trouble falling or staying asleep, or sleeping too much: not at all 4. Feeling tired or having little energy: not at all 5. Poor appetite or overeating: not at all 6. Feeling bad about yourself - or that you are a failure or have let yourself or your family down: not at all 7. Trouble concentrating on things, such as reading the newspaper or watching television: not at all 8. Moving or speaking so slowly that other people could have noticed. Or the opposite - being so fidgety or restless that you have been moving around a lot more than usual: not at all 9. Thoughts that you would be better off or of hurting yourself in some way: not at all Total score: 0 Depression Screening Interpretation: Negative Depression Screening Done: Yes 58206 - PHQ-9 Billing: Yes Source: Developed by Drs. Denzel Cormier, Tara Guevara, Trent Ramirez and colleagues, with an educational ellis from [employer]. Thrive Questionnaire Date Thrive assessed: 06/16/24 I am a: Patient What is your living situation today?: I have a steady place to live Within the past 12 months, did the food you bought not last and you didn't have the money to get more?: Never true Within the past 12 months, did you worry whether your food would run out before you got money to buy more?: Never true Do you have trouble paying for medicines?: No Do you have trouble getting transportation to medical appointments?: No Do you have trouble paying your heating and electricity bill?: No Do you have trouble taking care of your child, family member or friend?: No Do you have trouble with day-to-day activities such as bathing, preparing meals, shopping, managing finances, etc.?: No Are you currently unemployed and looking for a job?: No Are you interested in more education?: No Please select the resources that you would like help with: None Currently or been in a relationship where the following occur: No concerns reported THRIVE Score: 0 AUDIT C Alcohol Use Questionnaire (AUDIT-C) 1. How often do you have a drink containing alcohol?: Never 3. How often do you have six or more drinks on one occasion?: Never Total Score: 0 Score Reviewed/Action Taken: No NATALIE-7 AMB Questionnaire NATALIE-7 Date NATALIE - 7 assessed: 06/16/24 Feeling nervous, anxious, or on edge: 0 = Not at all Not being able to stop or control worryin = Not at all Worrying too much about different things: 0 = Not at all Trouble relaxin = Not at all Being so restless that it is hard to sit still: 0 = Not at all Becoming easily annoyed or irritable: 0 = Not at all Feeling afraid as if something awful might happen: 0 = Not at all Total NATALIE-7 score (0-4 normal; 5-9 mild; 10-14 moderate; 15-21 severe): 0 Source: Developed by Drs. Denzel Cormier, Tara Guevara, Trent Ramirez and colleagues, with an educational ellis from [employer]. NATALIE-7 Assessment Billing NATALIE-7 Assessment Tool: NATALIE-7 Assessment 53591 Review of Systems Const All systems reviewed & are unremarkable except as noted in HPI and below Card Denies chest pain at rest, Denies chest pain with activity, Denies edema, Denies irregular heart rhythm, Denies claudication, Denies dyspnea, Denies dyspnea on exertion, Denies orthopnea, Denies paroxysmal nocturnal dyspnea and Denies slow heart rate Resp Denies cough, Denies dyspnea and Denies dyspnea on exertion Physical exam (Primary Care) Vital Signs: Last Vital Signs Pulse 86 06/16/24 14:36 BP 132/76 06/16/24 14:36 Pulse Ox 97 06/16/24 14:36 Oxygen Delivery Method Room Air 06/16/24 14:36 BMI result Body Mass Index 41.9 BMI Assessment/Plan discussion: High BMI High, discussed plan: lifestyle, weight reduction, dietary and physical activity Tobacco/Smoking Status: Tobacco use Status Tobacco use date assessed 06/16/24 06/16/24 14:45 Patient Tobacco Use Status Never used Tobacco 06/16/24 14:36 Tobacco use type 08/31/23 09:18 e-Cigarette/Vaping Use Never Used 06/16/24 14:36 PHQ-9: PHQ-9 Score PHQ-9: Total score 0 06/16/24 15:12 Depression Screening Interpretation: Negative Thrive Assessment: Date of Thrive Assessment Date Thrive assessed 06/16/24 06/16/24 14:41 Currently or been in a relationship where the following occur: No concerns reported Resp Effort & Inspection: normal respiratory effort Auscultation: clear to auscultation bilaterally Cardio Jugular venous distension: no JVD Rate: regular rate Rhythm: regular rhythm Heart sounds: S1 normal heart sound present and S2 normal heart sound present Extrem General: Yes full ROM Office Procedures Flu Questionnaire Does the patient have a severe egg allergy?: No Results AMB Hemoglobin A1c AMB Hemoglobin A1c 7.7 % Last Edit by FIDENCIO Rodriguez on 06/16/24 14:52 Immunizations Fluarix Triv [id number] (PF) 45 mcg (15 mcg x 3)/0.5 mL IM syringe Performing Provider: Danika Rainey MD [place] [facility] [place] [facility] Documented (not given) by: FIDENCIO Rodriguez on 06/16/24 14:41 Reason Not Given: Received Previously Results Reviewed Results Reviewed: Laboratory Last Values Hgb A1c (Clinic) 7.7 % (4.0-6.0) H 06/16/24 14:19 Coding Level of Care Code Est Pt Level 4 (99772) Complex EM visit Add On G2211 Diagnoses Type 2 diabetes mellitus without complication, without long-term current use of insulin E11.9 Hyperlipidemia LDL goal <70 E78.5 Essential hypertension I10 Morbid obesity with BMI of 40.0-44.9, adult E66.01; Z68.41 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 Hypothyroidism type: postoperative Additional Codes NATALIE-7 Assessment Billing - NATALIE-7 Assessment Tool: NATALIE-7 Assessment 04424 ([id number]) PHQ-9 - 42342 - PHQ-9 Billing: Yes ([id number]) Time Spent (min) 24 Assessment & Plan Assessment & Plan (1) Type 2 diabetes mellitus without complication, without long-term current use of insulin: Code(s): E11.9 - Type 2 diabetes mellitus without complications Category: Medical (2) Hyperlipidemia LDL goal <70: Code(s): E78.5 - Hyperlipidemia, unspecified Category: Medical (3) Essential hypertension: Code(s): I10 - Essential (primary) hypertension Category: Medical (4) Morbid obesity with BMI of 40.0-44.9, adult: Code(s): E66.01 - Morbid (severe) obesity due to excess calories; Z68.41 - Body mass index [BMI] 40.0-44.9, adult Category: Medical (5) Hypothyroidism: Code(s): E03.9 - Hypothyroidism, unspecified Category: Medical Qualifiers: Hypothyroidism type: postoperative Qualified Code(s): E89.0 - Postprocedural hypothyroidism Plan - Increase metformin to 1000 mg twice daily. - Discontinue Ozempic due to gastrointestinal side effects and consider alternative therapies. - Adjust levothyroxine dosage based on elevated TSH. - Refill and continue benazepril for hypertension management. - Continue regular monitoring of fasting blood glucose and lipid panel. - Plan to recheck thyroid function in six weeks after levothyroxine dosage adjustment. Patient was informed and verbally consented to the use of an ambient scribe for clinic note documentation during this visit. I discussed with the patient the current management plan for type 2 diabetes mellitus, explaining the rationale for increasing metformin to achieve better glucose control. We considered an alternative to Ozempic due to side effects experienced previously. I advised the patient on the importance of adherence to her medication regimen to avoid further complications. We agreed to discontinue Ozempic and explore other options if required. For her thyroid function, I recommended an increase in levothyroxine that correlates with her current TSH results, planning a repeat test in six weeks. I ensured the patient understood her cholesterol levels are currently optimal and emphasized continuing her current lipid-lowering strategy. Options for antihypertensive management were also reviewed. I highlighted the importance of regular follow-ups for comprehensive chronic disease management. Orders: Orders Influenza [id number] Immunization Today Z23 - Encounter for immunization AMB Hemoglobin A1c Today E11.9 - Type 2 diabetes mellitus without complications Thyroid Stimulating Hormone 6 Weeks E03.9 - Hypothyroidism, unspecified Medications: New metformin 1,000 mg PO BID 60 tabs 6RF 30 days tirzepatide (Mounjaro) for 4 weeks 2.5 mg (0.5 mL) subcut QWEEK 2 mL 0RF 4 weeks E11.9 - Type 2 diabetes mellitus without complications levothyroxine (Synthroid) 137 mcg PO DAILY 90 tabs 0RF 90 days E03.9 - Hypothyroidism, unspecified aspirin (Adult Aspirin Regimen) 81 mg PO DAILY 90 tabs 3RF 90 days Refilled benazepril 10 mg PO DAILY 90 tabs 1RF I10 - Essential (primary) hypertension Discontinued Synthroid (levothyroxine) SB, no substitutions. Discontinued Reason: Patient Completed Course 125 mcg PO DAILY 90 days 90 tabs 6RF NS E89.0 - Postprocedural hypothyroidism metformin Discontinued Reason: Patient Completed Course 850 mg PO BID 90 days 180 tabs 2RF Patient Instructions: - Take metformin 1000 mg twice daily as prescribed. - Discontinue Ozempic and report any new symptoms or intolerances. - Continue all other medications as currently prescribed. - Follow a balanced diet and monitor blood glucose levels regularly. - Return for laboratory testing in six weeks to reassess thyroid function. - Report any new or worsening symptoms, such as GI distress, immediately.
== END 2024-06-16 15:18 | disposition home or self-care (01) ==
PROVIDERS: PCP Internal Medicine; Visit Provider Internal Medicine
DX: E11.69 Type 2 diabetes mellitus with other specified complication (principal); E66.01 Morbid (severe) obesity due to excess calories; Z68.41 Body mass index [BMI] 40.0-44.9, adult; E78.5 Hyperlipidemia, unspecified; I10 Essential (primary) hypertension; E89.0 Postprocedural hypothyroidism

== ENCOUNTER 2024-07-04 06:17 | Outpatient (REF) | payer OTHER, SELFPAY ==
--- NOTE | ~2024-07-04 | FL_ITS ---
EXAMINATION: FL GUIDANCE ONLY HISTORY: M53.3 - Sacrococcygeal disorders, not elsewhere classified COMPARISON: None available. TECHNIQUE: Fluoroscopy time: 0.1 minutes. Cumulative Dose: 6.62 mGy. DAP: 0.114 uGy-m2 (microgray-meter squared). Images: 1. FINDINGS: The image demonstrates a needle and contrast in the region of the right sacroiliac joint. FL/FL guidance in treatment room IMPRESSION: Fluoroscopy during procedure. Please see procedure report for additional information. Electronically signed by: Denzel Hercules MD 07/04/2024 02:28 PM TOAN
== END 2024-07-04 06:18 | disposition home or self-care (01) ==
LOC: CF 06:17
PROVIDERS: Visit Provider Anesthesiology
DX: M53.3 Sacrococcygeal disorders, not elsewhere classified (principal); M46.1 Sacroiliitis, not elsewhere classified
CPT/HCPCS: 27096; J2003; J2795; J3301; Q9967

== ENCOUNTER 2024-07-04 10:52 | Outpatient (AMB) | payer OTHER, SELFPAY ==
[2024-07-04 11:02] VITALS: BP 141/72; PULSE 95; RESP 16; O2SAT 99
--- NOTE | 2024-07-04 11:02 | MHC.OFFVIS ---
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 Inboard/Outboard Required: Yes Motorboat Mechanic Inboard/Outboard Services: Motorboat Mechanic Inboard/Outboard Present Motorboat Mechanic Inboard/Outboard Name: Manjit [id number] Allergies No Known Allergies Allergy (Verified 07/04/24 11:04) Medication List - Last Reconciled 07/04/24 by Autumn Angulo LPN acetaminophen 650 mg (2 x 325 mg) PO Q6H PRN 30 days amlodipine 10 mg PO DAILY 90 days aspirin (Adult Aspirin Regimen) 81 mg PO DAILY 90 days atorvastatin 80 mg PO BEDTIME 90 days benazepril 10 mg PO DAILY bisacodyl (Laxative (bisacodyl)) 10 mg (2 x 5 mg) PO DAILY PRN 90 days bisacodyl (Laxative (bisacodyl)) 10 mg (2 x 5 mg) PO DAILY PRN 30 days blood pressure monitor As directed blood sugar diagnostic ([employer] Verio test strips) test blood sugar once a day blood-glucose meter ([employer] Verio Meter) As directed once a day chlorthalidone 25 mg PO DAILY 90 days famotidine 20 mg PO BEDTIME fluticasone propionate 110 mcg/actuation (Flovent HFA) 1 puff inhalation BID hydralazine 10 mg PO TID 30 days incontinence pad, liner, disp Use 2 pads per day lancets (EchobitTouch Delica Lancets) Use 1 lancet once a day levothyroxine (Synthroid) 137 mcg PO DAILY 90 days lidocaine 5% leave on most painful area for up to 12 hrs topical lidocaine HCl 4% (Theraworx Pain Relief) 1 ea topical BID PRN metformin 1,000 mg PO BID 30 days metoprolol succinate ER 50 mg PO DAILY 90 days naloxone 4 mg/actuation (Narcan) 4 mg intranasal Q2M PRN pentoxifylline ER 400 mg PO DAILY tirzepatide (Mounjaro) 2.5 mg (0.5 mL) subcut QWEEK 4 weeks tramadol 50 mg PO BID PRN 15 days underpads (Bed Underpads) As directed Ventolin HFA 90 mcg/actuation (albuterol sulfate) 1 inh inhalation QID PRN 30 days NS [wipes As directed] [facility] Medical History Essential hypertension Osteoarthritis of right knee Class 2 severe obesity with serious comorbidity and body mass index (BMI) of 38.0 to 38.9 in adult Hypothyroid Right foot pain Left shoulder pain Hospital discharge follow-up Right sided sciatica Dyslipidemia Hyperparathyroidism Post-menopausal Screening for breast cancer Right foot pain Right knee pain Vitamin D deficiency Obesity due to excess calories Degenerative arthritis Cough High cholesterol 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 Social History Household Members: Spouse Housing: House Are you a primary healthcare educator to a significant other at home: No Do you presently have visiting nurse or other home services: No Alcohol intake: never Patient Tobacco Use Status: Never used Tobacco e-Cigarette/Vaping Use: Never Used Second Hand Smoke Exposure: No service: No Current occupational status: unemployed Cognitive needs: Yes Hearing needs: No Vision needs: Yes (Glasses) Female Reproductive History Menstrual Age of Menarche: 14 Physical Exam Vital Signs: Last Vital Signs Pulse 97 07/04/24 11:16 Resp 16 07/04/24 11:16 BP 128/72 07/04/24 11:16 Pulse Ox 99 07/04/24 11:16 Oxygen Delivery Method Room Air 07/04/24 11:16 Assessment & Plan Assessment & Plan (1) Sacroiliac joint pain: Code(s): M53.3 - Sacrococcygeal disorders, not elsewhere classified Category: Medical (2) Sacroiliitis: Code(s): M46.1 - Sacroiliitis, not elsewhere classified Category: Medical Plan Right sacroiliac joint injection therapeutic. Informed consent was thoroughly explained to the patient before the procedure.? The patient came to the operating room.? She was positioned prone on operating table with a pillow under her abdomen.? Time-out was performed delineating correct site and side of the procedure, nature of the injection, name and date of of the patient. The lower back and upper buttocks of the patient was prepped with ChloraPrep and draped with sterile utility towels.? C-arm was brought over the operating field and picture of right sacroiliac joint was demonstrated on the screen. Tilting machine contralateral left 15 degrees from the midline the anterior portion of the silhouette of the joint was superimposed on posterior portion of the silhouette of the joint. The skin was anesthetized with mixture of ropivacaine 0.5% and lidocaine 2% one-to-one slightly medial to the silhouette of the sacroiliac joint. 22 gauge 3-1/2 inch spinal needle was inserted through the skin wheal and advanced to the sacroiliac joint. When tip of the needle entered the sacroiliac joint injection of the contrast performed delineating arthrogram. After that 4 cc of ropivacaine mixed with Kenalog 40 mg was injected into the joint. Upon completion of the injection needle was removed and Band-Aid was applied. Patient tolerated the procedure well. Orders: Orders FL guidance in treatment room Today M53.3 - Sacrococcygeal disorders, not elsewhere classified Coding Level of Care Code Procedure Only Diagnoses Sacroiliac joint pain M53.3 Sacroiliitis M46.1
[2024-07-04 11:16] VITALS: BP 128/72; PULSE 97; RESP 16; O2SAT 99
--- OUTSIDE RECORDS SUMMARY | 2024-07-04 12:28 | XMS_ITS | Clinical Summary ---
Author Organization [facility] Address [address] [place] [address] Phone Care Team Providers Care Kiln Head House Operator Name Role Phone Danika Arriaga MD Primary Care Provider [phone] Allergies No known active allergies Medications amLODIPine (NORVASC) 10 MG tablet Take 10 mg by mouth 1 (one) time each day Active atorvastatin (LIPITOR) 20 MG tablet Take 20 mg by mouth 1 (one) time each day Active benazepril (LOTENSIN) 10 MG tablet Take 10 mg by mouth 1 (one) time each day Active metFORMIN (GLUCOPHAGE) 1000 MG tablet Take 1,000 mg by mouth in the morning and 1,000 mg in the evening. Take with meals. Active metoprolol succinate XL (TOPROL XL) 50 MG 24 hr tablet Take 50 mg by mouth 1 (one) time each day Do not crush or chew. Active levothyroxine (SYNTHROID, LEVOTHROID) 125 MCG tablet Take 125 mcg by mouth 1 (one) time each day Active pentoxifylline (TRENtal) 400 MG CR tablet Take 400 mg by mouth 1 (one) time each day Do not crush, chew, or split. Active aspirin (ST DANIELLA) 81 MG EC tablet Take 81 mg by mouth 1 (one) time each day Active Active Problems Problem Noted Date Diagnosed Date Hypercalcemia 07/30/2021 Hypertension 07/30/2021 Hyperkalemia 07/28/2021 Family History Medical History Relation Comments Heart disease Father Hypertension Father Relation Status Comments Father Mother Social History Tobacco Use Types Packs/Day Years Used Date Smoking Tobacco: Never Smokeless Tobacco: Never Alcohol Use Standard Drinks/Week Comments Never 0 (1 standard drink = 0.6 oz pur e alcohol) Comments Unknown Sex and Gender Information Value Date Recorded Sex Assigned at Not on file Legal Sex Female 11:05 AM EST Gender Identity Not on file Sexual Orientation Not on file Last Filed Vital Signs Vital Sign Reading Time Taken Comments Blood Pressure 130/80 08/19/2022 3:20 PM EST Pulse 97 08/19/2022 3:20 PM EST Temperature - - Respiratory Rate - - Oxygen Saturation 97% 08/19/2022 3:20 PM EST Inhaled Oxygen Concentration - - Weight 102 kg (225 lb) 08/19/2022 3:20 PM EST Height - - Body Mass Index - - Plan of Treatment Health Maintenance Due Date Last Done Comments Breast Cancer Screening 1955 Pneumococcal Vaccine: 65+ Ye ars (1 of 2 - PCV) 1963 Colorectal Cancer Screening: Annual FOBT 2006 Colorectal Cancer Screening: Colonoscopy 2006 Colorectal Cancer Screening: Sigmoidoscopy 2006 Influenza Vaccine (#1) 2024 Hepatitis B Vaccine Aged Out No longe r eligible based on patient's age to complete this topic Insurance [facility] MCR ([id number]) [place] [id number] [facility] MCR ([id number]) [place] [id number] Care Teams Kiln Head House Operator Relationship Specialty Start Date End Date Danika Arriaga MD [address] [place] [address] PCP - General Internal Medicine 07/21/21
--- OUTSIDE RECORDS SUMMARY | 2024-07-04 12:28 | XMS_ITS | Encounter Summary ---
Author Organization [facility] Address [address] [place] [address] Phone Care Team Providers Care Call Center Manager Name Role Phone Danika Arriaga MD Primary Care Provider [phone] Encounter Details Date Type Department Care Team (Late st Contact Info) Description 07/21/2021 Telephone [facility] [address] [place] [address] Gisell Jenkins Social History Tobacco Use Types Packs/Day Years Used Date Smoking Tobacco: Never Assessed Comments Unknown Sex and Gender Information Value Date Recorded Sex Assigned at Not on file Legal Sex Female 11:05 AM EST Gender Identity Not on file Sexual Orientation Not on file documented as of this encounter Plan of Treatment Not on file documented as of this encounter Visit Diagnoses Not on filedocumented in this encounter Care Teams Call Center Manager Relationship Specialty Start Date End Date Danika Arriaga MD [address] [place], [place] PCP - General Internal Medicine 07/21/21 documented as of this encounter
== END 2024-07-04 12:28 | disposition home or self-care (01) ==
LOC: HO.PMCPRC 10:52
PROVIDERS: PCP Internal Medicine; Visit Provider Anesthesiology
DX: M46.1 Sacroiliitis, not elsewhere classified (principal); M53.3 Sacrococcygeal disorders, not elsewhere classified
CPT/HCPCS: 27096

== ENCOUNTER 2024-07-11 13:08 | Outpatient (REF) | payer OTHER, SELFPAY ==
--- OUTSIDE RECORDS SUMMARY | 2024-07-11 14:07 | XMS_ITS | Encounter Summary ---
Author Organization [facility] Address [address] [place] [address] Phone Care Team Providers Care Security System Technician Name Role Phone Danika Arriaga MD Primary Care Provider [phone] Encounter Details Date Type Department Care Team (Late st Contact Info) Description 07/21/2021 Telephone [facility] [address] [place] [address] Gisell Jenkins Social History Tobacco [...] on filedocumented in this encounter Care Teams Security System Technician Relationship Specialty Start Date End Date Danika Arriaga MD [address] [place], [place] PCP - General Internal Medicine 07/21/21 documented as of this encounter
--- OUTSIDE RECORDS SUMMARY | 2024-07-11 14:07 | XMS_ITS | Clinical Summary ---
Author Organization [facility] Address [address] [facility] [address] [place] [address] Phone Care Team Providers Care Food And Beverage Analyst Name Role Phone Danika Arriaga MD Primary Care Provider [phone] Allergies No known active allergies Medications amLODIPine [...] patient's age to complete this topic Insurance [facility] MCR ([id number]) [place] [id number] [facility] MCR ([id number]) [place] [id number] Care Teams Food And Beverage Analyst Relationship Specialty Start Date End Date Danika Arriaga MD [address] [place] [address] PCP - General Internal Medicine 07/21/21
== END 2024-07-11 13:09 | disposition home or self-care (01) ==
LOC: HO.MAMMO 13:08
PROVIDERS: PCP Internal Medicine; Visit Provider Internal Medicine
DX: Z12.31 Encounter for screening mammogram for malignant neoplasm of breast (principal)
CPT/HCPCS: 77063; 77067

== ENCOUNTER → 2024-07-11 13:30 | Outpatient (BNV) | payer OTHER, SELFPAY | PROVIDERS: PCP Internal Medicine; Visit Provider Internal Medicine | DX: Z12.31 Encounter for screening mammogram for malignant neoplasm of breast (principal) | CPT/HCPCS: 77063; 77067 ==

== ENCOUNTER 2024-07-28 11:13 | Outpatient (AMB) | payer OTHER, SELFPAY ==
--- NOTE | 2024-07-28 11:17 | MHC.OFFVIS ---
Vital Signs 07/28/24 11:21 Height 5 ft 3 in Weight 231 lb 4 oz BMI 41.0 BP 148/67 H Blood Pressure Location Rt brachial Position Sitting Pulse 84 Pulse Source Pulse Oximeter Pulse Oximetry (%) 97 Oxygen Delivery Method Room Air Intake Visit Reasons: RIGHT THERAPEUTIC SIJ INJECTION/olivier 07/24 Intake Note: Pain today 08/21 Balance Wheel Facer Required: Yes Balance Wheel Facer Language: [place] Accompanied by: Self / Same As Patient Allergies No Known Allergies Allergy (Verified 07/28/24 11:23) HPI Comments Details: Patient presents today to assess response to Right Therapeutic SIJ injection on 07/04/[address] Donis. Patient reports ongoing 80% pain relief since procedure with significant improvement in her daily functioning, mobility, sleep and better social interactions. We also reviewed today neuromodulation with Curonix PNS trial vs implant, SI fusion and RFA procedures. Denies any recent cough, cold, infection, fever or any significant changes in medical history since last office visit except that she fell on ice yesterday and fell on her left side. She presents with wrist brace on the left side with minimal tenderness and mild swelling along lateral border of left wrist. She denies any weakness, numbness or tingling and has full range of motion of her left wrist, fingers and thumb. She requests xray of her left arm. Past Procedures: 07/04/24: Right Therapeutic SIJ injection-80% ongoing pain relief 01/04/24: Right Diagnostic SIJ injection-80% >12 hours PRIOR: Patient is 68 years old female with history of arthritis, diabetes (A1C-7.6 on 08/30/23), right sided sciatica, right TKA (2022), recent parathyroidectomy (09/01/23) presents today for initial evaluation of chronic low back pain. Denies any recent trauma, injury or falls. Back pain is axial and also radiates into her right lower extremity posterolaterally with numbness and tingling in her right foot. Occasionally pain will radiate to left leg as well with heavy and numbness sensations. She also has significant exacerbation of back pain with lumbar flexion indicating a discogenic source. Pain affects her daily functioning, mobility, sleep, mood and social interactions. Patient has tried physical therapy in the past with partial benefit but currently is not able to pursue PT due to significant pain. Denies any fever, abdominal or groin pain, foot drop, bladder or bowel dysfunction or saddle anesthesia. Reports intermittent RLE weakness with walking, uses cane. Location Lower back radiates down bilateral legs, worse on the right Duration Chronic pain, worsening for > 1 year Characteristics of symptom or complaint Aching, burning, tingling, tiring, cramping, numbness, throbbing Aggravating or associated factors Walking, standing, bending forward, extending backwards, cold weather Relieving factors Sitting, Tylenol, activity modifications, heat therapy, topical application Treatment PT back 2021, helped, right knee-02/[facility] Medical History Essential hypertension Osteoarthritis of right knee Class 2 severe obesity with serious comorbidity and body mass index (BMI) of 38.0 to 38.9 in adult Hypothyroid Right foot pain Left shoulder pain Hospital discharge follow-up Right sided sciatica Dyslipidemia Hyperparathyroidism Post-menopausal Screening for breast cancer Right foot pain Right knee pain Vitamin D deficiency Obesity due to excess calories Degenerative arthritis Cough High cholesterol Diabetes 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 Social History Household Members: Spouse Housing: House Are you a primary health care facility administrator to a significant other at home: No Do you presently have visiting nurse or other home services: No Alcohol intake: never Patient Tobacco Use Status: Never used Tobacco e-Cigarette/Vaping Use: Never Used Second Hand Smoke Exposure: No service: No Current occupational status: unemployed Cognitive needs: Yes Hearing needs: No Vision needs: Yes (Glasses) Female Reproductive History Menstrual Age of Menarche: 14 Review of Systems Const All systems reviewed & are unremarkable except as noted in HPI and below Physical Exam Vital Signs: Last Vital Signs Pulse 84 07/28/24 11:21 BP 148/67 H 07/28/24 11:21 Pulse Ox 97 07/28/24 11:21 Oxygen Delivery Method Room Air 07/28/24 11:21 BMI result Body Mass Index 41.0 General: Appears afebrile. Alert and oriented. Mood and affect appropriate. Follows and participates in conversation appropriately. Respiratory effort is unlabored. No cough. Able to transition from sit to stand unassisted. Reports using cane at home. Ambulates with bilaterally normal heel strike and toe off, mild difficulty on the right due to pain with changing positions from sitting to standing. General: Yes no CVA tenderness Back/Spine/Pelvis Back: no CVA tenderness Cervical Spine: cervical ROM normal, cervical muscular tenderness and No Cervical spine tenderness Thoracic/Lumbar Spine: thoracic and lumbar spine normal to inspection, No Thoracic/lumbar spine scar(s), Lasegue's sign negative, straight leg raise negative bilaterally, pain with thoraco-lumbar ROM, paraspinal muscle tenderness on the right greater than left, thoraco-lumbar ROM limited, No thoracic spinal tenderness and lumbar spinal tenderness Pelvis: buttock tenderness (upper) on the right and no sciatic notch tenderness Sacroiliac joints: bilaterally (right>left) tender to palpation Extrem General: Yes capillary refill normal, Yes no clubbing, cyanosis or edema and Yes no calf tenderness Left upper extremity: wrist lateral Details: normal to inspection, tenderness (lateral aspect of left wrist), swelling (lateral), normal ROM, radial pulse present, ulnar pulse present and Phalen's negative; no unusual warmth, no abrasions, no lacerations, no ecchymosis, no crepitus and no deformity Results Reviewed Results Reviewed: MR SPINE LUMBAR without CONTRAST 09/23/23 at [facility] INDICATION: Lumbar region spondylosis and radiculopathy. Other intervertebral disc degeneration of the lumbar spine. Low back pain. Right hip and right leg pain for six months. No specific injury or trauma. TECHNIQUE: Unenhanced multiplanar, multisequence MR imaging of the lumbar spine. COMPARISON: None Available. FINDINGS: For the purpose of this examination the last well-formed inferior disc space will be labeled as L5-S1. Normal lumbar alignment is demonstrated. Vertebral heights are well maintained. Conus medullaris is unremarkable and terminates at L1. Small T2 and T1 hyperintense rounded lesion involving the anterior and inferior aspect of the T12 vertebral body most likely reflects a hemangioma. Bone marrow signal is otherwise within normal limits, and no suspicious osseous lesion is identified. Paraspinal soft tissues and visualized portions of the abdomen and pelvis are unremarkable. At T12-L1: There is no disc herniation or protrusion. No central canal or neural foraminal stenosis is demonstrated. At L1-2 there is no significant disc herniation or protrusion. No central canal or neural foraminal stenosis is demonstrated. At L2-3, there is a disc bulge associated with a small to moderate-sized broad-based left paracentral and left foraminal disc protrusion. Mild bilateral facet joint hypertrophy with mild ligamentum flavum thickening. These findings result in moderate to severe spinal canal narrowing and moderate bilateral neural foraminal narrowing. At L3-4 there is a mild disc bulge with bilateral facet joint hypertrophy and ligamentum flavum thickening, resulting in mild central canal narrowing. There is mild bilateral neural foraminal narrowing. At L4-5 there is a mild disc bulge with bilateral facet joint hypertrophy and ligamentum flavum thickening. No significant spinal canal or neural foraminal narrowing. At L5-S1 there is no mild disc bulge. No central canal. There is mild bilateral foraminal narrowing. IMPRESSION: 1. Disc bulge with small to moderate-sized broad-based left paracentral and left foraminal disc protrusion at L2-L3 resulting in moderate to severe spinal canal narrowing and moderate bilateral neural foraminal narrowing. 2. Disc bulge at L3-L4 resulting in mild central spinal canal narrowing with mild bilateral neural foraminal narrowing. MM/XR DEXA axial skeleton 02/03/24 IMPRESSION: 1. DIAGNOSIS: Normal bone density based on the lowest T-score value of -1.0 in the femoral neck applying World Health Organization criteria. XR LUMBOSACRAL SPINE WITH OBLIQUES 09/25/21 FINDINGS: Bone alignment is normal. No fracture or dislocation is seen. There is degenerative disc disease of the lower thoracic spine. Disc spaces are otherwise normal. There is lower lumbar spine facet arthritis. IMPRESSION: Lower lumbar spine facet arthritis. Assessment & Plan Assessment & Plan (1) History of recent fall: Code(s): Z91.81 - History of falling Category: Medical (2) Left wrist pain: Code(s): M25.532 - Pain in left wrist Category: Medical (3) Lumbar spondylosis: Code(s): M47.816 - Spondylosis without myelopathy or radiculopathy, lumbar region Category: Medical (4) Low back pain: Code(s): M54.50 - Low back pain, unspecified Category: Medical (5) Sacroiliac joint pain: Code(s): M53.3 - Sacrococcygeal disorders, not elsewhere classified Category: Medical Plan Patient is one month status post Therapeutic Right Sacroiliac Joint injection with 80% ongoing pain relief and improved functioning, mobility, sleep and social interactions. Patient is aware that she can not receive another injection in this area for another 2-3 months. Patient is aware to monitor for side effects and notify our office when her right sided lower back pain returns to baseline. We also reviewed neuromodulation with Curonix PNS trial vs implant, SI fusion and RFA procedures for a longer term pain relief. Patient declined any implants but will consider RFA in the future. Left hand/wrist xray to rule out dislocation or fractures s/p recent fall on ice. She is wearing wrist brace for support. Patient is encouraged to follow up with Orthopedics if worsening of symptoms. All questions were answered and the patient is in agreement of plan. Follow-up for xray results and sooner as needed. Orders: Orders XR hand wrist LT Today M25.532 - Pain in left wrist, Z91.81 - History of falling Coding Level of Care Code Est Pt Level 4 (96419) Complex EM visit Add On G2211 Diagnoses History of recent fall Z91.81 Left wrist pain M25.532 Lumbar spondylosis M47.816 Low back pain M54.50 Sacroiliac joint pain M53.3
[2024-07-28 11:21] VITALS: BP 148/67; PULSE 84; O2SAT 97; BMI 41.0
--- OUTSIDE RECORDS SUMMARY | 2024-07-28 12:08 | XMS_ITS | Encounter Summary ---
Author Organization [facility] Address [address] [place] [address] Phone Care Team Providers Care Executive Vice President Name Role Phone Danika Arriaga MD Primary Care Provider [phone] Encounter Details Date Type Department Care Team (Late st Contact Info) Description 07/21/2021 Telephone [facility] [address] [place] [address] Gisell Jenkins Social History Tobacco [...] on filedocumented in this encounter Care Teams Executive Vice President Relationship Specialty Start Date End Date Danika Arriaga MD [address] [place], [place] PCP - General Internal Medicine 07/21/21 documented as of this encounter
--- OUTSIDE RECORDS SUMMARY | 2024-07-28 12:08 | XMS_ITS | Clinical Summary ---
Author Organization [facility] Address [address] [facility] [address] [place] [address] Phone Care Team Providers Care Journalism Professor Name Role Phone Danika Arriaga MD Primary Care Provider [phone] Allergies No known active allergies Medications amLODIPine [...] patient's age to complete this topic Insurance [facility] MCR ([id number]) [place] [id number] [facility] MCR ([id number]) [place] [id number] Care Teams Journalism Professor Relationship Specialty Start Date End Date Danika Arriaga MD [address] [place] [address] PCP - General Internal Medicine 07/21/21
== END 2024-07-28 11:42 | disposition home or self-care (01) ==
PROVIDERS: PCP Internal Medicine; Visit Provider Nurse Practitioner Family
DX: M25.532 Pain in left wrist (principal); M47.816 Spondylosis without myelopathy or radiculopathy, lumbar region; M54.50 Low back pain, unspecified; M53.3 Sacrococcygeal disorders, not elsewhere classified; Z91.81 History of falling
CPT/HCPCS: 99214; G2211

== ENCOUNTER 2024-07-28 11:13 | Outpatient (REF) | payer OTHER, SELFPAY ==
--- NOTE | ~2024-07-28 | XR_ITS ---
EXAMINATION: XR HAND AND WRIST COMPLETE LEFT HISTORY: M25.532 - Pain in left wrist COMPARISON: There are no prior studies available for comparison. FINDINGS: Four views of the left hand and wrist, including a scaphoid view are submitted. Osseous mineralization is normal. There is no fracture or dislocation. The joint spaces are preserved. The soft tissues are unremarkable. XR/XR hand wrist LT IMPRESSION: Unremarkable examination of the left hand and wrist. Electronically signed by: Denzel Hercules MD 07/28/2024 04:26 PM TOAN HERNANDEZ
--- OUTSIDE RECORDS SUMMARY | 2024-07-28 12:32 | XMS_ITS | Clinical Summary ---
Author Organization [facility] Address [address] [facility] [address] [place] [address] Phone Care Team Providers Care Stallion Keeper Name Role Phone Danika Arriaga MD Primary Care Provider [phone] Allergies No known active allergies Medications amLODIPine [...] patient's age to complete this topic Insurance [facility] MCR ([id number]) [place] [id number] [facility] MCR ([id number]) [place] [id number] Care Teams Stallion Keeper Relationship Specialty Start Date End Date Danika Arriaga MD [address] [place] [address] PCP - General Internal Medicine 07/21/21
--- OUTSIDE RECORDS SUMMARY | 2024-07-28 12:32 | XMS_ITS | Encounter Summary ---
Author Organization [facility] Address [address] [place] [address] Phone Care Team Providers Care Floor Cleaner Name Role Phone Danika Arriaga MD Primary Care Provider [phone] Encounter Details Date Type Department Care Team (Late st Contact Info) Description 07/21/2021 Telephone [facility] [address] [place] [address] Gisell Jenkins Social History Tobacco [...] on filedocumented in this encounter Care Teams Floor Cleaner Relationship Specialty Start Date End Date Danika Arriaga MD [address] [place], [place] PCP - General Internal Medicine 07/21/21 documented as of this encounter
== END 2024-07-28 11:14 | disposition home or self-care (01) ==
LOC: HO.XRAY 11:13
PROVIDERS: PCP Internal Medicine; Visit Provider Nurse Practitioner Family
DX: M25.532 Pain in left wrist (principal); Z91.81 History of falling; M47.816 Spondylosis without myelopathy or radiculopathy, lumbar region; M54.50 Low back pain, unspecified; M53.3 Sacrococcygeal disorders, not elsewhere classified
CPT/HCPCS: 73110; 73130; 99212

== ENCOUNTER → 2024-07-28 11:57 | Outpatient (BNV) | payer OTHER, SELFPAY | PROVIDERS: PCP Internal Medicine; Visit Provider Radiology Diagnostic Radiology | DX: M25.532 Pain in left wrist (principal) | CPT/HCPCS: 73110; 73130 ==

== ENCOUNTER 2024-09-25 10:30 | Outpatient (AMB) | payer OTHER, SELFPAY ==
[2024-09-25 10:39] VITALS: BP 144/84; PULSE 92; TEMP 36.2; O2SAT 99; BMI 41.3
--- NOTE | 2024-09-25 10:39 | A.OFFPC_ITS ---
Vital Signs 09/25/24 10:39 Height 5 ft 3 in Weight 233 lb 6 oz BMI 41.3 BP 144/84 H Blood Pressure Location Lt brachial Position Sitting Pulse 92 Pulse Source Pulse Oximeter Temp 97.1 F Temp Source Temporal Artery Scan Pulse Oximetry (%) 99 Oxygen Delivery Method Room Air Intake Visit Reasons: both legs swollen and red Intake Note: Patient presents with bilateral swelling and redness for the past two weeks. Patient reports prolonged periods of sitting without the ability to elevate her legs due to her spouse?s hospitalization in [facility]. She requested a chair to elevate her legs but states that staff denied providing a recliner for her use. Software Licensing Specialist Required: Yes Software Licensing Specialist Language: Under Presser Name: used tablet- ID# [id number] Accompanied by: Self / Same As Patient Allergies No Known Allergies Allergy (Verified 09/25/24 10:56) Medication List - Last Reconciled 09/25/24 by Chapin Buchanan PA-C acetaminophen 650 mg (2 x 325 mg) PO Q6H PRN 30 days amlodipine 10 mg PO DAILY 90 days aspirin (Adult Aspirin Regimen) 81 mg PO DAILY 90 days atorvastatin 80 mg PO BEDTIME 90 days benazepril 10 mg PO DAILY bisacodyl (Laxative (bisacodyl)) 10 mg (2 x 5 mg) PO DAILY PRN 90 days bisacodyl (Laxative (bisacodyl)) 10 mg (2 x 5 mg) PO DAILY PRN 30 days blood pressure monitor As directed blood sugar diagnostic ([employer] Verio test strips) test blood sugar once a day blood-glucose meter ([employer] Verio Meter) As directed once a day chlorthalidone 25 mg PO DAILY 90 days famotidine 20 mg PO BEDTIME fluticasone propionate 110 mcg/actuation (Flovent HFA) 1 puff inhalation BID hydralazine 10 mg PO TID 30 days incontinence pad, liner, disp Use 2 pads per day lancets ([employer] Delica Lancets) Use 1 lancet once a day levothyroxine (Synthroid) 137 mcg PO DAILY 90 days lidocaine 5% leave on most painful area for up to 12 hrs topical lidocaine HCl 4% (Theraworx Pain Relief) 1 ea topical BID PRN metformin 1,000 mg PO BID 30 days metoprolol succinate ER 50 mg PO DAILY 90 days naloxone 4 mg/actuation (Narcan) 4 mg intranasal Q2M PRN pentoxifylline ER 400 mg PO DAILY tirzepatide (Mounjaro) 2.5 mg (0.5 mL) subcut QWEEK 4 weeks tramadol 50 mg PO BID PRN 15 days underpads (Bed Underpads) As directed Ventolin HFA 90 mcg/actuation (albuterol sulfate) 1 inh inhalation QID PRN 30 days NS [wipes As directed] Tobacco use date assessed: 06/16/24 Dental Screening Dental Screen Date: 06/16/24 HPI both legs swollen and red HPI Details Patient is a 69-year-old female here today for problem visit. This is the 1st time I am meeting this 69-year-old female with multiple medical problems including type 2 diabetes hypertension hyperlipidemia chronic low back pain, morbid obesity, hypothyroidism The complaint of leg swelling has persisted for about a month, coinciding with the period during which her has been hospitalized. During this time, she has been sitting for prolonged periods. The swelling is primarily noticed in the afternoon and is accompanied by redness, burning, and itching sensations. Shortness of breath is denied. The patient experienced a transient episode of chest burning two weeks prior which resolved without intervention. No new medications have been initiated, and she denies high dietary salt consumption. 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 Social History Household Members: Spouse Housing: House Are you a primary reproductive healthcare assistant to a significant other at home: No Do you presently have visiting nurse or other home services: No Alcohol intake: never Patient Tobacco Use Status: Never used Tobacco e-Cigarette/Vaping Use: Never Used Second Hand Smoke Exposure: No service: No Current occupational status: unemployed Cognitive needs: Yes Hearing needs: No Vision needs: Yes (Glasses) Female Reproductive History Menstrual Age of Menarche: 14 Questionnaire Thrive Questionnaire Date Thrive assessed: 06/16/24 NATALIE-7 AMB Questionnaire NATALIE-7 Date NATALIE - 7 assessed: 06/16/24 Source: Developed by Drs. Denzel Cormier, Tara Guevara, Trent Ramirez and colleagues, with an educational ellis from [employer]. Review of Systems Const Denies headache(s) Eyes Denies loss of vision ENT Denies vertigo, Denies dizziness, Denies headache(s) and Denies sore throat Card Denies chest pain, Denies leg edema and Denies lightheadedness Resp Denies cough, Denies hemoptysis and Denies wheezing GI Denies abdominal pain, Denies melena, Denies constipation, Denies diarrhea and Denies vomiting Denies urinary frequency, Denies dysuria and Denies urinary urgency Musc Denies arthralgias, Denies joint swelling, Denies numbness and Denies tingling Neuro Denies Abnormal speech present, Denies behavioral changes, Denies vertigo, Denies dizziness, Denies headache(s), Denies loss of vision, Denies memory loss, Denies numbness and Denies tingling Psych Denies anxiety, Denies behavioral changes, Denies depression, Denies memory loss and Denies panic attacks Uzair/Lymph Denies easy bleeding and Denies easy bruising Aller/Immun Denies wheezing Physical exam (Primary Care) Vital Signs: Last Vital Signs Temp 97.1 F 09/25/24 10:39 Pulse 92 09/25/24 10:39 BP 144/84 H 09/25/24 10:39 Pulse Ox 99 09/25/24 10:39 Oxygen Delivery Method Room Air 09/25/24 10:39 BMI result Body Mass Index 41.3 BMI Assessment/Plan discussion: High BMI High, discussed plan: lifestyle, weight reduction, dietary and physical activity Tobacco/Smoking Status: Tobacco use Status Tobacco use date assessed 06/16/24 09/25/24 10:40 Patient Tobacco Use Status Never used Tobacco 09/25/24 10:40 Tobacco use type 09/25/24 10:24 e-Cigarette/Vaping Use Never Used 09/25/24 10:40 Thrive Assessment: Date of Thrive Assessment Date Thrive assessed 06/16/24 09/25/24 10:40 Const General: healthy appearing, no acute distress, alert and awake Nutritional Appearance: well nourished Orientation/consciousness: oriented to person, oriented to place and oriented to time HENMT Ears: TM's normal bilaterally General nose exam: Normal nasal mucous membranes and turbinates present Eyes Conjunctivae: conjunctivae normal Sclerae: sclerae normal Pupils: Equal, round and reactive pupils present Neck Neck: Yes no lymphadenopathy and Yes no JVD Thyroid: Thyroid normal Carotids: no bruits Resp Effort & Inspection: normal respiratory effort and not tachypneic Auscultation: no crackles, no rales, no rhonchi and no wheezes Cardio Rate: regular rate Rhythm: regular rhythm Heart sounds: no murmurs and normal S1 and S2 GI Palpation (GI): Soft to palpation, nontender, no hepatomegaly and no splenomegaly Auscultation: normal bowel sounds Skin General skin exam: no rashes or lesions noted and dry skin Neuro General: oriented to person, oriented to place and oriented to time Cranial nerves: Yes Equal, round and reactive pupils present Speech: No Abnormal speech present Gait exam (Neuro): Normal gait present Motor exam (neuro): no tremor noted Extrem Other: BILATERAL LOWER EXTREMITIES WITH LOCALIZED EDEMA TO THE LEVEL OF KNEE. Right upper extremity: full ROM Left upper extremity: full ROM Right lower extremity: full ROM; no edema Left lower extremity: full ROM; no edema Psych Mental Status: mental status grossly normal Speech and movement: Normal speech and movement present Affect: normal affect Attitude: cooperative Thought process: Normal thought process present Coding Level of Care Code Est Pt Level 3 (69642) Diagnoses Edema, lower extremity R60.0 Assessment & Plan Assessment & Plan (1) Edema, lower extremity: Code(s): R60.0 - Localized edema Category: Medical Plan: I explained to the patient that the swelling in her legs is likely due to fluid retention from prolonged sitting, possibly exacerbated by her 's hospitalization circumstances. We discussed using furosemide to help draw fluid out and compression socks to prevent further accumulation. I cautioned about potential side effects like increased urination and advised monitoring for any allergic reactions to the cream. I instructed her on obtaining the compression socks from a medical supply store Medications: New [Medical compression stockings - 10-15mmHg compression] As directed 1 ea 0RF R60.0 - Localized edema furosemide 20 mg PO DAILY 14 tabs 0RF 14 days R60.0 - Localized edema triamcinolone acetonide 0.1% 1 appl topical DAILY 30 grams 0RF 30 days L30.9 - Dermatitis, unspecified, R60.0 - Localized edema
--- OUTSIDE RECORDS SUMMARY | 2024-09-25 12:04 | XMS_ITS | Clinical Summary ---
Author Organization [facility] Address [address] [place] [address] Phone Care Team Providers Care Director Bioinformatics Name Role Phone Danika Arriaga MD Primary Care Provider [phone] Allergies No known active allergies Medications amLODIPine [...] Comments Breast Cancer Screening 1955 Pneumococcal Vaccine: 50+ Ye ars (1 of 2 - PCV) 1963 Colorectal Cancer Screening: Annual FOBT 2006 Colorectal Cancer Screening: Colonoscopy 2006 Colorectal Cancer Screening: Sigmoidoscopy 2006 Influenza Vaccine (Season Ended) 2025 Hepatitis B Vaccine Aged Out No longe r eligible based on patient's age to complete this topic Insurance [facility] MCR ([id number]) [place] KIM [id number] [facility] MCR ([id number]) [place] KIM [id number] Care Teams Director Bioinformatics Relationship Specialty Start Date End Date Danika Arriaga MD [address] [place] [address] PCP - General Internal Medicine 07/21/21
--- OUTSIDE RECORDS SUMMARY | 2024-09-25 12:04 | XMS_ITS | Encounter Summary ---
Author Organization [facility] Address [address] [place] [address] Phone Care Team Providers Care Digital Marketing Program Manager Name Role Phone Danika Arriaga MD Primary Care Provider [phone] Encounter Details Date Type Department Care Team (Late st Contact Info) Description 07/21/2021 Telephone [facility] [address] [place] [address] Gisell Jenkins Social History Tobacco [...] on filedocumented in this encounter Care Teams Digital Marketing Program Manager Relationship Specialty Start Date End Date Danika Arriaga MD [address] [place], [place] PCP - General Internal Medicine 07/21/21 documented as of this encounter
== END 2024-09-25 13:56 | disposition home or self-care (01) ==
PROVIDERS: PCP Internal Medicine; Visit Provider Physician Assistant
DX: R60.0 Localized edema (principal)

== ENCOUNTER → 2024-09-25 10:30 | Outpatient (BNVA) | payer OTHER, SELFPAY | PROVIDERS: PCP Internal Medicine; Visit Provider Physician Assistant | DX: E11.9 Type 2 diabetes mellitus without complications (principal); I10 Essential (primary) hypertension; E78.5 Hyperlipidemia, unspecified; M54.50 Low back pain, unspecified; G89.29 Other chronic pain; E66.9 Obesity, unspecified; E03.9 Hypothyroidism, unspecified; R60.0 Localized edema; L30.9 Dermatitis, unspecified | CPT/HCPCS: 99212 ==

== ENCOUNTER 2024-10-13 09:54 | Outpatient (REF) | payer OTHER, SELFPAY ==
--- OUTSIDE RECORDS SUMMARY | 2024-10-13 10:44 | XMS_ITS | Clinical Summary ---
Author Organization [facility] Address [address] [place] [address] Phone Care Team Providers Care Offc Spec Name Role Phone Danika Arriaga MD Primary Care Provider [phone] Allergies No known active allergies Medications amLODIPine [...] Ye ars (1 of 2 - PCV) 1976 Colorectal Cancer Screening: Annual FOBT 2006 Colorectal Cancer Screening: Colonoscopy 2006 Colorectal Cancer Screening: Sigmoidoscopy 2006 Influenza Vaccine (Season Ended) 2025 Hepatitis B Vaccine Aged Out No longe r eligible based on patient's age to complete this topic Insurance [facility] MCR ([id number]) [place] KIM [id number] [facility] MCR ([id number]) [place] KIM [id number] Care Teams Offc Spec Relationship Specialty Start Date End Date Danika Arriaga MD [address] [place] [address] PCP - General Internal Medicine 07/21/21
--- OUTSIDE RECORDS SUMMARY | 2024-10-13 10:44 | XMS_ITS | Encounter Summary ---
Author Organization [facility] Address [address] [place] [address] Phone Care Team Providers Care Optometric Technician Name Role Phone Danika Arriaga MD Primary Care Provider [phone] Encounter Details Date Type Department Care Team (Late st Contact Info) Description 07/21/2021 Telephone [facility] [address] [place] [address] Gisell Jenkins Social History Tobacco [...] on filedocumented in this encounter Care Teams Optometric Technician Relationship Specialty Start Date End Date Danika Arriaga MD [address] [place], [place] PCP - General Internal Medicine 07/21/21 documented as of this encounter
[2024-10-13 11:17] LABS: Anion Gap 14 (12-20); Blood Urea Nitrogen 23 mg/dL (9-16); Carbon Dioxide 30 mmol/L (22-29); Chloride 103 mmol/L (96-108); Estimated Glomerular Filt Rate > 60; Potassium 4.4 mmol/L (3.3-5.1); Sodium 143 mmol/L (135-145)
[2024-10-13 11:32] LABS: Thyroid Stimulating Hormone 2.84 uIU/mL (0.32-4.0)
== END 2024-10-13 09:55 | disposition home or self-care (01) ==
LOC: HO.LAB 09:54
PROVIDERS: Absent Provider Internal Medicine; PCP Internal Medicine; Visit Provider Internal Medicine Nephrology
DX: I10 Essential (primary) hypertension (principal); E03.9 Hypothyroidism, unspecified
CPT/HCPCS: 36415; 80051; 82565; 84443; 84520

== ENCOUNTER 2024-10-16 13:20 | Outpatient (AMB) | payer OTHER, SELFPAY ==
--- NOTE | 2024-10-16 13:36 | A.OFFPC_ITS ---
Vital Signs 10/16/24 13:40 Height 5 ft 3 in Weight 227 lb BMI 40.2 BP 130/80 Blood Pressure Location Lt brachial Position Sitting Intake Visit Reasons: dm Intake Note: Patient here for a follow up DM Passenger Elevator Operator Required: Yes Passenger Elevator Operator Language: Production Coordinator Name: Danika Rainey MD Information Interpreted: non-clinical & clinical Accompanied by: Self / Same As Patient Allergies No Known Allergies Allergy (Verified 10/16/24 14:02) Medication List - Last Reconciled 10/16/24 by Danika Rainey MD acetaminophen 650 mg (2 x 325 mg) PO Q6H PRN 30 days amlodipine 10 mg PO DAILY 90 days aspirin (Adult Aspirin Regimen) 81 mg PO DAILY 90 days atorvastatin 80 mg PO BEDTIME 90 days benazepril 10 mg PO DAILY bisacodyl (Laxative (bisacodyl)) 10 mg (2 x 5 mg) PO DAILY PRN 90 days bisacodyl (Laxative (bisacodyl)) 10 mg (2 x 5 mg) PO DAILY PRN 30 days blood pressure monitor As directed blood sugar diagnostic ([employer] Verio test strips) test blood sugar once a day blood-glucose meter ([employer] Verio Meter) As directed once a day chlorthalidone 25 mg PO DAILY 90 days famotidine 20 mg PO BEDTIME fluticasone propionate 110 mcg/actuation (Flovent HFA) 1 puff inhalation BID furosemide 20 mg PO DAILY 14 days hydralazine 10 mg PO TID 30 days incontinence pad, liner, disp Use 2 pads per day lancets (PassHatTouch Delica Lancets) Use 1 lancet once a day levothyroxine (Synthroid) 137 mcg PO DAILY 90 days lidocaine 5% leave on most painful area for up to 12 hrs topical lidocaine HCl 4% (Theraworx Pain Relief) 1 ea topical BID PRN [Medical compression stockings - 10-15mmHg compression As directed] metformin 1,000 mg PO BID 30 days metoprolol succinate ER 50 mg PO DAILY 90 days naloxone 4 mg/actuation (Narcan) 4 mg intranasal Q2M PRN pentoxifylline ER 400 mg PO DAILY tirzepatide (Mounjaro) 2.5 mg (0.5 mL) subcut QWEEK 4 weeks tramadol 50 mg PO BID PRN 15 days triamcinolone acetonide 0.1% 1 appl topical DAILY 30 days underpads (Bed Underpads) As directed Ventolin HFA 90 mcg/actuation (albuterol sulfate) 1 inh inhalation QID PRN 30 days NS [wipes As directed] Tobacco use date assessed: 06/16/24 Fall risk assessment: No Falls in past year Last assessed Fall Risk: 10/16/24 Dental Screening Dental Screen Date: 10/16/24 Did you have a dental visit in the last 12 months?: Yes Did you have a dental problem in the last 6 months where you did not have access to dental care?: No Was dental information given to patient?: Patient has dentist HPI HPI Comments History of Present Illness Details The patient is a 69-year-old female presenting with multiple chronic conditions requiring ongoing management. Her Type 2 Diabetes Mellitus is reflect ed by an elevated Hemoglobin A1c of 7.6%, indicating suboptimal glycemic control. The patient has concomitant hypertension and hyperlipidemia, which are being monitored and managed with various medications, some of which need adjustment due to side effects. She is also morbidly obese with a BMI of 40.2 and was advised to diet and exercise to reach BMI goal less than 30. The patient's hypothyroidism is reportedly stable with appropriate thyroid function tests. However, she experiences exacerbated edema potentially linked to amlodipine, necessitating a review and adjustment of her antihypertensive regimen. She is also undergoing pain management for sacroiliitis, which causes significant discomfort when standing, and is somewhat alleviated by sitting. [facility] Medical History (Updated 10/16/24 @ 14:40 by Danika Rainey MD) Morbid obesity with BMI of 40.0-44.9, adult Essential hypertension Osteoarthritis of right knee Class 2 severe obesity with serious comorbidity and body mass index (BMI) of 38.0 to 38.9 in adult Hypothyroid Right foot pain Left shoulder pain Hospital discharge follow-up Right sided sciatica Dyslipidemia Hyperparathyroidism Post-menopausal Screening for breast cancer Right foot pain Right knee pain Vitamin D deficiency Obesity due to excess calories Degenerative arthritis Cough High cholesterol Diabetes [id number] condition Back pain Peripheral vascular disease Hypothyroidism Hypercholesterolemia Hypertension Diabetic peripheral vascular disorder Diabetes Surgical History Tubal ligation status History of esophagogastroduodenoscopy (EGD) (~2013) Hx of colonoscopy History of H/O right knee surgery History of thyroid surgery Family History Father Hypertension Mother No problems noted. Social History Household Members: Spouse Housing: House Are you a primary transitional care nurse to a significant other at home: No Do you presently have visiting nurse or other home services: No Alcohol intake: never Patient Tobacco Use Status: Never used Tobacco e-Cigarette/Vaping Use: Never Used Second Hand Smoke Exposure: No service: No Current occupational status: unemployed Cognitive needs: Yes Hearing needs: No Vision needs: Yes (Glasses) Female Reproductive History Menstrual Age of Menarche: 14 Questionnaire PHQ-9 Over the last 2 weeks, how often have you been bothered by any of the following problems? 1. Little interest or pleasure in doing things: not at all 2. Feeling down, depressed, or hopeless: not at all 3. Trouble falling or staying asleep, or sleeping too much: not at all 4. Feeling tired or having little energy: not at all 5. Poor appetite or overeating: not at all 6. Feeling bad about yourself - or that you are a failure or have let yourself or your family down: not at all 7. Trouble concentrating on things, such as reading the newspaper or watching television: not at all 8. Moving or speaking so slowly that other people could have noticed. Or the opposite - being so fidgety or restless that you have been moving around a lot more than usual: not at all 9. Thoughts that you would be better off or of hurting yourself in some wa y: not at all Total score: 0 Depression Screening Interpretation: Negative Depression Screening Done: Yes 60606 - PHQ-9 Billing: Yes Source: Developed by Drs. Denzel Cormier, Tara Guevara, Trent Ramirez and colleagues, with an educational ellis from [employer]. Thrive Questionnaire Date Thrive assessed: 10/16/24 I am a: Patient What is your living situation today?: I have a steady place to live Within the past 12 months, did the food you bought not last and you didn't have the money to get more?: I choose not to answer this question Within the past 12 months, did you worry whether your food would run out before you got money to buy more?: I choose not to answer this question Do you have trouble paying for medicines?: I choose not to answer this question Do you have trouble getting transportation to medical appointments?: I choose not to answer this question Do you have trouble paying your heating and electricity bill?: I choose not to answer this question Do you have trouble taking care of your child, family member or friend?: I choose not to answer this question Do you have trouble with day-to-day activities such as bathing, preparing meals, shopping, managing finances, etc.?: Yes Are you currently unemployed and looking for a job?: I choose not to answer this question Are you interested in more education?: I choose not to answer this question Please select the resources that you would like help with: None Currently or been in a relationship where the following occur: No concerns reported THRIVE Score: 0 AUDIT C Alcohol Use Questionnaire (AUDIT-C) 1. How often do you have a drink containing alcohol?: Never Total Score: 0 Score Reviewed/Action Taken: No NATALIE-7 AMB Questionnaire NATALIE-7 Date NATALIE - 7 assessed: 10/16/24 Feeling nervous, anxious, or on edge: 0 = Not at all Not being able to stop or control worryin = Not at all Worrying too much about different things: 0 = Not at all Trouble relaxin = Not at all Being so restless that it is hard to sit still: 0 = Not at all Becoming easily annoyed or irritable: 0 = Not at all Feeling afraid as if something awful might happen: 0 = Not at all Total NATALIE-7 score (0-4 normal; 5-9 mild; 10-14 moderate; 15-21 severe): 0 Source: Developed by Drs. Denzel Cormier, Tara Guevara, Trent Ramirez and colleagues, with an educational ellis from [employer]. NATALIE-7 Assessment Billing NATALIE-7 Assessment Tool: NATALIE-7 Assessment 80542 Review of Systems Const All systems reviewed & are unremarkable except as noted in HPI and below Card Denies chest pain at rest, Denies chest pain with activity, Denies edema, Denies irregular heart rhythm, Denies claudication, Denies dyspnea, Denies dyspnea on exertion, Denies orthopnea, Denies paroxysmal nocturnal dyspnea and Denies slow heart rate Resp Denies cough, Denies dyspnea and Denies dyspnea on exertion GI Denies abdominal pain, Denies change in bowel habits, Denies excessive flatus, Denies nausea and Denies vomiting Physical exam (Primary Care) Vital Signs: Last Vital Signs BP 130/80 10/16/24 13:40 BMI result Body Mass Index 40.2 BMI Assessment/Plan discussion: High BMI High, discussed plan: lifestyle, weight reduction, dietary and physical activity Tobacco/Smoking Status: Tobacco use Status Tobacco use date assessed 06/16/24 10/16/24 13:38 Patient Tobacco Use Status Never used Tobacco 10/16/24 13:38 Tobacco use type 09/25/24 10:24 e-Cigarette/Vaping Use Never Used 10/16/24 13:38 PHQ-9: PHQ-9 Score PHQ-9: Total score 0 10/16/24 14:09 Depression Screening Interpretation: Negative Thrive Assessment: Date of Thrive Assessment Date Thrive assessed 10/16/24 10/16/24 13:38 Currently or been in a relationship where the following occur: No concerns reported Resp Effort & Inspection: normal respiratory effort Auscultation: clear to auscultation bilaterally Cardio Jugular venous distension: no JVD Rate: regular rate Rhythm: regular rhythm Heart sounds: S1 normal heart sound present and S2 normal heart sound present Neuro General: no focal motor deficits Extrem General: Yes full ROM Results AMB Hemoglobin A1c AMB Hemoglobin A1c 7.6 % Last Edit by LEONEL Mattson on 10/16/24 13:4 8 Results Reviewed Results Reviewed: Laboratory Last Values Hgb A1c (Clinic) 7.6 % (4.0-6.0) H 10/16/24 13:36 Coding Level of Care Code Est Pt Level 4 (87275) Complex EM visit Add On G2211 Diagnoses Type 2 diabetes mellitus without complication, without long-term current use of insulin E11.9 Essential hypertension I10 Hyperlipidemia LDL goal <70 E78.5 Sacroiliitis M46.1 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 Hypothyroidism type: postoperative Morbid obesity with BMI of 40.0-44.9, adult E66.01; Z68.41 Additional Codes NATALIE-7 Assessment Billing - NATALIE-7 Assessment Tool: NATALIE-7 Assessment 59242 ([id number]) PHQ-9 - 87029 - PHQ-9 Billing: Yes ([id number]) Time Spent (min) 23 Assessment & Plan Assessment & Plan (1) Type 2 diabetes mellitus without complication, without long-term current use of insulin: Code(s): E11.9 - Type 2 diabetes mellitus without complications Category: Medical (2) Essential hypertension: Code(s): I10 - Essential (primary) hypertension Category: Medical (3) Hyperlipidemia LDL goal <70: Code(s): E78.5 - Hyperlipidemia, unspecified Category: Medical (4) Sacroiliitis: Code(s): M46.1 - Sacroiliitis, not elsewhere classified Category: Medical (5) Hypothyroidism: Code(s): E03.9 - Hypothyroidism, unspecified Category: Medical Qualifiers: Hypothyroidism type: postoperative Qualified Code(s): E89.0 - Postprocedural hypothyroidism (6) Morbid obesity with BMI of 40.0-44.9, adult: Code(s): E66.01 - Morbid (severe) obesity due to excess calories; Z68.41 - Body mass index [BMI] 40.0-44.9, adult Category: Medical Plan I am focusing on optimizing the management of the patient's chronic conditions during this visit. For her diabetes, we are increasing the Mounjaro dosage to 5 mg due to the elevated A1c. We will discontinue amlodipine, increasing benazepril to address hypertension without exacerbating edema. Her levothyroxine regimen is continued as is, with thyroid function stable. Atorvastatin remains prescribed for hyperlipidemia, and tramadol is used for managing sacroiliitis- related pain. Follow-up labs in four months will assist in ongoing condition assessment. Patient was informed and verbally consented to the use of an ambient scribe for clinic note documentation during this visit. I discussed with the patient our plans to manage Type 2 Diabetes Mellitus, hypertension, and related medication side effects. We addressed the elevation in her Hemoglobin A1c and agreed on increasing the Mounjaro dosage. Switching her hypertension medication by removing amlodipine and increasing benazepril was detailed, including the potential risks and benefits regarding edema management. The patient agreed to continue routine checks for diabetes and thyroid function and understood the rationale for medication changes. A follow-up in four months for fasting laboratory tests was advised for comprehensive evaluation. Orders: Orders AMB Hemoglobin A1c Today E11.9 - Type 2 diabetes mellitus without complications Microalbumin, Random (w Creat) 4 Months R80.9 - Proteinuria, unspecified Lipid Panel 4 Months E78.5 - Hyperlipidemia, unspecified Comprehensive [place]. Panel Fast 4 Months M46.1 - Sacroiliitis, not elsewhere classified Medications: New tirzepatide (Mounjaro) 5 mg (0.5 mL) subcut QWEEK 2 mL 0RF 4 weeks E11.9 - Type 2 diabetes mellitus without complications benazepril 20 mg PO DAILY 90 tabs 1RF 90 days Refilled levothyroxine (Synthroid) 137 mcg PO DAILY 90 tabs 0RF 90 days E03.9 - Hypothyroidism, unspecified Discontinued benazepril Discontinued Reason: Patient Completed Course 10 mg PO DAILY 90 tabs 1RF I10 - Essential (primary) hypertension amlodipine Discontinued Reason: Patient Completed Course 10 mg PO DAILY 90 days 90 tabs 1RF I10 - Essential (primary) hypertension tirzepatide (Mounjaro) for 4 weeks Discontinued Reason: Patient Completed Course 2.5 mg (0.5 mL) subcut QWEEK 4 weeks 2 mL 0RF E11.9 - Type 2 diabetes mellitus without complications Patient Instructions: - Continue your current thyroid, cholesterol, and heartburn medications. - Adjust Mounjaro dosage to 5 mg as discussed. - Discontinue amlodipine and begin the increased dosage of benazepril. - Monitor blood pressure regularly at home. - Follow-up for lab tests in four months. - Continue monitoring pain levels with tramadol as prescribed. - Report any new symptoms, especially increased swelling or uncontrolled pain.
[2024-10-16 13:40] VITALS: BP 130/80; BMI 40.2
--- OUTSIDE RECORDS SUMMARY | 2024-10-16 14:47 | XMS_ITS | Encounter Summary ---
Author Organization [facility] Address [address] [place] [address] Phone Care Team Providers Care Ecmo Specialist Name Role Phone Danika Arriaga MD Primary Care Provider [phone] Encounter Details Date Type Department Care Team (Late st Contact Info) Description 07/21/2021 Telephone [facility] [address] [place] [address] Gisell Jenkins Social History Tobacco [...] on filedocumented in this encounter Care Teams Ecmo Specialist Relationship Specialty Start Date End Date Danika Arriaga MD [address] [place], [place] PCP - General Internal Medicine 07/21/21 documented as of this encounter
--- OUTSIDE RECORDS SUMMARY | 2024-10-16 14:47 | XMS_ITS | Clinical Summary ---
Author Organization [facility] Address [address] [place] [address] Phone Care Team Providers Care Manager Online Name Role Phone Danika Arriaga MD Primary Care Provider [phone] Allergies No known active allergies Medications amLODIPine [...] patient's age to complete this topic Insurance [facility] MCR ([id number]) [place]E KIM [id number] [facility] MCR ([id number]) [place] KIM [id number] Care Teams Manager Online Relationship Specialty Start Date End Date Danika Arriaga MD [address] [place] [address] PCP - General Internal Medicine 07/21/21
== END 2024-10-16 14:15 | disposition home or self-care (01) ==
LOC: HO.HMCH 13:21
PROVIDERS: PCP Internal Medicine; Visit Provider Internal Medicine
DX: E11.69 Type 2 diabetes mellitus with other specified complication (principal); I10 Essential (primary) hypertension; E66.01 Morbid (severe) obesity due to excess calories; Z68.41 Body mass index [BMI] 40.0-44.9, adult; E78.5 Hyperlipidemia, unspecified; M46.1 Sacroiliitis, not elsewhere classified; E89.0 Postprocedural hypothyroidism

== ENCOUNTER → 2024-10-16 13:20 | Outpatient (BNVA) | payer OTHER, SELFPAY | PROVIDERS: PCP Internal Medicine; Visit Provider Internal Medicine | DX: E11.9 Type 2 diabetes mellitus without complications (principal); I10 Essential (primary) hypertension; E78.5 Hyperlipidemia, unspecified; M46.1 Sacroiliitis, not elsewhere classified; E89.0 Postprocedural hypothyroidism; E66.01 Morbid (severe) obesity due to excess calories; Z68.41 Body mass index [BMI] 40.0-44.9, adult | CPT/HCPCS: 83036; 96127; 99212 ==

== ENCOUNTER 2024-11-07 12:46 | Outpatient (AMB) | payer OTHER, SELFPAY ==
--- NOTE | 2024-11-07 12:49 | MHC.OFFVIS ---
Vital Signs 11/07/24 12:58 Height 5 ft 3 in Weight 226 lb BMI 40.0 BP 138/82 Blood Pressure Location Rt brachial Position Sitting Pulse 84 Pulse Source Pulse Oximeter Pulse Oximetry (%) 99 Oxygen Delivery Method Room Air Intake Visit Reasons: FU patient req/pain increasing Intake Note: Pain today 02/21 Biology Instructor Required: Yes Biology Instructor Language: Information Technology Internship Services: Biology Instructor Present Biology Instructor Name: Anne-Marie # [id number] Information Interpreted: non-clinical & clinical Accompanied by: Self / Same As Patient Allergies No Known Allergies Allergy (Verified 11/07/24 12:59) HPI Comments Details: The patient is a 69-year-old female presenting with chronic bilateral lower back pain with radiculopathy. Her pain became initially apparent before a fall, and has since remained significant, negatively impacting her daily activities including standing and home activities, especially cooking. The pain improved briefly with a right sided SIJ injection but has returned with significant bilateral lower back involvement, yet predominantly affects the right side. Radiating from the lower back to her legs, it does not involve her groin or pelvis. Patient reports back pain spreads across her waistline and sacral areas, worse on the right and shoots down into her lateral lower hip and anterior thighs and lateral lower legs bilaterally, worse on the right with associates numbness, tingling and RLE weakness. Additionally, the patient experiences pain in her left shoulder and wrist, previously seen by Orthopedics with a normal x-ray for the shoulder. She plans to follow up with Orthopedics for this. Currently she is wearing left wrist brace. - Pain onset: Chronic, prior to July; intensified following a fall. - Quality: Persistent, bilateral lower back and right sacroiliac region; challenging standing and performing daily activities. - Location and radiation: Lower back, predominantly right sacroiliac joint, radiates to both legs in L4-L5 distribution. - Exacerbating factors: Standing, cooking, inability to turn while sleeping. - Relieving factors: Temporary post-injection relief for up to 2 weeks. - Affect: Pain leading to severe functional impairment, impacting ability to stand, cook, and sleep. - Analgesia: Previously managed with an injection, currently using Tylenol and tramadol with limited effectiveness. - Adverse Effects: Patient reports gabapentin adversely affects her stomach and oxycodone was more effective previously. - Activities of Daily Living: Severely impacted, unable to rise independently, cook, or sleep comfortably. - Aberrant Drug Related Behaviors: No indication of medication misuse, patient consumes prescribed analgesics responsibly. PRIOR: Patient presents today to assess response to Right Therapeutic SIJ injection on 07/04/[address] Donis. Patient reports ongoing 80% pain relief since procedure with significant improvement in her daily functioning, mobility, sleep and better social interactions. We also reviewed today neuromodulation with Curonix PNS trial vs implant, SI fusion and RFA procedures. Denies any recent cough, cold, infection, fever or any significant changes in medical history since last office visit except that she fell on ice yesterday and fell on her left side. She presents with wrist brace on the left side with minimal tenderness and mild swelling along lateral border of left wrist. She denies any weakness, numbness or tingling and has full range of motion of her left wrist, fingers and thumb. She requests xray of her left arm. Past Procedures: 07/04/24: Right Therapeutic SIJ injection-80% ongoing pain relief 01/04/24: Right Diagnostic SIJ injection-80% >12 hours PRIOR: Patient is 68 years old female with history of arthritis, diabetes (A1C-7.6 on 08/30/23), right sided sciatica, right TKA (2022), recent parathyroidectomy (09/01/23) presents today for initial evaluation of chronic low back pain. Denies any recent trauma, injury or falls. Back pain is axial and also radiates into her right lower extremity posterolaterally with numbness and tingling in her right foot. Occasionally pain will radiate to left leg as well with heavy and numbness sensations. She also has significant exacerbation of back pain with lumbar flexion indicating a discogenic source. Pain affects her daily functioning, mobility, sleep, mood and social interactions. Patient has tried physical therapy in the past with partial benefit but currently is not able to pursue PT due to significant pain. Denies any fever, abdominal or groin pain, foot drop, bladder or bowel dysfunction or saddle anesthesia. Reports intermittent RLE weakness with walking, uses cane. Location Lower back radiates down bilateral legs, worse on the right Duration Chronic pain, worsening for > 1 year Characteristics of symptom or complaint Aching, burning, tingling, tiring, cramping, numbness, throbbing Aggravating or associated factors Walking, standing, bending forward, extending backwards, cold weather Relieving factors Sitting, Tylenol, activity modifications, heat therapy, topical application Treatment PT back 2021, helped, right knee-02/2023 [facility] Medical History Morbid obesity with BMI of 40.0-44.9, adult Essential hypertension Osteoarthritis of right knee Class 2 severe obesity with serious comorbidity and body mass index (BMI) of 38.0 to 38.9 in adult Hypothyroid Right foot pain Left shoulder pain Hospital discharge follow-up Right sided sciatica Dyslipidemia Hyperparathyroidism Post-menopausal Screening for breast cancer Right foot pain Right knee pain Vitamin D deficiency Obesity due to excess calories Degenerative arthritis Cough High cholesterol Diabetes 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 Social History Household Members: Spouse Housing: House Are you a primary director medicare sales to a significant other at home: No Do you presently have visiting nurse or other home services: No Alcohol intake: never Patient Tobacco Use Status: Never used Tobacco e-Cigarette/Vaping Use: Never Used Second Hand Smoke Exposure: No service: No Current occupational status: unemployed Cognitive needs: Yes Hearing needs: No Vision needs: Yes (Glasses) Female Reproductive History Menstrual Age of Menarche: 14 Review of Systems Const All systems reviewed & are unremarkable except as noted in HPI and below Physical Exam General: Appears afebrile. Alert and oriented. Mood and affect appropriate. Follows and participates in conversation appropriately. Respiratory effort is unlabored. No cough. Able to transition from sit to stand unassisted. Reports using cane at home. Ambulates with bilaterally normal heel strike and toe off, moderate difficulty on the right due to pain with changing positions from sitting to standing. General: Yes no CVA tenderness Back/Spine/Pelvis Other: Limited lumbar ROM due to pain. Antalgic gait, no limping. Lumbar extension and flexion reproduce moderate pain. Positive facet loading bilaterally. Strength 5/5 left and 4/5 right hip flexion. Diminished DTRs bilaterally. MICHAEL test reproduces lateral right hip and right lower back pain. +Mild TTP in projection of right SIJ. +Anshul?s, Stinchfield, Pelvic Compression test positive on the right. Back: no CVA tenderness Cervical Spine: cervical ROM normal, cervical muscular tenderness and No Cervical spine tenderness Thoracic/Lumbar Spine: thoracic and lumbar spine normal to inspection, No Thoracic/lumbar spine scar(s), Lasegue's sign positive bilateral, diffuse (left) and localized (right), pain with thoraco-lumbar ROM, paraspinal muscle tenderness on the right greater than left, thoraco-lumbar ROM limited, No thoracic spinal tenderness and lumbar spinal tenderness Pelvis: buttock tenderness (upper) on the right and no sciatic notch tenderness Sacroiliac joints: bilaterally (right>left) tender to palpation Extrem General: Yes capillary refill normal, Yes no calf tenderness, No cyanosis and Yes pedal edema (nonpitting, bilateral) Results Reviewed Results Reviewed: MR SPINE LUMBAR without CONTRAST 09/23/23 at [facility] INDICATION: Lumbar region spondylosis and radiculopathy. Other intervertebral disc degeneration of the lumbar spine. Low back pain. Right hip and right leg pain for six months. No specific injury or trauma. TECHNIQUE: Unenhanced multiplanar, multisequence MR imaging of the lumbar spine. COMPARISON: None Available. FINDINGS: For the purpose of this examination the last well-formed inferior disc space will be labeled as L5-S1. Normal lumbar alignment is demonstrated. Vertebral heights are well maintained. Conus medullaris is unremarkable and terminates at L1. Small T2 and T1 hyperintense rounded lesion involving the anterior and inferior aspect of the T12 vertebral body most likely reflects a hemangioma. Bone marrow signal is otherwise within normal limits, and no suspicious osseous lesion is identified. Paraspinal soft tissues and visualized portions of the abdomen and pelvis are unremarkable. At T12-L1: There is no disc herniation or protrusion. No central canal or neural foraminal stenosis is demonstrated. At L1-2 there is no significant disc herniation or protrusion. No central canal or neural foraminal stenosis is demonstrated. At L2-3, there is a disc bulge associated with a small to moderate-sized broad-based left paracentral and left foraminal disc protrusion. Mild bilateral facet joint hypertrophy with mild ligamentum flavum thickening. These findings result in moderate to severe spinal canal narrowing and moderate bilateral neural foraminal narrowing. At L3-4 there is a mild disc bulge with bilateral facet joint hypertrophy and ligamentum flavum thickening, resulting in mild central canal narrowing. There is mild bilateral neural foraminal narrowing. At L4-5 there is a mild disc bulge with bilateral facet joint hypertrophy and ligamentum flavum thickening. No significant spinal canal or neural foraminal narrowing. At L5-S1 there is no mild disc bulge. No central canal. There is mild bilateral foraminal narrowing. IMPRESSION: 1. Disc bulge with small to moderate-sized broad-based left paracentral and left foraminal disc protrusion at L2-L3 resulting in moderate to severe spinal canal narrowing and moderate bilateral neural foraminal narrowing. 2. Disc bulge at L3-L4 resulting in mild central spinal canal narrowing with mild bilateral neural foraminal narrowing. MM/XR DEXA axial skeleton 02/03/24 IMPRESSION: 1. DIAGNOSIS: Normal bone density based on the lowest T-score value of -1.0 in the femoral neck applying World Health Organization criteria. XR LUMBOSACRAL SPINE WITH OBLIQUES 09/25/21 FINDINGS: Bone alignment is normal. No fracture or dislocation is seen. There is degenerative disc disease of the lower thoracic spine. Disc spaces are otherwise normal. There is lower lumbar spine facet arthritis. IMPRESSION: Lower lumbar spine facet arthritis. Assessment & Plan Assessment & Plan (1) Lumbar spondylosis: Code(s): M47.816 - Spondylosis without myelopathy or radiculopathy, lumbar region Category: Medical (2) Low back pain: Code(s): M54.50 - Low back pain, unspecified Category: Medical (3) Sacroiliac joint pain: Code(s): M53.3 - Sacrococcygeal disorders, not elsewhere classified Category: Medical (4) Lumbar degenerative disc disease: Code(s): M51.36 - Other intervertebral disc degeneration, lumbar region Category: Medical (5) Lumbar spinal stenosis: Code(s): M48.061 - Spinal stenosis, lumbar region without neurogenic claudication Category: Medical (6) Right sided sciatica: Code(s): M54.31 - Sciatica, right side Category: Medical (7) History of recent fall: Code(s): Z91.81 - History of falling Category: Medical Plan The patient's treatment plan includes obtaining an MRI of the lumbar spine before further interventional treatments to assess for neural integrity and compression and follow up on previous MRI findings. Patient encouraged to schedule follow-up with the Orthopedic team for her left shoulder and wrist concerns. Short script provided for oxycodone while patient awaits MRI and further intervantional treatments. Narcan sent with medication. Side effects and precautions. All questions and concerns have been answered and patient agreed with the plan. Follow up for MRI results and sooner as needed. Patient was informed and verbally consented to the use of an ambient scribe for clinic note documentation during this visit. Orders: Orders MR lumbar spine wo con Today M47.816 - Spondylosis without myelopathy or radiculopathy, lumbar region, M48.061 - Spinal stenosis, lumbar region without neurogenic claudication, M51.36 - Other intervertebral disc degeneration, lumbar region, M54.31 - Sciatica, right side, M54.50 - Low back pain, unspecified, Z91.81 - History of falling Medications: New oxycodone Partial Fill upon patient request. 5 mg PO Q8H 7 days PRN 20 tabs 0RF pain (scale score 7-10) M47.816 - Spondylosis without myelopathy or radiculopathy, lumbar region, M48.061 - Spinal stenosis, lumbar region without neurogenic claudication, M51.36 - Other intervertebral disc degeneration, lumbar region, M54.50 - Low back pain, unspecified Refilled naloxone 4 mg/actuation (Narcan) spray 1 dose into ONE nostril; alternate nostrils w each dose until help arrives 4 mg intranasal Q2M PRN 2 ea 0RF opioid overdose Discontinued tramadol Discontinued Reason: Patient Completed Course 50 mg PO BID 15 days PRN 30 tabs 0RF pain M47.816 - Spondylosis without myelopathy or radiculopathy, lumbar region, M51.36 - Other intervertebral disc degeneration, lumbar region, M54.50 - Low back pain, unspecified Coding Level of Care Code Est Pt Level 4 (53779) Complex EM visit Add On G2211 Diagnoses Lumbar spondylosis M47.816 Low back pain M54.50 Sacroiliac joint pain M53.3 Lumbar degenerative disc disease M51.36 Lumbar spinal stenosis M48.061 Right sided sciatica M54.31 History of recent fall Z91.81
--- OUTSIDE RECORDS SUMMARY | 2024-11-07 12:49 | XMS_ITS | Clinical Summary ---
Author Organization [facility] Address [address] [place] [address] Phone Care Team Providers Care Chief Marketing Officer Name Role Phone Danika Arriaga MD Primary Care Provider Allergies No known active allergies Medications amLODIPine [...] patient's age to complete this topic Insurance [facility] MCR ([id number]) [place]E KIM [id number] [facility] MCR ([id number]) [place] KIM [id number] Care Teams Chief Marketing Officer Relationship Specialty Start Date End Date Danika Arriaga MD [address] [place] [address] PCP - General Internal Medicine 07/21/21
[2024-11-07 12:58] VITALS: BP 138/82; PULSE 84; O2SAT 99; BMI 40.0
== END 2024-11-07 13:12 | disposition home or self-care (01) ==
LOC: HO.PMC 12:46
PROVIDERS: PCP Internal Medicine; Visit Provider Nurse Practitioner Family
DX: M47.816 Spondylosis without myelopathy or radiculopathy, lumbar region (principal); M54.50 Low back pain, unspecified; M53.3 Sacrococcygeal disorders, not elsewhere classified; M51.369 Other intervertebral disc degeneration, lumbar region without mention of lumbar back pain or lower extremity pain; M48.061 Spinal stenosis, lumbar region without neurogenic claudication; M54.31 Sciatica, right side; Z91.81 History of falling
CPT/HCPCS: 99214; G2211

== ENCOUNTER → 2024-11-07 12:46 | Outpatient (BNVA) | payer OTHER, SELFPAY | PROVIDERS: PCP Internal Medicine; Visit Provider Nurse Practitioner Family | DX: M47.816 Spondylosis without myelopathy or radiculopathy, lumbar region (principal); M53.3 Sacrococcygeal disorders, not elsewhere classified; M51.360 Other intervertebral disc degeneration, lumbar region with discogenic back pain only; M48.061 Spinal stenosis, lumbar region without neurogenic claudication; M54.31 Sciatica, right side; Z91.81 History of falling | CPT/HCPCS: 99212 ==

== ENCOUNTER 2024-11-26 10:41 | Emergency (ER) | payer OTHER, SELFPAY ==
--- NOTE | ~2024-11-26 | US_ITS ---
CLINICAL HISTORY: calf pain Venous duplex ultrasound left lower extremity Comparison: None Findings: The visualized deep veins are fully compressible with normal Doppler color flow and spectral tracings. No popliteal cyst. IMPRESSION: 1. Negative for left lower extremity deep vein thrombosis. This document has been electronically signed by: Yuliana Martinez MD on 11/26/2024 14:08:17
[2024-11-26 10:47] VITALS: BP 182/91; PULSE 102; RESP 18; TEMP 37; O2SAT 97; BMI 36.2
--- NOTE | 2024-11-26 11:06 | ED_ITS ---
HPI - General Adult General Chief complaint: General Medical Stated complaint: calf pain Time Seen by Provider: 11/26/24 10:59 Source: patient and RN notes reviewed Mode of arrival: ambulatory Limitations: no limitations History of Present Illness ED Provider: Candelaria Goldman PA-C HPI narrative: This is a 69-year-old female, with a past medical history of diabetes, hyperlipidemia, hyperparathyroidism, hypertension, hypothyroidism, who presents emergency department with concerns of left calf pain. Patient denies any recent trauma or injury to her leg. She does report that she has been experiencing low back pain which she is currently being followed by pain management. She recently had an MRI last week, she does not have the results to this. She denies any recent travel, surgery, or hospitalizations. No history of blood clots. She states that the pain worsens with weight-bearing with palpation. She describes the pain as a cramping like sensation. She denies any chest pain or shortness of breath. She denies any urinary or bowel retention or incontinence. No saddle anesthesia. No other complaints or concerns at this time. MD complaint: Left calf pain Onset (ago): week(s) Relieving factors: none Exacerbating factors: none Associated symptoms: denies other symptoms Treatments prior to arrival: none Related Data Previous Rx's ?Medication ?Instructions ?Recorded blood pressure monitor #1 ea 01/06/22 blood-glucose meter (OneTouch #1 ea 01/06/22 Verio Meter) fluticasone propionate 110 1 puff inhalation BID #12 grams 01/06/22 mcg/actuation HFA aerosol inhaler (Flovent HFA) lancets 33 gauge (OneTouch Delica #100 ea 01/06/22 Lancets) blood sugar diagnostic (OneTouch #100 ea 12/12/22 Verio test strips) acetaminophen 325 mg tablet 650 mg (2 x 325 mg) PO Q6H PRN 02/04/23 Pain, Mild (Pain Scale 1-3) 30 days #240 tabs incontinence pad, liner, disp #60 ea 02/10/23 underpads (Bed Underpads) #2 ea 02/10/23 wipes #3 ea 02/10/23 lidocaine 5 % topical patch See Rx Instructions topical 10/19/23 .COMPLEX #30 ea bisacodyl 5 mg tablet (Laxative 10 mg (2 x 5 mg) PO DAILY PRN 12/07/23 (bisacodyl)) Constipation 90 days #90 tabs lidocaine HCl 4 % topical liquid 1 ea topical BID PRN pain #74 mL 03/06/24 roll-on (Theraworx Pain Relief) aspirin 81 mg tablet,delayed 81 mg PO DAILY 90 days #90 tabs 06/16/24 release (Adult Aspirin Regimen) metformin 1,000 mg tablet 1,000 mg PO BID 30 days #60 tabs 06/16/24 metoprolol succinate 50 mg 50 mg PO DAILY 90 days #90 tabs 06/22/24 tablet,extended release 24 hr atorvastatin 80 mg tablet 80 mg PO BEDTIME 90 days #90 tabs 06/28/24 bisacodyl 5 mg tablet,delayed 10 mg (2 x 5 mg) PO DAILY PRN 09/17/24 release (Laxative (bisacodyl)) constipation 30 days #60 tabs Medical compression stockings - #1 ea 09/25/24 10-15mmHg compression furosemide 20 mg tablet 20 mg PO DAILY 14 days #14 tabs 09/25/24 triamcinolone acetonide 0.1 % 1 appl topical DAILY 30 days #30 09/25/24 topical cream grams hydralazine 10 mg tablet 10 mg PO TID 30 days #90 tabs 10/14/24 benazepril 20 mg tablet 20 mg PO DAILY 90 days #90 tabs 10/16/24 levothyroxine 137 mcg tablet 137 mcg PO DAILY 90 days #90 tabs 10/16/24 (Synthroid) chlorthalidone 25 mg tablet 25 mg PO DAILY 90 days #90 tabs 10/26/24 Ventolin HFA 90 mcg/actuation 1 inh inhalation QID PRN shortness 10/27/24 aerosol inhaler (albuterol sulfate) of breath or wheezing 30 days #18 grams naloxone 4 mg/actuation nasal 4 mg intranasal Q2M PRN opioid 11/07/24 spray (Narcan) overdose #2 ea oxycodone 5 mg tablet 5 mg PO Q8H PRN pain (scale score 11/07/24 7-10) 7 days #20 tabs tirzepatide 5 mg/0.5 mL 5 mg (0.5 mL) subcut QWEEK 4 weeks 11/10/24 subcutaneous pen injector #2 mL (Mounjaro) famotidine 20 mg tablet 20 mg PO BEDTIME #90 tabs 11/16/24 pentoxifylline 400 mg 400 mg PO DAILY #90 tabs 11/16/24 tablet,extended release acetaminophen 500 mg tablet 1,000 mg (2 x 500 mg) PO Q8H PRN 11/26/24 (Tylenol Extra Strength) pain #30 tabs cyclobenzaprine 5 mg tablet 5 mg PO TID PRN muscle spasm #14 11/26/24 tabs ibuprofen 600 mg tablet 600 mg PO Q6H PRN pain #30 tabs 11/26/24 Allergies Allergy/AdvReac Type Severity Reaction Status Date / Time No Known Allergies Allergy Verified 11/26/24 10:54 Review of Systems 2 Review of Systems: Yes all other systems are reviewed and are negative Constitutional: Constitutional: Reports as per [facility] Past Medical History Medical History Morbid obesity with BMI of 40.0-44.9, adult Essential hypertension Osteoarthritis of right knee Class 2 severe obesity with serious comorbidity and body mass index (BMI) of 38.0 to 38.9 in adult Hypothyroid Right foot pain Left shoulder pain Hospital discharge follow-up Right sided sciatica Dyslipidemia Hyperparathyroidism Post-menopausal Screening for breast cancer Right foot pain Right knee pain Vitamin D deficiency Obesity due to excess calories Degenerative arthritis Cough High cholesterol Diabetes 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 Social History Social History Household Members: Spouse Housing: House Are you a primary childcare teacher to a significant other at home: No Do you presently have visiting nurse or other home services: No Alcohol intake: never Patient Tobacco Use Status: Never used Tobacco e-Cigarette/Vaping Use: Never Used Second Hand Smoke Exposure: No service: No Current occupational status: unemployed Cognitive needs: Yes Hearing needs: No Vision needs: Yes (Glasses) Physical Exam ED Vital Signs: Vital Signs - 24 hr 11/26/24 10:47 11/26/24 13:14 11/26/24 15:29 Temperature 98.6 F 98.1 F 98.0 F Pulse Rate 102 H 76 96 Respiratory Rate 18 18 18 Blood Pressure 182/91 H 174/92 H 177/88 H Pulse Oximetry 97 98 98 Oxygen Delivery Method Room Air Room Air Room Air BMI result Body Mass Index 36.2 Const General: cooperative, comfortable and no acute distress Orientation/consciousness: patient oriented x3 Limitations: no limitations HENMT Head: Yes normal to inspection, Yes normocephalic and Yes atraumatic Ears: hearing grossly normal bilaterally General nose exam: Normal external nose present Face and sinus: Yes normal facial exam Mouth: Normal oral and palatal mucosa present, oropharynx normal and moist mucous membranes Throat: Yes posterior oropharynx normal Eyes General: appearance normal, both eyes and all related structures Eyelids: Yes eyelids normal Conjunctivae: conjunctivae normal Sclerae: sclerae normal Pupils: Equal, round and reactive pupils present EOM: EOMs intact bilaterally Neck Neck: Yes normal visual inspection, Yes full ROM and Yes no lymphadenopathy Lymphatic: no lymphadenopathy noted Chest Chest palpation & inspection: normal inspection of the chest Resp Effort & Inspection: normal respiratory effort and able to speak in complete sentences Auscultation: clear to auscultation bilaterally, no crackles, no rales, no rhonchi and no wheezes Cardio Rate: regular rate Rhythm: regular rhythm Heart sounds: S1 normal heart sound present and S2 normal heart sound present GI Inspection: Yes normal to inspection Back/Spine/Pelvis Other: Patient has tenderness palpation along the left SI joint extending into the left buttocks and down the left leg. No overlying skin changes or rashes. Patient is ambulatory Skin General skin exam: no rashes or lesions noted Trauma: no lacerations or abrasions Wounds: no wounds Neuro General: patient oriented x3 and moves all extremities Cranial nerves: Yes Equal, round and reactive pupils present Extrem Other: Left lower extremity is well perfused, strong DP pulse. She does have tenderness palpation along the left calf, no palpable cords present. No overlying skin changes or erythema. General: Yes normal to inspection Right upper extremity: normal to inspection Left upper extremity: normal to inspection Right lower extremity: normal to inspection Left lower extremity: normal to inspection Medications Administered Discontinued Medications Generic Name Dose Route Start Last Admin Trade Name Nino PRN Reason Stop Dose Admin Acetaminophen 975 mg 11/26/24 12:03 11/26/24 12:19 Acetaminophen 325 Mg Tablet PO 11/26/24 12:04 975 mg ONCE ONE Administration Medical Decision Making Medical Decision Making [facility] Narrative: This is a 69-year-old female, with a past medical history of diabetes, hyperlipidemia, hyperparathyroidism, hypertension, hypothyroidism, who presents emergency department with concerns of left calf pain. On arrival, patient tachycardic at 102bpm, blood pressure elevated 182/91. Patient with tenderness palpation along the left calf, no pedal edema noted. She also has been experiencing low back pain with radiation down her left leg. Differential diagnoses include lumbar radiculopathy, DVT, muscle strain, electrolyte derangement. Will obtain basic labs to rule out any electrolyte derangement. Will also order ultrasound to rule out DVT. She has no red flag back symptoms. No back pain red flags on history or physical. Presentation not consistent with malignancy (lack of history of malignancy, lack of B symptoms), fracture (no trauma, no bony tenderness to palpation), cauda equina syndrome (no bowel or urinary incontinence/retention, no saddle anesthesia, no distal weakness), renal colic, pyelonephritis (afebrile, no CVAT, no urinary symptoms). >> ultrasound negative for DVT. Symptoms consistent with lumbar radiculopathy. She is a diabetic therefore resistant to start on steroids. Will treat conservatively with ibuprofen, Tylenol, and muscle relaxants. 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 Given strict return precautions. Patient stable for discharge. Differential Diagnosis Differential Diagnoses: The differential diagnosis associated with the presentation includes See above Admission/Observation Consideration of admission/observation: Escalation of care including admission/observation considered Lab Data [facility] Lab Attestation statement: I reviewed the patient's lab results. No leukocytosis, stable H&H, chemistry revealing no significant electrolyte derangement. 11/26/24 12:18 11/26/24 12:18 Labs: Lab Results 11/26/24 Range/Units 12:18 WBC 8.7 (4.8-10.8) X10*3/uL RBC 4.13 L (4.20-5.50) X10*6/uL Hgb 12.4 (12.0-16.0) g/dl Hct 36.9 L (37.0-47.0) % MCV 89.3 (80.0-98.0) fL MCH 30.0 (27.0-33.0) pg MCHC 33.6 (31.0-35.0) g/dl RDW 14.4 (11.0-16.0) % Plt Count 283 (160-400) X10*3/uL MPV 8.5 L (9.4-12.3) fL Immature Gran % (Auto) 0.2 (0.0-0.4) % Neut % (Auto) 67.7 (45-73) % Lymph % (Auto) 23.7 (20-40) % [place] % (Auto) 6.7 (2-11) % Eos % (Auto) 1.1 (0-4) % Baso % (Auto) 0.6 (0-2) % Lymph # (Auto) 2.1 (1.2-4.9) X10*3/uL [place] # (Auto) 0.6 (0.1-1.2) X10*3/uL Eos # (Auto) 0.1 (0.0-0.4) X10*3/uL Baso # (Auto) 0.1 (0.0-0.2) X10*3/uL Abs Immat Gran (auto) 0.02 (0.00-0.03) X10*3/uL Absolute Neuts (auto) 5.9 (2.0-8.3) x10*3/uL Absolute Nucleated RBC 0.000 (0.0-0.012) X10*3/uL Nucleated RBC % (auto) 0.0 (0.0-0.2) /100WBC Sodium 143 (135-145) mmol/L Potassium 3.6 (3.3-5.1) mmol/L Chloride 105 (96-108) mmol/L Carbon Dioxide 28 (22-29) mmol/L Anion Gap 14 (12-20) BUN 20 H (9-16) mg/dL Creatinine 1.12 (0.5-1.4) mg/dL Estim Creat Clear Calc 58.7 Estimated GFR 49 Random Glucose 116 H (60-115) mg/dL Calcium 8.8 (8.4-10.2) mg/dL Total Bilirubin 0.7 (0.0-1.0) mg/dL AST 16 (5-31) U/L ALT 11 (0-31) U/L Alkaline Phosphatase 63 (39-117) U/L Total Protein 6.7 (6.5-8.0) g/dL Albumin 3.7 (3.5-5.0) g/dL Radiology Impression Discussion of test interpretation with radiology: I have reviewed the radiologist's reading. Radiologist Impression: Findings: The visualized deep veins are fully compressible with normal Doppler color flow and spectral tracings. No popliteal cyst. IMPRESSION: 1. Negative for left lower extremity deep vein thrombosis. This document has been electronically signed by: Yuliana Martinez MD on 11/26/2024 14:08:17 Dictated By: Yuliana Martinez MD Discharge Plan Discharge Clinical Impression: Left lumbar radiculopathy Patient Disposition: Home, Self-Care Instructions: Lumbar Radiculopathy (ED), Lower Back Exercises (ED) Additional Instructions: You were seen in the emergency department due to low back pain, and calf pain. Your symptoms are likely secondary to lumbar radiculopathy. Please take prescribed medication as directed. Alternate between ibuprofen and or Tylenol as needed for pain and symptoms. Use muscle relaxants, Flexeril as needed for muscle spasms. Please be advised that this can cause drowsiness, do not drink alcohol or drive while taking this medication. If any new or worsening symptoms occur including but not limited to worsening pain, loss of bladder or bowel control, please seek emergent care. Prescriptions: New ibuprofen 600 mg tablet 600 mg PO Q6H PRN (Reason: pain) Qty: 30 0RF acetaminophen [Tylenol Extra Strength] 500 mg tablet 1,000 mg PO Q8H PRN (Reason: pain) Qty: 30 0RF cyclobenzaprine 5 mg tablet 5 mg PO TID PRN (Reason: muscle spasm) Qty: 14 0RF No Action (DME) blood pressure monitor Kit See Rx Instructions .Route Qty: 1 0RF Rx Instructions: As directed (DME) blood-glucose meter [OneTouch Verio Meter] Misc See Rx Instructions .ROUTE .MEDSUPPLY Qty: 1 0RF Rx Instructions: As directed once a day Flovent HFA 110 mcg/actuation HFA aerosol inhaler 1 puff inhalation BID Qty: 12 1RF (DME) lancets [OneTouch Delica Lancets] 33 gauge misc See Rx Instructions .Route Qty: 100 3RF Rx Instructions: Use 1 lancet once a day (DME) OneTouch Verio test strips Strip See Rx Instructions .Route Qty: 100 3RF Rx Instructions: test blood sugar once a day (DME) underpads [Bed Underpads] Pad See Rx Instructions .Route Qty: 2 12RF Rx Instructions: As directed (DME) wipes See Rx Instructions .Route .MEDSUPPLY Qty: 3 12RF Rx Instructions: As directed (DME) incontinence pad, liner, disp Pad See Rx Instructions .Route Qty: 60 12RF Rx Instructions: Use 2 pads per day Laxative (bisacodyl) 5 mg tablet 10 mg PO DAILY PRN (Reason: Constipation) 90 Days Qty: 90 1RF metoprolol succinate 50 mg tablet extended release 24 hr 50 mg PO DAILY 90 Days Qty: 90 1RF atorvastatin 80 mg tablet 80 mg PO BEDTIME 90 Days Qty: 90 1RF bisacodyl [Laxative (bisacodyl)] 5 mg tablet,delayed release (DR/EC) 10 mg PO DAILY PRN (Reason: constipation) 30 Days Qty: 60 6RF hydralazine 10 mg tablet 10 mg PO TID 30 Days Qty: 90 1RF chlorthalidone 25 mg tablet 25 mg PO DAILY 90 Days Qty: 90 0RF albuterol sulfate [Ventolin HFA] 90 mcg/actuation HFA aerosol inhaler 1 inh inhalation QID PRN (Reason: shortness of breath or wheezing) 30 Days Qty: 18 1RF Mounjaro 5 mg/0.5 mL pen injector 5 mg subcut QWEEK 28 Days Qty: 2 0RF pentoxifylline 400 mg tablet extended release 400 mg PO DAILY Qty: 90 1RF famotidine 20 mg tablet 20 mg PO BEDTIME Qty: 90 0RF acetaminophen 325 mg Tablet 650 mg PO Q6H PRN (Reason: Pain, Mild (Pain Scale 1-3)) 30 Days Qty: 240 0RF benazepril 20 mg tablet 20 mg PO DAILY 90 Days Qty: 90 1RF levothyroxine [Synthroid] 137 mcg tablet 137 mcg PO DAILY 90 Days Qty: 90 0RF oxycodone 5 mg tablet 5 mg PO Q8H PRN (Reason: pain (scale score 7-10)) 7 Days Qty: 20 0RF Rx Instructions: Partial Fill upon patient request. naloxone [Narcan] 4 mg/actuation spray,non-aerosol 4 mg intranasal Q2M PRN (Reason: opioid overdose) Qty: 2 0RF Rx Instructions: spray 1 dose into ONE nostril; alternate nostrils w each dose until help arrives lidocaine 5 % adhesive patch,medicated See Rx Instructions topical .COMPLEX Qty: 30 0RF Rx Instructions: leave on most painful area for up to 12 hrs topical metformin 1,000 mg tablet 1,000 mg PO BID 30 Days Qty: 60 6RF aspirin [Adult Aspirin Regimen] 81 mg tablet,delayed release (DR/EC) 81 mg PO DAILY 90 Days Qty: 90 3RF lidocaine HCl [Theraworx Pain Relief] 4 % liquid roll-on 1 ea topical BID PRN (Reason: pain) Qty: 74 0RF furosemide 20 mg tablet 20 mg PO DAILY 14 Days Qty: 14 0RF (DME) Medical compression stockings - 10-15mmHg compression See Rx Instructions .Route .MEDSUPPLY Qty: 1 0RF Rx Instructions: As directed triamcinolone acetonide 0.1 % cream 1 appl topical DAILY 30 Days Qty: 30 0RF Interventions: ED Discharge Assessment Last Done: 11/26/24 15:29 Discharge Date/Time: 11/26/24 15:31 Print Language: [place]
[2024-11-26] MEDS: Acetaminophen 325 MG TABLET 975 MG PO (12:19)
[2024-11-26 12:23] LABS: MANUAL DIFF FLAG NO
[2024-11-26 12:24] LABS: Basophils Absolute Auto 0.1 X10*3/uL (0.0-0.2); Basophils Percent Auto 0.6 % (0-2); Eosinophils Absolute Auto 0.1 X10*3/uL (0.0-0.4); Eosinophils Percent Auto 1.1 % (0-4); Hematocrit 36.9 % (37.0-47.0); Hemoglobin 12.4 g/dl (12.0-16.0); Imm Gran Abs Auto 0.02 X10*3/uL (0.00-0.03); Imm Gran Pct Auto 0.2 % (0.0-0.4); Lymphocytes Absolute Auto 2.1 X10*3/uL (1.2-4.9); Lymphocytes Percent Auto 23.7 % (20-40); Mean Corpuscular HGB Conc 33.6 g/dl (31.0-35.0); Mean Corpuscular Volume 89.3 fL (80.0-98.0); Mean Platelet Volume 8.5 fL (9.4-12.3); Monocytes Absolute Auto 0.6 X10*3/uL (0.1-1.2); Monocytes Percent Auto 6.7 % (2-11); Neutrophils Absolute Auto 5.9 x10*3/uL (2.0-8.3); Neutrophils Percent Auto 67.7 % (45-73); Platelet Count 283 X10*3/uL (160-400); Red Blood Count 4.13 X10*6/uL (4.20-5.50); Red Cell Distribution Width 14.4 % (11.0-16.0); White Blood Count 8.7 X10*3/uL (4.8-10.8)
--- NOTE | 2024-11-26 12:27 | PC.NURSE ---
patient a&ox3, vss, patient medicated for 9/10 pain, call chin within reach, plan of care ongoing
[2024-11-26 12:36] LABS: Alanine Aminotransferase 11 U/L (0-31); Albumin Level 3.7 g/dL (3.5-5.0); Alkaline Phosphatase 63 U/L (39-117); Anion Gap 14 (12-20); Aspartate Amino Transferase 16 U/L (5-31); Bilirubin Total 0.7 mg/dL (0.0-1.0); Blood Urea Nitrogen 20 mg/dL (9-16); Calcium 8.8 mg/dL (8.4-10.2); Carbon Dioxide 28 mmol/L (22-29); Chloride 105 mmol/L (96-108); Creatinine Clr Calc Pharmacy 58.7; Estimated Glomerular Filt Rate 49; Glucose Random 116 mg/dL (60-115); Potassium 3.6 mmol/L (3.3-5.1); Sodium 143 mmol/L (135-145); Total Protein 6.7 g/dL (6.5-8.0)
[2024-11-26 13:14] VITALS: BP 174/92; PULSE 76; RESP 18; TEMP 36.7; O2SAT 98
--- NOTE | 2024-11-26 15:28 | PC.NURSE ---
patient a&ox3, vss, pt states her pain reduced to 2/10, ambulating with steady gait, pt to discharge home with and prescriptions.l
[2024-11-26 15:29] VITALS: BP 177/88; PULSE 96; RESP 18; TEMP 36.7; O2SAT 98
== END 2024-11-26 15:31 | disposition home or self-care (01) ==
PROVIDERS: Physician Assistant Medical; Emergency Provider Emergency Medicine; PCP Internal Medicine
DX: M54.16 Radiculopathy, lumbar region (principal); M79.662 Pain in left lower leg; E11.9 Type 2 diabetes mellitus without complications; I10 Essential (primary) hypertension; E78.00 Pure hypercholesterolemia, unspecified; Z79.02 Long term (current) use of antithrombotics/antiplatelets; Z79.899 Other long term (current) drug therapy; Z79.82 Long term (current) use of aspirin
CPT/HCPCS: 36415; 80053; 85025; 93971; 99284

== ENCOUNTER → 2024-11-26 12:03 | Outpatient (BNV) | payer OTHER, SELFPAY | PROVIDERS: Emergency Provider Emergency Medicine; PCP Internal Medicine; Visit Provider Radiology Diagnostic Radiology | DX: M79.662 Pain in left lower leg (principal) | CPT/HCPCS: 93971 ==

== ENCOUNTER 2024-12-04 07:55 | Outpatient (AMB) | payer OTHER, SELFPAY ==
--- OUTSIDE RECORDS SUMMARY | 2024-12-04 08:01 | XMS_ITS | Clinical Summary ---
Author Organization [facility] Address [address] [place] [address] Phone Care Team Providers Care Field Hauler Name Role Phone Danika Arriaga MD Primary Care Provider [phone] Allergies No known active allergies Medications amLODIPine [...] patient's age to complete this topic Insurance [facility] MCR ([id number]) DON[place]E KIM [id number] [facility] MCR ([id number]) DON[place]E KIM [phone] Care Teams Field Hauler Relationship Specialty Start Date End Date Danika Arriaga MD [address] [place] [address] PCP - General Internal Medicine 07/21/21
--- NOTE | 2024-12-04 08:21 | A.OFFVIS_ITS ---
Vital Signs 12/04/24 08:30 Height 5 ft 6 in Weight 219 lb 8 oz BMI 35.4 BP 183/98 H Blood Pressure Location Rt brachial Position Sitting Pulse 91 Pulse Source Pulse Oximeter Pulse Oximetry (%) 98 Oxygen Delivery Method Room Air Intake Visit Reasons: Rayus MRI review Intake Note: Pain today 01/21 Bobbin Handler Required: Yes Bobbin Handler Language: Pediatric Physical Therapist Services: Bobbin Handler Present Bobbin Handler Name: Norm Accompanied by: Self / Same As Patient Allergies No Known Allergies Allergy (Verified 12/04/24 08:31) HPI Comments Details: The patient is a 55-year-old female presenting with chronic back and left leg pain and to discuss recent lumbar spine MRI results. She has a history of multilevel degenerative disc disease and osteophyte formation, contributing to axial low back and discogenic pain and radicular symptoms. The pain primarily affects her lower back and radiates down the left leg posteriorly, wrapping around to the top of her foot with associated shooting, numbness, and tingling sensations. She also reports recently visiting [facility] for left calf pain and leg US was negative for DVT. She does have nonpitting swelling of her left lower extremity which has been resistant to conservative treatments (naproxen, elevations, activity modifications). Bending forward exacerbates her pain, and prolonged sitting increases discomfort. She has undergone procedures, including left L5-S1 transforaminal epidural steroid injections, which provided temporary relief. MRI findings were discussed with patient today, report is noted below. Additionally, the patient has mild hip arthritis, which may contribute to her leg pain. Patient will proceed with left L5-S1 TFESI to address ongoing left sided radicular symptoms. Her recent HbA1c of 7.0, and is actively working on weight loss. She is on medications including baclofen, gabapentin, magnesium, and vitamin B2 for migraine and back management. PRIOR: The patient is a 69-year-old female presenting with chronic bilateral lower back pain with radiculopathy. Her pain became initially apparent before a fall, and has since remained significant, negatively impacting her daily activities including standing and home activities, especially cooking. The pain improved briefly with a right sided SIJ injection but has returned with significant bilateral lower back involvement, yet predominantly affects the right side. Radiating from the lower back to her legs, it does not involve her groin or pelvis. Patient reports back pain spreads across her waistline and sacral areas, worse on the right and shoots down into her lateral lower hip and anterior thighs and lateral lower legs bilaterally, worse on the right with associates numbness, tingling and RLE weakness. Additionally, the patient experiences pain in her left shoulder and wrist, previously seen by Orthopedics with a normal x-ray for the shoulder. She plans to follow up with Orthopedics for this. Currently she is wearing left wrist brace. - Pain onset: Chronic, prior to July; intensified following a fall. - Quality: Persistent, bilateral lower back and right sacroiliac region; challenging standing and performing daily activities. - Location and radiation: Lower back, predominantly right sacroiliac joint, radiates to both legs in L4-L5 distribution. - Exacerbating factors: Standing, cooking, inability to turn while sleeping. - Relieving factors: Temporary post-injection relief for up to 2 weeks. - Affect: Pain leading to severe functional impairment, impacting ability to stand, cook, and sleep. - Analgesia: Previously managed with an injection, currently using Tylenol and tramadol with limited effectiveness. - Adverse Effects: Patient reports gabapentin adversely affects her stomach and oxycodone was more effective previously. - Activities of Daily Living: Severely impacted, unable to rise independently, cook, or sleep comfortably. - Aberrant Drug Related Behaviors: No indication of medication misuse, patient consumes prescribed analgesics responsibly. PRIOR: Patient presents today to assess response to Right Therapeutic SIJ injection on 07/04/[address] Donis. Patient reports ongoing 80% pain relief since procedure with significant improvement in her daily functioning, mobility, sleep and better social interactions. We also reviewed today neuromodulation with Curonix PNS trial vs implant, SI fusion and RFA procedures. Denies any recent cough, cold, infection, fever or any significant changes in medical history since last office visit except that she fell on ice yesterday and fell on her left side. She presents with wrist brace on the left side with minimal tenderness and mild swelling along lateral border of left wrist. She denies any weakness, numbness or tingling and has full range of motion of her left wrist, fingers and thumb. She requests xray of her left arm. Past Procedures: 07/04/24: Right Therapeutic SIJ injection-80% ongoing pain relief 01/04/24: Right Diagnostic SIJ injection-80% >12 hours PRIOR: Patient is 68 years old female with history of arthritis, diabetes (A1C-7.6 on 08/30/23), right sided sciatica, right TKA (2022), recent parathyroidectomy (09/01/23) presents today for initial evaluation of chronic low back pain. Denies any recent trauma, injury or falls. Back pain is axial and also radiates into her right lower extremity posterolaterally with numbness and tingling in her right foot. Occasionally pain will radiate to left leg as well with heavy and numbness sensations. She also has significant exacerbation of back pain with lumbar flexion indicating a discogenic source. Pain affects her daily functioning, mobility, sleep, mood and social interactions. Patient has tried physical therapy in the past with partial benefit but currently is not able to pursue PT due to significant pain. Denies any fever, abdominal or groin pain, foot drop, bladder or bowel dysfunction or saddle anesthesia. Reports intermittent RLE weakness with walking, uses cane. Location Lower back radiates down bilateral legs, worse on the right Duration Chronic pain, worsening for > 1 year Characteristics of symptom or complaint Aching, burning, tingling, tiring, cramping, numbness, throbbing Aggravating or associated factors Walking, standing, bending forward, extending backwards, cold weather Relieving factors Sitting, Tylenol, activity modifications, heat therapy, topical application Treatment PT back 2021, helped, right knee-02/2023 [facility] Medical History Morbid obesity with BMI of 40.0-44.9, adult Essential hypertension Osteoarthritis of right knee Class 2 severe obesity with serious comorbidity and body mass index (BMI) of 38.0 to 38.9 in adult Hypothyroid Right foot pain Left shoulder pain Hospital discharge follow-up Right sided sciatica Dyslipidemia Hyperparathyroidism Post-menopausal Screening for breast cancer Right foot pain Right knee pain Vitamin D deficiency Obesity due to excess calories Degenerative arthritis Cough High cholesterol 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 Social History Household Members: Spouse Housing: House Are you a primary pet caregiver to a significant other at home: No Do you presently have visiting nurse or other home services: No Alcohol intake: never Patient Tobacco Use Status: Never used Tobacco e-Cigarette/Vaping Use: Never Used Second Hand Smoke Exposure: No service: No Current occupational status: unemployed Cognitive needs: Yes Hearing needs: No Vision needs: Yes (Glasses) Female Reproductive History Menstrual Age of Menarche: 14 Review of Systems Const Details: - Musculoskeletal: Reports back pain radiating to the left leg. Reports left calf and lower leg pain with pain and swelling. - Neurological: Denies foot drop, bladder or bowel dysfunction or saddle anesthesia. Reports intermittent instability with LLE due to pain and weakness. - Endocrine: Reports diabetes mellitus, HbA1c of 7.0 All systems reviewed & are unremarkable except as noted in HPI and below Physical Exam Vital Signs: Last Vital Signs Pulse 91 12/04/24 08:30 BP 183/98 H 12/04/24 08:30 Pulse Ox 98 12/04/24 08:30 Oxygen Delivery Method Room Air 12/04/24 08:30 BMI result Body Mass Index 35.4 General: Appears afebrile. Alert and oriented. Mood and affect appropriate. Follows and participates in conversation appropriately. Respiratory effort is unlabored. No cough. Able to transition from sit to stand unassisted. Reports using cane at home. Ambulates with bilaterally normal heel strike and toe off, moderate difficulty on the left due to pain General: Yes no CVA tenderness Back/Spine/Pelvis Other: Limited lumbar ROM due to pain. Antalgic gait, with mild limping. Lumbar extension and flexion forward with bending reproduce moderate pain. Positive facet loading bilaterally. Strength 5/5 hip flexion. Diminished DTRs bilaterally. MICHAEL test reproduces lateral right hip and bilateral lower back pain. +Mild TTP in projection of both SIJ. +Anshul?s, Stinchfield, Pelvic Compression test positive bilaterally, right>left. Back: no CVA tenderness Cervical Spine: cervical ROM normal, cervical muscular tenderness and No Cervical spine tenderness Thoracic/Lumbar Spine: thoracic and lumbar spine normal to inspection, No Thoracic/lumbar spine scar(s), Lasegue's sign positive (left) bilateral and localized (right), pain with thoraco-lumbar ROM, paraspinal muscle tenderness bilaterally, thoraco-lumbar ROM limited, No thoracic spinal tenderness and lumbar spinal tenderness (L3-S1) Pelvis: buttock tenderness on the left and sciatic notch tenderness on the left Sacroiliac joints: bilaterally (right>left) tender to palpation Extrem General: Yes capillary refill normal, Yes no calf tenderness, No cyanosis, Yes edema (LLE nonpitting with pain) and Yes pedal edema (nonpitting, bilateral) Results Reviewed Results Reviewed: MM/XR DEXA axial skeleton 02/03/24 IMPRESSION: 1. DIAGNOSIS: Normal bone density based on the lowest T-score value of -1.0 in the femoral neck applying World Health Organization criteria. XR LUMBOSACRAL SPINE WITH OBLIQUES 09/25/21 FINDINGS: Bone alignment is normal. No fracture or dislocation is seen. There is degenerative disc disease of the lower thoracic spine. Disc spaces are otherwise normal. There is lower lumbar spine facet arthritis. IMPRESSION: Lower lumbar spine facet arthritis. MR LUMBAR SPINE WITHOUT CONTRAST 11/23/24 at [facility] INDICATION: Lumbar spondylosis, spinal stenosis TECHNIQUE: Standard lumbar spine protocol without contrast COMPARISON: Lumbar spine MRI from September 13, 2023 FINDINGS: Vertebral bodies demonstrate normal height and signal intensity. Conus demonstrates normal contour and signal and terminates at T12-L1 level scattered small right-sided renal cysts are present partially characterized on this exam. L1-L2 level shows minor disc bulge without compromise of the canal or foramina. At L2-L3 level, there is shallow central disc protrusion, slightly larger as compared to prior exam, superimposed by ligamental and facet hypertrophy. Mild narrowing of the canal and moderate narrowing of the recesses and foramina is seen, slightly worse since prior exam. L3-L4 level shows left-sided foraminal disc bulge with peripheral annular fissuring. Facet arthrosis is seen with small facet effusions. The canal and recesses are patent. Mild to moderate left-sided foraminal stenosis is present. The right foramen is patent. L4-L5 level shows disc bulge and facet arthrosis, without significant compromise of the canal or foramina. L5-S1 level shows disc bulge and moderate facet arthrosis with small facet effusions. The canal and recesses are patent. Moderate left and mild right-sided foraminal stenosis is present. No significant interval change. IMPRESSION: 1. Worsening changes of lumbar spondylosis at L2-L3 level which shallow central disc protrusion and ligamental hypertrophy, resulting in moderate narrowing of the recesses as discussed. 2. Other changes of lumbar spondylosis at L3-L4 and L5-S1 levels, as detailed at individual levels above. 3. No high-grade central canal stenosis is present at any level. US venous duplex LE LT 11/26/24 CLINICAL HISTORY: calf pain Venous duplex ultrasound left lower extremity Comparison: None Findings: The visualized deep veins are fully compressible with normal Doppler color flow and spectral tracings. No popliteal cyst. IMPRESSION: 1. Negative for left lower extremity deep vein thrombosis. Assessment & Plan Assessment & Plan (1) Pain and swelling of left lower leg: Code(s): M79.662 - Pain in left lower leg; M79.89 - Other specified soft tissue disorders Category: Medical (2) Lumbar degenerative disc disease: Code(s): M51.36 - Other intervertebral disc degeneration, lumbar region Category: Medical (3) Lumbar spondylosis: Code(s): M47.816 - Spondylosis without myelopathy or radiculopathy, lumbar region Category: Medical (4) Low back pain: Code(s): M54.50 - Low back pain, unspecified Category: Medical (5) Sacroiliac joint pain: Code(s): M53.3 - Sacrococcygeal disorders, not elsewhere classified Category: Medical (6) Lumbar radiculopathy: Code(s): M54.16 - Radiculopathy, lumbar region Category: Medical Plan Lumbar spine MRI results were discussed with patient in greater detail today. She wishes to proceed with therapeutic FOREST to address her disabling left sided radiculopathy which affects her daily activities, mobility and sleep. Schedule Left L5-S1 TFESI injection with local and fluoroscopy. Expectations, risks and benefits were reviewed. Patient is aware she will be contacted to schedule this procedure. Most recent A1C=7.6. Normal bone scan on 02/03/24. If the injection does not provide relief, a referral to Neurosurgery will be made for further evaluation and management. The patient is advised to consider the potential benefits and risks of the injection, and if Neurosurgery deems the patient non-surgical, a spinal cord stimulator may be discussed as an alternative option. Vascular Referral to further evaluate left lower extremity swelling and pain. All questions were answered and the patient is in agreement of plan. Follow-up after injections and sooner as needed. Anticoagulation: Patient on anticoagulation (Aspirin) and instructions given on when to pause. Justification for interventional therapy: ? Patient with average pain > 6/10 ? Patient has exhausted conservative therapy The risks, consequences, alternatives, and benefits of various treatment options were discussed with the patient in great detail, including conservative management, injections and procedures. Patient is aware of hyperglycemic effects of steroids. Patient was informed and verbally consented to the use of an ambient scribe for clinic note documentation during this visit. Orders: Referrals Vascular Surgery Referral M79.662 - Pain in left lower leg, M79.89 - Other specified soft tissue disorders Coding Level of Care Code Est Pt Level 4 (49983) Complex EM visit Add On G2211 Diagnoses Pain and swelling of left lower leg M79.662; M79.89 Lumbar degenerative disc disease M51.36 Lumbar spondylosis M47.816 Low back pain M54.50 Sacroiliac joint pain M53.3 Lumbar radiculopathy M54.16
[2024-12-04 08:30] VITALS: BP 183/98; PULSE 91; O2SAT 98; BMI 35.4
== END 2024-12-04 09:00 | disposition home or self-care (01) ==
LOC: HO.PMC 07:56
PROVIDERS: PCP Internal Medicine; Visit Provider Nurse Practitioner Family
DX: M79.662 Pain in left lower leg (principal); M79.89 Other specified soft tissue disorders; M51.369 Other intervertebral disc degeneration, lumbar region without mention of lumbar back pain or lower extremity pain; M47.816 Spondylosis without myelopathy or radiculopathy, lumbar region; M54.50 Low back pain, unspecified; M53.3 Sacrococcygeal disorders, not elsewhere classified; M54.16 Radiculopathy, lumbar region
CPT/HCPCS: 99214; G2211

== ENCOUNTER → 2024-12-04 07:55 | Outpatient (BNVA) | payer OTHER, SELFPAY | PROVIDERS: PCP Internal Medicine; Visit Provider Nurse Practitioner Family | DX: M79.662 Pain in left lower leg (principal); M79.89 Other specified soft tissue disorders; M51.369 Other intervertebral disc degeneration, lumbar region without mention of lumbar back pain or lower extremity pain; M47.816 Spondylosis without myelopathy or radiculopathy, lumbar region; M54.50 Low back pain, unspecified; M53.3 Sacrococcygeal disorders, not elsewhere classified; M54.16 Radiculopathy, lumbar region | CPT/HCPCS: 99212 ==

== ENCOUNTER 2024-12-18 08:54 | Outpatient (REF) | payer OTHER, SELFPAY ==
--- OUTSIDE RECORDS SUMMARY | 2024-12-18 09:10 | XMS_ITS | Clinical Summary ---
Author Organization [facility] Address [address] [place] [address] Phone Care Team Providers Care Wwe Wrestler Name Role Phone Danika Arriaga MD Primary Care Provider [phone] Allergies No known active allergies Medications amLODIPine [...] Cancer Screening: Sigmoidoscopy 2006 Influenza Vaccine (#1) 2025 Hepatitis B Vaccine Aged Out No longe r eligible based on patient's age to complete this topic Insurance [facility] MCR ([id number]) [place]E KIM [id number] [facility] MCR ([id number]) [place] KIM [id number] Care Teams Wwe Wrestler Relationship Specialty Start Date End Date Danika Arriaga MD [address] [place] [address] PCP - General Internal Medicine 07/21/21
[2024-12-18 10:35] LABS: Anion Gap 14 (12-20); Blood Urea Nitrogen 29 mg/dL (9-16); Carbon Dioxide 29 mmol/L (22-29); Chloride 105 mmol/L (96-108); Estimated Glomerular Filt Rate 57; Potassium 4.5 mmol/L (3.3-5.1); Sodium 143 mmol/L (135-145)
[2024-12-18 12:12] LABS: Total Protein Urine Random < 7 mg/dL (<12)
== END 2024-12-18 08:55 | disposition home or self-care (01) ==
LOC: HO.LAB 08:54
PROVIDERS: PCP Internal Medicine; Visit Provider Internal Medicine Nephrology
DX: I10 Essential (primary) hypertension (principal)
CPT/HCPCS: 36415; 80051; 82565; 82570; 84156; 84520

== ENCOUNTER 2024-12-19 07:51 | Outpatient (AMB) | payer OTHER, SELFPAY ==
--- OUTSIDE RECORDS SUMMARY | 2024-12-19 07:54 | XMS_ITS | Clinical Summary ---
Author Organization [facility] Address [address] [place] [address] Phone Care Team Providers Care Frozen Foods Manager Name Role Phone Danika Arriaga MD Primary Care Provider [phone] Allergies No known active allergies Medications amLODIPine [...] patient's age to complete this topic Insurance [facility] MCR ([id number]) DON[place]E KIM [id number] [facility] MCR ([id number]) DON[place]E KIM [id number] Care Teams Frozen Foods Manager Relationship Specialty Start Date End Date Danika Arriaga MD [address] [place] [address] PCP - General Internal Medicine 07/21/21
[2024-12-19 08:15] VITALS: BP 126/80; BMI 35.5
--- NOTE | 2024-12-19 08:15 | MHC.PC.OV ---
Vital Signs 12/19/24 08:15 Height 5 ft 6 in Weight 220 lb BMI 35.5 BP 126/80 Blood Pressure Location Lt brachial Position Sitting Intake Visit Reasons: Lower back pain Intake Note: Patient here for low back pain, left leg pain Radiology Manager Required: No Accompanied by: Self / Same As Patient Allergies No Known Allergies Allergy (Verified 12/19/24 08:32) Medication List - Last Reconciled 12/19/24 by Danika Rainey MD acetaminophen (Tylenol Extra Strength) 1,000 mg (2 x 500 mg) PO Q8H PRN acetaminophen 650 mg (2 x 325 mg) PO Q6H PRN 30 days aspirin (Adult Aspirin Regimen) 81 mg PO DAILY 90 days atorvastatin 80 mg PO BEDTIME 90 days benazepril 20 mg PO DAILY 90 days bisacodyl (Laxative (bisacodyl)) 10 mg (2 x 5 mg) PO DAILY PRN 90 days blood pressure monitor As directed blood sugar diagnostic (Neocutis Verio test strips) test blood sugar once a day blood-glucose meter (Neocutis Verio Meter) As directed once a day chlorthalidone 25 mg PO DAILY 90 days cyclobenzaprine 5 mg PO TID PRN famotidine 20 mg PO BEDTIME fluticasone propionate 110 mcg/actuation (Flovent HFA) 1 puff inhalation BID furosemide 20 mg PO DAILY 14 days hydralazine 10 mg PO TID 30 days ibuprofen 600 mg PO Q6H PRN incontinence pad, liner, disp Use 2 pads per day lancets (Neocutis Delica Lancets) Use 1 lancet once a day lidocaine 5% leave on most painful area for up to 12 hrs topical lidocaine HCl 4% (Theraworx Pain Relief) 1 ea topical BID PRN [Medical compression stockings - 10-15mmHg compression As directed] metformin 1,000 mg PO BID 30 days metoprolol succinate ER 50 mg PO DAILY 90 days naloxone 4 mg/actuation (Narcan) 4 mg intranasal Q2M PRN oxycodone 5 mg PO Q8H PRN 7 days pentoxifylline ER 400 mg PO DAILY Synthroid (levothyroxine) 137 mcg PO DAILY 90 days NS tirzepatide (Mounjaro) 5 mg (0.5 mL) subcut QWEEK 4 weeks triamcinolone acetonide 0.1% 1 appl topical DAILY 30 days underpads (Bed Underpads) As directed Ventolin HFA 90 mcg/actuation (albuterol sulfate) 1 inh inhalation QID PRN 30 days NS [wipes As directed] Tobacco use date assessed: 06/16/24 Fall risk assessment: No Falls in past year Last assessed Fall Risk: 12/19/24 Dental Screening Dental Screen Date: 10/16/24 HPI HPI Comments History of Present Illness Details The patient is a 69-year-old female presenting with back pain and lumbar radiculopathy. The back pain has been persistent and radiates to the left leg, starting from the hip and extending downwards. The patient has previously used gabapentin for pain management but is considering a trial of pregabalin. The patient also has a history of hyperlipidemia, which is being managed with atorvastatin. Additionally, she has Type 2 Diabetes Mellitus, with the last HbA1c recorded at 7.6% in October. The patient is currently on metformin and Mounjaro, with plans to increase the Mounjaro dosage to 7.5 mg. Also has essential hypertension well controlled with medications. Also has hypothyroidism well control with medication. [facility] Medical History (Updated 12/19/24 @ 10:13 by Danika Rainey MD) Morbid obesity with BMI of 40.0-44.9, adult Essential hypertension Osteoarthritis of right knee Class 2 severe obesity with serious comorbidity and body mass index (BMI) of 38.0 to 38.9 in adult Hypothyroid Right foot pain Left shoulder pain Hospital discharge follow-up Right sided sciatica Dyslipidemia Hyperparathyroidism Post-menopausal Screening for breast cancer Right foot pain Right knee pain Vitamin D deficiency Obesity due to excess calories Degenerative arthritis Cough High cholesterol Diabetes [id number] condition Back pain Peripheral vascular disease Hypothyroidism Hypercholesterolemia Hypertension Diabetic peripheral vascular disorder Diabetes Surgical History Tubal ligation status History of esophagogastroduodenoscopy (EGD) (~2013) Hx of colonoscopy History of H/O right knee surgery History of thyroid surgery Family History Father Hypertension Mother No problems noted. Social History Household Members: Spouse Housing: House Are you a primary healthcare account manager to a significant other at home: No Do you presently have visiting nurse or other home services: No Alcohol intake: never Patient Tobacco Use Status: Never used Tobacco e-Cigarette/Vaping Use: Never Used Second Hand Smoke Exposure: No service: No Current occupational status: unemployed Cognitive needs: Yes Hearing needs: No Vision needs: Yes (Glasses) Female Reproductive History Menstrual Age of Menarche: 14 Questionnaire Thrive Questionnaire Date Thrive assessed: 10/16/24 I am a: Patient What is your living situation today?: I have a steady place to live Within the past 12 months, did the food you bought not last and you didn't have the money to get more?: I choose not to answer this question Within the past 12 months, did you worry whether your food would run out before you got money to buy more?: I choose not to answer this question Do you have trouble paying for medicines?: I choose not to answer this question Do you have trouble getting transportation to medical appointments?: I choose not to answer this question Do you have trouble paying your heating and electricity bill?: I choose not to answer this question Do you have trouble taking care of your child, family member or friend?: I choose not to answer this question Do you have trouble with day-to-day activities such as bathing, preparing meals, shopping, managing finances, etc.?: Yes Are you currently unemployed and looking for a job?: I choose not to answer this question Are you interested in more education?: I choose not to answer this question Please select the resources that you would like help with: None Currently or been in a relationship where the following occur: No concerns reported THRIVE Score: 0 NATALIE-7 AMB Questionnaire NATALIE-7 Date NATALIE - 7 assessed: 10/16/24 Source: Developed by Drs. Denzel Cormier, Tara Guevara, Trent Ramirez and colleagues, with an educational ellis from [employer]. Review of Systems Const All systems reviewed & are unremarkable except as noted in HPI and below Card Denies chest pain at rest, Denies chest pain with activity, Denies edema, Denies irregular heart rhythm, Denies claudication, Denies dyspnea, Denies dyspnea on exertion, Denies orthopnea, Denies paroxysmal nocturnal dyspnea and Denies slow heart rate Resp Denies cough, Denies dyspnea and Denies dyspnea on exertion GI Denies abdominal pain, Denies change in bowel habits, Denies excessive flatus, Denies nausea and Denies vomiting Denies urinary incontinence, Denies urinary hesitancy and Denies urinary urgency Musc Reports back pain, Reports numbness, Reports radiating pain into limb and Reports tingling Neuro Denies lack of coordination, Reports numbness and Reports tingling Physical exam (Primary Care) Vital Signs: Last Vital Signs BP 126/80 12/19/24 08:15 BMI result Body Mass Index 35.5 BMI Assessment/Plan discussion: High BMI High, discussed plan: lifestyle, weight reduction, dietary and physical activity Tobacco/Smoking Status: Tobacco use Status Tobacco use date assessed 06/16/24 12/19/24 08:21 Patient Tobacco Use Status Never used Tobacco 12/19/24 08:21 Tobacco use type 09/25/24 10:24 e-Cigarette/Vaping Use Never Used 12/19/24 08:21 Thrive Assessment: Date of Thrive Assessment Date Thrive assessed 10/16/24 12/19/24 08:21 Currently or been in a relationship where the following occur: No concerns reported Resp Effort & Inspection: normal respiratory effort Auscultation: clear to auscultation bilaterally Cardio Jugular venous distension: no JVD Rate: regular rate Rhythm: regular rhythm Heart sounds: S1 normal heart sound present and S2 normal heart sound present Back/Spine/Pelvis Thoracic/Lumbar Spine: straight leg raise positive left at 40 degrees Extrem General: Yes full ROM Coding Level of Care Code Est Pt Level 4 (14022) Complex EM visit Add On G2211 Diagnoses Essential hypertension I10 Hyperlipidemia LDL goal <70 E78.5 Type 2 diabetes mellitus without complication, without long-term current use of insulin E11.9 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 Hypothyroidism type: postoperative Lumbar radiculopathy M54.16 Time Spent (min) 22 Assessment & Plan Assessment & Plan (1) Essential hypertension: Code(s): I10 - Essential (primary) hypertension Category: Medical (2) Hyperlipidemia LDL goal <70: Code(s): E78.5 - Hyperlipidemia, unspecified Category: Medical (3) Type 2 diabetes mellitus without complication, without long-term current use of insulin: Code(s): E11.9 - Type 2 diabetes mellitus without complications Category: Medical (4) Hypothyroidism: Code(s): E03.9 - Hypothyroidism, unspecified Category: Medical Qualifiers: Hypothyroidism type: postoperative Qualified Code(s): E89.0 - Postprocedural hypothyroidism (5) Lumbar radiculopathy: Code(s): M54.16 - Radiculopathy, lumbar region Category: Medical Plan The plan includes initiating a trial of pregabalin at 50 mg nightly to manage lumbar radiculopathy, with a gradual increase if tolerated. The patient's Mounjaro dosage for Type 2 Diabetes Mellitus will be increased to 7.5 mg to better control her blood glucose levels. Follow-up laboratory tests will be conducted to monitor cholesterol and thyroid function, with results to be reviewed at the next appointment. Patient was informed and verbally consented to the use of an ambient scribe for clinic note documentation during this visit. Orders: Orders Lipid Panel Today E78.5 - Hyperlipidemia, unspecified Vitamin D 25-OH Total Today E55.9 - Vitamin D deficiency, unspecified Comprehensive [place]. Panel Fast Today E11.9 - Type 2 diabetes mellitus without complications Microalbumin, Random (w Creat) Today R80.9 - Proteinuria, unspecified Thyroid Stimulating Hormone Today E03.9 - Hypothyroidism, unspecified Medications: New pregabalin 50 mg PO BEDTIME 30 caps 0RF 30 days tirzepatide (Mounjaro) 7.5 mg (0.5 mL) subcut QWEEK 2 mL 0RF 4 weeks E11.9 - Type 2 diabetes mellitus without complications Discontinued tirzepatide (Mounjaro) Discontinued Reason: Patient Completed Course 5 mg (0.5 mL) subcut QWEEK 4 weeks 2 mL 0RF E11.9 - Type 2 diabetes mellitus without complications
== END 2024-12-19 08:44 | disposition home or self-care (01) ==
LOC: HO.HMCH 07:52
PROVIDERS: PCP Internal Medicine; Visit Provider Internal Medicine
DX: I10 Essential (primary) hypertension (principal); E78.5 Hyperlipidemia, unspecified; E11.9 Type 2 diabetes mellitus without complications; E89.0 Postprocedural hypothyroidism; M54.16 Radiculopathy, lumbar region

== ENCOUNTER → 2024-12-19 07:51 | Outpatient (BNVA) | payer OTHER, SELFPAY | PROVIDERS: PCP Internal Medicine; Visit Provider Internal Medicine | DX: E11.9 Type 2 diabetes mellitus without complications (principal); I10 Essential (primary) hypertension; E78.5 Hyperlipidemia, unspecified; E89.0 Postprocedural hypothyroidism; M54.16 Radiculopathy, lumbar region | CPT/HCPCS: 99212 ==

== ENCOUNTER 2024-12-20 15:37 | Outpatient (AMB) | payer OTHER, SELFPAY ==
--- OUTSIDE RECORDS SUMMARY | 2024-12-20 15:39 | XMS_ITS | Clinical Summary ---
Author Organization [facility] Address [address] [place] [address] Phone Care Team Providers Care Information Scientist Name Role Phone Danika Arriaga MD Primary Care Provider [phone] Allergies No known active allergies Medications amLODIPine [...] patient's age to complete this topic Insurance [facility] MCR ([id number]) DONTAE KIM [id number] [facility] MCR ([id number]) DON[place]E KIM [phone] Care Teams Information Scientist Relationship Specialty Start Date End Date Danika Arriaga MD [address] [place] [address] PCP - General Internal Medicine 07/21/21
--- NOTE | 2024-12-20 16:21 | HO.NEPHOV_ITS ---
Vital Signs 12/20/24 16:22 Height 5 ft 6 in Weight 223 lb 8 oz BMI 36.1 BP 110/70 Blood Pressure Location Rt brachial Position Sitting Intake Visit Reasons: Essential hypertension-Conf Wafer Fabrication Technician Required: Yes Wafer Fabrication Technician Language: Filtrose Crusher Services: Wafer Fabrication Technician Present Wafer Fabrication Technician Name: Conrado [id number] Information Interpreted: clinical only Accompanied by: Self / Same As Patient Allergies No Known Allergies Allergy (Verified 12/20/24 16:22) HPI Comments Details: Paige was seen in the office in follow-up of her hypertension. She is diabetic and has a H/O hyperkalemia. Her blood pressure is well controlled. She has not taking celecoxib. She is on benazepril. She does not take any nonsteroidal anti-inflammatories. She has history of peripheral arterial disease. She denies taking salt substitute. She maintains good hydration. Her serum creatinine has been stable. She is on Mounjaro and has lost some weight. She did not have any other new specific complaints at the time of this office visit [facility] Medical History (Updated 12/19/24 @ 10:13 by Danika Rainey MD) Morbid obesity with BMI of 40.0-44.9, adult Essential hypertension Osteoarthritis of right knee Class 2 severe obesity with serious comorbidity and body mass index (BMI) of 38.0 to 38.9 in adult Hypothyroid Right foot pain Left shoulder pain Hospital discharge follow-up Right sided sciatica Dyslipidemia Hyperparathyroidism Post-menopausal Screening for breast cancer Right foot pain Right knee pain Vitamin D deficiency Obesity due to excess calories Degenerative arthritis Cough High cholesterol Diabetes [id number] condition Back pain Peripheral vascular disease Hypothyroidism Hypercholesterolemia Hypertension Diabetic peripheral vascular disorder Diabetes Surgical History Tubal ligation status History of esophagogastroduodenoscopy (EGD) (~2013) Hx of colonoscopy History of H/O right knee surgery History of thyroid surgery Family History Father Hypertension Mother No problems noted. Social History Household Members: Spouse Housing: House Are you a primary career advisor to a significant other at home: No Do you presently have visiting nurse or other home services: No Alcohol intake: never Patient Tobacco Use Status: Never used Tobacco e-Cigarette/Vaping Use: Never Used Second Hand Smoke Exposure: No service: No Current occupational status: unemployed Cognitive needs: Yes Hearing needs: No Vision needs: Yes (Glasses) Female Reproductive History Menstrual Age of Menarche: 14 Review of Systems Const All systems reviewed & are unremarkable except as noted in HPI and below Physical Exam Vital Signs: Last Vital Signs BP 110/70 12/20/24 16:22 BMI result Body Mass Index 36.1 Const General: comfortable and no acute distress Orientation/consciousness: patient oriented x3 HEENT Head: Yes normocephalic Mouth: Normal oral and palatal mucosa present Eyes EOM: EOMs intact bilaterally Neck Neck: Yes supple Resp Auscultation: clear to auscultation bilaterally Cardio Jugular venous distension: no JVD Rate: regular rate GI Palpation (GI): Soft to palpation Auscultation: normal bowel sounds General: Yes no CVA tenderness Back/Spine/Pelvis Back: no CVA tenderness Skin General skin exam: no rashes or lesions noted Neuro General: patient oriented x3 and moves all extremities Extrem General: Yes no pedal edema Results Reviewed Nephrology Results: Hgb, (12.0-16.0) 12.4 g/dl 11/26/24 WBC, (4.8-10.8) 8.7 X10*3/uL 11/26/24 Plt Count, (160-400) 283 X10*3/uL 11/26/24 Sodium, (135-145) 143 mmol/L 12/18/24 Potassium, (3.3-5.1) 4.5 mmol/L Δ 12/18/24 Chloride, (96-108) 105 mmol/L 12/18/24 Carbon Dioxide, (22-29) 29 mmol/L 12/18/24 BUN, (9-16) 29 mg/dL H 12/18/24 Creatinine, (0.5-1.4) 0.98 mg/dL 12/18/24 Calcium, (8.4-10.2) 8.8 mg/dL 11/26/24 Urine Creatinine 131.29 mg/dL 12/18/24 Protein/Creatinin Ratio TNP 12/18/24 Assessment & Plan Assessment & Plan (1) Essential hypertension: Code(s): I10 - Essential (primary) hypertension Category: Medical Plan Her serum potassium is normal now. She does not take any nonsteroidal anti- inflammatories. She is aware of low-potassium diet. She is tolerating KEI in hibitor. Her BP is at goal. She maintains good hydration. Her renal functions are stable. If she continues to lose more weight, I will consider backing off on her medications. I did not make any medication changes today. Follow-up lab work ordered Orders: Orders Creatinine 6 Months I10 - Essential (primary) hypertension Blood Urea Nitrogen 6 Months I10 - Essential (primary) hypertension Electrolytes 6 Months I10 - Essential (primary) hypertension Coding Level of Care Code Est Pt Level 4 (45766) Diagnoses Essential hypertension I10
[2024-12-20 16:22] VITALS: BP 110/70; BMI 36.1
== END 2024-12-20 16:35 | disposition home or self-care (01) ==
LOC: HO.HKA 15:38
PROVIDERS: PCP Internal Medicine; Visit Provider Internal Medicine Nephrology
DX: I10 Essential (primary) hypertension (principal)
CPT/HCPCS: 99214

== ENCOUNTER → 2024-12-20 15:37 | Outpatient (BNVA) | payer OTHER, SELFPAY | PROVIDERS: PCP Internal Medicine; Visit Provider Internal Medicine Nephrology | DX: I10 Essential (primary) hypertension (principal); E11.9 Type 2 diabetes mellitus without complications | CPT/HCPCS: 99212 ==

== ENCOUNTER 2024-12-21 10:53 | Outpatient (AMB) | payer OTHER, SELFPAY ==
--- NOTE | 2024-12-21 11:04 | MHC.OFFVIS ---
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 She has had left leg pain for about a month. States it begins in her back and goes down to her calf. She states she has a varicose vein behinf her left knee that is painful. 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 She was originally seen and examined by pain management which had worked up for arthritis in the lumbosacral region leading to radiculopathy. Along her workup she was sent to [facility] for evaluation of a DVT which was negative at that time. Complaints include swelling of lower extremities, cramping, fatigue, and heaviness of the lower extremities. It has been affecting there daily activities including walk. It is noted more so in left leg. Patient denies any previous venous surgery or injections. Patient denies any history of DVT/ PE. - ultrasound was negative for DVT on 11/26/2024 Patient denies any history of phlebitis. Trial of compression includes - [id number] They now present for vascular evaluation regarding their varicose veins. [facility] Medical History Morbid obesity with BMI of 40.0-44.9, adult Essential hypertension Osteoarthritis of right knee Class 2 severe obesity with serious comorbidity and body mass index (BMI) of 38.0 to 38.9 in adult Hypothyroid Right foot pain Left shoulder pain Hospital discharge follow-up Right sided sciatica Dyslipidemia Hyperparathyroidism Post-menopausal Screening for breast cancer Right foot pain Right knee pain Vitamin D deficiency Obesity due to excess calories Degenerative arthritis Cough High cholesterol Diabetes [id number] condition Back pain Peripheral vascular disease Hypothyroidism Hypercholesterolemia Hypertension Diabetic peripheral vascular disorder Diabetes Surgical History Tubal ligation status History of esophagogastroduodenoscopy (EGD) (~2013) Hx of colonoscopy History of H/O right knee surgery History of thyroid surgery Family History Father Hypertension Mother No problems noted. Social History Household Members: Spouse Housing: House Are you a primary health care specialist to a significant other at home: No Do you presently have visiting nurse or other home services: No Alcohol intake: never Patient Tobacco Use Status: Never used Tobacco e-Cigarette/Vaping Use: Never Used Second Hand Smoke Exposure: No service: No Current occupational status: unemployed Cognitive needs: Yes Hearing needs: No Vision needs: Yes (Glasses) Female Reproductive History Menstrual Age of Menarche: 14 Review of Systems Const Reports as per HPI ENT Reports no additional complaints Card Denies chest pain, Denies chest pain at rest and Denies chest pain with activity Resp Denies chest congestion and Denies cough GI Reports no additional complaints Musc Details: pain over varicosities, aching of lower extremities, swelling, cramping, heaviness and tiredness, itching Denies abnormal gait Skin/Breast Reports pruritus and Denies wounds Neuro Reports no additional complaints and Denies abnormal gait Psych Denies no additional complaints Physical Exam Const General: cooperative, healthy appearing and comfortable Orientation/consciousness: oriented to person, oriented to place and oriented to time Neck Carotids: no bruits Chest Chest palpation & inspection: normal inspection of the chest and normal palpation of entire chest wall Resp Effort & Inspection: normal respiratory effort and able to speak in complete sentences Cardio Rate: regular rate Heart sounds: S1 normal heart sound present and S2 normal heart sound present Peripheral pulses: Peripheral pulses 2+ throughout GI Inspection: Yes normal to inspection Skin Other: +2 edema, large rope-like varicosities greater than 4 mm CEAP Classification C4 - skin color changes Ep - Etiology Primary As - superficial veins P - reflux General skin exam: dry skin Neuro General: oriented to person, oriented to place and oriented to time Extrem Right lower extremity: full ROM, normal capillary refill and edema Left lower extremity: full ROM, normal capillary refill and edema Psych Mental Status: mental status grossly normal Assessment & Plan Assessment & Plan (1) Varicose veins of left lower extremity with inflammation: Code(s): I83.12 - Varicose veins of left lower extremity with inflammation Category: Medical Plan: In short, the patient has evidence of venous insufficiency. I have discussed the pathophysiology with the patient. In addition I have provided informational material regarding venous disease to the patient. We have discussed conservative measures including compression, elevation, and exercise. I have also provided a handout regarding appropriate use of compression stockings and where to purchase good compression stockings as well. I have taken the liberty of ordering venous insufficiency testing with the patient. They will follow up with me after testing. The patient had an opportunity to ask questions regarding the treatment plan. All questions were answered. Imaging studies, laboratory studies and physical exam results were discussed and reviewed in detail. No major barriers to understanding were identified. The patient expressed understanding and agreement with the above treatment plan. The patient is aware they should contact our office by phone for worsening of the current condition or the appearance of new symptoms. Thank you for allowing me to participate in the vascular care of this patient. If you have any questions or concerns regarding the treatment for the above condition please do not hesitate to contact me. The office telephone contact is [phone]. This note is constructed using voice recognition software. While every effort has been made to ensure accuracy, traveling freight agent errors may have been included. Thank you for allowing me to participate in the care of your patient. Yours sincerely, Harlan Henriquez MD, FACS, R.P.V.I. Orders: Orders US venous duplex LE BI 1 Week I83.12 - Varicose veins of left lower extremity with inflammation Coding Level of Care Code New Pt Level 4 (47658) Diagnoses Varicose veins of left lower extremity with inflammation I83.12
--- OUTSIDE RECORDS SUMMARY | 2024-12-21 11:34 | XMS_ITS | Clinical Summary ---
Author Organization [facility] Address [address] [place] [address] Phone Care Team Providers Care Workforce Management Coordinator Name Role Phone Danika Arriaga MD Primary Care Provider [phone] Allergies No known active allergies Medications amLODIPine [...] [facility] MCR ([id number]) DON[place]E KIM [phone] [facility] MCR ([id number]) DON[place]E KIM [phone] Care Teams Workforce Management Coordinator Relationship Specialty Start Date End Date Danika Arriaga MD [address] [place] [address] PCP - General Internal Medicine 07/21/21
== END 2024-12-21 11:33 | disposition home or self-care (01) ==
LOC: HO.HVS 10:54
PROVIDERS: PCP Internal Medicine; Visit Provider Surgery Vascular Surgery
DX: I83.12 Varicose veins of left lower extremity with inflammation (principal)
CPT/HCPCS: 99204

== ENCOUNTER → 2024-12-21 10:53 | Outpatient (BNVA) | payer OTHER, SELFPAY | PROVIDERS: PCP Internal Medicine; Visit Provider Surgery Vascular Surgery | DX: I83.12 Varicose veins of left lower extremity with inflammation (principal) | CPT/HCPCS: 99202 ==

== ENCOUNTER 2025-02-20 06:15 | Outpatient (REF) | payer OTHER, SELFPAY ==
--- NOTE | ~2025-02-20 | FL_ITS ---
EXAMINATION: FL GUIDANCE ONLY HISTORY: M54.16 - Radiculopathy, lumbar region COMPARISON: None available. TECHNIQUE: Fluoroscopy time: 0.2 minutes. Cumulative Dose: 5.62 mGy. DAP: 0.0477 mGym2 Images: 3. FINDINGS: Fluoroscopic spot films of the lumbar spine in the AP projection demonstrate a needle and contrast material in the region of the left L5-S1 facet joint. FL/FL guidance in treatment room IMPRESSION: Fluoroscopy during procedure. Please see procedure report for additional information. Electronically signed by: Denzel Hercules MD 02/20/2025 09:27 AM EDT
--- OUTSIDE RECORDS SUMMARY | 2025-02-20 06:17 | XMS_ITS | Clinical Summary ---
Author Organization [facility] Address [address] [place] [address] Phone Care Team Providers Care Supervisor Conditioning Yard Name Role Phone Danika Arriaga MD Primary Care Provider [phone] Allergies No known active allergies Medications amLODIPine [...] patient's age to complete this topic Insurance [facility] MCR ([id number]) DONTAE KIM [id number] [facility] MCR ([id number]) DON[place]E KIM [phone] Care Teams Supervisor Conditioning Yard Relationship Specialty Start Date End Date Danika Arriaga MD [address] [place] [address] PCP - General Internal Medicine 07/21/21
--- OUTSIDE RECORDS SUMMARY | 2025-02-20 06:17 | XMS_ITS | Encounter Summary ---
Author Organization [facility] Address [address] [place] [address] Phone Care Team Providers Care Art Class Model Name Role Phone Danika Arriaga MD Primary Care Provider [phone] Encounter Details Date Type Department Care Team (Late st Contact Info) Description 07/21/2021 Telephone [facility] [address] [place] [address] Gisell Jenkins Social History Tobacco [...] on filedocumented in this encounter Care Teams Art Class Model Relationship Specialty Start Date End Date Danika Arriaga MD [address] [place], [place] PCP - General Internal Medicine 07/21/21 documented as of this encounter
== END 2025-02-20 06:16 | disposition home or self-care (01) ==
LOC: CF 06:15
PROVIDERS: Visit Provider Anesthesiology
DX: M54.16 Radiculopathy, lumbar region (principal); M54.17 Radiculopathy, lumbosacral region
CPT/HCPCS: 64483; J2003; J3301; Q9967

== ENCOUNTER 2025-02-20 08:57 | Outpatient (AMB) | payer OTHER, SELFPAY ==
[2025-02-20 09:07] VITALS: BP 135/81; PULSE 81; RESP 18; O2SAT 99; BMI 37.6
--- NOTE | 2025-02-20 09:07 | A.OFFVIS_ITS ---
Vital Signs 02/20/25 09:07 Height 5 ft 6 in Weight 233 lb BMI 37.6 BP 135/81 Blood Pressure Location Lt brachial Position Sitting Respiration 18 Pulse 81 Pulse Source Pulse Oximeter Pulse Oximetry (%) 99 Oxygen Delivery Method Room Air Intake Visit Reasons: LEFT L5-S1 TFESI R&D Lab Technician Required: Yes R&D Lab Technician Services: R&D Lab Technician Present R&D Lab Technician Name: hospital inter Allergies No Known Allergies Allergy (Verified 12/21/24 11:06) PFSH Medical History Morbid obesity with BMI of 40.0-44.9, adult Essential hypertension Osteoarthritis of right knee Class 2 severe obesity with serious comorbidity and body mass index (BMI) of 38.0 to 38.9 in adult Hypothyroid Right foot pain Left shoulder pain Hospital discharge follow-up Right sided sciatica Dyslipidemia Hyperparathyroidism Post-menopausal Screening for breast cancer Right foot pain Right knee pain Vitamin D deficiency Obesity due to excess calories Degenerative arthritis Cough High cholesterol Diabetes [id number] condition Back pain Peripheral vascular disease Hypothyroidism Hypercholesterolemia Hypertension Diabetic peripheral vascular disorder Diabetes Surgical History Tubal ligation status History of esophagogastroduodenoscopy (EGD) (~2013) Hx of colonoscopy History of H/O right knee surgery History of thyroid surgery Family History Father Hypertension Mother No problems noted. Social History Household Members: Spouse Housing: House Are you a primary acute care nurse to a significant other at home: No Do you presently have visiting nurse or other home services: No Alcohol intake: never Patient Tobacco Use Status: Never used Tobacco e-Cigarette/Vaping Use: Never Used Second Hand Smoke Exposure: No service: No Current occupational status: unemployed Cognitive needs: Yes Hearing needs: No Vision needs: Yes (Glasses) Female Reproductive History Menstrual Age of Menarche: 14 Physical Exam Vital Signs: Last Vital Signs Pulse 81 02/20/25 09:07 Resp 18 02/20/25 09:07 BP 135/81 02/20/25 09:07 Pulse Ox 99 02/20/25 09:07 Oxygen Delivery Method Room Air 02/20/25 09:07 BMI result Body Mass Index 37.6 Assessment & Plan Assessment & Plan (1) Radiculopathy, lumbosacral region: Code(s): M54.17 - Radiculopathy, lumbosacral region Category: Medical Plan Transforaminal left L5-S1 epidural steroid injection Informed consent was thoroughly explained to the patient before the procedure.? The patient came to the operating room.? He was positioned prone on operating table with a pillow under his abdomen.? Time-out was performed delineating correct site and side of the procedure, nature of the injection, name and date of of the patient. The lower back of the patient was prepped with ChloraPrep and draped with sterile utility towels.? C-arm was brought over the operating field and sq picture of L5 vertebra was demonstrated on the screen.? The left side was chosen as the side of the injection 1st.? Tilting machine ipsilateral to the left at the level of L5 the most prominent picture of the superior articular process of S1 pedicle . Lateral border of the top most portion of the superior articular process of S1 on the left projection to the skin small amount of lidocaine 1% 2 cc was injected to anesthetize the skin.? After that 5 in 22 gauge Quincke point needle was inserted through the skin wheal and was advanced toward the r left L5-S1 foramina on anterior posterior , lateral and oblique views intermittently.? When tip of the needle gently touched lateral border of superior articular process of S1 on the left the needle was deviated slightly lateral and after that advanced 3 mm and deviated slightly medial. Injection of the contrast was performed demonstrating epidural spread of the contrast. No intravascular nor intrathecal spread of the contrast was noted. After that preservative-free lidocaine 1% 2 mL mixed with Kenalog 40 mg was injected into the needle. The patient tolerated procedure well. No immediate complications were observed. Orders: Orders FL guidance in treatment room Today M54.16 - Radiculopathy, lumbar region Coding Level of Care Code Procedure Only Diagnoses Radiculopathy, lumbosacral region M54.17
== END 2025-02-20 09:27 | disposition home or self-care (01) ==
LOC: HO.PMCPRC 08:57
PROVIDERS: PCP Internal Medicine; Visit Provider Anesthesiology
DX: M54.17 Radiculopathy, lumbosacral region (principal)
CPT/HCPCS: 64483

== ENCOUNTER 2025-02-21 10:14 | Outpatient (REF) | payer OTHER, SELFPAY ==
--- NOTE | ~2025-02-21 | US_ITS ---
EXAMINATION: US LOWER EXTREMITY VENOUS (REFLUX EXAM), BILATERAL CLINICAL INFORMATION: Varices. I83.12. COMPARISON: Doppler ultrasound and DVT exam dated November 26, 2024 and February 18, 2023. TECHNIQUE: Color flow triplex imaging and compression Doppler was performed to evaluate both the deep and the superficial systems bilaterally. To evaluate the superficial system, the examination was performed in the upright position. Color-flow Doppler ultrasound and compression ultrasound were utilized. In addition, maneuvers were utilized to demonstrate reflux. FINDINGS: 1. DEEP VENOUS ULTRASOUND OF THE RIGHT LOWER EXTREMITY: Common Femoral Vein: Compressible, normal respiratory variation and augmented flow. Femoral Vein: Compressible, normal color flow and augmentation. Popliteal Vein: Compressible, normal augmentation. Deep Reflux: There is a 2200 ms reflux in the popliteal vein. There is no evidence of a Saucedo's cyst. 2. SUPERFICIAL ULTRASOUND WITH DOPPLER OF RIGHT LOWER EXTREMITY: GREAT SAPHENOUS VEIN: Saphenofemoral Junction: 0.6 cm; Reflux: 0 ms Proximal Thigh: 0.5 cm; Reflux: 0 ms Mid Thigh: 0.4 cm; Reflux: 0 ms Distal Thigh: 0.5 cm; Reflux: 0 ms At Knee: 0.4 cm; Reflux: 0 ms Proximal Calf: 0.3 cm; Reflux: 1112 ms Mid Calf: 0.2 cm; Reflux: 2708 ms Distal Calf: 0.2 cm; Reflux: 2076 ms DUPLICATED MEDIAL GREAT SAPHENOUS VEIN: Diameter: None imaged Reflux: NA DUPLICATED LATERAL GREAT SAPHENOUS VEIN: Diameter: None imaged Reflux: NA SMALL SAPHENOUS VEIN: Saphenopopliteal Junction: 0.3 cm; Reflux: 0 ms Proximal: 0.2 cm; Reflux: 0 ms Distal: 0.2 cm; Reflux: 0 ms VEIN OF GIACOMINI: Size: [0.3 cm. Reflux: NA PERFORATORS: Location: Mid calf and heel. Size: 0.1-0.3 cm. Reflux: 612 ms at the heel. VARICOSITIES: Location: Distal thigh. Size: 0.3 cm. Reflux: NA 3. DEEP VENOUS ULTRASOUND OF THE LEFT LOWER EXTREMITY: Common Femoral Vein: Compressible, normal respiratory variation and augmented flow. Femoral Vein: Compressible, normal color flow and augmentation. Popliteal Vein: Compressible, normal augmentation. Deep Reflux: There is 1732 ms reflux in the popliteal vein. There is no evidence of a Saucedo's cyst. 4. SUPERFICIAL ULTRASOUND WITH DOPPLER OF LEFT LOWER EXTREMITY: GREAT SAPHENOUS VEIN: Saphenofemoral Junction: 1.3 cm; Reflux: 0 ms Proximal Thigh: 0.4 cm; Reflux: 2464 ms Mid Thigh: 0.5 cm; Reflux: 2436 ms Distal Thigh: 0.5 cm; Reflux: 2668 ms At Knee: 0.4 cm; Reflux: 2740 ms Proximal Calf: 0.3 cm; Reflux: 0 ms Mid Calf: 0.2 cm; Reflux: 0 ms Distal Calf: 0.3 cm; Reflux: 2864 ms DUPLICATED MEDIAL GREAT SAPHENOUS VEIN: Diameter: 0.4 cm. Reflux: NA DUPLICATED LATERAL GREAT SAPHENOUS VEIN: Diameter: None imaged. Reflux: NA SMALL SAPHENOUS VEIN: Saphenopopliteal Junction: 0.1 cm; Reflux: 0 ms Proximal: 0.3 cm; Reflux: 0 ms Distal: 0.3 cm; Reflux: 0 ms VEIN OF GIACOMINI: Size: NA Reflux: NA PERFORATORS: Location: Small saphenous vein mid segment. Mid calf. Size: 0.2-0.4 cm. Reflux: NA VARICOSITIES: Location: Small saphenous vein proximal segment. Mid thigh, at the knee and proximal calf. Size: 0.3-0.4 cm. Reflux: 2100 ms in the small saphenous vein proximal segment. 3104 ms in the mid thigh. 2192 ms at the knee. US/US venous duplex LE BI IMPRESSION: Right: Venous insufficiency, great saphenous vein from below the knee to the ankle. Venous reflux in the popliteal vein. Perforators and varices without reflux. Left: Venous insufficiency, great saphenous vein from the proximal thigh to the ankle. Venous insufficiency in the popliteal vein. Varices with reflux in the small saphenous vein proximal segment, mid thigh and at the knee. Electronically signed by: Yury Patel MD 02/21/2025 12:20 PM EDT
--- OUTSIDE RECORDS SUMMARY | 2025-02-21 12:27 | XMS_ITS | Clinical Summary ---
Author Organization [facility] Address [address] [place] [address] Phone Care Team Providers Care Real Estate Assistant Name Role Phone Danika Arriaga MD Primary Care Provider [phone] Allergies No known active allergies Medications amLODIPine [...] patient's age to complete this topic Insurance [facility] MCR ([id number]) [place] K[place] [phone] [facility] MCR ([id number]) [place] [id number] Care Teams Real Estate Assistant Relationship Specialty Start Date End Date Danika Arriaga MD [address] [place] [address] PCP - General Internal Medicine 07/21/21
--- OUTSIDE RECORDS SUMMARY | 2025-02-21 12:27 | XMS_ITS | Encounter Summary ---
Author Organization [facility] Address [address] [place] [address] Phone Care Team Providers Care Multisensor Intelligence Officer Name Role Phone Danika Arriaga MD Primary Care Provider [phone] Encounter Details Date Type Department Care Team (Late st Contact Info) Description 07/21/2021 Telephone [facility] [address] [place] [address] Gisell Jenkins Social History Tobacco [...] on filedocumented in this encounter Care Teams Multisensor Intelligence Officer Relationship Specialty Start Date End Date Danika Arriaga MD [address] [place], [place] PCP - General Internal Medicine 07/21/21 documented as of this encounter
== END 2025-02-21 10:15 | disposition home or self-care (01) ==
LOC: HO.US 10:14
PROVIDERS: PCP Internal Medicine; Visit Provider Surgery Vascular Surgery
DX: I83.12 Varicose veins of left lower extremity with inflammation (principal)
CPT/HCPCS: 93970

== ENCOUNTER → 2025-02-21 10:17 | Outpatient (BNV) | payer OTHER, SELFPAY | PROVIDERS: PCP Internal Medicine; Visit Provider Radiology Diagnostic Radiology | DX: I87.2 Venous insufficiency (chronic) (peripheral) (principal) | CPT/HCPCS: 93970 ==

== ENCOUNTER 2025-03-01 13:51 | Outpatient (AMB) | payer OTHER, SELFPAY ==
[2025-03-01 13:53] VITALS: BP 122/80; PULSE 71; O2SAT 99; BMI 35.7
--- NOTE | 2025-03-01 13:53 | MHC.PC.OV ---
Vital Signs 03/01/25 13:53 Height 5 ft 6 in Weight 221 lb BMI 35.7 BP 122/80 Blood Pressure Location Lt brachial Position Sitting Pulse 71 Pulse Source Pulse Oximeter Pulse Oximetry (%) 99 Oxygen Delivery Method Room Air Intake Visit Reasons: 4 month f/u-A1C needed Hosiery Operator Required: No Accompanied by: Self / Same As Patient Allergies No Known Allergies Allergy (Verified 03/01/25 14:36) Medication List - Last Reconciled 03/01/25 by Danika Rainey MD acetaminophen (Tylenol Extra Strength) 1,000 mg (2 x 500 mg) PO Q8H PRN acetaminophen 650 mg (2 x 325 mg) PO Q6H PRN 30 days aspirin (Adult Aspirin Regimen) 81 mg PO DAILY 90 days atorvastatin 80 mg PO BEDTIME 90 days benazepril 20 mg PO DAILY 90 days bisacodyl (Laxative (bisacodyl)) 10 mg (2 x 5 mg) PO DAILY PRN 90 days blood pressure monitor As directed blood sugar diagnostic ([employer] Verio test strips) test blood sugar once a day blood-glucose meter ([employer] Verio Meter) As directed once a day chlorthalidone 25 mg PO DAILY 90 days cyclobenzaprine 5 mg PO TID PRN famotidine 20 mg PO BEDTIME fluticasone propionate 110 mcg/actuation (Flovent HFA) 1 puff inhalation BID furosemide 20 mg PO DAILY 14 days hydralazine 10 mg PO TID 30 days ibuprofen 600 mg PO Q6H PRN incontinence pad, liner, disp Use 2 pads per day lancets ([employer] Delica Lancets) Use 1 lancet once a day lidocaine HCl 4% ([employer] Pain Relief) 1 ea topical BID PRN [Medical compression stockings - 10-15mmHg compression As directed] metformin 1,000 mg PO BID 30 days metoprolol succinate ER 50 mg PO DAILY 90 days naloxone 4 mg/actuation (Narcan) 4 mg intranasal Q2M PRN oxycodone 5 mg PO Q8H PRN 7 days pentoxifylline ER 400 mg PO DAILY pregabalin 50 mg PO BEDTIME 30 days Synthroid (levothyroxine) 137 mcg PO DAILY 90 days NS tirzepatide (Mounjaro) 7.5 mg (0.5 mL) subcut QWEEK 4 weeks triamcinolone acetonide 0.1% 1 appl topical DAILY 30 days underpads (Bed Underpads) As directed Ventolin HFA 90 mcg/actuation (albuterol sulfate) 1 inh inhalation QID PRN 30 days NS [wipes As directed] Tobacco use date assessed: 03/01/25 Fall risk assessment: No Falls in past year Last assessed Fall Risk: 03/01/25 Dental Screening Dental Screen Date: 03/01/25 Did you have a dental visit in the last 12 months?: Yes Did you have a dental problem in the last 6 months where you did not have access to dental care?: No Was dental information given to patient?: Patient has dentist HPI HPI Comments History of Present Illness Details The patient is a 69-year-old female presenting with management of diabetes mellitus, hypertension, and hyperthyroidism. Diabetes mellitus is well-controlled with an A1c of 6.1, managed with metformin 1,000 mg twice daily. Hypertension is controlled with benazepril, chlorthalidone, and hydralazine, with a current blood pressure of 122/80 mmHg. Hyperthyroidism is managed with Synthroid 137 mcg, with recent thyroid function tests within normal limits. Peripheral vascular disease is treated with pentoxifylline, and recent ultrasound and spinal injection have improved symptoms. Neuropathy management with Lyrica is complicated by insurance issues. Urinary incontinence is managed with pads. [facility] Medical History (Updated 02/20/25 @ 09:36 by Boo Donis MD) Morbid obesity with BMI of 40.0-44.9, adult Essential hypertension Osteoarthritis of right knee Class 2 severe obesity with serious comorbidity and body mass index (BMI) of 38.0 to 38.9 in adult Hypothyroid Right foot pain Left shoulder pain Hospital discharge follow-up Right sided sciatica Dyslipidemia Hyperparathyroidism Post-menopausal Screening for breast cancer Right foot pain Right knee pain Vitamin D deficiency Obesity due to excess calories Degenerative arthritis Cough High cholesterol Diabetes [id number] condition Back pain Peripheral vascular disease Hypothyroidism Hypercholesterolemia Hypertension Diabetic peripheral vascular disorder Diabetes Surgical History Tubal ligation status History of esophagogastroduodenoscopy (EGD) (~2013) Hx of colonoscopy History of H/O right knee surgery History of thyroid surgery Family History Father Hypertension Mother No problems noted. Social History Household Members: Spouse Housing: House Are you a primary acute care nursing assistant to a significant other at home: No Do you presently have visiting nurse or other home services: No Alcohol intake: never Patient Tobacco Use Status: Never used Tobacco e-Cigarette/Vaping Use: Never Used Second Hand Smoke Exposure: No service: No Current occupational status: unemployed Cognitive needs: Yes Hearing needs: No Vision needs: Yes (Glasses) Female Reproductive History Menstrual Age of Menarche: 14 Questionnaire Thrive Questionnaire Date Thrive assessed: 10/16/24 I am a: Patient What is your living situation today?: I have a steady place to live Within the past 12 months, did the food you bought not last and you didn't have the money to get more?: I choose not to answer this question Within the past 12 months, did you worry whether your food would run out before you got money to buy more?: I choose not to answer this question Do you have trouble paying for medicines?: I choose not to answer this question Do you have trouble getting transportation to medical appointments?: I choose not to answer this question Do you have trouble paying your heating and electricity bill?: I choose not to answer this question Do you have trouble taking care of your child, family member or friend?: I choose not to answer this question Do you have trouble with day-to-day activities such as bathing, preparing meals, shopping, managing finances, etc.?: Yes Are you currently unemployed and looking for a job?: I choose not to answer this question Are you interested in more education?: I choose not to answer this question Please select the resources that you would like help with: None Currently or been in a relationship where the following occur: No concerns reported THRIVE Score: 0 AUDIT C Alcohol Use Questionnaire (AUDIT-C) 1. How often do you have a drink containing alcohol?: Never 3. How often do you have six or more drinks on one occasion?: Never Total Score: 0 Score Reviewed/Action Taken: No NATALIE-7 AMB Questionnaire NATALIE-7 Date NATALIE - 7 assessed: 10/16/24 Source: Developed by Drs. Denzel Cormier, Tara Guevara, Trent Ramirez and colleagues, with an educational ellis from [employer]. Review of Systems Const All systems reviewed & are unremarkable except as noted in HPI and below Card Denies chest pain at rest, Denies chest pain with activity, Denies edema, Denies irregular heart rhythm, Denies claudication, Denies dyspnea, Denies dyspnea on exertion, Denies orthopnea, Denies paroxysmal nocturnal dyspnea and Denies slow heart rate Resp Denies cough, Denies dyspnea and Denies dyspnea on exertion GI Denies abdominal pain, Denies change in bowel habits, Denies excessive flatus, Denies nausea and Denies vomiting Denies urinary incontinence, Denies urinary hesitancy and Denies urinary urgency Physical exam (Primary Care) Vital Signs: Last Vital Signs Pulse 71 03/01/25 13:53 BP 122/80 03/01/25 13:53 Pulse Ox 99 03/01/25 13:53 Oxygen Delivery Method Room Air 03/01/25 13:53 BMI result Body Mass Index 35.7 BMI Assessment/Plan discussion: High BMI High, discussed plan: lifestyle, weight reduction, dietary and physical activity Tobacco/Smoking Status: Tobacco use Status Tobacco use date assessed 03/01/25 03/01/25 13:54 Patient Tobacco Use Status Never used Tobacco 03/01/25 13:54 Tobacco use type 09/25/24 10:24 e-Cigarette/Vaping Use Never Used 03/01/25 13:54 Thrive Assessment: Date of Thrive Assessment Date Thrive assessed 10/16/24 03/01/25 13:54 Currently or been in a relationship where the following occur: No concerns reported Resp Effort & Inspection: normal respiratory effort Auscultation: clear to auscultation bilaterally Cardio Jugular venous distension: no JVD Rate: regular rate Rhythm: regular rhythm Heart sounds: S1 normal heart sound present and S2 normal heart sound present Extrem General: Yes full ROM Results AMB Hemoglobin A1c AMB Hemoglobin A1c 6.1 % Last Edit by LEONEL Mauricio on 03/01/25 14:27 Results Reviewed Results Reviewed: Laboratory Last Values Hgb A1c (Clinic) 6.1 % (4.0-6.0) H 03/01/25 14:27 Coding Level of Care Code Est Pt Level 4 (97400) Complex EM visit Add On G2211 Diagnoses Essential hypertension I10 Hyperlipidemia LDL goal <70 E78.5 Type 2 diabetes mellitus without complication, without long-term current use of insulin E11.9 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 Hypothyroidism type: postoperative Time Spent (min) 23 Assessment & Plan Assessment & Plan (1) Essential hypertension: Code(s): I10 - Essential (primary) hypertension Category: Medical (2) Hyperlipidemia LDL goal <70: Code(s): E78.5 - Hyperlipidemia, unspecified Category: Medical (3) Type 2 diabetes mellitus without complication, without long-term current use of insulin: Code(s): E11.9 - Type 2 diabetes mellitus without complications Category: Medical (4) Hypothyroidism: Code(s): E03.9 - Hypothyroidism, unspecified Category: Medical Qualifiers: Hypothyroidism type: postoperative Qualified Code(s): E89.0 - Postprocedural hypothyroidism Plan Plan Patient was informed and verbally consented to the use of an ambient scribe for clinic note documentation during this visit. 1. Diabetes Mellitus The patient's diabetes mellitus is well-controlled with an A1c of 6.1, managed with metformin 1,000 mg twice daily. No changes to the current regimen are necessary at this time. 2. Hypertension Hypertension is managed with benazepril, chlorthalidone, and hydralazine. The current blood pressure of 122/80 mmHg is within the target range, and no adjustments to the medication regimen are required. 3. Hyperthyroidism Hyperthyroidism is managed with Synthroid 137 mcg. Recent thyroid function tests were within normal limits, and the patient is advised to continue the current dosage. 4. Peripheral Vascular Disease Peripheral vascular disease is treated with pentoxifylline. Recent ultrasound and spinal injection have improved symptoms, and the patient should continue with the current management plan. 5. Neuropathy Neuropathy management with Lyrica is complicated by insurance issues. Alternative management strategies may need to be considered if insurance approval is not obtained. 6. Urinary Incontinence Urinary incontinence is managed with pads, and no recent exacerbation has been reported. The patient should continue with the current management approach. Orders: Orders Complete Blood Count Auto Diff 4 Months D64.9 - Anemia, unspecified Microalbumin, Random (w Creat) 4 Months R80.9 - Proteinuria, unspecified Thyroid Stimulating Hormone 4 Months E89.0 - Postprocedural hypothyroidism AMB Hemoglobin A1c Today Z13.9 - Encounter for screening, unspecified Lipid Panel 4 Months E78.5 - Hyperlipidemia, unspecified Comprehensive [place]. Panel Fast 4 Months I10 - Essential (primary) hypertension Medications: Refilled Synthroid (levothyroxine) 137 mcg PO DAILY 90 tabs 0RF 90 days NS E03.9 - Hypothyroidism, unspecified aspirin (Adult Aspirin Regimen) 81 mg PO DAILY 90 tabs 3RF 90 days Discontinued tirzepatide (Mounjaro) Discontinued Reason: Patient Completed Course 7.5 mg (0.5 mL) subcut QWEEK 4 weeks 2 mL 0RF E11.9 - Type 2 diabetes mellitus without complications
--- OUTSIDE RECORDS SUMMARY | 2025-03-01 15:57 | XMS_ITS | Encounter Summary ---
Author Organization [facility] Address [address] [place] [address] Phone Care Team Providers Care Tower Helper Name Role Phone Danika Arriaga MD Primary Care Provider [phone] Encounter Details Date Type Department Care Team (Late st Contact Info) Description 07/21/2021 Telephone [facility] [address] [place] [address] Gisell Jenkins Social History Tobacco [...] on filedocumented in this encounter Care Teams Tower Helper Relationship Specialty Start Date End Date Danika Arriaga MD [address] [place], [place] PCP - General Internal Medicine 07/21/21 documented as of this encounter
--- OUTSIDE RECORDS SUMMARY | 2025-03-01 15:57 | XMS_ITS | Clinical Summary ---
Author Organization [facility] Address [address] [place] [address] Phone Care Team Providers Care Blasting Gang Miner Name Role Phone Danika Arriaga MD Primary [...] patient's age to complete this topic Insurance [facility] MCR ([id number]) [place] [phone] [facility] MCR ([id number]) [place] [phone] Care Teams Blasting Gang Miner Relationship Specialty Start Date End Date Danika Arriaga MD [address] [place] [address] PCP - General Internal Medicine 07/21/21
== END 2025-03-01 14:54 | disposition home or self-care (01) ==
LOC: HO.HMCH 13:52
PROVIDERS: PCP Internal Medicine; Visit Provider Internal Medicine
DX: I10 Essential (primary) hypertension (principal); E78.5 Hyperlipidemia, unspecified; E11.9 Type 2 diabetes mellitus without complications; E89.0 Postprocedural hypothyroidism; Z13.9 Encounter for screening, unspecified

== ENCOUNTER → 2025-03-01 13:51 | Outpatient (BNVA) | payer OTHER, SELFPAY | PROVIDERS: PCP Internal Medicine; Visit Provider Internal Medicine | DX: E11.40 Type 2 diabetes mellitus with diabetic neuropathy, unspecified (principal); E11.51 Type 2 diabetes mellitus with diabetic peripheral angiopathy without gangrene; I10 Essential (primary) hypertension; R32 Unspecified urinary incontinence; E78.5 Hyperlipidemia, unspecified; E89.0 Postprocedural hypothyroidism | CPT/HCPCS: 83036; 99212 ==

== ENCOUNTER 2025-03-27 09:54 | Outpatient (AMB) | payer OTHER, SELFPAY ==
--- NOTE | 2025-03-27 09:55 | A.OFFVIS_ITS ---
Vital Signs 03/27/25 10:00 Height 5 ft 6 in Weight 220 lb BMI 35.5 BP 180/84 H Blood Pressure Location Rt brachial Position Sitting Pulse 78 Pulse Source Pulse Oximeter Pulse Oximetry (%) 98 Oxygen Delivery Method Room Air Intake Visit Reasons: S/P LEFT L5-S1 TFESI 02/20/25 Intake Note: Pain today 09/21 Wax Cutter Required: Yes Wax Cutter Language: Lay Out Helper Name: George # [id number] Accompanied by: Self / Same As Patient Allergies No Known Allergies Allergy (Verified 03/27/25 10:05) HPI Comments Details: The patient is a 70-year-old female presenting with one month post-injection f ollow-up for a left L5-S1 transforaminal epidural steroid injection. She reports significant improvement in her back and left leg pain, with approximately 90% pain relief since the procedure performed on February 20. Residual pain persists slightly in the left leg and back, but overall mobility, daily activities and sleep quality have improved. Patient is also has history of venous insufficiency and is followed by [facility] services who recommended compression stockings therapy. The patient has a history of Type 2 Diabetes Mellitus, with recent improvements in glycemic control as evidenced by a decrease in A1c from 7.6 to 6.1 since October. She denies any significant adverse effects from the injection, such as elevated blood glucose levels. The patient also has a history of hypertension, with current elevated blood pressure readings noted during today's visit. She reports not taking her antihypertensive medication prior today's visit yet, which may have contributed to the elevated readings. Denies any recent cough, cold, infection, fever, chest pain or tightness, headache, dizziness, dyspnea or any other significant changes in medical history since last office visit. Past Procedures: 02/20/25: Left L5-S1 TFESI-90% ongoing pain relief 07/04/24: Right Therapeutic SIJ injection-80% ongoing pain relief 01/04/24: Right Diagnostic SIJ injection-80% >12 hours PRIOR: Patient is 68 years old female with history of arthritis, diabetes (A1C-7.6 on 08/30/23), right sided sciatica, right TKA (2022), recent parathyroidectomy (09/01/23) presents today for initial evaluation of chronic low back pain. Denies any recent trauma, injury or falls. Back pain is axial and also radiates into her right lower extremity posterolaterally with numbness and tingling in h er right foot. Occasionally pain will radiate to left leg as well with heavy and numbness sensations. She also has significant exacerbation of back pain with lumbar flexion indicating a discogenic source. Pain affects her daily functioning, mobility, sleep, mood and social interactions. Patient has tried physical therapy in the past with partial benefit but currently is not able to pursue PT due to significant pain. Denies any fever, abdominal or groin pain, foot drop, bladder or bowel dysfunction or saddle anesthesia. Reports intermittent RLE weakness with walking, uses cane. Location Lower back radiates down bilateral legs, worse on the right Duration Chronic pain, worsening for > 1 year Characteristics of symptom or complaint Aching, burning, tingling, tiring, cramping, numbness, throbbing Aggravating or associated factors Walking, standing, bending forward, extending backwards, cold weather Relieving factors Sitting, Tylenol, activity modifications, heat therapy, t opical application Treatment PT back 2021, helped, right knee-02/2023 [facility] Medical History Morbid obesity with BMI of 40.0-44.9, adult Essential hypertension Osteoarthritis of right knee Class 2 severe obesity with serious comorbidity and body mass index (BMI) of 38 .0 to 38.9 in adult Hypothyroid Right foot pain Left shoulder pain Hospital discharge follow-up Right sided sciatica Dyslipidemia Hyperparathyroidism Post-menopausal Screening for breast cancer Right foot pain Right knee pain Vitamin D deficiency Obesity due to excess calories Degenerative arthritis Cough High cholesterol Diabetes 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 Social History Household Members: Spouse Housing: House Are you a primary childcare administrator to a significant other at home: No Do you presently have visiting nurse or other home services: No Alcohol intake: never Patient Tobacco Use Status: Never used Tobacco e-Cigarette/Vaping Use: Never Used Second Hand Smoke Exposure: No service: No Current occupational status: unemployed Cognitive needs: Yes Hearing needs: No Vision needs: Yes (Glasses) Female Reproductive History Menstrual Age of Menarche: 14 Review of Systems Const Details: - Musculoskeletal: Reports significant improvement in back and left leg pain; denies any new musculoskeletal symptoms - Endocrine: Denies hyperglycemia post-injection; reports improved glycemic control - Cardiovascular: Denies chest pain, dizziness, or headache despite elevated blood pressure All systems reviewed & are unremarkable except as noted in HPI and below Physical Exam General: Appears afebrile. Alert and oriented. Mood and affect appropriate. Follows and participates in conversation appropriately. Respiratory effort is unlabored. No cough. Able to transition from sit to stand unassisted. Reports using cane at home. Ambulates with bilaterally normal heel strike and toe off, moderate difficulty on the left due to pain Back/Spine/Pelvis Cervical Spine: cervical ROM normal, cervical muscular tenderness and No Cervical spine tenderness Thoracic/Lumbar Spine: thoracic and lumbar spine normal to inspection, No Thoracic/lumbar spine scar(s), Lasegue's sign negative, straight leg raise negative bilaterally, pain with thoraco-lumbar ROM, paraspinal muscle tenderness bilaterally, thoraco-lumbar ROM limited, No thoracic spinal tenderness and lumbar spinal tenderness (L3-S1) Sacroiliac joints: bilaterally (right>left) tender to palpation Extrem General: Yes capillary refill normal, Yes calf tenderness (mild on the left), No cyanosis, Yes edema (BLE with varicosities) and Yes pedal edema (nonpitting, bilateral) Results Reviewed Results Reviewed: MM/XR DEXA axial skeleton 02/03/24 IMPRESSION: 1. DIAGNOSIS: Normal bone density based on the lowest T-score value of -1.0 in the femoral neck applying World Health Organization criteria. XR LUMBOSACRAL SPINE WITH OBLIQUES 09/25/21 FINDINGS: Bone alignment is normal. No fracture or dislocation is seen. There is degenerative disc disease of the lower thoracic spine. Disc spaces are otherwise normal. There is lower lumbar spine facet arthritis. IMPRESSION: Lower lumbar spine facet arthritis. MR LUMBAR SPINE WITHOUT CONTRAST 11/23/24 at [facility] INDICATION: Lumbar spondylosis, spinal stenosis TECHNIQUE: Standard lumbar spine protocol without contrast COMPARISON: Lumbar spine MRI from September 13, 2023 FINDINGS: Vertebral bodies demonstrate normal height and signal intensity. Conus demonstrates normal contour and signal and terminates at T12-L1 level scattered small right-sided renal cysts are present partially characterized on this exam. L1-L2 level shows minor disc bulge without compromise of the canal or foramina. At L2-L3 level, there is shallow central disc protrusion, slightly larger as compared to prior exam, superimposed by ligamental and facet hypertrophy. Mild narrowing of the canal and moderate narrowing of the recesses and foramina is seen, slightly worse since prior exam. L3-L4 level shows left-sided foraminal disc bulge with peripheral annular fissuring. Facet arthrosis is seen with small facet effusions. The canal and recesses are patent. Mild to moderate left-sided foraminal stenosis is present. The right foramen is patent. L4-L5 level shows disc bulge and facet arthrosis, without significant compromise of the canal or foramina. L5-S1 level shows disc bulge and moderate facet arthrosis with small facet effusions. The canal and recesses are patent. Moderate left and mild right-sided foraminal stenosis is present. No significant interval change. IMPRESSION: 1. Worsening changes of lumbar spondylosis at L2-L3 level which shallow central disc protrusion and ligamental hypertrophy, resulting in moderate narrowing of the recesses as discussed. 2. Other changes of lumbar spondylosis at L3-L4 and L5-S1 levels, as detailed at individual levels above. 3. No high-grade central canal stenosis is present at any level. US venous duplex LE 11/26/24 CLINICAL HISTORY: calf pain Venous duplex ultrasound left lower extremity Comparison: None Findings: The visualized deep veins are fully compressible with normal Doppler color flow and spectral tracings. No popliteal cyst. IMPRESSION: 1. Negative for left lower extremity deep vein thrombosis. US venous duplex [facility] 02/21/25 IMPRESSION: Right: Venous insufficiency, great saphenous vein from below the knee to the ankle. Venous reflux in the popliteal vein. Perforators and varices without reflux. Left: Venous insufficiency, great saphenous vein from the proximal thigh to the ankle. Venous insufficiency in the popliteal vein. Varices with reflux in the small saphenous vein proximal segment, mid thigh and at the knee. Assessment & Plan Assessment & Plan (1) Low back pain: Code(s): M54.50 - Low back pain, unspecified Category: Medical (2) Lumbar spondylosis: Code(s): M47.816 - Spondylosis without myelopathy or radiculopathy, lumbar region Category: Medical (3) Sacroiliac joint pain: Code(s): M53.3 - Sacrococcygeal disorders, not elsewhere classified Category: Medical (4) Lumbar radiculopathy: Code(s): M54.16 - Radiculopathy, lumbar region Category: Medical Plan The plan is to monitor the patient's pain levels and overall condition following the epidural steroid injection. If the pain returns in two to three months, the patient is advised to contact the office for potential repeat injections or reevaluation. We reviewed diagnostic lumbar medial branch blocks for axial low b ack pain for potential RFA or Sprint PNS trial. Regarding hypertension, the patient should adhere to her prescribed antihypertensive medication to manage elevated blood pressure readings and follow up with PCP if persistent elevated BP readings. Patient also has upcoming follow up with [facility] services, Dr. Henriquez on 04/03/25 for chronic bilateral lower extremities venous insufficiency. All questions and concerns have been answered and patient agreed with the treatment plan. Follow up as needed. Patient was informed and verbally consented to the use of an ambient scribe for clinic note documentation during this visit. Coding Level of Care Code Est Pt Level 3 (80567) Complex EM visit Add On G2211 Diagnoses Low back pain M54.50 Lumbar spondylosis M47.816 Sacroiliac joint pain M53.3 Lumbar radiculopathy M54.16
[2025-03-27 10:00] VITALS: BP 180/84; PULSE 78; O2SAT 98; BMI 35.5
--- OUTSIDE RECORDS SUMMARY | 2025-03-27 11:18 | XMS_ITS | Encounter Summary ---
Author Organization [facility] Address [address] [place] [address] Phone Care Team Providers Care Glueline Worker Name Role Phone Danika Arriaga MD Primary Care Provider [phone] Encounter Details Date Type Department Care Team (Late st Contact Info) Description 07/21/2021 Telephone [facility] [address] [place] [address] Gisell Jeknins Social History Tobacco Use Types Packs/Day Years [...] on filedocumented in this encounter Care Teams Glueline Worker Relationship Specialty Start Date End Date Danika Arriaga MD [address] [place], [place] PCP - General Internal Medicine 07/21/21 documented as of this encounter
--- OUTSIDE RECORDS SUMMARY | 2025-03-27 11:18 | XMS_ITS | Clinical Summary ---
Author Organization [facility] Address [address] [place] [address] Phone Care Team Providers Care Rfid Systems Engineer Name Role Phone Danika Arriaga MD Primary [...] age to complete this topic Insurance [facility] MCR ([id number]) DONTAE KIM [id number] [facility] MCR ([id number]) DONTAE KIM [phone] Care Teams Rfid Systems Engineer Relationship Specialty Start Date End Date Danika Arriaga MD [address] [place] [address] PCP - General Internal Medicine 07/21/21
== END 2025-03-27 10:04 | disposition home or self-care (01) ==
LOC: HO.PMC 09:55
PROVIDERS: PCP Internal Medicine; Visit Provider Nurse Practitioner Family
DX: M54.50 Low back pain, unspecified (principal); M47.816 Spondylosis without myelopathy or radiculopathy, lumbar region; M53.3 Sacrococcygeal disorders, not elsewhere classified; M54.16 Radiculopathy, lumbar region
CPT/HCPCS: 99213; G2211

== ENCOUNTER → 2025-03-27 09:54 | Outpatient (BNVA) | payer OTHER, SELFPAY | PROVIDERS: PCP Internal Medicine; Visit Provider Nurse Practitioner Family | DX: M47.816 Spondylosis without myelopathy or radiculopathy, lumbar region (principal); M54.50 Low back pain, unspecified; M53.3 Sacrococcygeal disorders, not elsewhere classified; M54.16 Radiculopathy, lumbar region | CPT/HCPCS: 99212 ==

== ENCOUNTER 2025-04-03 14:45 | Outpatient (AMB) | payer OTHER, SELFPAY ==
--- NOTE | 2025-04-03 14:49 | A.OFFVIS_ITS ---
Intake Visit Reasons: follow up [facility] 02/21/25 Intake Note: Follow up US. Patient states she has pain behind her left knee. Also states her left leg is always swollen. Accompanied by: Self / Same As Patient Allergies No Known Allergies Allergy (Verified 04/03/25 14:52) [facility] follow up [facility] 02/21/25: Details: Very pleasant 70-year-old female presents for routine follow-up regarding venous insufficiency. She continues to have lower extremity swelling and pain left more so than right. She now presents for follow-up with venous insufficiency testing. Of note she has been compliant with compression stockings with minimal relief. [facility] Medical History Morbid obesity with BMI of 40.0-44.9, adult Essential hypertension Osteoarthritis of right knee Class 2 severe obesity with serious comorbidity and body mass index (BMI) of 38.0 to 38.9 in adult Hypothyroid Right foot pain Left shoulder pain Hospital discharge follow-up Right sided sciatica Dyslipidemia Hyperparathyroidism Post-menopausal Screening for breast cancer Right foot pain Right knee pain Vitamin D deficiency Obesity due to excess calories Degenerative arthritis Cough High cholesterol Diabetes [id number] condition Back pain Peripheral vascular disease Hypothyroidism Hypercholesterolemia Hypertension Diabetic peripheral vascular disorder Diabetes Surgical History Tubal ligation status History of esophagogastroduodenoscopy (EGD) (~2013) Hx of colonoscopy History of H/O right knee surgery History of thyroid surgery Family History Father Hypertension Mother No problems noted. Social History Household Members: Spouse Housing: House Are you a primary care transition coordinator to a significant other at home: No Do you presently have visiting nurse or other home services: No Alcohol intake: never Patient Tobacco Use Status: Never used Tobacco e-Cigarette/Vaping Use: Never Used Second Hand Smoke Exposure: No service: No Current occupational status: unemployed Cognitive needs: Yes Hearing needs: No Vision needs: Yes (Glasses) Female Reproductive History Menstrual Age of Menarche: 14 Review of Systems Const Reports as per HPI ENT Reports no additional complaints Card Denies chest pain, Denies chest pain at rest and Denies chest pain with activity Resp Denies chest congestion and Denies cough GI Reports no additional complaints Musc Details: pain over varicosities, aching of lower extremities, swelling, cramping, heaviness and tiredness, itching Denies abnormal gait Skin/Breast Reports pruritus and Denies wounds Neuro Reports no additional complaints and Denies abnormal gait Psych Denies no additional complaints Physical Exam Const General: cooperative, healthy appearing and comfortable Orientation/consciousness: oriented to person, oriented to place and oriented to time Neck Carotids: no bruits Chest Chest palpation & inspection: normal inspection of the chest and normal palpation of entire chest wall Resp Effort & Inspection: normal respiratory effort and able to speak in complete sentences Cardio Rate: regular rate Heart sounds: S1 normal heart sound present and S2 normal heart sound present Peripheral pulses: Peripheral pulses 2+ throughout GI Inspection: Yes normal to inspection Skin Other: +2 edema, spider telangiectasias of left leg CEAP Classification C4 - skin color changes Ep - Etiology Primary As - superficial veins P - reflux General skin exam: dry skin Neuro General: oriented to person, oriented to place and oriented to time Extrem Right lower extremity: full ROM, normal capillary refill and edema Left lower extremity: full ROM, normal capillary refill and edema Psych Mental Status: mental status grossly normal Results Reviewed Results Reviewed: Brief summary of venous insufficiency testing is as follows: right great saphenous vein: Positive right small saphenous vein: negative right accessory vein: none present left great saphenous vein: Positive left small saphenous vein: negative left accessory vein: none present Please note there is no evidence of any venous aneurysms or significant tortuosity Assessment & Plan Assessment & Plan (1) Varicose veins of left lower extremity with inflammation: Code(s): I83.12 - Varicose veins of left lower extremity with inflammation Category: Medical Plan: This patient has varicose veins with inflammation. They continue to be a source of discomfort for the patient. The patient has tried conservative treatment with compression, leg elevation and exercise program for over 3 months time. They have been compliant with all treatment. This has provided minimal relief for the patient. I do not anticipate this course of treatment will alter the underlying etiology. The patient has been scheduled for lower extremity venous treatment inclusive of --- left great saphenous vein Cyanoacralate ablation. Risks, benefits, and complications of this procedure has been discussed in detail with the patient including but not limited to bleeding, infection, and the development of a DVT. The patient has demonstrated a clear understanding and has consented. We will schedule the patient as soon as possible. Thank you for allowing us to participate in this patient's care. If there are any questions or concerns please do not hesitate to contact us. Coding Level of Care Code Est Pt Level 4 (78291) Diagnoses Varicose veins of left lower extremity with inflammation I83.12
== END 2025-04-03 15:28 | disposition home or self-care (01) ==
LOC: HO.HVS 14:46
PROVIDERS: PCP Internal Medicine; Visit Provider Surgery Vascular Surgery
DX: I83.12 Varicose veins of left lower extremity with inflammation (principal)
CPT/HCPCS: 99214

== ENCOUNTER → 2025-04-03 14:45 | Outpatient (BNVA) | payer OTHER, SELFPAY | PROVIDERS: PCP Internal Medicine; Visit Provider Surgery Vascular Surgery | DX: I83.12 Varicose veins of left lower extremity with inflammation (principal) | CPT/HCPCS: 99212 ==

== ENCOUNTER 2025-04-13 09:16 | Outpatient (AMB) | payer OTHER, SELFPAY ==
[2025-04-13 09:22] VITALS: BMI 35.5
--- NOTE | 2025-04-13 09:22 | A.OFFVIS_ITS ---
Vital Signs 04/13/25 09:22 Height 5 ft 6 in Weight 220 lb BMI 35.5 Intake Visit Reasons: L Venaseal Delivery Of Shopping News Required: No Accompanied by: Self / Same As Patient Allergies No Known Allergies Allergy (Verified 04/13/25 09:34) [facility] Medical History Morbid obesity with BMI of 40.0-44.9, adult Essential hypertension Osteoarthritis of right knee Class 2 severe obesity with serious comorbidity and body mass index (BMI) of 38.0 to 38.9 in adult Hypothyroid Right foot pain Left shoulder pain Hospital discharge follow-up Right sided sciatica Dyslipidemia Hyperparathyroidism Post-menopausal Screening for breast cancer Right foot pain Right knee pain Vitamin D deficiency Obesity due to excess calories Degenerative arthritis Cough High cholesterol Diabetes [id number] condition Back pain Peripheral vascular disease Hypothyroidism Hypercholesterolemia Hypertension Diabetic peripheral vascular disorder Diabetes Surgical History Tubal ligation status History of esophagogastroduodenoscopy (EGD) (~2013) Hx of colonoscopy History of H/O right knee surgery History of thyroid surgery Family History Father Hypertension Mother No problems noted. Social History Household Members: Spouse Housing: House Are you a primary complex care nurse to a significant other at home: No Do you presently have visiting nurse or other home services: No Alcohol intake: never Patient Tobacco Use Status: Never used Tobacco e-Cigarette/Vaping Use: Never Used Second Hand Smoke Exposure: No service: No Current occupational status: unemployed Cognitive needs: Yes Hearing needs: No Vision needs: Yes (Glasses) Female Reproductive History Menstrual Age of Menarche: 14 Physical Exam Vital Signs: BMI result Body Mass Index 35.5 Office Procedures Vascular Office Procedure Details Details: Diagnosis: Left Leg varicose veins with inflammation Procedure: Endovenous Ablation of the left Great Saphenous Vein with VenaSeal Closure System Anesthesia: Local infiltration 5 cc, Healthcare Financial Analyst: none Estimated Blood Loss: min Specimen: none Duplex ultrasound was used to map out the insufficient saphenous vein, and access was determined and marked on the overlying skin. The depth and diameter of the vein(s) to be treated was documented. The patient was placed supine on the procedure table and the leg was prepped and draped using sterile technique. Ultasound guidance was again used to localize the access site. 1% lidocaine was injected as a local anesthetic in the subcutaneous tissues at the target location in the GSV in the lower leg. Using ultrasound guidance, access was gained at this location with the 19 gauge thin walled access needle and followed by introduction of a short guidewire, location confirmed with ultrasound. A small, 3 mm incision was made at the access site to allow for introduction and placement of the 7 Fr x7cm introducer/dilator. The dilator and guidewire were removed. The 0.035 guidewire from the VenaSeal kit was then introduced and positioned at the saphenofemoral junction using ultrasound guidance. The 80 cm 7 Fr introducer sheath/dilator was positioned 5cm from the saphenofemoral junction. The guidewire and dilator were removed, and the remaining sheath was flushed with sterile saline, with the syringe remaining in place prior to the next steps. The cyanoacrylate adhesive was precisely primed into the 5 F delivery catheter and this catheter/syringe combination was attached within the dispenser gun. This assembly was introduced through the 7F sheath and positioned 5 cm caudal of the saphenofemoral junction under ultrasound guidance. The steps from the IFU were followed for dispensing amounts, locations and compression times, 2 aliquots proximally with 3 minutes of compression, and 1 aliquot every 3 cm distally with 30 sec of compression along the course of the vessel. Following the last injection and compression sequence, the catheter and introducer sheath were pulled out from the access site. Hemostasis was achieved with manual compression and an adhesive bandage was applied to the incision. Ultrasound confirmed complete coaptation and closure of the treated segments of the GSV, and the absence of any DVT at the saphenofemoral junction. Treatment time was approximately 4 minutes and the vein length treated was 20 cm. The drapes were removed and the patient cleaned and prepared for discharge. Post op ultrasound check is scheduled for 48-72 hours and the patient was given written post-op instructions. 52341 - Endoven Ther Chem Adhes 1st All charges added?: Procedure code (CPT) selection complete Assessment & Plan Assessment & Plan (1) Varicose veins of left lower extremity with inflammation: Comment: 04/13/2025 - left great saphenous vein Cyanoacralate ablation Code(s): I83.12 - Varicose veins of left lower extremity with inflammation Category: Medical Plan: See op note Coding Level of Care Code Procedure Only Diagnoses Varicose veins of left lower extremity with inflammation I83.12 CPT Codes Details - Vascular 3: 68707 - Endoven Ther Chem Adhes 1st ([id number])
--- OUTSIDE RECORDS SUMMARY | 2025-04-13 10:14 | XMS_ITS | Clinical Summary ---
Author Organization [facility] Address [address] [place] [address] Phone Care Team Providers Care Occ Therapist Name Role Phone Danika Arriaga MD Primary Care Provider [phone] Allergies No known active allergies Medications amLODIPine [...] to complete this topic Insurance [facility] MCR ([id number]) DONTAE KIM [id number] [facility] MCR ([id number]) [place]E KIM [id number] Care Teams Occ Therapist Relationship Specialty Start Date End Date Danika Arriaga MD [address] [place] [address] PCP - General Internal Medicine 07/21/21
--- OUTSIDE RECORDS SUMMARY | 2025-04-13 10:14 | XMS_ITS | Encounter Summary ---
Author Organization [facility] Address [address] [place] [address] Phone Care Team Providers Care Furniture Assembler Name Role Phone Danika Arriaga MD Primary Care Provider [phone] Encounter Details Date Type Department Care Team (Late st Contact Info) Description 07/21/2021 Telephone [facility] [address] [place] [address] Gisell Jenkins Social History Tobacco [...] on filedocumented in this encounter Care Teams Furniture Assembler Relationship Specialty Start Date End Date Danika Arriaga MD [address] [place], [place] PCP - General Internal Medicine 07/21/21 documented as of this encounter
== END 2025-04-13 12:01 | disposition home or self-care (01) ==
LOC: HO.HVS 09:17
PROVIDERS: PCP Internal Medicine; Visit Provider Surgery Vascular Surgery
DX: I83.12 Varicose veins of left lower extremity with inflammation (principal)
CPT/HCPCS: 36482

== ENCOUNTER → 2025-04-13 09:16 | Outpatient (BNVA) | payer OTHER, SELFPAY | PROVIDERS: PCP Internal Medicine; Visit Provider Surgery Vascular Surgery | DX: I83.12 Varicose veins of left lower extremity with inflammation (principal) | CPT/HCPCS: 36482; J2003 ==

== ENCOUNTER 2025-04-26 12:44 | Outpatient (AMB) | payer OTHER, SELFPAY ==
--- NOTE | 2025-04-26 13:04 | A.OFFVIS_ITS ---
Intake Visit Reasons: 2 week follow up L leg Venaseal Intake Note: Patient presents for follow up left leg venaseal. No complaints. Accompanied by: Self / Same As Patient Allergies No Known Allergies Allergy (Verified 04/26/25 13:05) HPI HPI 2 week follow up L leg Venaseal: Details: The patient is a 70-year-old female presenting for follow-up after a procedure on the left great saphenous vein venocele. The procedure was performed on April 13, 2025, and the patient reports an improvement in symptoms, specifically noting the absence of previous pain. However, she experiences some discomfort and redness in the area, which is expected to resolve over time. The patient was advised to use Advil or Motrin for pain management and to apply warm compresses to the affected area. Additionally, compression stockings were recommended to be worn during work to aid in recovery. [facility] Medical History Morbid obesity with BMI of 40.0-44.9, adult Essential hypertension Osteoarthritis of right knee Class 2 severe obesity with serious comorbidity and body mass index (BMI) of 38.0 to 38.9 in adult Hypothyroid Right foot pain Left shoulder pain Hospital discharge follow-up Right sided sciatica Dyslipidemia Hyperparathyroidism Post-menopausal Screening for breast cancer Right foot pain Right knee pain Vitamin D deficiency Obesity due to excess calories Degenerative arthritis Cough High cholesterol Diabetes [id number] condition Back pain Peripheral vascular disease Hypothyroidism Hypercholesterolemia Hypertension Diabetic peripheral vascular disorder Diabetes Surgical History Tubal ligation status History of esophagogastroduodenoscopy (EGD) (~2013) Hx of colonoscopy History of H/O right knee surgery History of thyroid surgery Family History Father Hypertension Mother No problems noted. Social History Household Members: Spouse Housing: House Are you a primary healthcare management to a significant other at home: No Do you presently have visiting nurse or other home services: No Alcohol intake: never Patient Tobacco Use Status: Never used Tobacco e-Cigarette/Vaping Use: Never Used Second Hand Smoke Exposure: No service: No Current occupational status: unemployed Cognitive needs: Yes Hearing needs: No Vision needs: Yes (Glasses) Female Reproductive History Menstrual Age of Menarche: 14 Review of Systems Const All systems reviewed & are unremarkable except as noted in HPI and below Reports no additional complaints ENT Reports Normal hearing present Card Denies chest pain, Denies chest pain at rest, Denies chest pain with activity and Denies pedal edema Resp Denies cough GI Denies abdominal pain Musc Denies abnormal gait, Denies muscle cramps and Denies radiating pain into limb Skin/Breast Denies skin ulcer and Denies wounds Neuro Reports Normal hearing present and Denies abnormal gait Psych Reports no additional complaints Physical Exam Const General: cooperative, healthy appearing and comfortable Orientation/consciousness: oriented to person, oriented to place and oriented to time HEENT Head: Yes normal to inspection Neck Neck: Yes normal visual inspection Carotids: no bruits Chest Chest palpation & inspection: normal inspection of the chest Resp Effort & Inspection: normal respiratory effort and able to speak in complete sentences Auscultation: clear to auscultation bilaterally, no crackles, no rales, no rhonchi and no wheezes Cardio Rate: regular rate Rhythm: regular rhythm Heart sounds: S1 normal heart sound present and S2 normal heart sound present Bruits: no carotid bruits Peripheral pulses: Peripheral pulses 2+ throughout GI Inspection: Yes normal to inspection Skin Wounds: no wounds Hair: normal Neuro General: oriented to person, oriented to place and oriented to time Cranial nerves: Yes CN's II-XII intact bilaterally and Yes Normal hearing present Cognition (Neuro): normal cognition Motor exam (neuro): 5/5 motor strength present throughout Extrem Other: venous exam: No significant superficial varicosities or spider telangiectasias, minimal edema General: No clubbing, No cyanosis and No edema Psych Appearance: grossly normal Mental Status: mental status grossly normal Speech and movement: Normal speech and movement present Assessment & Plan Assessment & Plan (1) Varicose veins of left lower extremity with inflammation: Comment: 04/13/2025 - left great saphenous vein Cyanoacralate ablation Code(s): I83.12 - Varicose veins of left lower extremity with inflammation Category: Medical Plan: The patient has done extremely well with all venous treatments. Patient's may often experience postprocedure phlebitic episodes and I have discussed with the patient use of warm compresses and NSAIDS if tolerated for pain discomfort. In addition, I have discussed continued conservative measures including use of compression, leg elevation, and exercise. The patient was also given an information sheet regarding appropriate use of compression stockings and future purchases. Thank you for allowing us to care for your patient with venous disease. Coding Level of Care Code Est Pt Level 4 (85651) Diagnoses Varicose veins of left lower extremity with inflammation I83.12
--- OUTSIDE RECORDS SUMMARY | 2025-04-26 15:52 | XMS_ITS | Encounter Summary ---
Author Organization [facility] Address [address] [place] [address] Phone Care Team Providers Care Painter Spring Name Role Phone Danika Arriaga MD Primary Care Provider [phone] Encounter Details Date Type Department Care Team (Late st Contact Info) Description 07/21/2021 Telephone [facility] [address] [place] [address] Gisell Jenkins Social History Tobacco [...] on filedocumented in this encounter Care Teams Painter Spring Relationship Specialty Start Date End Date Danika Arriaga MD [address] [place], [place] PCP - General Internal Medicine 07/21/21 documented as of this encounter
--- OUTSIDE RECORDS SUMMARY | 2025-04-26 15:52 | XMS_ITS | Clinical Summary ---
Author Organization [facility] Address [address] [facility] [address] [place] [address] Phone Care Team Providers Care Warp Trucker Name Role Phone Danika Arriaga MD Primary Care Provider [phone] Allergies No known active allergies Medications amLODIPine [...] patient's age to complete this topic Insurance [facility] MCR ([id number]) [place] K[place] [id number] [facility] MCR ([id number]) [place]E KIM [id number] Care Teams Warp Trucker Relationship Specialty Start Date End Date Danika Arriaga MD [address] [place] [address] PCP - General Internal Medicine 07/21/21
== END 2025-04-26 13:21 | disposition home or self-care (01) ==
LOC: HO.HVS 12:45
PROVIDERS: PCP Internal Medicine; Visit Provider Surgery Vascular Surgery
DX: I83.12 Varicose veins of left lower extremity with inflammation (principal)
CPT/HCPCS: 99214

== ENCOUNTER → 2025-04-26 12:44 | Outpatient (BNVA) | payer OTHER, SELFPAY | PROVIDERS: PCP Internal Medicine; Visit Provider Surgery Vascular Surgery | DX: I83.12 Varicose veins of left lower extremity with inflammation (principal) | CPT/HCPCS: 99212 ==